=== PATIENT | female | born 1990 | race Hispanic/Latino ===

== ENCOUNTER 2018-12-13 08:21 | Emergency (ER) | payer SELFPAY ==
--- OUTSIDE RECORDS SUMMARY | 2018-12-13 08:26 | XMS REPORT | Clinical Summary ---
:1990 Author Organization [facility] Address [address] [place] [id number] Care Team Providers Name Role Phone Unavailable Primary Care Provider Unavailable Allergies No Known Allergies Medications Medication Sig Dispensed Refills Start Date End Date Status acetaminophen (TYLENOL) Take 2 tablets by 30 tablet 0 03/03/2016 Active 325 mg mouth every 6 tabletIndications: hours as needed Acute cholecystitis for Pain. famotidine (PEPCID) 20 Take 1 tablet by 60 tablet 0 03/03/2016 Active mg tabletIndications: mouth 2 times Acute cholecystitis daily. traMADol (ULTRAM) 50 mg Take 1 tablet by 30 tablet 0 03/03/2016 Active tabletIndications: mouth every 6 Acute cholecystitis hours as needed for Pain. naproxen (NAPROSYN) 375 Take 1 tablet by 30 tablet 0 06/14/2018 Active mg tabletIndications: mouth 2 times Intractable episodic daily as needed headache, unspecified for Other headache type (headache). Active Problems Problem Noted Date Headache 05/31/2017 Acute cholecystitis s/p lap shashi 03/0202/29/2016 Calculus of gallbladder without cholecystitis without obstruction Constipation Intractable episodic headache Encounters Date Type Specialty Care Team Description 06/14/2018 Emergency Emergency Medicine Junior Cooper MD Intractable episodic headache, unspecified headache type (Primary Dx); Rib pain after 12/12/2017 Family History Medical History Relation Name Comments Diabetes Maternal Grandmother Hypertension Mother Lipids Mother Hypertension Sister Relation Name Status Comments Maternal Grandmother Mother Sister Social History Tobacco Use Types Packs/Day Years Used Date Never Smoker Smokeless Tobacco: Never Used Alcohol Use Drinks/Week oz/Week Comments Yes socially Sex Assigned at Date Recorded Not on file Job Start Date Occupation Industry Not on file Not on file Not on file Travel History Travel Start Travel End No recent travel history available. Last Filed Vital Signs Vital Sign Reading Time Taken Blood Pressure 113/72 06/14/2018 4:17 PM CDT Pulse 76 06/14/2018 4:17 PM CDT Temperature 36.9 C (98.4 F) 06/14/2018 4:17 PM CDT Respiratory Rate 14 06/14/2018 4:17 PM CDT Oxygen Saturation 98% 06/14/2018 4:17 PM CDT Inhaled Oxygen Concentration - - Weight - - Height - - Body Mass Index - - Plan of Treatment Health Maintenance Due Date Last Done Comments Cervical Cancer Scrn (3 Yrs) 2011 IMM Influenza Seasonal Jul to December (>/=19 yrs) 07/19/2018 Procedures Procedure Name Priority Date/Time Associated Diagnosis Comments CT HEAD W/O STAT 06/14/2018 3:02 PM Intractable episodic Results for this CONTRAST CDT headache, procedure are in unspecified headache the results type section. BMP POC Routine 06/14/2018 2:49 PM Results for this CDT procedure are in the results section. POCT URINE DIPSTICK STAT 06/14/2018 1:44 PM Results for this - CDT procedure are in the results section. CBC/DIFF STAT 06/14/2018 1:37 PM Results for this CDT procedure are in the results section. after 12/12/[address] HEAD W/O CONTRAST (06/14/2018 3:02 PM CDT) Impressions Performed At IMPRESSION: SMS 1.No abnormalities 2.No changes when compared to the head CT on 05/31/2017. A "PRELIMINARY" report was made available via [employer] at the time of dictation by the resident indicated below. If the report is described as "FINALIZED" it indicates the attending/staff radiologist below has reviewed the images and agrees with the resident's interpretation. Dictated By: Fabian Dean MD, 06/14/2018 3:57 PM I have reviewed the study and agree with the findings in this report. Signed By: Kristian Callahan MD, 06/14/2018 3:59 PM Narrative Performed At Exam: Head CT WITHOUT contrast SMS History: headache Comparison studies: Head CT 05/31/2017 Technique: Axial scans were obtained from skull base to the vertex . Coronal and sagittal reconstructions obtained from the axial data. IV Contrast: None Complications: None Radiation Dose: Total DLP: 832 mGy*cm Estimated Effective Dose: DLP x 0.0021 mSv FINDINGS: Scalp/Skull: No abnormalities. Brain sulci: Appropriate for patient's age. Ventricles: Normal in size and configuration.. No hydrocephalus. Extra-axial: No masses or fluid collections. Parenchyma: No abnormal densities. No masses, hemorrhage, acute or chronic cortical vascular insults . Dural sinuses:No abnormal densities. Sellar/Suprasellar region: Intact. Skull base and Craniocervical junction: Intact.. Incidental findings: None. Procedure Note Interface, Rad/Mammog In - 06/14/2018 4:04 PM CDT Exam: Head CT WITHOUT contrast History: headache Comparison studies: Head CT 05/31/2017 Technique: Axial scans were obtained from skull base to the vertex . Coronal and sagittal reconstructions obtained from the axial data. IV Contrast: None Complications: None Radiation Dose: Total DLP: 832 mGy*cm Estimated Effective Dose: DLP x 0.0021 mSv FINDINGS: Scalp/Skull: No abnormalities. Brain sulci: Appropriate for patient's age. Ventricles: Normal in size and configuration.. No hydrocephalus. Extra-axial: No masses or fluid collections. Parenchyma: No abnormal densities. No masses, hemorrhage, acute or chronic cortical vascular insults . Dural sinuses: No abnormal densities. Sellar/Suprasellar region: Intact. Skull base and Craniocervical junction: Intact.. Incidental findings: None. IMPRESSION IMPRESSION: 1. No abnormalities 2. No changes when compared to the head CT on 05/31/2017. A "PRELIMINARY" report was made available via [employer] at the time of dictation by the resident indicated below. If the report is described as "FINALIZED" it indicates the attending/staff radiologist below has reviewed the images and agrees with the resident's interpretation. Dictated By: Fabian Dean MD, 06/14/2018 3:57 PM I have reviewed the study and agree with the findings in this report. Signed By: Kristian Callahan MD, 06/14/2018 3:59 PM Performing Organization Address City/State/Zipcode Phone Number SMS BMP POC (06/14/2018 2:49 PM CDT) CO2 POC 24 21 - 32 mmol/L [facility] Chloride POC 106 98 - 107 mmol/L [facility] Potassium POC 3.7 3.50 - 5.10 mmol/L [facility] Sodium POC 141 136 - 145 mmol/L [facility] Glucose POC 93 74 - 106 mg/dL [facility] Urea Nitrogen POC 9 7 - 18 mg/dL [facility] Creatinine POC 0.6 0.6 - 1.3 mg/dL [facility] Calcium Ionized POC 1.19 1.15 - 1.29 mmol/L [facility] Hemoglobin POC 12.6 12.0 - 16.0 g/dL [facility] Hematocrit POC 37.0 37.0 - 47.0 % [facility] GFR, Estimated >60 mL/min/1.73 m2 [facility] GFR, Estim, Afr-Am >60 mL/min/1.73 m2 [facility] 1 Performing Organization Address City/State/Zipcode Phone Number [facility] POCT URINE DIPSTICK - (06/14/2018 1:44 PM CDT) Pathologist [facility] Control PRESENT NEGATIVE CBC/DIFF (06/14/2018 1:37 PM CDT) Pathologist [facility] WBC 6.0 4.5 - 11.0 K/uL [facility] 2 RBC 4.26 4.20 - 5.40 M/uL [facility] Hemoglobin 12.2 12.0 - 16.0 g/dL [facility] Hematocrit 37.2 37.0 - 47.0 % [facility] 2 MCV 87 82 - 92 fL [facility] 2 MCH 28.6 27.0 - 32.0 pg [facility] MCHC 32.8 32.0 - 36.0 g/dL [facility] RDW 47.8 (H) 36.4 - 46.3 fL [facility] Platelet 270 150 - 400 K/uL [facility] 2 Mean Platelet Volume 11.1 9.4 - 12.4 fL [facility] Percent NRBC 0.0 [facility] Absolute NRBC 0.00 [facility] Neutrophil 66.2 34.0 - 70.0 % [facility] Lymphocyte 24.7 20.0 - 50.0 % [facility] Monocyte 5.8 5.0 - 12.0 % [facility] Eosinophil 2.5 0.7 - 5.0 % [facility] Basophil 0.5 0.1 - 1.2 % [facility] Pct Immat Gran 0.3 0.0 - 0.5 [facility] Neutrophil, Abs 3.97 1.56 - 6.13 K/uL [facility] Lymphocyte, Abs 1.48 1.18 - 3.74 K/uL [facility] Monocyte, Abs 0.35 0.24 - 0.36 K/uL [facility] Eosinophil, Abs 0.15 0.04 - 0.36 K/uL [facility] 2 Basophil, Abs 0.03 0.01 - 0.08 K/uL [facility] 2 Absol Immat Gran 0.02 0.00 - 0.03 K/uL [facility] Specimen Blood Performing Organization Address City/State[facility] Phone Number [facility] after 12/12/2017 Insurance Payer Benefit Plan / Subscriber ID Effective Dates Phone Address Type Group [employer]D H[employer]D UNSCREENED xxxxxxxxx 2017-Prese [phone] [id number] [place] [address] Advance Directives For more information, please contact:[address] [address] Code Status Date Activated Date Inactivated Comments Full Code 02/28/2016 10:30 PM 03/03/2016 7:15 PM
--- OUTSIDE RECORDS SUMMARY | 2018-12-13 08:27 | XMS REPORT | Clinical Summary ---
:1990 Author Organization [facility] Address [address] [place] [address] Care Team Providers Name Role Phone Asked, No Pcp Primary Care Provider Unavailable Allergies No Known Allergies Medications Medication Sig Dispensed Refills Start Date End Date Status topiramate (TOPAMAX) Take 1 tablet 60 tablet 0 11/21/2018 12/21/2018 Active 25 MG tablet (25 mg total) by mouth 2 (two) times a day for 30 days. atorvastatin (LIPITOR) Take 1 tablet 30 tablet 0 11/21/2018 12/21/2018 Active 40 MG tablet (40 mg total) by mouth nightly for 30 days. polyvinyl alcohol Administer 1 15 mL 0 11/21/2018 12/21/2018 Active (LIQUIFILM TEARS) 1.4 drop to both % ophthalmic solution eyes as needed for dry eyes for up to 30 days. aspirin 81 mg chewable Chew 1 tablet 30 tablet 0 11/22/2018 12/22/2018 Active tablet (81 mg total) daily for 30 days. B complex-vitamin Take 1 tablet by 30 tablet 0 11/22/2018 12/22/2018 Active C-folic acid (FOLBEE mouth daily for PLUS 5 MG) 5 mg tablet 30 days. per tablet thiamine mononitrate, Take 0.5 tablets 30 tablet 0 11/22/2018 12/22/2018 Active vit B1, (B-1) 100 mg (50 mg total) by tablet mouth daily for 30 days. cyclobenzaprine Take 1 tablet 30 tablet 0 12/04/2018 12/14/2018 Active (FLEXERIL) 10 mg (10 mg total) by tablet mouth 3 (three) times a day as needed for muscle spasms for up to 10 days. valACYclovir (VALTREX) Take 1 tablet 8 tablet 0 11/21/2018 11/25/2018 500 MG tablet (500 mg total) by mouth 2 (two) times a day for 4 days. predniSONE (DELTASONE) Take 2 tablets 6 tablet 0 11/22/2018 11/25/2018 20 mg tablet (40 mg total) by mouth daily for 3 days. acetaminophen-codeine Take 1 tablet by 10 tablet 0 11/21/2018 11/26/2018 (TYLENOL WITH CODEINE mouth every 6 #3) 300-30 mg per (six) hours as tablet needed for moderate pain for up to 5 days. keTOROlac (TORadol) 10 Take 1 tablet 20 tablet 0 12/04/2018 12/09/2018 mg tablet (10 mg total) by mouth every 6 (six) hours as needed for moderate pain for up to 5 days. Active Problems Problem Noted Date Acute nonintractable headache 11/18/2018 Encounters Date Type Specialty Care Team Description 12/11/2018 Emergency Emergency Erum Oneil Rapid palpitations Medicine MD Christian (Primary Dx) 12/04/2018 Emergency Emergency Kia Tena-Juan J Tension headache (Primary Dx); Medicine MD Nino Pleuritic chest pain 11/18/2018 - [facility] General Internal Rufino Tao Acute nonintractable headache, unspecified headache type (Primary Dx); 11/21/2018 Encounter Medicine Travis Younger, Torticollis, acute; Blurred vision, right eye Alberta Madison MD after 12/12/2017 Social History Tobacco Use Types Packs/Day Years Used Date Light Tobacco Smoker Cigarettes Smokeless Tobacco: Never Used Alcohol Use Drinks/Week oz/Week Comments Yes once a week Sex Assigned at Date Recorded Not on file Job Start Date Occupation Industry Not on file Not on file Not on file Travel History Travel Start Travel End No recent travel history available. Last Filed Vital Signs Vital Sign Reading Time Taken Blood Pressure 124/79 12/11/2018 4:58 PM [facility] Pulse 72 12/11/2018 4:58 PM [facility] Temperature 36.8 C (98.2 F) 12/11/2018 2:51 PM [facility] Respiratory Rate 18 12/11/2018 4:58 PM [facility] Oxygen Saturation 96% 12/11/2018 4:58 PM [facility] Inhaled Oxygen Concentration - - Weight - - Height 162.6 cm (5' 4") 12/11/2018 3:01 PM [facility] Body Mass Index - - Plan of Treatment Health Maintenance Due Date Last Done Comments CERVICAL CANCER SCREENING 2011 INFLUENZA VACCINE 05/19/2018 Procedures Procedure Name Priority Date/Time Associated Comments Diagnosis XR CHEST 2 VW STAT 12/11/2018 5:29 Results for this PM [facility] procedure are in the results section. HCG QUALITATIVE, URINE Routine 12/11/2018 3:59 Results for this SCREEN PM [facility] procedure are in the results section. URINE DRUGS OF ABUSE STAT 12/11/2018 3:59 Results for this SCREEN PM [facility] procedure are in the results section. ESTIMATED GFR STAT 12/11/2018 3:52 Results for this PM [facility] procedure are in the results section. THYROID STIMULATING STAT 12/11/2018 3:52 Results for this HORMONE PM [facility] procedure are in the results section. B NATRIURETIC PEPTIDE STAT 12/11/2018 3:52 Results for this PM [facility] procedure are in the results section. LIPASE LEVEL STAT 12/11/2018 3:52 Results for this PM [facility] procedure are in the results section. TROPONIN STAT 12/11/2018 3:52 Results for this PM [facility] procedure are in the results section. COMPREHENSIVE METABOLIC STAT 12/11/2018 3:52 Results for this PANEL PM [facility] procedure are in the results section. PARTIAL THROMBOPLASTIN STAT 12/11/2018 3:52 Results for this TIME (PTT) PM [facility] procedure are in the results section. PROTHROMBIN TIME WITH STAT 12/11/2018 3:52 Results for this INR PM [facility] procedure are in the results section. HC COMPLETE BLD COUNT STAT 12/11/2018 3:52 Results for this W/AUTO DIFF PM [facility] procedure are in the results section. ECG ED PRELIMINARY Routine 12/11/2018 3:34 Results for this INTERPRETATION PM [facility] procedure are in the results section. ECG 12-LEAD STAT 12/11/2018 3:04 Results for this PM [facility] procedure are in the results section. CT ANGIOGRAM PE CHEST STAT 12/04/2018 5:10 Results for this PM [facility] procedure are in the results section. HCG QUALITATIVE, URINE Routine 12/04/2018 4:15 Results for this SCREEN PM [facility] procedure are in the results section. RESPIRATORY PATHOGEN Routine 12/04/2018 4:15 Results for this PANEL PM [facility] procedure are in the results section. INFLUENZA ANTIGEN TEST, Routine 12/04/2018 4:15 Results for this REFLEX NEGATIVE TO RPP PM [facility] procedure are in the results section. ESTIMATED GFR STAT 12/04/2018 3:30 Results for this PM [facility] procedure are in the results section. INFECTIOUS STAT 12/04/2018 3:30 Results for this MONONUCLEOSIS SCREEN PM [facility] procedure are in the results section. COMPREHENSIVE METABOLIC STAT 12/04/2018 3:30 Results for this PANEL PM [facility] procedure are in the results section. HC COMPLETE BLD COUNT STAT 12/04/2018 3:30 Results for this W/AUTO DIFF PM [facility] procedure are in the results section. POC , URINE STAT 12/04/2018 4:[address] [facility] [address] LUMBAR SPINE WO Routine 11/21/2018 9:36 Results for this CONTRAST AM [facility] procedure are in the results section. B. BURGDORFERI ABS Routine 11/21/2018 7:47 Results for this TOTAL, SERUM AM [facility] procedure are in the results section. ANGIOTENSIN CONVERTING Routine 11/21/2018 7:47 Results for this ENZYME AM [facility] procedure are in the results section. ESTIMATED GFR Routine 11/21/2018 3:58 Results for this AM [facility] procedure are in the results section. LIPID PANEL Routine 11/21/2018 3:58 Results for this AM [facility] procedure are in the results section. BASIC METABOLIC PANEL Routine 11/21/2018 3:58 Results for this AM [facility] procedure are in the results section. HC COMPLETE BLD COUNT Routine 11/21/2018 3:58 Results for this W/AUTO DIFF AM [facility] procedure are in the results section. MRI BRAIN W WO CONTRAST Routine 11/20/2018 11:39 Results for this PM [facility] procedure are in the results section. MRI CERVICAL SPINE W WO Routine 11/20/2018 11:18 Results for this CONTRAST PM [facility] procedure are in the results section. CT SOFT TISSUE NECK WO Routine 11/20/2018 11:04 Results for this CONTRAST AM [facility] procedure are in the results section. ESTIMATED GFR Routine 11/20/2018 2:13 Results for this AM [facility] procedure are in the results section. LIPID PANEL Routine 11/20/2018 2:13 Results for this AM [facility] procedure are in the results section. BASIC METABOLIC PANEL Routine 11/20/2018 2:13 Results for this AM [facility] procedure are in the results section. HC COMPLETE BLD COUNT Routine 11/20/2018 2:13 Results for this W/AUTO DIFF AM [facility] procedure are in the results section. SYPHILIS TREPONEMAL IGG Routine 11/19/2018 8:26 Results for this PM [facility] procedure are in the results section. RAPID HIV 1 & 2 Routine 11/19/2018 8:26 Results for this PM [facility] procedure are in the results section. C-REACTIVE PROTEIN Routine 11/19/2018 8:26 Results for this PM [facility] procedure are in the results section. SEDIMENTATION RATE Routine 11/19/2018 8:26 Results for this PM [facility] procedure are in the results section. CT HEAD WO CONTRAST STAT 11/19/2018 4:40 Results for this PM [facility] procedure are in the results section. URINE DRUGS OF ABUSE Routine 11/19/2018 3:47 Results for this SCREEN PM [facility] procedure are in the results section. IR LUMBAR PUNCTURE Routine 11/19/2018 1:24 Results for this PM [facility] procedure are in the results section. OLIGOCLONAL BANDING, Routine 11/19/2018 1:15 Results for this CSF PM [facility] procedure are in the results section. IGG SYNTHESIS RATE Routine 11/19/2018 1:15 Results for this STUDY PM [facility] procedure are in the results section. VDRL, CSF SCREEN Routine 11/19/2018 1:15 Results for this PM [facility] procedure are in the results section. GLUCOSE LEVEL, CSF Routine 11/19/2018 1:15 Results for this PM [facility] procedure are in the results section. CSF CELL COUNT WITH Routine 11/19/2018 1:15 Results for this DIFFERENTIAL PM [facility] procedure are in the results section. GRAM STAIN Routine 11/19/2018 1:15 Results for this PM [facility] procedure are in the results section. CRYPTOCOCCAL ANTIGEN Routine 11/19/2018 1:15 Results for this SCREEN PM [facility] procedure are in the results section. CSF CULTURE Routine 11/19/2018 1:15 Results for this PM [facility] procedure are in the results section. MRI BRAIN VENOGRAM Routine 11/19/2018 11:54 Results for this AM [facility] procedure are in the results section. XR CERVICAL SPINE 2 OR Routine 11/19/2018 11:17 Results for this 3 VW AM [facility] procedure are in the results section. XR LUMBAR SPINE 2 OR 3 Routine 11/19/2018 11:16 Results for this VW AM [facility] procedure are in the results section. HEMOGLOBIN A1C Routine 11/19/2018 9:11 Results for this AM [facility] procedure are in the results section. LIPID PANEL Routine 11/19/2018 9:11 Results for this AM [facility] procedure are in the results section. THYROID STIMULATING Routine 11/19/2018 9:11 Results for this HORMONE AM [facility] procedure are in the results section. VITAMIN B12 LEVEL Routine 11/19/2018 9:11 Results for this AM [facility] procedure are in the results section. CT ANGIOGRAM HEAD W WO Routine 11/19/2018 8:47 Results for this CONTRAST AM [facility] procedure are in the results section. CT ANGIOGRAM NECK W WO Routine 11/19/2018 8:46 Results for this CONTRAST AM [facility] procedure are in the results section. MRI BRAIN WO CONTRAST Routine 11/19/2018 8:24 Results for this AM [facility] procedure are in the results section. CT HEAD WO CONTRAST STAT 11/18/2018 6:55 Results for this PM [facility] procedure are in the results section. ESTIMATED GFR STAT 11/18/2018 6:20 Results for this PM [facility] procedure are in the results section. HCG QUALITATIVE, URINE STAT 11/18/2018 6:20 Results for this SCREEN PM [facility] procedure are in the results section. URINALYSIS SCREEN AND STAT 11/18/2018 6:20 Results for this MICROSCOPY, WITH REFLEX PM [facility] procedure are in TO CULTURE the results section. COMPREHENSIVE METABOLIC STAT 11/18/2018 6:20 Results for this PANEL PM [facility] procedure are in the results section. HC COMPLETE BLD COUNT STAT 11/18/2018 6:20 Results for this W/AUTO DIFF PM [facility] procedure are in the results section. URINE CULTURE STAT 11/18/2018 6:20 Results for this PM [facility] procedure are in the results section. after 12/12/2017 Results XR Chest 2 Vw (12/11/2018 5:29 PM [facility]) Narrative Performed At EXAMINATION:XR CHEST 2 VW [facility] CLINICAL HISTORY:chest paintachycardia COMPARISON:None. IMPRESSION: Lungs are clear Heart is nonenlarged Bony structures are within normal limits [facility]-[id number] Procedure Note Interface, Radiology Results Incoming - 12/11/2018 5:33 PM [facility] EXAMINATION: XR CHEST 2 VW CLINICAL HISTORY: chest pain tachycardia COMPARISON: None. IMPRESSION: Lungs are clear Heart is nonenlarged Bony structures are within normal limits [facility]-[id number] Performing Organization Address City/State/Zipcode Phone Number [facility] [address] [place] [address] hCG qualitative, urine screen (12/11/2018 3:59 PM [facility])Only the most recent of3 resultswithin the time period is included. hCG qualitative, urine NegativeComment: NATALIA JUDAISM SUGAR Sensitivity of HCG test: [facility] mIU/ml Specimen Urine Performing Organization Address City/[facility]/Zipcode Phone Number [facility] [address] [place] [address] Urine drugs of abuse screen (12/11/2018 3:59 PM [facility])Only the most recent of2 resultswithin the time period is included. Amphetamine screen, urine Negative [facility] Barbiturate screen, urine Negative [facility] Benzodiazepine screen, Negative [facility] urine [facility] Cannabinoid screen, urine Negative [facility] Cocaine screen, urine Negative [facility] Methadone metabolite Negative [facility] (ED[facility]), urine [facility] Opiates screen, urine Negative [facility] Phencyclidine screen, urine Negative [facility] Tricyclic screen, urine Negative [facility] Comment: [facility] Drug screen minimum concentration of detectability Wvygunnavbvs0704 ng/mL Barbiturates 200 ng/mL Uehejbebaexxeej073 ng/mL Rqhubig075 ng/mL Cayyfbsja828 ng/mL Prybuup377 ng/mL Phencyclidine 25 ng/mL Hqsgpinunchh49 ng/mL Htwnjqqakr3653 ng/mL Results are from screening tests and should only be used for medical evaluation. Drug testing for legal purposes requires definitive (or confirmatory) testing methods, which are available upon request. Contact the laboratory if definitive testing is required. Specimen Urine Performing Organization Address City/[facility]/Zipcode Phone Number [facility] [address] [place] [address] AND [facility] [id number] [place] [address] Estimated GFR (12/11/2018 3:52 PM [facility])Only the most recent of5 resultswithin the time period is included. Estimated GFR >=90 mL/min/1.73 m2 [facility] Comment: [facility] CatergoryUnitsInterpretation G1 >=90 Normal or high G2 60-89Mildly decreased [id number] to moderately decreased V4c62-56Qharcosvek to severely decreased G4 15-29Severely decreased G5 <15Kidney failure The eGFR was calculated using the Chronic Kidney Disease Epidemiology Collaboration (CKD-EPI) equation. Interpretation is based on recommendations of the National Kidney Foundation-Kidney Disease Outcomes Quality Initiative (NKF-KDOQI) published in 2014. Specimen Plasma specimen Performing Organization Address [facility]/[place] Phone Number [facility] [address] [place] [address] [place] [address] HOSPITAL Troponin (12/11/2018 3:52 PM [facility]) Troponin <0.30 0.00 - 0.30 ng/mL [facility] Comment: HOSPITAL 0.11 - 1.49 ng/mlMay indicate increased risk of acute coronary syndrome. >=1.5 ng/mlConsistent with acute myocardial infarction. The diagnostic value of a single normal or non-diagnostic result is questionable.Serial samples at 2-6 hour intervals are required to rule out acute myocardial injury. Specimen Plasma specimen Performing Organization Address [facility] Phone Number [facility] [address] [place] [address] Partial thromboplastin time, activated (12/11/2018 3:52 PM [facility]) PTT 30.2 23.0 - 36.0 sec [facility] Comment: [facility] PTT therapeutic range for unfractionated heparin is 61.0-112.0 seconds which corresponds to Anti-Xa 0.3-0.7 U/ml. Specimen Blood Performing Organization Address [facility] Phone Number [facility] [address] [place] [address] [place] [address] HOSPITAL Prothrombin time with INR (12/11/2018 3:52 PM [facility]) Prothrombin time 13.1 11.5 - 14.5 sec [facility] INR 1.0 [facility] Comment: [facility] The International Normalized Ratio (INR) is a therapeutic monitoring tool for patients who are stable on oral anticoagulant therapy. An INR of 2.0-3.0 is suggested for deep vein thrombosis/pulmonary embolism. Specimen Blood Performing Organization Address [facility]/State/Zipcode Phone Number [facility] [address] [place] [address] AND [facility] [phone] [place] [address] CBC with platelet and differential (12/11/2018 3:52 PM [facility])Only the most recent of5 resultswithin the time period is included. WBC 5.3 4.5 - 11.0 k/uL [facility] RBC 4.35 4.20 - 5.50 m/uL [facility] HGB 13.1 12.0 - 16.0 g/dL [facility] HCT 39.5 37.0 - 47.0 % [facility] MCV 90.8 82.0 - 100.0 fL [facility] MCH 30.1 27.0 - 34.0 pg [facility] MCHC 33.2 31.0 - 37.0 g/dL [facility] RDW - SD 45.1 37.0 - 55.0 fL [facility] MPV 10.9 6.9 - 11.0 fL [facility] Platelet count 277 150 - 400 K/uL [facility] Nucleated RBC 0.00 /100 WBC [facility] Neutrophils 61.8 39.0 - 69.0 % [facility] Lymphocytes 31.7 25.0 - 45.0 % [facility] Monocytes 5.3 0.0 - 10.0 % [facility] Eosinophils 1.0 0.0 - 5.0 % [facility] Basophils 0.2 0.0 - 1.0 % [facility] Immature granulocytes 0.0 0.0 - 1.0 % [facility] Specimen Blood Performing Organization Address City/State/Zipcode Phone Number [facility] [address] [place] [address] AND [facility] [phone] [place] [address] Thyroid stimulating hormone (12/11/2018 3:52 PM [facility])Only the most recent of2 resultswithin the time period is included. TSH 3.71 0.27 - 4.20 uIU/mL [facility] Specimen Blood Performing Organization Address City/[facility]/Zipcode Phone Number [facility] [address] [place] [address] B natriuretic peptide (12/11/2018 3:52 PM [facility]) BNP 3 0 - 100 pg/mL [facility] Specimen Blood Performing Organization Address City/[facility]/[place] Phone Number [facility] [address] [place] [address] Lipase level (12/11/2018 3:52 PM [facility]) Lipase 33 13 - 60 U/L [facility] Specimen Plasma specimen Performing Organization Address [facility]/[place] Phone Number [facility] [address] [place] [address] Comprehensive metabolic panel (12/11/2018 3:52 PM [facility])Only the most recent of3 resultswithin the time period is included. Sodium 140 135 - 148 mEq/L [facility] Potassium 3.8 3.5 - 5.0 mEq/L [facility] Chloride 107 98 - 112 mEq/L [facility] CO2 22 (L) 24 - 31 mEq/L [facility] Anion gap 11@ANIO 7 - 15 mEq/L [facility] BUN 7 6 - 20 mg/dL [facility] Creatinine 0.63 0.50 - 0.90 mg/dL [facility] Glucose 99 65 - 99 mg/dL [facility] Calcium 9.3 8.3 - 10.2 mg/dL [facility] Protein 7.6 6.3 - 8.3 g/dL [facility] Albumin 4.6 3.5 - 5.0 g/dL [facility] A/G ratio 1.5 0.7 - 3.8 [facility] Alkaline phosphatase 68 35 - 104 U/L [facility] AST 25 10 - 35 U/L [facility] ALT 44 5 - 50 U/L [facility] Total bilirubin 0.3 0.2 - 1.2 mg/dL [facility] Specimen Plasma specimen Performing Organization Address City/State/Zipcode Phone Number [facility] [address] [place] [address] AND GENOMIC MEDICINE [facility] [address] ECG ED Preliminary Interpretation - Not an Order (12/11/2018 3:34 PM [facility]) Narrative Performed At Erum Oneil MD 12/11/20187:30 PM ECG ED Preliminary Interpretation - Not an Order Performed by: Jose Hernandez NP Authorized by: Erum Oneil MD ECG reviewed by ED Physician in the absence of a planning analyst: yes Interpretation: Interpretation: abnormal Rate: ECG rate:94 ECG rate assessment: normal Rhythm: Rhythm: sinus rhythm Ectopy: Ectopy: none QRS: QRS axis:Normal QRS intervals:Normal ST segments: ST segments:Non-specific T waves: T waves: non-specific ECG 12 lead (12/11/2018 3:04 PM [facility]) Ventricular rate 94 [facility] Atrial rate 94 [facility] VA interval 138 [facility] QRSD interval 84 [facility] QT interval 334 [facility] QTC interval 417 [facility] P axis 1 32 [facility] QRS axis 1 48 [facility] T wave axis 1 [facility] EKG impression Normal sinus rhythm-Possible Inferior infarct (cited on or before 23-JUL-2016)-Possible Anterior infarct (cited on or before 23-JUL-2016)- Abnormal ECG-In automated comparison with ECG of 23-JUL-2016 08: [facility] MUSE 13,-No significant change was found- Narrative Performed At Performing Organization Address City/State/Zipcode Phone Number [facility] M[facility] [address] [place] [address] CT Angiogram Pe Chest (12/04/2018 5:10 PM [facility]) Narrative Performed At EXAMINATION: [facility] CT ANGIOGRAM PE CHEST CLINICAL HISTORY:28 years Female pain TECHNIQUE:CT angiographic images of the chest were obtained during intravenous administration of iodinated contrast. Computerized reformatted images and 3-D MIP images were also obtained and archived (CT pulmonary embolus protocol). CT imaging was performed with iterative reconstruction techniques and/or automated exposure control to reduce radiation dose. COMPARISON: None. FINDINGS: CHEST: Pulmonary arteries: No evidence of acute pulmonary embolism. Lungs and airways: No acute airspace disease or suspicious pulmonary nodules. Pleura: No pleural effusion or pneumothorax. Mediastinum and lymph nodes: No lymphadenopathy. Cardiovascular: The heart is slightly enlarged. No pericardial effusion. The thoracic aorta is normal in caliber. No dissection. Upper abdomen: Status post cholecystectomy. Bones: No suspicious osseous lesions. Other: None. IMPRESSION: 1.No CT evidence of acute pulmonary thromboembolic disease. 2.No acute abnormality of the chest. [facility]-[id number] Procedure Note Interface, Radiology Results Incoming - 12/04/2018 5:18 PM [facility] EXAMINATION: CT ANGIOGRAM PE CHEST CLINICAL HISTORY:28 years Female pain TECHNIQUE: CT angiographic images of the chest were obtained during intravenous administration of iodinated contrast. Computerized reformatted images and 3-D MIP images were also obtained and archived (CT pulmonary embolus protocol). CT imaging was performed with iterative reconstruction techniques and/or automated exposure control to reduce radiation dose. COMPARISON: None. FINDINGS: CHEST: Pulmonary arteries: No evidence of acute pulmonary embolism. Lungs and airways: No acute airspace disease or suspicious pulmonary nodules. Pleura: No pleural effusion or pneumothorax. Mediastinum and lymph nodes: No lymphadenopathy. Cardiovascular: The heart is slightly enlarged. No pericardial effusion. The thoracic aorta is normal in caliber. No dissection. Upper abdomen: Status post cholecystectomy. Bones: No suspicious osseous lesions. Other: None. IMPRESSION: 1. No CT evidence of acute pulmonary thromboembolic disease. 2. No acute abnormality of the chest. [facility]-[id number] Performing Organization Address City/State/Zipcode Phone Number [facility] [address] [place] [address] Respiratory pathogen panel (12/04/2018 4:15 PM [facility]) Respiratory pathogen Negative for all pathogens tested: [place] JUDAISM panel Negative for Adenovirus [facility] Negative for Coronavirus HKU1 Negative for Coronavirus NL63 Negative for Coronavirus 229E Negative for Coronavirus OC43 Negative for Human Metapneumovirus Negative for Rhinovirus/Enterovirus Negative for Influenza A Negative for Influenza A/H1 Negative for Influenza A/H3 Negative for Influenza A/H1-2009 Negative for Influenza B Negative for Parainfluenza Virus 1 Negative for Parainfluenza Virus 2 Negative for Parainfluenza Virus 3 Negative for Parainfluenza Virus 4 Negative for Respiratory Syncytial Virus Negative for Bordetella pertussis Negative for Chlamydophila pneumoniae Negative for Mycoplasma pneumoniae This real-time PCR assay detects the presence of nucleic acids (RNA or DNA) for the respiratory pathogens listed. A result of "Not-detected" does not exclude the possibility of the presence of one or more pathogens at concentrations less than the detectable limits of the assay. Comment: Specimen Information Specimen Source: Nares Specimen Site: Left Specimen Nares - Left Performing Organization Address [facility] Phone Number [facility] DEPARTMENT OF PATHOLOGY AND [address] [place] [address] Influenza antigen test, reflex negative to RPP (12/04/2018 4:15 PM [facility]) Influenza antigen Negative for Influenza A/B antigen. [facility] Comment: Specimen Information Specimen Source: Nares Specimen Site: Left Specimen Nares - Left Performing Organization Address [facility]/[employer] Phone Number [facility] DEPARTMENT OF PATHOLOGY AND [address] [place] [address] Infectious mononucleosis screen (12/04/2018 3:30 PM [facility]) Heterophile Ab screen Negative Negative [facility] Specimen Blood Performing Organization Address [facility] Phone Number [facility] DEPARTMENT OF PATHOLOGY AND [address] [place] [address] Lumbar Spine Wo Contrast (11/21/2018 9:36 AM [facility]) Narrative Performed At EXAMINATION: CT LUMBAR SPINE WO CONTRAST [facility] CLINICAL HISTORY: Abn xrayL S-spineDJD, 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 CT imaging was performed with iterative reconstruction technique and/or automated exposure control to reduce radiation dose. FINDINGS: Vertebral body heights are maintained without acute fracture. No focal significant osseous abnormality is appreciated. Soft tissues shows no mass, adenopathy or aneurysm. Lumbar spine alignment is grossly preserved with normal lordosis without significant subluxation. There are some degenerative changes of the sacroiliac joints with sclerosis most prominent along the inferior right sacroiliac joint. Correlate for sacroiliac pain to determine significance. There is some narrowing of the right sacroiliac joint compared to left. No erosive changes or fusion identified. Findings suggest sequela from prior sacroiliitis. Axial images through the disc spaces demonstrate the following: L1-L2: No significant posterior disc disease, spinal canal or neural foraminal stenosis. L2-L3: No significant posterior disc disease, spinal canal or neural foraminal stenosis. L3-L4: No significant posterior disc disease, spinal canal or neural foraminal stenosis. L4-L5: There is mild disc bulge and minimal facet changes. There is no stenosis. L5-S1: There is mild disc bulge. There is no stenosis. Visualized pelvis shows slight prominence of the uterus with a slightly prominent endometrial cavity which may represent changes from a multiparous uterus or underlying fibroids. Clinically correlate. IMPRESSION: The uterus is slightly enlarged. This may be from a multiparous uterus or indicate underlying fibroids. There are some degenerative changes of the sacroiliac joints, right greater than left with some sclerosis. 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 Clinically correlate. No acute or significant lumbar spine abnormality identified. [facility]-[id number] Procedure Note [facility], Radiology Results Incoming - 11/21/2018 9:58 AM [facility] EXAMINATION: CT LUMBAR SPINE WO CONTRAST CLINICAL HISTORY: Abn xray L S-spine DJD, L S-spine stenosis, Radiculopathy 6wks conservative tx persistent sx COMPARISON: None TECHNIQUE: Axial noncontrast enhanced images of lumbar spine was performed with coronal sagittal reconstruction algorithms. CT imaging was performed with iterative reconstruction technique and/or automated exposure control to reduce radiation dose. FINDINGS: Vertebral body heights are maintained without acute fracture. No focal significant osseous abnormality is appreciated. Soft tissues shows no mass, adenopathy or aneurysm. Lumbar spine alignment is grossly preserved with normal lordosis without significant subluxation. There are some degenerative changes of the sacroiliac joints with sclerosis most prominent along the inferior right sacroiliac joint. Correlate for sacroiliac pain to determine significance. There is some narrowing of the right sacroiliac joint compared to left. No erosive changes or fusion identified. Findings suggest sequela from prior sacroiliitis. Axial images through the disc spaces demonstrate the following: L1-L2: No significant posterior disc disease, spinal canal or neural foraminal stenosis. L2-L3: No significant posterior disc disease, spinal canal or neural foraminal stenosis. L3-L4: No significant posterior disc disease, spinal canal or neural foraminal stenosis. L4-L5: There is mild disc bulge and minimal facet changes. There is no stenosis. L5-S1: There is mild disc bulge. There is no stenosis. Visualized pelvis shows slight prominence of the uterus with a slightly prominent endometrial cavity which may represent changes from a multiparous uterus or underlying fibroids. Clinically correlate. IMPRESSION: The uterus is slightly enlarged. This may be from a multiparous uterus or indicate underlying fibroids. There are some degenerative changes of the sacroiliac joints, right greater than left with some sclerosis. 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 Clinically correlate. No acute or significant lumbar spine abnormality identified. [facility]-[id number] Performing Organization Address City/[facility]/Zipcode Phone Number [facility] [address] [place] [address] B. burgdorferi Abs total, serum (11/21/2018 7:47 AM [facility]) B. burgdorferi antibodies 0.51 0.00 - 1.20 [facility] Comment: INTERPRETIVE INFORMATION: Borrelia Burgdorferi Abs,Total by FREDDY 0.99 BAILEY or Less: ...... Negative: Antibody to B. burgdorferi not detected. 1.00 - 1.20 BAILEY......... Equivocal: Repeat testing in 10-14 days may be helpful. 1.21 BAILEY or Greater: ... Positive: Probable presence of antibody to B. burgdorferi detected. Performed by [facility], [address] [place] [id number] [email or web address], Aashish Nugent MD - Lab. Director Specimen Serum Performing Organization Address City/[facility]/Zipcode Phone Number [facility] [address] [place] [address] [facility] [address] [place] [address] Angiotensin converting enzyme (11/21/2018 7:47 AM [facility]) Angiotensin converting enzyme 17 9 - 67 U/L [facility] Comment: Performed by [facility], [address] [place] [address] [email or web address], Aashish Nugent MD - Lab. Director Specimen Serum Performing Organization Address City/[facility]/[employer] Phone Number [facility] [address] [place] [address] [facility] [address] [place] [address] Lipid panel (11/21/2018 3:58 AM [facility])Only the most recent of3 resultswithin the time period is included. Cholesterol 136 0 - 199 mg/dL [facility] Triglycerides 99 0 - 149 mg/dL [facility] HDL cholesterol 45 40 - 99,999 [facility] mg/dL [facility] LDL cholesterol 86 0 - 99 mg/dL [facility] Lipid panel See below [facility] interpretation Comment: [facility] Total Cholesterol (mg/dL) <200 Desirable 527-377Esvpfsxknc-jyar >=240High Triglycerides (mg/dL) <150 Normal [id number]-wbbu 200-499High >=500Very high HDL Cholesterol (mg/dL) <40Low (male) <50Low (female) LDL Cholesterol (mg/dL) <100 Optimal 100-129Near or above optimal [phone]-wvcf 160-189High >=190Very high Risk Catergories that modify LDL goals. Risk CatergoriesLDL goal (mg/dL) CHD and CHD risk equivalent<100 (10-year risk >20%) Multiple (2+) risk factors <130 (10-year risk=<20%) 0-1 risk factors <160 (<10-year risk) Defining levels of lipids in metabolic syndrome Triglycerides>=150 mg/dL HDL Cholesterol Men<40 mg/dL Women<50 mg/dL Non-HDL cholesterol is a second target for therapy in persons with high triglycerides (>=200 mg/dL) Specimen Plasma specimen Performing Organization Address City/[facility]/Zipcode Phone Number [facility] [address] [place] [address] AND [facility] [id number] [place] [address] Basic metabolic panel (11/21/2018 3:58 AM [facility])Only the most recent of2 resultswithin the time period is included. Sodium 141 135 - 148 mEq/L [facility] Potassium 3.6 3.5 - 5.0 mEq/L [facility] Chloride 110 98 - 112 mEq/L [facility] CO2 22 (L) 24 - 31 mEq/L [facility] Anion gap 9@ANIO 7 - 15 mEq/L [facility] BUN 12 6 - 20 mg/dL [facility] Creatinine 0.52 0.50 - 0.90 mg/dL [facility] Glucose 117 (H) 65 - 99 mg/dL [facility] Calcium 9.0 8.3 - 10.2 mg/dL [facility] Specimen Plasma specimen Performing Organization Address City/State/Zipcode Phone Number [facility] [address] [place] [address] AND [facility] [id number] [place] [address] MRI Brain W Wo Contrast (11/20/2018 11:39 PM [facility]) Narrative Performed At EXAM: MRI BRAIN W WO CONTRAST [facility] CLINICAL HISTORY: Headacheacutesevereworst DANIEL of life, Focal neuro deficit6 hrsstroke suspected, Left Diop's palsy TECHNIQUE: Multiplanar and multisequence MRI imaging of the brain was obtained with and without contrast. COMPARISON:CT brain, 11/19/2018 FINDINGS: No diffusion restriction to suggest acute infarct. Parenchymal volume is within normal limits. There is no abnormal parenchymal or leptomeningeal enhancement. No acute intracranial hemorrhage, mass, hydrocephalus, or extra-axial fluid collection identified. Although this examination is not optimized for the sella, pituitary is grossly normal in appearance. Midline structures are maintained. The major flow voids in the skull base are identified. Orbits are unremarkable. Paranasal sinuses are clear. Mastoid air cells are normally pneumatized. IMPRESSION: No acute intracranial abnormality identified. There is no enhancing lesion in the brain. If persistent concern for Diop's palsy, MRI IAC protocol is a more sensitive test for evaluation. [facility]-[id number] Procedure Note Interface, Radiology Results Incoming - 11/21/2018 12:27 AM [facility] EXAM: MRI BRAIN W WO CONTRAST CLINICAL HISTORY: Headache acute severe worst DANIEL of life, Focal neuro deficit 6 hrs stroke suspected, Left Diop's palsy TECHNIQUE: Multiplanar and multisequence MRI imaging of the brain was obtained with and without contrast. COMPARISON: CT brain, 11/19/2018 FINDINGS: No diffusion restriction to suggest acute infarct. Parenchymal volume is within normal limits. There is no abnormal parenchymal or leptomeningeal enhancement. No acute intracranial hemorrhage, mass, hydrocephalus, or extra-axial fluid collection identified. Although this examination is not optimized for the sella, pituitary is grossly normal in appearance. Midline structures are maintained. The major flow voids in the skull base are identified. Orbits are unremarkable. Paranasal sinuses are clear. Mastoid air cells are normally pneumatized. IMPRESSION: No acute intracranial abnormality identified. There is no enhancing lesion in the brain. If persistent concern for Diop's palsy, MRI IAC protocol is a more sensitive test for evaluation. [facility]-[id number] Performing Organization Address City/State/Zipcode Phone Number [facility] [address] [place] [address] MRI Cervical Spine W Wo Contrast (11/20/2018 11:18 PM [facility]) Narrative Performed At EXAM: MRI CERVICAL SPINE W WO CONTRAST [facility] CLINICAL HISTORY: Neck painchronicnormal neuro examneg xray, Radiculopathy TECHNIQUE: Multiplanar multisequence pre and post contrast enhanced examination was performed of the cervical spine. COMPARISON:MRI brain performed concurrently FINDINGS: The cervicomedullary junction is unremarkable. Cervical lordotic alignment, vertebral body height, and bone marrow signal are within normal limits. There is no evidence of acute fracture, suspicious osteolytic lesion, or suspicious osteoblastic lesion. No significant enhancing abnormality is noted on the postcontrast images. No abnormal spinal cord signal is present. No abnormal enhancement is identified. Evaluation of the disc levels is as follows: C1-C2:The atlantoaxial interval is intact. No significant thecal sac or foraminal stenosis. C2-C3: No significant thecal sac or foraminal stenosis. C3-C4: No significant thecal sac or foraminal stenosis. C4-C5: No significant thecal sac or foraminal stenosis. C5-C6: No significant thecal sac or foraminal stenosis. C6-C7: No significant thecal sac or foraminal stenosis. C7-T1: No significant thecal sac or foraminal stenosis. Visualized paraspinal soft tissues are unremarkable. No incidental thyroid nodules are noted. IMPRESSION: 1.No MRI evidence for acute vertebral fracture, spondylolisthesis, abnormal marrow signal, or abnormal cord signal. [facility]-[id number] Procedure Note Interface, Radiology Results Incoming - 11/21/2018 12:28 AM [facility] EXAM: MRI CERVICAL SPINE W WO CONTRAST CLINICAL HISTORY: Neck pain chronic normal neuro exam neg xray, Radiculopathy TECHNIQUE: Multiplanar multisequence pre and post contrast enhanced examination was performed of the cervical spine. COMPARISON: MRI brain performed concurrently FINDINGS: The cervicomedullary junction is unremarkable. Cervical lordotic alignment, vertebral body height, and bone marrow signal are within normal limits. There is no evidence of acute fracture, suspicious osteolytic lesion, or suspicious osteoblastic lesion. No significant enhancing abnormality is noted on the postcontrast images. No abnormal spinal cord signal is present. No abnormal enhancement is identified. Evaluation of the disc levels is as follows: C1-C2: The atlantoaxial interval is intact. No significant thecal sac or foraminal stenosis. C2-C3: No significant thecal sac or foraminal stenosis. C3-C4: No significant thecal sac or foraminal stenosis. C4-C5: No significant thecal sac or foraminal stenosis. C5-C6: No significant thecal sac or foraminal stenosis. C6-C7: No significant thecal sac or foraminal stenosis. C7-T1: No significant thecal sac or foraminal stenosis. Visualized paraspinal soft tissues are unremarkable. No incidental thyroid nodules are noted. IMPRESSION: 1. No MRI evidence for acute vertebral fracture, spondylolisthesis, abnormal marrow signal, or abnormal cord signal. [facility]-[id number] Performing Organization Address City/State/Zipcode Phone Number [facility] [address] [place] [address] CT Soft Tissue Neck Wo Contrast (11/20/2018 11:04 AM [facility]) Narrative Performed At EXAMINATION:CT SOFT TISSUE NECK WO CONTRAST [facility] CLINICAL HISTORY:Neck masspulsatile COMPARISON:None. TECHNIQUE: CT imaging was performed with iterative reconstruction technique and/or automated exposure control to reduce radiation dose. Findings: Lack of IV contrast slightly limits the evaluation soft tissues. No exophytic masses or mass effect in the visualized aerodigestive tract. No drainable fluid collections. No lymphadenopathy in the neck by CT criteria. No focal lesions in the salivary glands. Thyroid gland is within normal limits. No aggressive bony lesions. IMPRESSION: No definite masses or lymphadenopathy in the neck. [facility]-[id number] Procedure Note Interface, Radiology Results Incoming - 11/20/2018 11:44 AM [facility] EXAMINATION: CT SOFT TISSUE NECK WO CONTRAST CLINICAL HISTORY: Neck mass pulsatile COMPARISON: None. TECHNIQUE: CT imaging was performed with iterative reconstruction technique and /or automated exposure control to reduce radiation dose. Findings: Lack of IV contrast slightly limits the evaluation soft tissues. No exophytic masses or mass effect in the visualized aerodigestive tract. No drainable fluid collections. No lymphadenopathy in the neck by CT criteria. No focal lesions in the salivary glands. Thyroid gland is within normal limits. No aggressive bony lesions. IMPRESSION: No definite masses or lymphadenopathy in the neck. [facility]-[id number] Performing Organization Address City/[facility]/Zipcode Phone Number [facility] [address] [place] [address] Syphilis treponemal IgG (11/19/2018 8:26 PM [facility]) Syphilis treponemal IgG Non-reactiveComment: Non-reactive [facility] Non-reactive: No HOSPITAL serological evidence of Syphilis infection Specimen Serum Performing Organization Address City/[facility]/Zipcode Phone Number [facility] DEPARTMENT OF PATHOLOGY AND [address] [place] [address] [address] Rapid HIV 1 & 2 (11/19/2018 8:26 PM [facility]) Rapid HIV 1 and 2 Non-Reactive Non-Reactive [facility] Specimen Blood Performing Organization Address City/[facility]/Zipcode Phone Number [facility] [address] [place] [address] AND [facility] MEDICINE [facility] [id number] [place] [address] HOSPITAL Sedimentation rate (11/19/2018 8:26 PM [facility]) Sedimentation rate 9 0 - 20 mm/hr [facility] Specimen Blood Performing Organization Address City/[facility]/[employer] Phone Number [facility] [address] [place] [address] AND [facility] [address] [place] [address] HOSPITAL C-reactive protein (11/19/2018 8:26 PM [facility]) CRP <0.30 0.00 - 0.50 mg/dL [facility] Specimen Plasma specimen Performing Organization Address [facility]/[employer] Phone Number [facility] DEPARTMENT OF PATHOLOGY AND [address] [place] [address] [facility] [address] [place] [address] Head Wo Contrast (11/19/2018 4:40 PM [facility])Only the most recent of2 resultswithin the time period is included. Narrative Performed At EXAMINATION:CT HEAD WO CONTRAST [facility] CLINICAL HISTORY:Focal neuro deficit6 hrsstroke suspected COMPARISON:November 19, 2018 TECHNIQUE: CT imaging was performed with iterative reconstruction technique and/or automated exposure control to reduce radiation dose. Findings: No intracranial hemorrhage, acute transcortical ischemia, extra-axial fluid collections or parenchymal mass lesions. No skull fractures or aggressive bony lesions. Paranasal sinuses and mastoid air cells are clear. IMPRESSION: No acute intracranial abnormalities. [facility]-[id number] Procedure Note Hm Interface, Radiology Results Incoming - 11/19/2018 4:49 PM [facility] EXAMINATION: CT HEAD WO CONTRAST CLINICAL HISTORY: Focal neuro deficit 6 hrs stroke suspected COMPARISON: November 19, 2018 TECHNIQUE: CT imaging was performed with iterative reconstruction technique and /or automated exposure control to reduce radiation dose. Findings: No intracranial hemorrhage, acute transcortical ischemia, extra-axial fluid collections or parenchymal mass lesions. No skull fractures or aggressive bony lesions. Paranasal sinuses and mastoid air cells are clear. IMPRESSION: No acute intracranial abnormalities. [facility]-[id number] Performing Organization Address [facility]/[employer] Phone Number [facility] [address] [place] [address] IR Lumbar Puncture by Radiology (11/19/2018 1:24 PM [facility]) Narrative Performed At EXAMINATION: IR LUMBAR PUNCTURE [facility] CLINICAL HISTORY: Intracranial Hypertension COMPARISON:None TECHNIQUE: Informed consent and a timeout was performed. The patient's lower back was prepped and draped in the usual sterile fashion. Fluoroscopy was used for image guidance for lumbar puncture. FINDINGS: 1% lidocaine was used for local anesthesia. Under direct fluoroscopic guidance, access to the thecal sac was made with a 22-gauge spinal needle at the L2-L3 level. Opening pressure was measured at 16 cm of water. A total of approximately less than 1 second was removed without difficulty. The patient tolerated the procedure well. There were no complications. The sample was sent to the laboratory for analysis as requested. Total fluoroscopy time was 4.1.Total radiation dose is 4.1 mGy=Ka,r IMPRESSION: Successful fluoroscopic guided lumbar puncture as detailed above. [facility]-[id number] Procedure Note Interface, Radiology Results Incoming - 11/19/2018 5:49 PM [facility] EXAMINATION: IR LUMBAR PUNCTURE CLINICAL HISTORY: Intracranial Hypertension COMPARISON: None TECHNIQUE: Informed consent and a timeout was performed. The patient's lower back was prepped and draped in the usual sterile fashion. Fluoroscopy was used for image guidance for lumbar puncture. FINDINGS: 1% lidocaine was used for local anesthesia. Under direct fluoroscopic guidance , access to the thecal sac was made with a 22-gauge spinal needle at the L2-L3 level. Opening pressure was measured at 16 cm of water. A total of approximately less than 1 second was removed without difficulty. The patient tolerated the procedure well. There were no complications. The sample was sent to the laboratory for analysis as requested. Total fluoroscopy time was 4.1. Total radiation dose is 4.1 mGy=Ka,r IMPRESSION: Successful fluoroscopic guided lumbar puncture as detailed above. [facility]-[id number] Performing Organization Address City/State/Zipcode Phone Number [facility] [address] [place] [address] IgG synthesis rate study (11/19/2018 1:15 PM [facility]) IgG albumin ratio, CSF 0.13 0.00 - 0.23 [facility] IgG index, CSF 0.52 0.01 - 0.63 [facility] IgG synthetic rate 0.87 -9.90 - 3.30 mg/day [facility] Q-albumin ratio, CSF 3.70 2.00 - 6.00 [facility] IgG, CSF 1.72 1.00 - 3.00 mg/dL [facility] Albumin, CSF 13.33 10.00 - 30.00 mg/dL [facility] IgG 898 700 - 1,600 mg/dL [facility] Albumin, S 3,600.0 (L) 3,640.0 - 5,304.0 mg/dL [facility] Specimen Cerebrospinal fluid Performing Organization Address City/[facility]/Rust[employer] Phone Number [facility] DEPARTMENT OF PATHOLOGY AND [address] [place] [address] Cryptococcal antigen, screen (11/19/2018 1:15 PM [facility]) Cryptococcal Ag Negative - No Cryptococcus antigen detected. [facility] Comment: Specimen Information Specimen Source: CSF (Spinal Fluid) Specimen Site: Lumbar puncture Specimen Cerebrospinal fluid - Lumbar puncture Performing Organization Address [facility] Phone Number [facility] DEPARTMENT OF PATHOLOGY AND [address] [place] [address] Oligoclonal banding, CSF (11/19/2018 1:15 PM [facility]) Protein, CSF 24 15 - 45 mg/dL [facility] Prealbumin, CSF 6.2 3.5 - 11.1 % [facility] Albumin, CSF 64.3 40.8 - 66.2 % [facility] Alpha 1, CSF 2.8 2.3 - 6.4 % [facility] Alpha 2, CSF 6.9 6.1 - 12.6 % [facility] Beta, CSF 13.8 11.7 - 24.1 % [facility] Gamma, CSF 6.0 5.6 - 12.2 % [facility] CSF extended interpretation See CommentComment: A [facility] normal CSF protein [facility] study. No oligoclonal bands are seen. CSF interpretation See CommentComment: [facility] Specimen Cerebrospinal fluid Performing Organization Address City/[facility]/Zipcode Phone Number [facility] DEPARTMENT OF PATHOLOGY [address] [place] [address] AND [facility] [id number] [place] [address]. [place] [address] [address] Gram stain (11/19/2018 1:15 PM [facility]) Gram stain isolate No WBC's or organisms seen. [facility] Comment: Specimen Information Specimen Source: CSF (Spinal Fluid) Specimen Site: Lumbar puncture Specimen Cerebrospinal fluid - Lumbar puncture Performing Organization Address City/State/Zipcode Phone Number [facility] DEPARTMENT OF PATHOLOGY AND [address] [place] [address] [address] CSF culture (11/19/2018 1:15 PM [facility]) CSF culture isolate No growth after 3 days. [facility] Comment: Specimen Information Specimen Source: CSF (Spinal Fluid) Specimen Site: Lumbar puncture Specimen Cerebrospinal fluid - Lumbar puncture Performing Organization Address City/[facility]/Zipcode Phone Number [facility] DEPARTMENT OF PATHOLOGY AND [address] [place] [phone] [address] CSF cell count with differential (11/19/2018 1:15 PM [facility]) CSF tube number Tube 2 [facility] Color, CSF Colorless [facility] Appearance, CSF Clear [facility] RBC, CSF 14 (H) 0 - 1 /CMM [facility] WBC, CSF 1 0 - 5 /CMM [facility] CSF mononuclear cell 1/CMM [facility] Specimen Cerebrospinal fluid Performing Organization Address City/[facility]/[place] Phone Number [facility] [id number] [place] [address] AND [facility] [id number] [place] [address] VDRL, CSF screen (11/19/2018 1:15 PM [facility]) VDRL, CSF screen Non-reactive Non-reactive [facility] Specimen Cerebrospinal fluid Performing Organization Address City/State/Zipcode Phone Number [facility] DEPARTMENT OF PATHOLOGY AND [address] [place] [address] [address] Glucose level, CSF (11/19/2018 1:15 PM [facility]) Glucose, CSF 63 40 - 70 mg/dL [facility] Specimen Cerebrospinal fluid Performing Organization Address City/State/Zipcode Phone Number [facility] [address] [facility] [place] [address] AND [facility] [place] JUDAISM NICASIO [address] [facility]. [place] [id number] [facility] MRI Brain Venogram (11/19/2018 11:54 AM [facility]) Narrative Performed At EXAMINATION:MRI BRAIN VENOGRAM [facility] CLINICAL HISTORY:Dural venous sinus thrombosis suspected COMPARISON:None. FINDINGS: The dural venous sinuses are patent without thrombosis. The cortical/deep veins are patent. IMPRESSION: Unremarkable examination. No evidence of dural venous sinus thrombosis. [facility]-[id number] Procedure Note Interface, Radiology Results Incoming - 11/19/2018 12:03 PM [facility] EXAMINATION: MRI BRAIN VENOGRAM CLINICAL HISTORY: Dural venous sinus thrombosis suspected COMPARISON: None. FINDINGS: The dural venous sinuses are patent without thrombosis. The cortical/deep veins are patent. IMPRESSION: Unremarkable examination. No evidence of dural venous sinus thrombosis. [facility]-[id number] Performing Organization Address [facility] Phone Number [facility] [address] [place] [address] XR Cervical Spine 2 Or 3 Vw (11/19/2018 11:17 AM [facility]) Narrative Performed At EXAMINATION: XR CERVICAL SPINE 2 OR 3 VW [facility] CLINICAL HISTORY: Neck paininitial exam COMPARISON:None IMPRESSION: Frontal lateral views of cervical spine were obtained. Prevertebral soft tissues are within normal limits. There is no spondylolisthesis or acute osseous fracture. Facet joints are intact without widening or subluxation. No acute cervical spine abnormality identified. [facility]-[id number] Procedure Note [facility], Radiology Results Incoming - 11/19/2018 11:23 AM [facility] EXAMINATION: XR CERVICAL SPINE 2 OR 3 VW CLINICAL HISTORY: Neck pain initial exam COMPARISON: None IMPRESSION: Frontal lateral views of cervical spine were obtained. Prevertebral soft tissues are within normal limits. There is no spondylolisthesis or acute osseous fracture. Facet joints are intact without widening or subluxation. No acute cervical spine abnormality identified. [facility]-[id number] Performing Organization Address [facility]/[place] Phone Number [facility] [address] [place] [address] XR Lumbar Spine 2 Or 3 Vw (11/19/2018 11:16 AM [facility]) Narrative Performed At EXAMINATION: XR LUMBAR SPINE 2 OR 3 VW [facility] CLINICAL HISTORY: Back [id number] conservative txpersistent sx, [id number] conservative txpersistent sx COMPARISON:None FINDINGS: The lumbar curvature is slightly convex towards the left.The spine is rotated towards the right on the AP view. There is greater posterior disc space narrowing at the L5-S1 level. I do not see definite spondylolysis or spondylolisthesis. There is no significant canal stenosis from hypertrophic changes. There is mild facet hypertrophy in the lower lumbar region. IMPRESSION: No significant canal stenosis from hypertrophic changes. Mild lumbar curvature convex towards the left. [facility]-[id number] Procedure Note Interface, Radiology Results Incoming - 11/19/2018 11:24 AM [facility] EXAMINATION: XR LUMBAR SPINE 2 OR 3 VW CLINICAL HISTORY: Back pain 6wks conservative tx persistent sx, Radiculopathy 6wks conservative tx persistent sx COMPARISON: None FINDINGS: The lumbar curvature is slightly convex towards the left. The spine is rotated towards the right on the AP view. There is greater posterior disc space narrowing at the L5-S1 level. I do not see definite spondylolysis or spondylolisthesis. There is no significant canal stenosis from hypertrophic changes. There is mild facet hypertrophy in the lower lumbar region. IMPRESSION: No significant canal stenosis from hypertrophic changes. Mild lumbar curvature convex towards the left. [facility]-[id number] Performing Organization Address City/State/Zipcode Phone Number [facility] [address] [place] [address] Hemoglobin A1c (11/19/2018 9:11 AM [facility]) Hemoglobin A1C 4.9 4.0 - 6.0 % [facility] Comment: HOSPITAL Less than 6% - Goal of therapy for Type II Diabetes Less than 7%-Goal of therapy for Type I Diabetes Less than 8%-Acceptable control for Type I or Type II Diabetes Greater than 8%-Unacceptable control; action indicated. (ADA94) Specimen Blood Performing Organization Address City/State/Zipcode Phone Number [facility] [address] [place] [address] AND [facility] [address] [place] [address] HOSPITAL Vitamin B12 level (11/19/2018 9:11 AM [facility]) Vitamin B12 543 211 - 946 pg/mL [facility] Comment: Significant overlap exists between normal and deficiency states. However, most patients with deficiencies will have Serum B12 <200 pg/mL. Specimen Serum Performing Organization Address City/[facility]/Zipcode Phone Number [facility] DEPARTMENT OF [facility]OLOGY AND [address] [place] [address] [facility] [address] [place] [address] CTA Head W Wo Contrast (11/19/2018 8:47 AM [facility]) Narrative Performed At EXAMINATION: CT ANGIOGRAM HEAD W WO CONTRAST [facility] CLINICAL HISTORY: Headacheacutesevereworst DANIEL of life, Cerebral aneurysmSAHcerebral vasospasm eval, CT venogram COMPARISON:MRI brain from November 19, 2018. CT brain from November 18, 2018. TECHNIQUE:Imaging of the intracranial circulation was obtained from the skull base to the vertex during the arterial phase of enhancement. Postprocessing was performed with MIP multiplanar and 3D reconstructed images.CT scans are performed using radiation dose reduction techniques. Technical factors are evaluated and adjusted to ensure appropriate moderation of exposure. Automated dose management technology is applied to adjust radiation exposure while achieving a diagnostic quality image. FINDINGS: There is no evidence of acute large vessel occlusion at the level the [place]. There is no evidence of vasospasm. There is flow in a tiny anterior communicating artery. There is no definite evidence of aneurysm or arteriovenous malformation. The study was not performed for good evaluation of the dural venous sinuses although they show mild enhancement without evidence of recent thrombus. The MRI of the brain does not show evidence of acute dural venous sinus thrombosis. IMPRESSION: No hemodynamically significant narrowing of the [place] vessels. No definite evidence of dural venous sinus thrombosis. [facility]-[id number] Procedure Note [facility], Radiology Results Incoming - 11/19/2018 8:59 AM [facility] EXAMINATION: CT ANGIOGRAM HEAD W WO CONTRAST CLINICAL HISTORY: Headache acute severe worst DANIEL of life, Cerebral aneurysm SAH cerebral vasospasm eval, CT venogram COMPARISON: MRI brain from November 19, 2018. CT brain from November 18, 2018. TECHNIQUE: Imaging of the intracranial circulation was obtained from the skull base to the vertex during the arterial phase of enhancement. Postprocessing was performed with MIP multiplanar and 3D reconstructed images. CT scans are performed using radiation dose reduction techniques. Technical factors are evaluated and adjusted to ensure appropriate moderation of exposure. Automated dose management technology is applied to adjust radiation exposure while achieving a diagnostic quality image. FINDINGS: There is no evidence of acute large vessel occlusion at the level [place]. There is no evidence of vasospasm. There is flow in a tiny anterior communicating artery. There is no definite evidence of aneurysm or arteriovenous malformation. The study was not performed for good evaluation of the dural venous sinuses although they show mild enhancement without evidence of recent thrombus. The MRI of the brain does not show evidence of acute dural venous sinus thrombosis. IMPRESSION: No hemodynamically significant narrowing of the [place] vessels. No definite evidence of dural venous sinus thrombosis. [facility]-[id number] Performing Organization Address City/State/Zipcode Phone Number [employer] [facility] [address] [place] [address] CTA Neck W Wo Contrast (11/19/2018 8:46 AM [facility]) Narrative Performed At EXAMINATION: CT ANGIOGRAM NECK W WO CONTRAST [facility] CLINICAL HISTORY: Arterial stricture occlusionhead neck, Arterial-venous malformation (AVM)head neck COMPARISON:None TECHNIQUE: Imaging of the cervical circulation was obtained from the upper thorax to the skull base during the arterial phase of enhancement. Postprocessing was performed with MIP multiplanar and 3D reconstructed images.CT scans are performed using radiation dose reduction techniques. Technical factors are evaluated and adjusted to ensure appropriate moderation of exposure. Automated dose management technology is applied to adjust radiation exposure while achieving a diagnostic quality image. FINDINGS: There is no hemodynamically significant narrowing of the cervical vessels by NASCET criteria. The left vertebral artery is larger than the right. The study was not performed for proper imaging of the soft tissue structures in the neck or chest. There are a few tiny scattered lymph nodes which are not pathologic by density or size criteria. No definite incidental thyroid gland mass is seen. The study was not performed for good evaluation of the lungs. There is mild patchy areas of increased density in the left upper lung and visualized left lower lung which can be better evaluated with a CT of the chest. The study was not performed for proper imaging of the spine. There is no significant canal or foramen stenosis from hypertrophic changes. IMPRESSION: No hemodynamically significant narrowing of the cervical vessels by NASCET criteria. Nonspecific patchy areas of mild increased density in the visualized lungs which can be better evaluated with a chest CT. [facility]-[id number] Procedure Note Interface, Radiology Results Incoming - 11/19/2018 9:07 AM [facility] EXAMINATION: CT ANGIOGRAM NECK W WO CONTRAST CLINICAL HISTORY: Arterial stricture occlusion head neck, Arterial-venous malformation (AVM) head neck COMPARISON: None TECHNIQUE: Imaging of the cervical circulation was obtained from the upper thorax to the skull base during the arterial phase of enhancement. Postprocessing was performed with MIP multiplanar and 3D reconstructed images. CT scans are performed using radiation dose reduction techniques. Technical factors are evaluated and adjusted to ensure appropriate moderation of exposure. Automated dose management technology is applied to adjust radiation exposure while achieving a diagnostic quality image. FINDINGS: There is no hemodynamically significant narrowing of the cervical vessels by NASCET criteria. The left vertebral artery is larger than the right. The study was not performed for proper imaging of the soft tissue structures in the neck or chest. There are a few tiny scattered lymph nodes which are not pathologic by density or size criteria. No definite incidental thyroid gland mass is seen. The study was not performed for good evaluation of the lungs. There is mild patchy areas of increased density in the left upper lung and visualized left lower lung which can be better evaluated with a CT of the chest. The study was not performed for proper imaging of the spine. There is no significant canal or foramen stenosis from hypertrophic changes. IMPRESSION: No hemodynamically significant narrowing of the cervical vessels by NASCET criteria. Nonspecific patchy areas of mild increased density in the visualized lungs which can be better evaluated with a chest CT. [facility]-[id number] Performing Organization Address City/State/Zipcode Phone Number [facility] [address] [place] [address] MRI Brain Wo Contrast (11/19/2018 8:24 AM [facility]) Narrative Performed At EXAMINATION: MRI BRAIN WO CONTRAST [facility] CLINICAL HISTORY: headache blurred vision COMPARISON:CT brain from November 18, 2018 TECHNIQUE: Multiplanar and multisequence MRI imaging of the brain was obtained without contrast. FINDINGS: There is no evidence of acute infarct, intracranial hemorrhage or mass, hydrocephalus or midline shift. The upper sella is partially empty. The sella is not significantly enlarged. The ventricles are small appearing. There is some fluid signal intensity in the optic nerve sheaths around the optic nerves. If the patient has papilledema recommend clinical correlation for pseudotumor cerebri. The cerebellar tonsils extend down to the level of the foramen magnum. The orbits, sinuses and mastoid air cells do not show significant abnormality. IMPRESSION: No acute findings in the brain. Partially empty normal size sella. Relatively small appearing ventricles. Some fluid signal intensity in the optic nerve sheaths surrounding the nerves. These findings could be normal for a patient with in this age range. Recommend clinical correlation for papilledema and pseudotumor cerebri however. [facility]-[id number] Procedure Note Interface, Radiology Results Incoming - 11/19/2018 8:33 AM [facility] EXAMINATION: MRI BRAIN WO CONTRAST CLINICAL HISTORY: headache blurred vision COMPARISON: CT brain from November 18, 2018 TECHNIQUE: Multiplanar and multisequence MRI imaging of the brain was obtained without contrast. FINDINGS: There is no evidence of acute infarct, intracranial hemorrhage or mass, hydrocephalus or midline shift. The upper sella is partially empty. The sella is not significantly enlarged. The ventricles are small appearing. There is some fluid signal intensity in the optic nerve sheaths around the optic nerves. If the patient has papilledema recommend clinical correlation for pseudotumor cerebri. The cerebellar tonsils extend down to the level of the foramen magnum. The orbits, sinuses and mastoid air cells do not show significant abnormality. IMPRESSION: No acute findings in the brain. Partially empty normal size sella. Relatively small appearing ventricles. Some fluid signal intensity in the optic nerve sheaths surrounding the nerves. These findings could be normal for a patient within this age range. Recommend clinical correlation for papilledema and pseudotumor cerebri however. [facility]-[id number] Performing Organization Address City/State/Zipcode Phone Number [facility] [address] [place] [address] Urinalysis screen and microscopy, with reflex to culture (11/18/2018 6:20 PM [facility]) Specimen site Clean catch [facility] Color, UA Yellow [facility] Appearance, UA Cloudy [facility] Specific gravity, UA 1.019 1.001 - 1.030 [facility] pH, UA 7.0 5.0 - 9.0 [facility] Protein, UA Negative Negative [facility] Glucose, UA Negative Negative [facility] Ketones, UA Negative Negative [facility] Bilirubin, UA Negative Negative [facility] Blood, UA Small (A) Negative [facility] Nitrite, UA Negative Negative [facility] Urobilinogen, UA <2.0 <2.0 E.U./dL [facility] Leukocyte esterase, UA Negative Negative [facility] Epithelial cells, UA 3 /HPF [facility] WBC, UA None seen 0 - 4 /HPF [facility] RBC, UA 3 0 - 5 /HPF [facility] Bacteria, UA Few None seen [facility] Yeast, UA None seen [facility] Yeast with pseudohyphae, UA None seen [facility] Amorphous crystals Few [facility] Specimen Urine Performing Organization Address City/[facility]/Zipcode Phone Number [facility] [id number] [place] [address] [place] [address] HOSPITAL Urine culture (11/18/2018 6:20 PM [facility]) Urine culture SEE COMMENTComment: Bacteriuria [facility] screen negative. HOSPITAL Performing Organization Address City/State/Zipcode Phone Number [facility] [id number] [place] [address] [place] [address] HOSPITAL after 12/12/2017 Advance Directives Patient has advance care planning documents on file. For more information, please contact:[address] [address]
--- OUTSIDE RECORDS SUMMARY | 2018-12-13 08:28 | XMS REPORT | Continuity of Care Document ---
:1990 Author Organization Interface Problems Problem Status Onset Classification Date Comments Source Date Reported Headache Active 05/31/20 Problem 04/27/2018 [facility] Discharge 06/04/20 06/07/2016 [facility] Diagnosis: 16 Attempted suicide Discharge 06/04/20 06/07/2016 [facility] Diagnosis: Acute 16 depression Discharge 06/04/20 06/07/2016 [facility] Diagnosis: Tylenol 16 ingestion Discharge 06/04/20 06/07/2016 [facility] Diagnosis: 16 Ingestion of unknown medication OVERDOSE Active 06/04/20 [facility] 16 [place] Acute Active 02/29/20 Problem 04/27/2018 [facility] cholecystitis s/p 16 Health lap shashi 03/02 Discharge 02/27/20 03/01/2016 [facility] Diagnosis: 16 [place] Hemorrhagic ovarian cyst Discharge 02/27/20 03/01/2016 [facility] Diagnosis: 16 [place] Cholelithiasis Discharge 02/27/20 03/01/2016 [facility] Diagnosis: 16 [place] Abdominal pain, acute, right upper quadrant Discharge 02/27/20 03/01/2016 [facility] Diagnosis: Vaginal 16 [place] bleeding RIGHT SIDE RIB Active 02/27/20 [facility] PAIN 16 [place] Calculus of Active Problem 04/27/2018 [facility] gallbladder Health without cholecystitis without obstruction Constipation Active Problem 04/27/2018 [facility] Intractable Active Problem 04/27/2018 [facility] episodic headache Health Medications Medication Details Route Status Patient Ordering Order Source Instructions Provider Date Zofran 4 mg, 2 mL, Inactive Route: IVP, 016 [place] Drug form: INJ, ONCE, Dosing Weight 77.273, kg, Priority: STAT, Start date: 06/04/16 14:57:00 CDT, Stop date: 06/04/16 14:57:00 CDTNotes: (Same as: Zofran) MEDICATION WASTE Product Size: 4 mg Product Wasted: ___ mg Zofran 4 mg, Route: Inactive IVP, Drug 016 [place] form: INJ, ONCE, Dosing Weight 77.273, kg, Priority: STAT, Start date: 06/04/16 14:20:00 CDT, Stop date: 06/04/16 14:20:00 CDT Morphine 4 mg, Route: Inactive IVP, Drug Juanjose [place] form: INJ, ONCE, Dosing Weight 77.273, kg, Priority: STAT, Start date: 06/04/16 14:19:00 CDT, Stop date: 06/04/16 14:19:00 CDT Zofran 4 mg, Route: Inactive IVP, Drug Juanjose [place] form: INJ, ONCE, Dosing Weight 77.273, kg, Priority: STAT, Start date: 06/04/16 12:29:00 CDT, Stop date: 06/04/16 12:29:00 CDT Actidose Plus 50 gm, 240 Inactive Sorbitol mL, Route: Juanjose [place] PO, Drug form: SUSP, ONCE, Start date: 06/04/16 12:19:00 CDT, Stop date: 06/04/16 12:19:00 CDTNotes: (Same As: Actidose Plus Sorbitol) charcoal 50 gm, Inactive Route: PO, Juanjose [place] Drug form: SUSP, ONCE, Dosing Weight 77.273, kg, Start date: 06/04/16 12:08:00 CDT, Stop date: 06/04/16 12:08:00 CDT Sodium Chloride 1,000 mL, Inactive 0.154 MEQ/ML 1,000 ml/hr, Juanjose [place] Injectable Infuse Over: Solution 1 hr, Route: IV, 1,000, Drug form: INJ, ONCE, Priority: STAT, Dosing Weight 77.273 kg, Start date: 06/04/16 12:06:00 CDT, Duration: 1 doses or times, Stop date: 06/04/16 12:06:00 CDT Acetaminophen Take 2 Oral Active 2 Guzmán 325 Mg Tablet tablets by [facility] mouth every 6 hours as needed for Pain. Famotidine 20 Take 1 Oral Active 0516/2 Guzmán Mg Tablet tablet by [facility] mouth 2 times daily. Tramadol 50 Mg Take 1 Oral Active 05/16/2 Guzmán Tablet tablet by [facility] mouth every 6 hours as needed for Pain. Dicyclomine 20 mg=1 tab, Active [facility] Hydrochloride PO, Q6H, PRN 016 [place] 20 MG Oral abd pain, # Tablet [Bentyl] 20 tab, 0 Refill(s) Ondansetron 4 mg, Route: Inactive [place] IVP, ONCE, 016 [place] Dosing Weight 68.636, kg, Priority: STAT, Start date: 02/27/16 11:54:00 CDT, Stop date: 02/27/16 11:54:00 CDT Ketorolac 30 mg, Inactive [place] Route: IVP, 016 [place] ONCE, Dosing Weight 68.636, kg, Priority: STAT, Start date: 02/27/16 11:54:00 CDT, Stop date: 02/27/16 11:54:00 CDT Saline Flush 10 mL, Inactive [facility] 0.9% Route: IVP, 016 [place] Drug Form: INJ, Dosing Weight 68.636, kg, PRN, PRN Line Flush, Start date: 02/27/16 11:54:00 CDT, Duration: 30 day, Stop date: 03/28/16 11:53:00 CDTNotes: (Same as: BD Posiflush) Allergies, Adverse Reactions, Alerts Substance Category Reaction Severity Reaction Status Date Comments Source type Reported Immunizations Immunization Date Given Site Status Last Updated Comments Source Results Order Name Results Value Reference Date Interpretation Comments Source Range Lumbar <p>Gudio Lora, 06/01 Guzm[facility] Puncture Ignacio Pierre, Health Resident (MD Resident 06/01/2017 (MD 12:57 06/01/2017 AM</p><p> 12:57 AM </p><p> </p><p>Hi story History </p><p> </p><p>Chief Chief Complaint Complaint </p><p>Patie Patient nt presents presents with with </p><p> Visual Visual Disturbanc Disturbance e </p><p> Headache Headache </p><p>colli colliod od cyst in cyst in the region the region of the of the foramen of foramen of Moore</p><p Moore > </p><p>HP HPI I Comments: Comments: The patient The is a 27 yr patient is old female a 27 yr recently old female </p><p>evalu recently ated for evaluated headache at for an outside headache ED, at an diagnosed outside with a ED, colloid diagnosed </p><p>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 At [facility] ED the time of for </p><p>disch headache. arge from At the the outside time of ED after discharge receiving from the demerol and outside ED </p><p>phene after rgan, her receiving headache had demerol improved. and However, phenergan, while at her home, her headache </p><p>heada had arturo improved. intensity However, worsened. while at The headache home, her is primarily headache in the intensity </p><p>left worsened. frontal/temp The oral region headache and is is associated primarily with in the </p><p>perio left rbital/retro frontal/te bulbar pain. mporal The pain is region and severe, is constant, associated </p><p>assoc with iated with L periorbita eye blurred l/retrobul vision which bar pain. started this The pain morning, is severe, </p><p>pain constant, with eye associated movement, with L eye photophobia, blurred phonophobia, vision and nausea. which It started </p><p>has this been ongoing morning, for the past pain with 2 days. eye Denies prior movement, history of photophobi </p><p>migra a, ine phonophobi headache. a, and </p><p> nausea. It </p><p>Patie nt is a has been 27y.o. ongoing female for the presenting past 2 with days. headaches. Denies </p><p>Histo prior ry provided history of by:Patient</ p><p>Languag migraine e headache. seismic interpreter used: Patient is No</p><p>Hea a 27y.o. dache</p><p> female Pain presenting location:L with temporal</p> headaches. <p>Quality:D ull</p><p>Ra History diates provided to:Eyes</p>< by:Patient p>Severity Language at interprete highest:07/19 r used: No 0</p><p>Onse Headache t Pain quality:Grad location:L ual</p><p>Ti temporal alan:Constan Quality:Du t</p><p>P ll rogression:U Radiates nchanged</p> to:Eyes <p>Chronicit Severity y:New</p><p> at Associated highest:10 symptoms: /10 eye pain, Onset nausea and quality:Gr photophobia< adual /p><p>Associ Timing:Con ated stant symptoms: no Progressio abdominal n:Unchange pain, no d back pain, Chronicity no :New </p><p>conge Associated stion, no symptoms: cough, no eye pain, fever, no nausea and numbness, no photophobi vomiting and a no Associated </p><p>weakn symptoms: ess</p><p> no </p><p> abdominal </p><p>Medic pain, no al back pain, History</p>< no p> None congestion </p><p> , no </p><p> cough, no </p><p>Surgi fever, no dasha numbness, History</p>< no p> Past vomiting Surgical and no History weakness Laterality Last Occurrence Medical Comments History </p><p> HX None TUBAL LIGATION [SHX77]</p>< Surgical p> </p><p> History </p><p>Famil Past y Medical Surgical History</p>< History p> Problem Laterality Relation Age Last of Onset Occurrence Comments Comments </p><p> HX TUBAL Diabetes LIGATION Maternal [SHX77] Grandmother </p><p> Hypertension Family Mother Medical </p><p> History Hypertension Problem Sister Relation </p><p> Age of Lipids Onset Mother Comments </p><p> Diabetes </p><p> Maternal </p><p>Socia Grandmothe l r History</p>< Hypertens p> Category ion Mother History </p><p> Hypertens Smoking ion Sister Tobacco Use Never Lipids Smoker</p><p Mother > Smokeless Tobacco Use Unknown Social </p><p> History Tobacco Category Comment</p>< History p> Alcohol Smoking Use Yes; Tobacco (socially) Use Never </p><p> Smoker Drug Use No Smokeless </p><p> Tobacco Sexual Use Activity Unknown Yes;Male Tobacco partners Comment </p><p> Alcohol ADL Not Use Yes; Asked (socially) </p><p> </p><p> Drug Use </p><p> No </p><p> Sexual </p><p>Re Activity view of Yes;Male Systems partners </p><p>Const ADL Not itutional: Asked Negative for fever and chills. </p><p>HE NT: Negative Review of for Systems congestion Constituti and onal: rhinorrhea.< Negative /p><p>Eyes: for fever Positive for and photophobia, chills. pain and HENT: visual Negative disturbance. for </p><p>Respi congestion ratory: and Negative for rhinorrhea cough and . shortness of Eyes: breath.</p>< Positive p>Cardiovasc for ular: photophobi Negative for a, pain chest pain and visual and disturbanc palpitations e. . Respirator </p><p>Ga y: strointestin Negative al: Positive for cough for nausea. and Negative for shortness vomiting and of breath. </p><p>abdom Cardiovasc inal pain. ular: </p><p>Endoc Negative rine: for chest Negative for pain and cold palpitatio intolerance ns. and heat Gastrointe intolerance. stinal: </p><p>Ge Positive nitourinary: for Negative for nausea. dysuria, Negative urgency, for frequency, vomiting flank and </p><p>pain abdominal and pain. difficulty Endocrine: urinating. Negative </p><p>Muscu for cold loskeletal: intoleranc Negative for e and heat back pain intoleranc and gait e. problem. Genitourin </p><p>Sk yosvany: in: Negative Negative for rash and for wound. dysuria, </p><p>Neuro urgency, logical: frequency, Positive for flank headaches. pain and Negative for difficulty weakness and urinating. </p><p>numbn ess. Musculoske </p><p>Psych letal: iatric/Behav Negative ioral: for back Negative for pain and suicidal gait ideas and problem. </p><p>hallu Skin: cinations. Negative </p><p> for rash </p><p> and wound. </p><p>Physi dasha Exam Neurologic </p><p>BP al: 108/71 mmHg Positive | Pulse 92 | for Temp(Src) headaches. 98.9 F Negative (37.2 C) | for Resp 20 weakness </p><p>| and SpO2 numbness. 99%</p><p>Ph Psychiatri ysical Exam c/Behavior </p><p>Co al: nstitutional Negative : She is for oriented to suicidal person, ideas and place, and hallucinat time. She ions. </p><p>appea rs well-develop Physical ed and Exam well-nourish BP 108/71 ed. No mmHg | distress. Pulse 92 | </p><p>HENT: Temp(Src) </p><p>Head: 98.9 F Normocephali (37.2 C) | c and Resp 20 atraumatic. | SpO2 99% </p><p>Mouth Physical /Throat: Exam Oropharynx Constituti is clear and onal: She moist. is </p><p>Ey oriented es: to person, Conjunctivae place, and and EOM are time. She normal. appears Pupils are well-devel equal, oped and round, well-shannan </p><p>and shed. No reactive to distress. light. HENT: </p><p>Pain Head: with Normocepha extraocular lic and eye atraumatic movements.</ . p><p>Neck: Mouth/Thro Neck supple. at: No tracheal Oropharynx deviation is clear present. and moist. </p><p>Cardi ovascular: Eyes: Normal rate, Conjunctiv regular ae and EOM rhythm and are intact normal. distal Pupils are </p><p>pulse equal, s.</p><p>Pul round, monary/Chest and : Effort reactive normal and to light. breath Pain with sounds extraocula normal. r eye </p><p>Abdom movements. inal: Soft. Neck: Neck She exhibits supple. No no tracheal distension. deviation There is no present. </p><p>tende Cardiovasc rness. ular: </p><p>Muscu Normal loskeletal: rate, Normal range regular of motion. rhythm and She exhibits intact no edema or distal </p><p>tende pulses. rness. Pulmonary/ </p><p>Neuro Chest: logical: She Effort is alert and normal and oriented to breath person, sounds place, and normal. </p><p>time. Abdominal: No cranial Soft. She nerve exhibits deficit. She no exhibits distension normal . There is muscle tone. no </p><p>Coord tenderness ination . normal. Musculoske </p><p>Refle letal: x Normal Scores:</p>< range of p> Bicep motion. reflexes are She 2+ on the exhibits right side no edema and 2+ on or the left tenderness </p><p>side. . </p><p> Neurologic Patellar al: She is reflexes are alert and 2+ on the oriented right side to person, and 2+ on place, and the </p><p>left time. No side.</p>&lt cranial ;p>Cranial nerve Nerves:</p>< deficit. p>I - Not She tested. exhibits </p><p>II - normal PERRL. muscle </p><p>II tone. I, IV, -. Coordinati EOM intact. on normal. Normal vertical Reflex lateral gaze Scores: without Bicep </p><p>nysta reflexes gmus.</p> are 2+ on <p>V - the right Normal side and sensation</p 2+ on the ><p>VII - left Face side. symmetric, Patellar frontalis, reflexes orbicularis are 2+ on oculi and the right magdalena side and </p><p>intac 2+ on the t and left side. symmetric</p Cranial ><p>VIII - Nerves: Hearing I - Not symmetric to tested. finger rub II - b/l</p><p>IX PERRL. , X - Normal III, IV, palate -. EOM elevation, intact. no uvula Normal deviation.</ vertical p><p>XI - lateral Normal gaze strength of without SCM nystagmus. b/l.</p><p>X V - Normal II - Tongue sensation midline.</p> VII - Face <p> symmetric, </p><p>Stren frontalis, gth: Normal orbiculari tone. s oculi Strength 5/5 and magdalena in intact and extremities symmetric b/l. VIII - </p><p>Senso Hearing ry: Grossly symmetric intact light to finger tough rub b/l b/l.</p><p>R IX, X - omberg: Normal negative</p> palate <p>Cerebella elevation, r: Steady no uvula gait. FTN deviation. intact, CELSO XI - intact</p><p Normal > strength </p><p>Skin: of SCM Skin is warm b/l. and dry. XII - </p><p>Psych Tongue iatric: She midline. has a normal mood and Strength: affect. Normal </p><p>Nursi tone. ng note and Strength vitals 5/5 in reviewed.</p extremitie ><p> </p><p> s b/l. </p><p>Proce Sensory: dures Grossly </p><p>Lumba intact r light Puncture</p> tough b/l. <p>Date/Time Romberg: : 05/31/2017 negative 7:44 Cerebellar PM</p><p>Per : Steady formed by: gait. FTN ALIKAH, intact, ANNEMARIE</p>< CELSO intact p>Authorized by: СЕРГЕЙ Skin: Skin RUDDY is warm F</p><p> and dry. </p><p>Conse Psychiatri nt: c: She has </p><p>Conse a normal nt mood and obtained:Juan affect. bal</p><p>Co Nursing nsent given note and by:Patient</ vitals p><p>Risk reviewed. s discussed:Bl eeding, Procedures infection, pain, Lumbar headache and Puncture nerve Date/Time: </p><p>damag 05/31/2017 e</p><p>A 7:44 PM lternatives Performed discussed:No by: treatment</p ALIKAH, ><p>Pre-proc ANNEMARIE edure Authorized details: by: </p><p>Pr amanda NAVARRETE Catherine purpose:Diag nostic</p><p Consent: >Anesthesia Consent (see MAR for obtained:V exact erbal dosages): Consent </p><p>An given esthesia by:Patient method:Local Risks infiltration discussed: </p><p>Local Bleeding, anesthetic:L infection, idocaine 1% pain, w/o headache epi</p><p>Pr and nerve ocedure damage details: Alternativ </p><p>Lumba es r discussed: space:L3-L4 No interspace</ treatment p><p>Need Pre-proced le ure gauge:20</p> details: <p>Ultrasoun Procedure d guidance: purpose:Di no</p><p>Num agnostic areli of Anesthesia attempts:1</ (see MAR p><p>Opening for exact pressure (cm dosages): H2O):28</p>< Anesthesia p>Closing method:Loc pressure (cm al H2O):10</ infiltrati p><p>Fluid on appearance:C Local lear</p><p>T anesthetic ubes of :Lidocaine fluid:4</p>< 1% w/o epi p>Total Procedure volume details: (ml):5</p><p Lumbar >Post-proced space:L3-L ure: 4 </p><p>Punct interspace ure Needle site:Adhesiv gauge:20 e bandage Ultrasound applied</p>< guidance: p>Patient no tolerance of Number of procedure:To attempts:1 lerated Opening well, no pressure immediate (cm </p><p>compl H2O):28 ications</p> Closing <p> </p><p> pressure </p><p> (cm </p><p> H2O):10 </p><p>ED Fluid Course appearance </p><p> :Clear </p><p>MDM</ Tubes of p><p>Number fluid:4 of Diagnoses Total or volume Management (ml):5 Options</p>< Post-proce p>Blurred dure: vision, left Puncture eye: site:Adhes </p><p>Intra dinesh ctable bandage episodic applied headache, Patient unspecified tolerance headache of type: procedure: </p><p>Non-i Tolerated ntractable well, no vomiting immediate with nausea, complicati unspecified ons vomiting type: </p><p>Perio rbital pain, bilateral: ED Course </p><p> </p><p>As MDM sessment/Mateus Number of n: 27 yr old Diagnoses F recently or diagnosed Management with colloid Options cyst Blurred </p><p>in vision, the region left eye: of the Intractabl foramen of e episodic moore who headache, presents unspecifie with d headache </p><p>worse type: johana left Non-intrac sided/perior table bital vomiting headache. with </p><p> nausea, </p><p>DDx:< unspecifie /p><p>- d vomiting hydrocephalu type: s 2/2 Periorbita intracranial l pain, mass</p><p>- bilateral: migraine headache</p> <p>- tension Assessment headache</p> /Plan: 27 <p>- yr old F pseudotumor recently cerebri</p>< diagnosed p> with </p><p>Isabel colloid p:</p><p>- cyst CT head in the non-contrast region of </p><p> the </p><p>Medic foramen of ations:</p>< moore who p>- Reglan, presents ketorolac, with and worsening acetaminophe left n for sided/bridgette headache</p> orbital <p> headache. </p><p>Dispo sition: DDx: </p><p>- - pending hydrocepha labs</p><p>- anurag 2/2 reassess intracrani </p><p> al mass </p><p> - migraine </p><p> headache </p><p> - tension </p><p> headache </p><p> - </p><p> pseudotumo </p><p> r cerebri </p><p> </p><p> Workup: </p><p>Ainsley - CT head h, Annemarie, non-contra Fellow st ()</p><p>R esident</p>< Medication p>05/31/17 s: 1539</p><p> - Reglan, </p><p>PROVI ketorolac, REYNA and REASSESSMENT acetaminop NOTE</p><p> hen for </p><p>I headache reexamined the patient Dispositio Terri n: Whittaker.</p&g - pending t;<p> labs </p><p>Lates - reassess t vital signs are:</p><p>F iled Vitals: </p><p> 05/31/17 1112 05/31/17 1242 05/31/17 1609 05/31/17 Sarah Shankar, </p><p>BP: Fellow 128/83 () 108/71 Resident 102/56 05/31/17 107/59 1539 </p><p>Pulse : 128 92 86 PROVIDER 67 REASSESSME </p><p>Temp: NT NOTE 99.4 F (37.4 C) I 98.9 F reexamined (37.2 C) the 98.9 F patient (37.2 C) Terri 98.2 Whittaker. </p><p>F (36.8 Latest °C) vital </p><p>Resp: signs are: 18 20 20 18 Filed </p><p>SpO2: Vitals: 95% 99% 97% 05/31/17 99% </p><p> 1112 </p><p> 05/31/17 </p><p>Inter 1242 hernán 05/31/17 Progress: 1609 </p><p>CT 05/31/17 head 1930 negative for BP: 128/83 acute 108/71 abnormality. 102/56 </p><p>After 107/59 receiving Pulse: 128 toradol/apap 92 86 67 /reglan, Temp: 99.4 headache F (37.4 C) improved 98.9 F from 10 to (37.2 C) </p><p>05/28. 98.9 F Imitrex (37.2 C) given due to 98.2 presumed F (36.8 C) migraine headache, Resp: 18 patient 20 20 18 </p><p>re SpO2: 95% ported no 99% 97% improvement. 99% </p><p> </p><p>LP performed to Interval evaluate for Progress: pseudotumor CT head cerebri and negative SAH. </p><p> for acute </p><p>The abnormalit patients y. condition is After improved but receiving still with toradol/ap intractable ap/reglan, </p><p>sever headache e improved headache.</p from 10 to ><p>Will give 05/28. magnesium IV Imitrex now for given due DANIEL</p><p> to </p><p>Curre presumed nt clinical migraine impressions headache, include:</p> patient <p>1. reported Intractable no episodic improvemen headache, t. unspecified headache LP type</p><p>2 performed . to Periorbital evaluate pain, for bilateral</p pseudotumo ><p>3. r cerebri Blurred and SAH. vision, left eye</p><p>4. The Non-intracta patients ble vomiting condition with nausea, is unspecified improved vomiting but still </p><p>type< with /p><p> intractabl </p><p> e </p><p>Plan: severe F/u LP headache. studies. Will give Reassess for magnesium improved IV now for pain DANIEL control. </p><p> Current </p><p>Kanwal turcios en Vonnie, impression Fellow s include: ()</p><p>A 1. ugust , Intractabl 2016 7:41 e episodic PM</p><p> headache, </p><p> unspecifie </p><p>Ainsley d headache h, Annemarie, type Fellow 2. ()</p><p>R Periorbita esident</p>< l pain, p>05/31/17 bilateral 1943</p><p> 3. Blurred </p><p>Ainsley vision, h, Annemarie, left eye Fellow 4. ()</p>< Non-intrac p>Resident</ table p><p> vomiting 7 with 1944</p><p> nausea, </p><p>BT EC unspecifie Resident d vomiting Update Note</p><p> type </p><p>Patie nt continues to have Plan: F/u headache LP 05/28. States studies. that the Reassess </p><p>medic for ations have improved not helped pain at all. control. States that she has a Annemarie Shankar, </p><p>pa Fellow in behind () her L May 31, eye.</p><p> 2016 7:41 </p><p>CSF PM analysis without blood to Vonnie, suggest SAH Annemarie, and no Fellow infectious () </p><p>signs Resident .</p><p> 05/31/17 </p><p>She 1943 is moving all Alikah, extremities, Annemarie, alert and Fellow oriented.</p () ><p>Eyes Resident without 05/31/17 injection or 1944 drainage. PEARRL.</p>< BT EC p> Resident </p><p>Will Update give Haldol Note 5 mg IM and Benadryl 25 Patient mg IV continues </p><p> to have </p><p>Will headache re-assess.05/28. p><p> States </p><p>Jan that the s Lora, medication Resident s have not (</p><p>Au helped at lee 13, all. 2016 10:40 States PM</p><p> that she </p><p> has a </p><p>Ga sharp llegos, pain Ignacio, behind her Resident L eye. (</p><p>Re sident</p><p CSF >05/31/17 analysis 2</p><p> without </p><p>Galle blood to gos, Ignacio, suggest Resident SAH and no (</p><p>Re infectious sident</p><p >05/31/17 signs. 2243</p><p> </p><p>BT EC She is Resident moving all Update extremitie Note</p>< s, alert p> and </p><p>Patie oriented. nt asleep Eyes when I without walked into injection room.</p><p> or She awakens drainage. easily. PEARRL. States that her headache Will give is still Haldol 5 -06/28.</p>< mg IM and p> </p><p>I Benadryl spoke with 25 mg IV patient about the Will results of re-assess. her evaluation Ignacio here at [facility], </p><p>Alfredito Resident Cynthia. There (MD are no signs May 31, of infection 2016 10:40 on CSF, she PM has no </p><p>fever s.</p><p>The [facility], re are no Ignacio, obvious Resident signs of ( trauma or Resident infectious 05/31/17 symptoms to 2241 </p><p>the eyes.</p><p> Guido, </p><p>Omar Pierre, spoke with Resident patient ( about the Resident option of 05/31/17 discharge 2242 home with PCP BT EC </p><p>f/u Resident and further Update evaluation Note in the EC with Patient Neurology asleep consult. At when I </p><p>this walked time, into room. patient does She not want to awakens see a easily. Neurologist States and prefers that her </p><p>to headache leave.</p><p is still >She states . she has a doctor that I spoke she will see with this patient week.</p><p> about the </p><p>Jan results of lonny Lora, her Resident evaluation (</p><p>Au [place] at [place] [id number], Alfredito Marie. 2016 12:11 There are AM</p><p> no signs </p> of infection on CSF, she has no fevers. There are no obvious signs of trauma or infectious symptoms to the eyes. I spoke with patient about the option of discharge home with PCP f/u and further evaluation in the EC with Neurology consult. At this time, patient does not want to see a Neurologis t and prefers to leave. She states she has a doctor that she will see this week. Ignacio Lora, Resident ( June 01, 2017 12:11 AM LUMBAR <p>Guido Lora, 06/01 Guzmán PUNCTURE Ignacio Pierre, /2016 Health Resident ( Resident 06/01/2017 ( 12:57 06/01/2017 AM</p><p> 12:57 AM </p><p> </p><p>Hi story History </p><p> </p><p>Chief Chief Complaint Complaint </p><p>Patie Patient nt presents presents with with </p><p> Visual Visual Disturbanc Disturbance e </p><p> Headache Headache </p><p>colli colliod od cyst in cyst in the region the region of the of the foramen of foramen of Moore</p><p Moore > </p><p>HP HPI I Comments: Comments: The patient The is a 27 yr patient is old female a 27 yr recently old female </p><p>evalu recently ated for evaluated headache at for an outside headache ED, at an diagnosed outside with a ED, colloid diagnosed </p><p>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 At [facility] ED the time of for </p><p>disch headache. arge from At the the outside time of ED after discharge receiving from the demerol and outside ED </p><p>phene after rgan, her receiving headache had demerol improved. and However, phenergan, while at her home, her headache </p><p>heada had arturo improved. intensity However, worsened. while at The headache home, her is primarily headache in the intensity </p><p>left worsened. frontal/temp The oral region headache and is is associated primarily with in the </p><p>perio left rbital/retro frontal/te bulbar pain. mporal The pain is region and severe, is constant, associated </p><p>assoc with iated with L periorbita eye blurred l/retrobul vision which bar pain. started this The pain morning, is severe, </p><p>pain constant, with eye associated movement, with L eye photophobia, blurred phonophobia, vision and nausea. which It started </p><p>has this been ongoing morning, for the past pain with 2 days. eye Denies prior movement, history of photophobi </p><p>migra a, ine phonophobi headache. a, and </p><p> nausea. It </p><p>Patie nt is a has been 27y.o. ongoing female for the presenting past 2 with days. headaches. Denies </p><p>Histo prior ry provided history of by:Patient</ p><p>Languag migraine e headache. seismic interpreter used: Patient is No</p><p>Hea a 27y.o. dache</p><p> female Pain presenting location:L with temporal</p> headaches. <p>Quality:D ull</p><p>Ra History diates provided to:Eyes</p>< by:Patient p>Severity Language at interprete highest:07/19 r used: No 0</p><p>Onse Headache t Pain quality:Grad location:L ual</p><p>Ti temporal alan:Constan Quality:Du t</p><p>P ll rogression:U Radiates nchanged</p> to:Eyes <p>Chronicit Severity y:New</p><p> at Associated highest:10 symptoms: /10 eye pain, Onset nausea and quality:Gr photophobia< adual /p><p>Associ Timing:Con ated stant symptoms: no Progressio abdominal n:Unchange pain, no d back pain, Chronicity no :New </p><p>conge Associated stion, no symptoms: cough, no eye pain, fever, no nausea and numbness, no photophobi vomiting and a no Associated </p><p>weakn symptoms: ess</p><p> no </p><p> abdominal </p><p>Medic pain, no al back pain, History</p>< no p> None congestion </p><p> , no </p><p> cough, no </p><p>Surgi fever, no dasha numbness, History</p>< no p> Past vomiting Surgical and no History weakness Laterality Last Occurrence Medical Comments History </p><p> HX None TUBAL LIGATION [SHX77]</p>< Surgical p> </p><p> History </p><p>Famil Past y Medical Surgical History</p>< History p> Problem Laterality Relation Age Last of Onset Occurrence Comments Comments </p><p> HX TUBAL Diabetes LIGATION Maternal [SHX77] Grandmother </p><p> Hypertension Family Mother Medical </p><p> History Hypertension Problem Sister Relation </p><p> Age of Lipids Onset Mother Comments </p><p> Diabetes </p><p> Maternal </p><p>Socia Grandmothe l r History</p>< Hypertens p> Category ion Mother History </p><p> Hypertens Smoking ion Sister Tobacco Use Never Lipids Smoker</p><p Mother > Smokeless Tobacco Use Unknown Social </p><p> History Tobacco Category Comment</p>< History p> Alcohol Smoking Use Yes; Tobacco (socially) Use Never </p><p> Smoker Drug Use No Smokeless </p><p> Tobacco Sexual Use Activity Unknown Yes;Male Tobacco partners Comment </p><p> Alcohol ADL Not Use Yes; Asked (socially) </p><p> </p><p> Drug Use </p><p> No </p><p> Sexual </p><p>Re Activity view of Yes;Male Systems partners </p><p>Const ADL Not itutional: Asked Negative for fever and chills. </p><p>HE NT: Negative Review of for Systems congestion Constituti and onal: rhinorrhea.< Negative /p><p>Eyes: for fever Positive for and photophobia, chills. pain and HENT: visual Negative disturbance. for </p><p>Respi congestion ratory: and Negative for rhinorrhea cough and . shortness of Eyes: breath.</p>< Positive p>Cardiovasc for ular: photophobi Negative for a, pain chest pain and visual and disturbanc palpitations e. . Respirator </p><p>Ga y: strointestin Negative al: Positive for cough for nausea. and Negative for shortness vomiting and of breath. </p><p>abdom Cardiovasc inal pain. ular: </p><p>Endoc Negative rine: for chest Negative for pain and cold palpitatio intolerance ns. and heat Gastrointe intolerance. stinal: </p><p>Ge Positive nitourinary: for Negative for nausea. dysuria, Negative urgency, for frequency, vomiting flank and </p><p>pain abdominal and pain. difficulty Endocrine: urinating. Negative </p><p>Muscu for cold loskeletal: intoleranc Negative for e and heat back pain intoleranc and gait e. problem. Genitourin </p><p>Sk yosvany: in: Negative Negative for rash and for wound. dysuria, </p><p>Neuro urgency, logical: frequency, Positive for flank headaches. pain and Negative for difficulty weakness and urinating. </p><p>numbn ess. Musculoske </p><p>Psych letal: iatric/Behav Negative ioral: for back Negative for pain and suicidal gait ideas and problem. </p><p>hallu Skin: cinations. Negative </p><p> for rash </p><p> and wound. </p><p>Physi dasha Exam Neurologic </p><p>BP al: 108/71 mmHg Positive | Pulse 92 | for Temp(Src) headaches. 98.9 F Negative (37.2 C) | for Resp 20 weakness </p><p>| and SpO2 numbness. 99%</p><p>Ph Psychiatri ysical Exam c/Behavior </p><p>Co al: nstitutional Negative : She is for oriented to suicidal person, ideas and place, and hallucinat time. She ions. </p><p>appea rs well-develop Physical ed and Exam well-nourish BP 108/71 ed. No mmHg | distress. Pulse 92 | </p><p>HENT: Temp(Src) </p><p>Head: 98.9 F Normocephali (37.2 C) | c and Resp 20 atraumatic. | SpO2 99% </p><p>Mouth Physical /Throat: Exam Oropharynx Constituti is clear and onal: She moist. is </p><p>Ey oriented es: to person, Conjunctivae place, and and EOM are time. She normal. appears Pupils are well-devel equal, oped and round, well-shannan </p><p>and shed. No reactive to distress. light. HENT: </p><p>Pain Head: with Normocepha extraocular lic and eye atraumatic movements.</ . p><p>Neck: Mouth/Thro Neck supple. at: No tracheal Oropharynx deviation is clear present. and moist. </p><p>Cardi ovascular: Eyes: Normal rate, Conjunctiv regular ae and EOM rhythm and are intact normal. distal Pupils are </p><p>pulse equal, s.</p><p>Pul round, monary/Chest and : Effort reactive normal and to light. breath Pain with sounds extraocula normal. r eye </p><p>Abdom movements. inal: Soft. Neck: Neck She exhibits supple. No no tracheal distension. deviation There is no present. </p><p>tende Cardiovasc rness. ular: </p><p>Muscu Normal loskeletal: rate, Normal range regular of motion. rhythm and She exhibits intact no edema or distal </p><p>tende pulses. rness. Pulmonary/ </p><p>Neuro Chest: logical: She Effort is alert and normal and oriented to breath person, sounds place, and normal. </p><p>time. Abdominal: No cranial Soft. She nerve exhibits deficit. She no exhibits distension normal . There is muscle tone. no </p><p>Coord tenderness ination . normal. Musculoske </p><p>Refle letal: x Normal Scores:</p>< range of p> Bicep motion. reflexes are She 2+ on the exhibits right side no edema and 2+ on or the left tenderness </p><p>side. . </p><p> Neurologic Patellar al: She is reflexes are alert and 2+ on the oriented right side to person, and 2+ on place, and the </p><p>left time. No side.</p>&lt cranial ;p>Cranial nerve Nerves:</p>< deficit. p>I - Not She tested. exhibits </p><p>II - normal PERRL. muscle </p><p>II tone. I, IV, -. Coordinati EOM intact. on normal. Normal vertical Reflex lateral gaze Scores: without Bicep </p><p>nysta reflexes gmus.</p> are 2+ on <p>V - the right Normal side and sensation</p 2+ on the ><p>VII - left Face side. symmetric, Patellar frontalis, reflexes orbicularis are 2+ on oculi and the right magdalena side and </p><p>intac 2+ on the t and left side. symmetric</p Cranial ><p>VIII - Nerves: Hearing I - Not symmetric to tested. finger rub II - b/l</p><p>IX PERRL. , X - Normal III, IV, palate -. EOM elevation, intact. no uvula Normal deviation.</ vertical p><p>XI - lateral Normal gaze strength of without SCM nystagmus. b/l.</p><p>X V - Normal II - Tongue sensation midline.</p> VII - Face <p> symmetric, </p><p>Stren frontalis, gth: Normal orbiculari tone. s oculi Strength 5/5 and magdalena in intact and extremities symmetric b/l. VIII - </p><p>Senso Hearing ry: Grossly symmetric intact light to finger tough rub b/l b/l.</p><p>R IX, X - omberg: Normal negative</p> palate <p>Cerebella elevation, r: Steady no uvula gait. FTN deviation. intact, CELSO XI - intact</p><p Normal > strength </p><p>Skin: of SCM Skin is warm b/l. and dry. XII - </p><p>Psych Tongue iatric: She midline. has a normal mood and Strength: affect. Normal </p><p>Nursi tone. ng note and Strength vitals 5/5 in reviewed.</p extremitie ><p> </p><p> s b/l. </p><p>Proce Sensory: dures Grossly </p><p>Lumba intact r light Puncture</p> tough b/l. <p>Date/Time Romberg: : 05/31/2017 negative 7:44 Cerebellar PM</p><p>Per : Steady formed by: gait. FTN ALIHCILO, intact, ANNEMARIE</p>< CELSO intact p>Authorized by: СЕРГЕЙ Skin: Skin RUDDY is warm F</p><p> and dry. </p><p>Conse Psychiatri nt: c: She has </p><p>Conse a normal nt mood and obtained:Juan affect. bal</p><p>Co Nursing nsent given note and by:Patient</ vitals p><p>Risk reviewed. s discussed:Bl eeding, Procedures infection, pain, Lumbar headache and Puncture nerve Date/Time: </p><p>damag 05/31/2017 e</p><p>A 7:44 PM lternatives Performed discussed:No by: treatment</p ALIKAH, ><p>Pre-proc ANNEMARIE judd Authorized details: by: </p><p>Pr amanda NAVARRETE purpose:Diag nostic</p><p Consent: >Anesthesia Consent (see MAR for obtained:V exact erbal dosages): Consent </p><p>An given esthesia by:Patient method:Local Risks infiltration discussed: </p><p>Local Bleeding, anesthetic:L infection, idocaine 1% pain, w/o headache epi</p><p>Pr and nerve ocedure damage details: Alternativ </p><p>Lumba es r discussed: space:L3-L4 No interspace</ treatment p><p>Need Pre-proced le ure gauge:20</p> details: <p>Ultrasoun Procedure d guidance: purpose:Di no</p><p>Num agnostic areli of Anesthesia attempts:1</ (see MAR p><p>Opening for exact pressure (cm dosages): H2O):28</p>< Anesthesia p>Closing method:Loc pressure (cm al H2O):10</ infiltrati p><p>Fluid on appearance:C Local lear</p><p>T anesthetic ubes of :Lidocaine fluid:4</p>< 1% w/o epi p>Total Procedure volume details: (ml):5</p><p Lumbar >Post-proced space:L3-L ure: 4 </p><p>Punct interspace ure Needle site:Adhesiv gauge:20 e bandage Ultrasound applied</p>< guidance: p>Patient no tolerance of Number of procedure:To attempts:1 lerated Opening well, no pressure immediate (cm </p><p>compl H2O):28 ications</p> Closing <p> </p><p> pressure </p><p> (cm </p><p> H2O):10 </p><p>ED Fluid Course appearance </p><p> :Clear </p><p>MDM</ Tubes of p><p>Number fluid:4 of Diagnoses Total or volume Management (ml):5 Options</p>< Post-proce p>Blurred dure: vision, left Puncture eye: site:Adhes </p><p>Intra dinesh ctable bandage episodic applied headache, Patient unspecified tolerance headache of type: procedure: </p><p>Non-i Tolerated ntractable well, no vomiting immediate with nausea, complicati unspecified ons vomiting type: </p><p>Perio rbital pain, bilateral: ED Course </p><p> </p><p>As MDM sessment/Mateus Number of n: 27 yr old Diagnoses F recently or diagnosed Management with colloid Options cyst Blurred </p><p>in vision, the region left eye: of the Intractabl foramen of e episodic moore who headache, presents unspecifie with d headache </p><p>worse type: johana left Non-intrac sided/perior table bital vomiting headache. with </p><p> nausea, </p><p>DDx:< unspecifie /p><p>- d vomiting hydrocephalu type: s 2/2 Periorbita intracranial l pain, mass</p><p>- bilateral: migraine headache</p> <p>- tension Assessment headache</p> /Plan: 27 <p>- yr old F pseudotumor recently cerebri</p>< diagnosed p> with </p><p>Isabel colloid p:</p><p>- cyst CT head in the non-contrast region of </p><p> the </p><p>Medic foramen of ations:</p>< moore who p>- Reglan, presents ketorolac, with and worsening acetaminophe left n for sided/bridgette headache</p> orbital <p> headache. </p><p>Dispo sition: DDx: </p><p>- - pending hydrocepha labs</p><p>- anurag 2/2 reassess intracrani </p><p> al mass </p><p> - migraine </p><p> headache </p><p> - tension </p><p> headache </p><p> - </p><p> pseudotumo </p><p> r cerebri </p><p> </p><p> Workup: </p><p>Ainsley - CT head h, Annemarie, non-contra Fellow st ()</p><p>R esident</p>< Medication p>05/31/17 s: 1539</p><p> - Reglan, </p><p>PROVI ketorolac, REYNA and REASSESSMENT acetaminop NOTE</p><p> hen for </p><p>I headache reexamined the patient Dispositio Terri n: Whittaker.</p&g - pending t;<p> labs </p><p>Lates - reassess t vital signs are:</p><p>F iled Vitals: </p><p> 05/31/17 1112 05/31/17 1242 05/31/17 1609 05/31/17 Vonnie, Sarah Sharpe, </p><p>BP: Fellow 128/83 () 108/71 Resident 102/56 05/31/17 107/59 1539 </p><p>Pulse : 128 92 86 PROVIDER 67 REASSESSME </p><p>Temp: NT NOTE 99.4 F (37.4 C) I 98.9 F reexamined (37.2 C) the 98.9 F patient (37.2 C) Terri 98.2 Whittaker. </p><p>F (36.8 Latest °C) vital </p><p>Resp: signs are: 18 20 20 18 Filed </p><p>SpO2: Vitals: 95% 99% 97% 05/31/17 99% </p><p> 1112 </p><p> 05/31/17 </p><p>Inter 1242 hernán 05/31/17 Progress: 1609 </p><p>CT 05/31/17 head 1930 negative for BP: 128/83 acute 108/71 abnormality. 102/56 </p><p>After 107/59 receiving Pulse: 128 toradol/apap 92 86 67 /reglan, Temp: 99.4 headache F (37.4 C) improved 98.9 F from 10 to (37.2 C) </p><p>05/28. 98.9 F Imitrex (37.2 C) given due to 98.2 presumed F (36.8 C) migraine headache, Resp: 18 patient 20 18 </p><p>re SpO2: 95% ported no 99% 97% improvement. 99% </p><p> </p><p>LP performed to Interval evaluate for Progress: pseudotumor CT head cerebri and negative SAH. </p><p> for acute </p><p>The abnormalit patients y. condition is After improved but receiving still with toradol/ap intractable ap/reglan, </p><p>sever headache e improved headache.</p from to ><p>Will give 05/28. magnesium IV Imitrex now for given due DANIEL</p><p> to </p><p>Curre presumed nt clinical migraine impressions headache, include:</p> patient <p>1. reported Intractable no episodic improvemen headache, t. unspecified headache LP type</p><p>2 performed . to Periorbital evaluate pain, for bilateral</p pseudotumo ><p>3. r cerebri Blurred and SAH. vision, left eye</p><p>4. The Non-intracta patients ble vomiting condition with nausea, is unspecified improved vomiting but still </p><p>type< with /p><p> intractabl </p><p> e </p><p>Plan: severe F/u LP headache. studies. Will give Reassess for magnesium improved IV now for pain DANIEL control. </p><p> Current </p><p>Kanwal turcios en Vonnie, impression Fellow s include: ()</p><p>A 1. ugust , Intractabl 2016 7:41 e episodic PM</p><p> headache, </p><p> unspecifie </p><p>Ainsley d headache h, Annemarie, type Fellow 2. ()</p><p>R Periorbita esident</p>< l pain, p>05/31/17 bilateral 1943</p><p> 3. Blurred </p><p>Ainsley vision, h, Annemarie, left eye Fellow 4. ()</p>< Non-intrac p>Resident</ table p><p> vomiting 7 with 1944</p><p> nausea, </p><p>BT EC unspecifie Resident d vomiting Update Note</p><p> type </p><p>Patie nt continues to have Plan: F/u headache LP 05/28. States studies. that the Reassess </p><p>medic for ations have improved not helped pain at all. control. States that she has a Annemarie Shankar, </p><p>linda Fellow in behind () her L May 31, eye.</p><p> 2016 7:41 </p><p>CSF PM analysis without blood to Vonnie, suggest SAH Annemarie, and no Fellow infectious () </p><p>signs Resident .</p><p> 05/31/17 </p><p>She 1943 is moving all Alikah, extremities, Annemarie, alert and Fellow oriented.</p (MD) ><p>Eyes Resident without 05/31/17 injection or 1944 drainage. PEARRPradip.</p>< BT EC p> Resident </p><p>Will Update give Haldol Note 5 mg IM and Benadryl 25 Patient mg IV continues </p><p> to have </p><p>Will headache re-assess.<05/28. p><p> States </p><p>Jan that the s Lora, medication Resident s have not (MD</p><p>Au helped at 13, all. 2016 10:40 States PM</p><p> that she </p><p> has a </p><p>Ga sharp llegos, pain Ignacio, behind her Resident L eye. (MD</p><p>Re sident</p><p CSF >05/31/17 analysis 2241</p><p> without </p><p>Galle blood to gos, Ignacio, suggest Resident SAH and no (MD</p><p>Re infectious sident</p><p >05/31/17 signs. 2242</p><p> </p><p>BT EC She is Resident moving all Update extremitie Note</p>< s, alert p> and </p><p>Patie oriented. nt asleep Eyes when I without walked into injection room.</p><p> or She awakens drainage. easily. PEARRL. States that her headache Will give is still Haldol 5 -06/28.</p>< mg IM and p> </p><p>I Benadrypradip spoke with 25 mg IV patient about the Will results of re-assess. her evaluation Ignacio here at [facility], </p><p>Alfredito Resident Cynthia. There (MD are no signs May 31, of infection 2016 10:40 on CSF, she PM has no </p><p>fever s.</p><p>The Guido, re are no Ignacio, obvious Resident signs of (MD trauma or Resident infectious 05/31/17 symptoms to 2241 </p><p>the eyes.</p><p> Guido </p><p>Omar Pierre, spoke with Resident patient ( about the Resident option of 05/31/17 discharge 224 home with PCP BT EC </p><p>f/u Resident and further Update evaluation Note in the EC with Patient Neurology asleep consult. At when I </p><p>this walked time, into room. patient does She not want to awakens see a easily. Neurologist States and prefers that her </p><p>to headache leave.</p><p is still >She states . she has a doctor that I spoke she will see with this patient week.</p><p> about the </p><p>Jan results of lonny Lora, her Resident evaluation (</p><p>Au here at [facility], Alfredito Marie. 2016 12:11 There are AM</p><p> no signs </p> of infection on CSF, she has no fevers. There are no obvious signs of trauma or infectious symptoms to the eyes. I spoke with patient about the option of discharge home with PCP f/u and further evaluation in the EC with Neurology consult. At this time, patient does not want to see a Neurologis t and prefers to leave. She states she has a doctor that she will see this week. Ignacio Lora, Resident ( June 01, 2017 12:11 AM BMP POC CO2 POC 25 mmol/L 21 - 32 05/31 [facility] BMP POC Chloride POC 108 mmol/L 98 - 107 05/31 [facility] BMP POC Potassium 3.7 mmol/L 3.5 - 5.1 05/31 [facility] POC [facility] BMP POC Sodium POC 140 mmol/L 136 - 145 05/31 [facility] BMP POC Glucose POC 100 mg/dL 74 - 106 05/31 [facility] BMP POC Urea 12 mg/dL 7 - 18 05/31 [facility] Nitrogen POC /2016 [facility] BMP POC Creatinine 0.6 mg/dL 0.6 - 1.3 05/31 [facility] POC /2016 [facility] BMP POC Calcium 1.16 1.15 - 05/31 [facility] Ionized POC mmol/L 1.29 [facility] BMP POC Hemoglobin 13.3 g/dL 12 - 16 05/31 [facility] POC /2016 [facility] BMP POC Hematocrit 39.0 % 37 - 47 05/31 [facility] POC [facility] BMP POC GFR, >60 mL/min/1.7 05/31 [facility] Estimated 3 m2 /2016 [facility] BMP POC GFR, Estim, >60 mL/min/1.7 05/31 [facility] Afr-Am [address] [facility] POC Lab Abnormal 05/31 [facility] Interpretati Health on CELL COUNT, Appearance Hazy 05/31 [facility] CELL COUNT, Color Colorless 05/31 [facility] CELL COUNT, WBC 1 /uL 0 - 5 05/31 Differential not performed on counts < or=5/cu mm, cytospin preparation [facility] available for review [facility] CELL COUNT, RBC 0 /uL 05/31 [facility] CSF STAIN / Spec Cerebrospi 05/31 [facility] CULTURE Description nal fluid Health CSF STAIN / Gram Stain No 05/31 [facility] CULTURE organisms /2016 [facility] seen CSF STAIN / Culture No growth 05/31 [facility] CULTURE 3 days Health CSF STAIN / Report Final 05/31 [facility] CULTURE Status 06/04/2017 [facility] CSF Spec Cerebrospi 05/31 [facility] Stain/Cultu Description nal fluid Health re CSF Gram Stain No 05/31 [facility] Stain/Cultu organisms /2016 [facility] re seen CSF Culture No growth 05/31 [facility] Stain/Cultu 3 days Health re CSF Report Final 05/31 [facility] Stain/Cultu Status 06/04/2017 [facility] re GLUCOSE, Glucose, CSF 56 mg/dL 50 - 80 05/31 [facility] T PROTEIN, T Protein, 26.5 mg/dL 15 - 45 05/[address] [facility] [address] [facility] [address] HEAD W/O IMPRESSION: No intracranial abnormalities. If the report is "FINALIZED" it indicates that the attending/staff radiologist has reviewed the images and agrees with the resident's interpretation. 05/31 [facility] CONTRAST Dictated By: Barak Henry MD, 05/31/2017 2:32 PM I have reviewed the study and agree with the findings in this report. Signed By: Goran Beckman MD, 05/31/2017 3:35 PM Exam : Head CT without contrast History: headache /2017 [facility] Comparison studies: None. Technique: Axial scans were obtained from skull base to the vertex. Coronal and sagittal reconstructions obtained from the axial data. IV Contrast: None Complications: None Radiation Dose: Total DLP: 787 mGy*cm. Estimated Effective Dose: DLP x 0.0021 mSv FINDINGS: Scalp/Skull: No abnormalities. Brain sulci: Appropriate for patient's age. Ventricles: Normal in size and configuration.No hydrocephalus. Extra-axial spaces: No masses or fluid collections. Parenchyma: No abnormal densities. No masses, acute hemorrhage or acute or chronic cortical insults. Dural sinuses:No abnormal densities. Sellar/Suprasellar region: Intact. Skull base and Craniocervical junction: Intact. Interface, Rad/Mammog In - 05/31/2017 3:40 PM CDT Exam : Head CT without contrast History: headache Comparison studies: None. Technique: Axial scans were obtained from skull base to the vertex. Coronal and sagittal reconstructions obtained from the axial data. IV Contrast: None Complications: None Radiation Dose: Total DLP: 787 mGy*cm. Estimated Effective Dose: DLP x 0.0021 mSv FINDINGS: Scalp/Skull: No abnormalities. Brain sulci: Appropriate for patient's age. Ventricles: Normal in size and configuration.No hydrocephalus. Extra-axial spaces: No masses or fluid collections. Parenchyma: No abnormal densities. No masses, acute hemorrhage or acute or chronic cortical insults. Dural sinuses: No abnormal densities. Sellar/Suprasellar region: Intact. Skull base and Craniocervical junction: Intact. IMPRESSION: No intracranial abnormalities. If the report is "FINALIZED" it indicates that the attending/staff radiologist has reviewed the images and agrees with the resident's interpretation. Dictated By: Barak Henry MD, 05/31/2017 2:32 PM I have reviewed the study and agree with the findings in this report. Signed By: Goran Beckman MD, 05/31/2017 3:35 PM 12 LEAD EKG 12 LEAD EKG [facility] 05/31 [facility] FOR P Health Test Date:2017-05-31 Pat Name: TERRI WHITTAKER Department: : Gender: FTechnician: :1990 Requested By: Order Number:Diamond MD: Leander Hernandez M.D. Measurements IntervalsAxis Rate: 84 P:7 LA: 140QRS:62 QRSD: 84 T:0 QT: 335 QTc:396 Interpretive Statements SINUS RHYTHM Electronically Signed On 05-31-17 13:08:33 CDT by Leander Hernandez M.D. TOXICOLOGY Acetaminoph null 10 - 20 06/04 [place] CHEM PANEL eGFR 130 06/04 Result Comment: The eGFR is calculated using the CKD-EPI formula. In most young, healthy individuals the eGFR will be >90 mL/ min/1.73m2. The eGFR declines with age. An eGFR of 60-89 may be normal in mL/min/1.7 some populations, particularly the elderly, for whom the CKD-EPI formula has not been extensively validated. Use of the eGFR is not recommended in the following populations: [place] [id number] Individuals with unstable creatinine concentrations, including patients and those with serious co-morbid conditions. Patients with extremes in muscle mass or diet. The data above are obtained from the National Kidney Disease Education Program (NKDEP) which additionally recommends that when the eGFR is used in patients with extremes of body mass index for purposes of drug dosing, the eGFR should be multiplied by the estimated BMI. CHEM PANEL Chloride Lvl 111 meq/L 95 - 109 06/04 [place] CHEM PANEL Potassium 3.9 meq/L 3.5 - 5.1 06/04 [place] CHEM PANEL Sodium Lvl 142 meq/L 135 - 145 06/04 [place] CHEM PANEL Creatinine 0.55 mg/dL 0.50 - 06/04 Lvl 1.40 [place] CHEM PANEL BUN 10 mg/dL 7 - 22 06/04 [place] CHEM PANEL Total 7.7 g/dL 6.4 - 8.4 06/04 Protein [place] CHEM PANEL Bili Total 0.2 mg/dL 0.2 - 1.3 06/04 [place] CHEM PANEL Calcium Lvl 8.2 mg/dL 8.5 - 10.5 06/04 [place] CHEM PANEL CO2 24 meq/L 24 - 32 06/04 [place] CHEM PANEL ASPARTATE 38 unit/L 0 - 37 06/04 TRANSAMINASE [place] CHEM PANEL Glucose Lvl 115 mg/dL 70 - 99 06/04 [place] CHEM PANEL Alk Phos 55 unit/L 39 - 136 06/04 [place] CHEM PANEL Albumin Lvl 4.2 g/dL 3.5 - 5.0 06/04 [place] CHEM PANEL ALANINE 55 unit/L 0 - 65 06/04 AMINOTRANS [place] RASE CHEM PANEL B/C Ratio 18 6 - 25 06/04 [place] CHEM PANEL AGAP 10.9 meq/L 10.0 - 06/04 [facility] 20.0 [place] CHEM PANEL A/G Ratio 1.2 0.7 - 1.6 06/04 [place] CHEM PANEL Globulin 3.5 g/dL 2.7 - 4.2 06/04 [place] DRUG SCREEN U Benzodia Negative Negative 06/04 [place] *NA* (06/04/16 12:23 PM) DRUG SCREEN U Cocaine Negative Negative 06/04 [place] *NA* (06/04/16 12:23 PM) DRUG SCREEN U Cannab Scr Negative Negative 06/04 [place] *NA* (06/04/16 12:23 PM) DRUG SCREEN U Opiate Scr Negative Negative 06/04 [place] *NA* (06/04/16 12:23 PM) DRUG SCREEN UDS Note See Note 06/04 [place] *NA* (06/04/16 12:23 PM) DRUG SCREEN U Phencyc Negative Negative 06/04 [place] *NA* (06/04/16 12:23 PM) DRUG SCREEN U Nan Scr Negative Negative 06/04 [place] *NA* (06/04/16 12:23 PM) DRUG SCREEN U Amph Scr Negative Negative 06/04 [place] *NA* (06/04/16 12:23 PM) ENDOCRINOLO S Preg Negative Negative 06/04 [place] *NA* (06/04/16 12:23 PM) HEMATOLOGY MPV 9.0 fL 7.4 - 10.4 06/04 [place] HEMATOLOGY Platelet 249 K/CMM 133 - 450 06/04 [place] HEMATOLOGY RDW 14.4 % 11.5 - 06/04 MH 14. [place] HEMATOLOGY MCHC 33.0 g/dL 32.0 - 06/04 [facility] 36.0 /2015 [place] HEMATOLOGY MCH 28.7 pg 27.0 - 06/04 MH 31.0 [place] HEMATOLOGY MCV 86.9 fL 80.0 - 06/04 [facility] 98.0 [place] HEMATOLOGY Hct 40.5 % 36.0 - 06/04 [facility] 48.0 /2015 [place] HEMATOLOGY Hgb 13.4 g/dL 12.0 - 06/04 MH 16.0 [place] HEMATOLOGY RBC X 10x6 4.67 M/CMM 4.20 - 06/04 MH 5.40 /2015 [place] HEMATOLOGY WBC X 10x3 8.6 K/CMM 3.7 - 10.4 06/04 [place] HEMATOLOGY Monocytes # 0.4 K/CMM 0.0 - 0.8 06/04 /2015 [place] HEMATOLOGY Segs-Bands # 7.0 K/CMM 1.5 - 8.1 06/04 [place] HEMATOLOGY Lymphocytes 1.2 K/CMM 1.0 - 5.5 06/04 MH /2015 [place] HEMATOLOGY Eosinophils 0.1 % 0.0 - 4.0 06/04 [place] HEMATOLOGY Basophils 0.3 % 0.0 - 1.0 06/04 [place] HEMATOLOGY Monocytes 4.4 % 2.0 - 12.0 06/04 [place] HEMATOLOGY Segs 81.4 % 45.0 - 06/04 MH 75.0 [place] HEMATOLOGY Lymphocytes 13.8 % 20.0 - 06/04 MH 40.0 [place] TOXICOLOGY Salicylate null 0.0 - 30.0 06/04 Lvl [place] TOXICOLOGY Acetaminoph null 10 - 20 06/04 Lvl [place] TOXICOLOGY Ethanol Lvl 62 mg/dL 06/04 [place] TOXICOLOGY Etoh (%) 0.062 % 06/04 [place] TOXICOLOGY TCA Screen null 06/04 [place] URINE AND UA Bacteria None Seen None Seen 06/04 STOOL /2015 [place] (06/04/16 12:23 PM) URINE AND UA Mucus Few /LPF None Seen 06/04 STOOL /LPF /2015 [place] URINE AND UA RBC 0-2 /HPF 0 - 2 06/04 [place] URINE AND UA WBC None Seen None Seen 06/04 [place] (06/04/16 12:23 PM) URINE AND UA Sq Epi Occasional Few /LPF 06/04 STOOL /LPF [place] URINE AND UA Color Yellow Yellow 06/04 [place] *NA* (06/04/16 12:23 PM) URINE AND UA Turbidity Clear Clear 06/04 [place] (06/04/16 12:23 PM) URINE AND UA 0.2 EU/dL 0.1 - 1.0 06/04 [facility] Urobilinogen [place] URINE AND UA Bili Negative Negative 06/04 [place] *NA* (06/04/16 12:23 PM) URINE AND UA Blood Small Negative 06/04 [place] *ABN* (06/04/16 12:23 PM) URINE AND UA Nitrite Negative Negative 06/04 STOOL [place] (06/04/16 12:23 PM) URINE AND UA Leuk Est Negative Negative 06/04 [place] (06/04/16 12:23 PM) URINE AND UA Spec Grav 1.020 <=1.030 06/04 [place] URINE AND UA pH 6.0 5.0 - 8.0 06/04 [place] URINE AND UA Glucose Negative Negative 06/04 [place] (06/04/16 12:23 PM) URINE AND UA Ketones Negative Negative 06/04 [place] *NA* (06/04/16 12:23 PM) URINE AND UA Protein Negative Negative 06/04 [place] (06/04/16 12:23 PM) URINE CHEM U Preg Negative Negative 06/04 [place] (06/04/16 12:23 PM) Chest 1view Chest 1view CHEST RADIOGRAPH SINGLE VIEW 06/04 - [facility] DX - [place] INDICATION: Shortness of breath, overdose Read by: Terry Hooper MD Dictated Date/time: 06/04/16 12:36 Electronically Signed by: Terry Hooper MD 06/04/16 12:36 FINAL REPORT COMPARISON: None IMPRESSION: The lungs are underinflated. Grossly, no acute intrathoracic abnormalities are visualized. SL:16 URINE AND UA 1.0 EU/dL 0.1 - 1.0 02/26 [place] [facility] Urobilinogen /2015 [facility] URINE AND UA Nitrite Negative Negative 02/26 [place] [facility] [place] (02/27/16 1:41 PM) URINE AND UA Leuk Est Trace Negative 02/26 [place] [facility] [place] *ABN* (02/27/16 1:41 PM) URINE AND UA Bili Small Negative 02/26 [place] [place] *ABN* (02/27/16 1:41 PM) URINE AND UA Blood Moderate Negative 02/26 [place] [place] *ABN* (02/27/16 1:41 PM) URINE AND UA Protein 30 mg/dL Negative 02/26 [place] [facility] mg/dL [facility] URINE AND UA Glucose Negative Negative 02/26 [place] STOOL [facility] (02/27/16 1:41 PM) URINE AND UA Ketones Negative Negative 02/26 [place] [place] *NA* (02/27/16 1:41 PM) URINE AND UA pH 6.0 5.0 - 8.0 02/26 [place] ST[facility]OL [facility] URINE AND UA Color Yellow Yellow 02/26 [place] [place] *NA* (02/27/16 1:41 PM) URINE AND UA Spec Grav >=1.030 <=1.030 02/26 [place] [facility] *ABN* (02/27/16 1:41 PM) URINE AND UA Turbidity Cloudy Clear 02/26 [place] [facility] *ABN* (02/27/16 1:41 PM) URINE AND UA Bacteria Occasional None Seen 02/26 [place] [facility] /HPF /HPF [facility] URINE AND UA Mucus Many /LPF None Seen 02/26 [place] [facility] /LPF /2015 [facility] URINE AND UA WBC 51-100 None Seen 02/26 [place] [facility] /HPF /HPF /2015 URINE AND UA RBC 6-10 /HPF 0 - 2 02/26 [place] STOOL [facility] URINE AND UA Sq Epi Many /LPF Few /LPF 02/26 [place] STOOL [facility] CHEM PANEL A/G Ratio 1.0 0.7 - 1.6 02/26 [facility] CHEM PANEL AGAP 10.9 meq/L 10.0 - 02/26 [place] 20.0 /2015 [place] CHEM PANEL B/C Ratio 23 6 - 25 02/26 [place] CHEM PANEL Globulin 3.7 g/dL 2.0 - 4.0 02/26 [place] CHEM PANEL eGFR 126 02/26 Result Comment: The eGFR is calculated using the CKD-EPI formula. In most young, healthy individuals the eGFR will be >90 mL/ min/1.73m2. The eGFR declines with age. An eGFR of 60-89 may be normal in mL/min/1.7 /2015 some populations, particularly the elderly, for whom the CKD-EPI formula has not been extensively validated. Use of the eGFR is not recommended in the following populations: [place] 3m2 Individuals with unstable creatinine concentrations, including patients and those with serious co-morbid conditions. Patients with extremes in muscle mass or diet. The data above are obtained from the National Kidney Disease Education Program (NKDEP) which additionally recommends that when the eGFR is used in patients with extremes of body mass index for purposes of drug dosing, the eGFR should be multiplied by the estimated BMI. CHEM PANEL Glucose Lvl 89 mg/dL 70 - 99 02/26 [place] CHEM PANEL Albumin Lvl 3.7 g/dL 3.5 - 5.0 02/26 [place] CHEM PANEL ALT 35 unit/L 0 - 65 02/26 [place] CHEM PANEL Chloride Lvl 105 meq/L 95 - 109 02/26 [place] CHEM PANEL BUN 14 mg/dL 7 - 22 02/26 [place] CHEM PANEL Potassium 3.9 meq/L 3.5 - 5.1 02/26 [place] Lvl /2015 [place] CHEM PANEL Creatinine 0.61 mg/dL 0.50 - 02/26 [place] Lvl 1.40 /2015 [place] CHEM PANEL Sodium Lvl 139 meq/L 135 - 145 02/26 [place] CHEM PANEL Total 7.4 g/dL 6.4 - 8.4 02/26 [place] CHEM PANEL CO2 27 meq/L 24 - 32 02/26 [place] CHEM PANEL Calcium Lvl 8.3 mg/dL 8.5 - 10.5 02/26 [place] CHEM PANEL Alk Phos 61 unit/L 39 - 136 02/26 [place] CHEM PANEL AST 15 unit/L 0 - 37 05/11 [facility] [place] /2016 [place] CHEM PANEL Bili Total 0.3 mg/dL 0.2 - 1.3 02/26 [place] /2016 [place] CHEM PANEL Lipase Lvl 118 unit/L 73 - 393 02/26 [facility] [place] CHEM PANEL Amylase Lvl 66 unit/L 25 - 115 02/26 [place] /2015 [place] ENDOCRINOLO S Preg Negative Negative 02/26 [place] (02/27/16 12:02 PM) HEMATOLOGY MCH 28.1 pg 27.0 - 02/26 [place] 31.0 [place] HEMATOLOGY MCV 86.0 fL 80.0 - 02/26 [place] 98.0 [place] HEMATOLOGY RDW 14.1 % 11.5 - 05 [place] 14.5 [place] HEMATOLOGY Hct 40.7 % 36.0 - 02/26 [place] 48.0 [place] HEMATOLOGY MCHC 32.7 g/dL 32.0 - 02/26 [place] 36.0 [place] HEMATOLOGY Platelet 292 K/CMM 133 - 450 02/26 [place] HEMATOLOGY MPV 9.1 fL 7.4 - 10.4 02/26 [place] HEMATOLOGY Hgb 13.3 g/dL 12.0 - 02/26 [place] 16.0 /2016 [place] HEMATOLOGY RBC 4.73 M/CMM 4.20 - 02/26 [place] 5.40 /2015 [place] HEMATOLOGY WBC 10.0 K/CMM 3.7 - 10.4 02/26 [place] /2016 [place] HEMATOLOGY Segs 64.5 % 45.0 - 02/26 [place] 75.0 /2015 [place] HEMATOLOGY Lymphocytes 27.2 % 20.0 - 02/26 [place] 40.0 [place] HEMATOLOGY Eosinophils 0.3 % 0.0 - 4.0 02/26 [place] 2016 [place] HEMATOLOGY Monocytes 7.6 % 2.0 - 12.0 02/26 [place] /2016 [place] HEMATOLOGY Segs-Bands # 6.5 K/CMM 1.5 - 8.1 02/26 [place] HEMATOLOGY Basophils 0.4 % 0.0 - 1.0 02/26 [place] 2016 [place] HEMATOLOGY Monocytes # 0.8 K/CMM 0.0 - 0.8 02/26 [place] HEMATOLOGY Lymphocytes 2.7 K/CMM 1.0 - 5.5 02/26 [place] # /2015 [place] Pelvis Pelvis Exam: Pelvic ultrasound. 02/26 [facility] Transvag w Transvag w [facility] Pelvis Pelvis Doppler US Doppler US History: Abdominal and pelvic pain, acute LMP 01/27/2016 Read by: Angela Merida MD Dictated Date/time: 02/27/16 13:25 Electronically Signed by: Angela Merida MD 02/27/16 13:36 FINAL REPORT Comparison: None. Findings: Endovaginal sonographic evaluation of the pelvis. The uterus is normal in echotexture,anteverted in position, measuring 7.5 x 4.6 x 6.2 cm. No fibroids are identified . Endometrial stripe thickness is 1.0 millimeters. . The right ovary is well visualized. The right ovary is normal in appearance. The right ovary measures 3.9 x 2.3 x 3.5 cm. Presence of a heterogeneous complex 3.4 x 2.7 x 3.1 cm right ovarian nonvascular mass is noted and could represent a hemorrhagic ovarian cyst or less likely an endometrioma The left ovary is well visualized. The left ovary is normal in appearance. The left ovary measures 2.8 x 2 x 1.6 cm>. ] Small amount of free fluid is visualized within the pelvis. Impression: Complex predominantly solid nonvascular right ovarian mass measuring 3.4 x 2.7 x 3.1 cm. Possibility of an endometrioma or hemorrhagic ovarian cyst or chocolate cyst should be considered. Short-term fo llow-up examination is recommended after a few menstrual cycles. Small amount of free fluid in the cul-de-sac. Abdomen RUQ Abdomen RUQ ULTRASOUND OF THE ABDOMEN RIGHT UPPER QUADRANT [facility] US US /2015 [facility] History: 26-year-old female with right upper and right lower quadrant pain. Read by: Atilio Greene MD Dictated Date/time: 02/27/16 13:38 Electronically Signed by: Atilio Greene 02/27/16 13:41 FINAL REPORT Technique: Real-time rapp-scale imaging supplemented with color Doppler of the right upper quadrant was performed. Comparison: None. Findings: The liver has findings diffuse increased parenchymal echogenicity suggesting steatosis or chronic liver disease. Long axis dimension of right lobe is 12.5 cm, portal vein caliber is 0.7 cm with hepatopetal flow. The gallbladder has a small mobile stone, wall thickness is 0.2 cm and the sonographic Thomas sign is negative. The common bile duct caliber is 0.3 cm. The pancreas was not seen and obscured by bowel gas. The right kidney has normal morphology and measures 11 x 5.2 x 5.5 cm. The abdominal aorta and segments of the IVC poorly seen have normal caliber. IMPRESSION: Liver parenchymal pattern suggests steatosis or chronic liver disease. Cholelithiasis without signs of acute cholecystitis. Vital Signs Vital Sign Value Date Comments Source Systolic (mm Hg) 107 06/01/2017 [facility] Diastolic (mm Hg) 59 06/01/2017 [facility] Heart Rate 67 06/01/2017 [facility] Temperature Oral (F) 36.78 Alisha 06/01/2017 [facility] Respitory Rate 18 06/01/2017 [facility] Respitory Rate 16 06/05/2016 [facility] Temperature Oral (F) 98.5 F 06/05/2016 [facility] Systolic (mm Hg) 120 06/05/2016 [facility] Diastolic (mm Hg) 69 06/05/2016 [facility] Respitory Rate 18 06/04/2016 [facility] Systolic (mm Hg) 117 06/04/2016 [facility] Diastolic (mm Hg) 64 06/04/2016 [facility] Heart Rate 95 06/04/2016 [facility] Respitory Rate 13 06/04/2016 [facility] Systolic (mm Hg) 105 06/04/2016 [facility] Diastolic (mm Hg) 62 06/04/2016 [facility] Heart Rate 105 06/04/2016 [facility] Temperature Oral (F) 98.1 F 06/04/2016 [facility] Weight 77.273 06/04/2016 [facility] Heart Rate 95 06/04/2016 [place] Temperature Oral (F) 98.6 F 06/04/2016 [facility] Heart Rate 65 02/27/2016 [place] Respitory Rate 18 02/27/2016 [place] Systolic (mm Hg) 112 02/27/2016 [place] Diastolic (mm Hg) 80 02/27/2016 [place] Temperature Oral (F) 98.7 F 02/27/2016 [place] Temperature Oral (F) 98.2 F 02/27/2016 [place] Systolic (mm Hg) 126 02/27/2016 [place] Diastolic (mm Hg) 80 02/27/2016 [place] Respitory Rate 16 02/27/2016 [place] Heart Rate 91 02/27/2016 [place] BMI Calculated 25.97 02/27/2016 [place] Weight 68.636 02/27/2016 [place] Height 162.56 cm 02/27/2016 [place] Encounters Location Location Encounter Encounter Reason Attending ADM DC Status Source Details Type Number For Provider Date Date Visit [facility] [id number] [facility] 02/26 02/26 [place] [facility] /2015 [facility] Out[facility] [id number] AD[facility] 02/28 Active [facility] /2015 [place] Outpatient [id number] ADENRE[facility] 03/18 Active [facility] /2015 [facility] Emergency [id number] Caitie 06/04 06/04 [facility] /2015 [facility] Emergency Emergency [id number] [facility] 05/31 06/01 [facility] nirmal Navarrete MD /2016 Health episodic headache , unspecif ied headache type Periorbi tunde pain, bilatera l Blurred vision, left eye Non-intr actable vomiting with nausea, unspecif ied vomiting type Procedures Procedure Code Date Perfomer Comments Source Both fallopian tubes [id number] [place] Both fallopian tubes [id number] [facility] Cholecystectomy [id number] [facility]
--- OUTSIDE RECORDS SUMMARY | 2018-12-13 08:30 | XMS REPORT | Summary of Care ---
:1990 Author Organization [facility] Address [id number] [place] [id number] Encounter HQ Milli_nikko(FIN) [id number] Date(s): 06/04/16 - 06/04/[address] [phone] Discharge Diagnosis: Attempted suicide Discharge Diagnosis: Acute depression Discharge Diagnosis: Tylenol ingestion Discharge Diagnosis: Ingestion of unknown medication Discharge Disposition: Home or Self Care Attending Physician: Caitie [facility] MD Vital Signs Most recent to oldest 1 2 3 [Reference Range]: Temperature Oral [96.4-99.1 98.5 DegF 98.1 DegF 98.6 DegF DegF] (06/04/16 7:09 PM) (06/04/16 1:05 PM) (06/04/16 11:48 AM) Blood Pressure [90-140/60-90 120/69 mmHg 117/64 mmHg 105/62 mmHg mmHg] (06/04/16 7:09 PM) (06/04/16 5:49 PM) (06/04/16 3:49 PM) Respiratory Rate [14-20 16 BRMIN 18 BRMIN 13 BRMIN BRMIN] (06/04/16 7:09 PM) (06/04/16 5:49 PM) *LOW* (06/04/16 5:45 PM) Peripheral Pulse Rate [60-100 95 bpm 105 bpm 95 bpm bpm] (06/04/16 5:49 PM) *HI* (06/04/16 11:48 AM) (06/04/16 2:33 PM) Weight 77.273 kg (06/04/16 11:48 AM) Problem List No data available for this section Allergies, Adverse Reactions, Alerts Substance Reaction Severity Status NKDA Active Medications Actidose Plus Sorbitol 50 gm, 240 mL, Route: PO, Drug form: SUSP, ONCE, Start date: 06/04/16 12:19:00 CDT, Stop date: 06/04/16 12:19:00 CDT Notes: (Same As: Actidose Plus Sorbitol) Start Date: 06/04/16 Stop Date: 06/04/16 Status: Completedcharcoal 50 gm, Route: PO, Drug form: SUSP, ONCE, Dosing Weight 77.273, kg, Start date: 06/04/16 12:08:00 CDT, Stop date: 06/04/16 12:08:00 CDT Start Date: 06/04/16 Stop Date: 06/04/16 Status: Deletedmorphine Sulfate 4 mg, Route: IVP, Drug form: INJ, ONCE, Dosing Weight 77.273, kg, Priority: STAT , Start date: 06/04/16 14:19:00 CDT, Stop date: 06/04/16 14:19:00 CDT Start Date: 06/04/16 Stop Date: 06/04/16 Status: CompletedSodium Chloride 0.9% (Bolus) IV 1,000 mL, 1,000 ml/hr, Infuse Over: 1 hr, Route: IV, 1,000, Drug form: INJ, ONCE , Priority: STAT, Dosing Weight 77.273 kg, Start date: 06/04/16 12:06:00 CDT, Duration: 1 doses or times, Stop date: 06/04/16 12:06:00 CDT Start Date: 06/04/16 Stop Date: 06/04/16 Status: CompletedZofran 4 mg, Route: IVP, Drug form: INJ, ONCE, Dosing Weight 77.273, kg, Priority: STAT , Start date: 06/04/16 12:29:00 CDT, Stop date: 06/04/16 12:29:00 CDT Start Date: 06/04/16 Stop Date: 06/04/16 Status: CompletedZofran 4 mg, 2 mL, Route: IVP, Drug form: INJ, ONCE, Dosing Weight 77.273, kg, Priority : STAT, Start date: 06/04/16 14:57:00 CDT, Stop date: 06/04/16 14:57:00 CDT Notes: (Same as: Zofran) MEDICATION WASTE Product Size: 4 mgProduct Wasted: ___ mg Start Date: 06/04/16 Stop Date: 06/04/16 Status: CompletedZofran 4 mg, Route: IVP, Drug form: INJ, ONCE, Dosing Weight 77.273, kg, Priority: STAT , Start date: 06/04/16 14:20:00 CDT, Stop date: 06/04/16 14:20:00 CDT Start Date: 06/04/16 Stop Date: 06/04/16 Status: Completed Results ELECTROLYTES Most recent to oldest [Reference Range]: 1 2 Sodium Lvl [135-145 mEq/L] 142 mEq/L (06/04/16 12:23 PM) Potassium Lvl [3.5-5.1 mEq/L] 3.9 mEq/L (06/04/16 12:23 PM) Chloride Lvl [95-109 mEq/L] 111 mEq/L *HI* (06/04/16 12:23 PM) CO2 [24-32 mEq/L] 24 mEq/L (06/04/16 12:23 PM) AGAP [10.0-20.0 mEq/L] 10.9 mEq/L (06/04/16 12:23 PM) CHEM PANEL Most recent to oldest [Reference Range]: 1 2 Creatinine Lvl [0.50-1.40 mg/dL] 0.55 mg/dL (06/04/16 12:23 PM) eGFR 130 mL/min/1.73m2 1 *NA* (06/04/16 12:23 PM) BUN [7-22 mg/dL] 10 mg/dL (06/04/16 12:23 PM) B/C Ratio [6-25] 18 (06/04/16 12:23 PM) Glucose Lvl [70-99 mg/dL] 115 mg/dL *HI* (06/04/16 12:23 PM) Total Protein [6.4-8.4 g/dL] 7.7 g/dL (06/04/16 12:23 PM) Albumin Lvl [3.5-5.0 g/dL] 4.2 g/dL (06/04/16 12:23 PM) Globulin [2.7-4.2 g/dL] 3.5 g/dL (06/04/16 12:23 PM) A/G Ratio [0.7-1.6] 1.2 (06/04/16 12:23 PM) Calcium Lvl [8.5-10.5 mg/dL] 8.2 mg/dL *LOW* (06/04/16 12:23 PM) ALT [0-65 unit/L] 55 unit/L (06/04/16 12:23 PM) AST [0-37 unit/L] 38 unit/L *HI* (06/04/16 12:23 PM) Alk Phos [39-136 unit/L] 55 unit/L (06/04/16 12:23 PM) Bili Total [0.2-1.3 mg/dL] 0.2 mg/dL (06/04/16 12:23 PM) 1Result Comment: The eGFR is calculated using the CKD-EPI formula. In most young , healthy individualsthe eGFR will be >90 mL/min/1.73m2. The eGFR declines with age. An eGFR of 60-89 may be normal in some populations, particularly the elderly, for whom the CKD-EPI formula has not been extensively validated. Use of the eGFR is not recommended in the following populations: Individuals with unstable creatinine concentrations, including patients and those with serious co-morbid conditions. Patients with extremes in muscle mass or diet. The data above are obtained from the National Kidney Disease Education Program ( NKDEP) which additionally recommends that when the eGFR is used in patients with extremes of body mass index for purposesof drug dosing, the eGFR should be multiplied by the estimated BMI.DRUG SCREEN Most recent to oldest [Reference Range]: 1 2 U Amph Scr [Negative] Negative *NA* (06/04/16 12:23 PM) U Nan Scr [Negative] Negative *NA* (06/04/16 12:23 PM) U Benzodia Scr [Negative] Negative *NA* (06/04/16 12:23 PM) U Cocaine Scr [Negative] Negative *NA* (06/04/16 12:23 PM) U Opiate Scr [Negative] Negative *NA* (06/04/16 12:23 PM) U Phencyc Scr [Negative] Negative *NA* (06/04/16 12:23 PM) U Cannab Scr [Negative] Negative *NA* (06/04/16 12:23 PM) UDS Note See Note *NA* (06/04/16 12:23 PM) TOXICOLOGY Most recent to oldest [Reference Range]: 1 2 Acetaminoph Lvl [10-20 ug/ml] <2 ug/ml <2 ug/ml *LOW* *LOW* (06/04/16 3:03 PM) (06/04/16 12:23 PM) Salicylate Lvl [0.0-30.0 mg/dL] <1.7 mg/dL (06/04/16 12:23 PM) Etoh (%) .062 % *NA* (06/04/16 12:23 PM) Ethanol Lvl 62 mg/dL *NA* (06/04/16 12:23 PM) TCA Screen <=299 ng/mL *NA* (06/04/16 12:23 PM) ENDOCRINOLOGY Most recent to oldest [Reference Range]: 1 2 S Preg [Negative] Negative *NA* (06/04/16 12:23 PM) URINE CHEM Most recent to oldest [Reference Range]: 1 2 U Preg [Negative] Negative (06/04/16 12:23 PM) URINE AND STOOL Most recent to oldest [Reference Range]: 1 2 UA Turbidity [Clear] Clear (06/04/16 12:23 PM) UA Color [Yellow] Yellow *NA* (06/04/16 12:23 PM) UA pH [5.0-8.0] 6.0 (06/04/16 12:23 PM) UA Spec Grav [<=1.030] 1.020 (06/04/16 12:23 PM) UA Glucose [Negative] Negative (06/04/16 12:23 PM) UA Blood [Negative] Small *ABN* (06/04/16 12:23 PM) UA Ketones [Negative] Negative *NA* (06/04/16 12:23 PM) UA Protein [Negative] Negative (06/04/16 12:23 PM) UA Urobilinogen [0.1-1.0 EU/dL] 0.2 EU/dL (06/04/16 12:23 PM) UA Bili [Negative] Negative *NA* (06/04/16 12:23 PM) UA Leuk Est [Negative] Negative (06/04/16 12:23 PM) UA Nitrite [Negative] Negative (06/04/16 12:23 PM) UA WBC [None Seen] None Seen (06/04/16 12:23 PM) UA RBC [0-2 /HPF] 0-2 /HPF (06/04/16 12:23 PM) UA Bacteria [None Seen] None Seen (06/04/16 12:23 PM) UA Sq Epi [Few /LPF] Occasional /LPF (06/04/16 12:23 PM) UA Mucus [None Seen /LPF] Few /LPF (06/04/16 12:23 PM) HEMATOLOGY Most recent to oldest [Reference Range]: 1 2 WBC [3.7-10.4 K/CMM] 8.6 K/CMM (06/04/16 12:23 PM) RBC [4.20-5.40 M/CMM] 4.67 M/CMM (06/04/16 12:23 PM) Hgb [12.0-16.0 g/dL] 13.4 g/dL (06/04/16 12:23 PM) Hct [36.0-48.0 %] 40.5 % (06/04/16 12:23 PM) MCV [80.0-98.0 fL] 86.9 fL (06/04/16 12:23 PM) MCH [27.0-31.0 pg] 28.7 pg (06/04/16 12:23 PM) MCHC [32.0-36.0 g/dL] 33.0 g/dL (06/04/16 12:23 PM) RDW [11.5-14.5 %] 14.4 % (06/04/16 12:23 PM) Platelet [133-450 K/CMM] 249 K/CMM (06/04/16 12:23 PM) MPV [7.4-10.4 fL] 9.0 fL (06/04/16 12:23 PM) Segs [45.0-75.0 %] 81.4 % *HI* (06/04/16 12:23 PM) Lymphocytes [20.0-40.0 %] 13.8 % *LOW* (06/04/16 12:23 PM) Monocytes [2.0-12.0 %] 4.4 % (06/04/16 12:23 PM) Eosinophils [0.0-4.0 %] 0.1 % (06/04/16 12:23 PM) Basophils [0.0-1.0 %] 0.3 % (06/04/16 12:23 PM) Segs-Bands # [1.5-8.1 K/CMM] 7.0 K/CMM (06/04/16 12:23 PM) Lymphocytes # [1.0-5.5 K/CMM] 1.2 K/CMM (06/04/16 12:23 PM) Monocytes # [0.0-0.8 K/CMM] 0.4 K/CMM (06/04/16 12:23 PM) Immunizations No data available for this section Procedures Procedure Date Related Diagnosis Body Site Both fallopian tubes Cholecystectomy Social History Social History Type Response Smoking Status Never smoker; Type: Cigarettes; Ready to change: No; Concerns about tobacco use in household: No; Exposure to Tobacco Smoke None; Cigarette Smoking Last 365 Days No; Reg Smoking Cessation Counseling No Assessment and Plan No data available for this section
--- OUTSIDE RECORDS SUMMARY | 2018-12-13 08:30 | XMS REPORT ---
:1990 Author Organization [facility] Address [address] [place] [address] Dr. Ibrahim. [address] [place] [address] Care Team Providers Name Role Phone Unavailable Unavailable Unavailable Problems This patient has no known problems. Allergies, Adverse Reactions, Alerts This patient has no known allergies or adverse reactions. Medications This patient has no known medications. Encounters Start End Encounter Admission Attending Care Care Encounter Date/Time Date/Time Type Type Clinicians Facility Department ID 2018-06-14 2018-06-14 Emergency [facility] [id number] 14:46:26 14:46:26 2018-06-14 2018-06-14 Emergency [facility] [id number] 13:00:40 13:00:40 2018-06-14 2018-06-14 Outpatient [facility] [id number] 00:00:00 00:00:00 2017-05-31 2017-05-31 Emergency [facility] [id number] 13:22:01 13:22:01 2017-05-31 2017-05-31 Emergency [facility] [id number] 12:11:49 12:11:49
--- OUTSIDE RECORDS SUMMARY | 2018-12-13 08:30 | XMS REPORT | Summary of Care ---
:[address] [facility] [place] [place] Address [address], [place] [address]- Encounter HQ Tea(STEVE) [id number] Date(s): 02/27/16 - 02/27/[address] [facility] [place] [address] [place] [address]- Discharge Diagnosis: Hemorrhagic ovarian cyst Discharge Diagnosis: Cholelithiasis Discharge Diagnosis: Abdominal pain, acute, right upper quadrant Discharge Diagnosis: Vaginal bleeding Discharge Disposition: Home Attending Physician: Goran Mariscal MD Vital Signs Most recent to oldest [Reference Range]: 1 2 Height 162.56 cm (02/27/16 11:46 AM) Temperature Oral [96.4-99.1 DegF] 98.7 DegF 98.2 DegF (02/27/16 2:07 PM) (02/27/16 11:46 AM) Blood Pressure [90-140/60-90 mmHg] 112/80 mmHg 126/80 mmHg (02/27/16 2:07 PM) (02/27/16 11:46 AM) Respiratory Rate [14-20 BRMIN] 18 BRMIN 16 BRMIN (02/27/16 2:07 PM) (02/27/16 11:46 AM) Peripheral Pulse Rate [60-100 bpm] 65 bpm 91 bpm (02/27/16 2:07 PM) (02/27/16 11:46 AM) Weight 68.636 kg (02/27/16 11:46 AM) Body Mass Index 25.97 m2 (02/27/16 11:46 AM) Problem List No data available for this section Allergies, Adverse Reactions, Alerts Substance Reaction Severity Status NKDA Active Medications Bentyl 20 mg oral tablet 20 mg=1 tab, PO, Q6H, PRN abd pain, # 20 tab, 0 Refill(s) Start Date: 02/27/16 Stop Date: 03/03/16 Status: OrderedketOROLAC 30 mg, Route: IVP, ONCE, Dosing Weight 68.636, kg, Priority: STAT, Start date: 02/27/16 11:54:00 CDT, Stop date: 02/27/16 11:54:00 CDT Start Date: 02/27/16 Stop Date: 02/27/16 Status: Completedondansetron 4 mg, Route: IVP, ONCE, Dosing Weight 68.636, kg, Priority: STAT, Start date: 11:54:00 CDT,Stop date: 02/27/16 11:54:00 CDT Start Date: 02/27/16 Stop Date: 02/27/16 Status: CompletedSaline Flush 0.9% 10 mL, Route: IVP, Drug Form: INJ, Dosing Weight 68.636, kg, PRN, PRN Line Flush , Start date: 02/27/16 11:54:00 CDT, Duration: 30 day, Stop date: 03/28/16 11:53 :00 CDT Notes: (Same as: BD Posiflush) Start Date: 02/27/16 Stop Date: 02/27/16 Status: Discontinued Results ELECTROLYTES Most recent to oldest [Reference Range]: 1 Sodium Lvl [135-145 mEq/L] 139 mEq/L (02/27/16 12:02 PM) Potassium Lvl [3.5-5.1 mEq/L] 3.9 mEq/L (02/27/16 12:02 PM) Chloride Lvl [95-109 mEq/L] 105 mEq/L (02/27/16 12:02 PM) CO2 [24-32 mEq/L] 27 mEq/L (02/27/16 12:02 PM) AGAP [10.0-20.0 mEq/L] 10.9 mEq/L (02/27/16 12:02 PM) CHEM PANEL Most recent to oldest [Reference Range]: 1 Creatinine Lvl [0.50-1.40 mg/dL] 0.61 mg/dL (02/27/16 12:02 PM) eGFR 126 mL/min/1.73m2 1 *NA* (02/27/16 12:02 PM) BUN [7-22 mg/dL] 14 mg/dL (02/27/16 12:02 PM) B/C Ratio [6-25] 23 (02/27/16 12:02 PM) Glucose Lvl [70-99 mg/dL] 89 mg/dL (02/27/16 12:02 PM) Total Protein [6.4-8.4 g/dL] 7.4 g/dL (02/27/16 12:02 PM) Albumin Lvl [3.5-5.0 g/dL] 3.7 g/dL (02/27/16:02 PM) Globulin [2.0-4.0 g/dL] 3.7 g/dL (02/27/16 12:02 PM) A/G Ratio [0.7-1.6] 1.0 (02/27/16: PM) Calcium Lvl [8.5-10.5 mg/dL] 8.3 mg/dL *LOW* (02/27/16 12:02 PM) ALT [0-65 unit/L] 35 unit/L (02/27/16:02 PM) AST [0-37 unit/L] 15 unit/L (02/27/16:02 PM) Alk Phos [39-136 unit/L] 61 unit/L (02/27/16:02 PM) Bili Total [0.2-1.3 mg/dL] 0.3 mg/dL (02/27/16 12:02 PM) Amylase Lvl [25-115 unit/L] 66 unit/L (02/27/16 12:02 PM) Lipase Lvl [73-393 unit/L] 118 unit/L (02/27/16:02 PM) 1Result Comment: The eGFR is calculated [...] eGFR should be multiplied by the estimated BMI.ENDOCRINOLOGY Most recent to oldest [Reference Range]: 1 S Preg [Negative] Negative (02/27/16 12:02 PM) URINE AND STOOL Most recent to oldest [Reference Range]: 1 UA Turbidity [Clear] Cloudy *ABN* (02/27/16 1:41 PM) UA Color [Yellow] Yellow *NA* (02/27/16 1:41 PM) UA pH [5.0-8.0] 6.0 (02/27/16 1:41 PM) UA Spec Grav [<=1.030] >=1.030 *ABN* (02/27/16 1:41 PM) UA Glucose [Negative] Negative (02/27/16 1:41 PM) UA Blood [Negative] Moderate *ABN* (02/27/16 1:41 PM) UA Ketones [Negative] Negative *NA* (02/27/16 1:41 PM) UA Protein [Negative mg/dL] 30 mg/dL *ABN* (02/27/16 1:41 PM) UA Urobilinogen [0.1-1.0 EU/dL] 1.0 EU/dL (02/27/16 1:41 PM) UA Bili [Negative] Small *ABN* (02/27/16 1:41 PM) UA Leuk Est [Negative] Trace *ABN* (02/27/16 1:41 PM) UA Nitrite [Negative] Negative (02/27/16 1:41 PM) UA WBC [None Seen /HPF] 51-100 /HPF *ABN* (02/27/16 1:41 PM) UA RBC [0-2 /HPF] 6-10 /HPF *ABN* (02/27/16 1:41 PM) UA Bacteria [None Seen /HPF] Occasional /HPF (02/27/16 1:41 PM) UA Sq Epi [Few /LPF] Many /LPF *ABN* (02/27/16 1:41 PM) UA Mucus [None Seen /LPF] Many /LPF *ABN* (02/27/16 1:41 PM) HEMATOLOGY Most recent to oldest [Reference Range]: 1 WBC [3.7-10.4 K/CMM] 10.0 K/CMM (02/27/16 12:02 PM) RBC [4.20-5.40 M/CMM] 4.73 M/CMM (02/27/16:02 PM) Hgb [12.0-16.0 g/dL] 13.3 g/dL (02/27/16:02 PM) Hct [36.0-48.0 %] 40.7 % (02/27/16: PM) MCV [80.0-98.0 fL] 86.0 fL (02/27/16: PM) MCH [27.0-31.0 pg] 28.1 pg (02/27/16: PM) MCHC [32.0-36.0 g/dL] 32.7 g/dL (02/27/16:02 PM) RDW [11.5-14.5 %] 14.1 % (02/27/16: PM) Platelet [133-450 K/CMM] 292 K/CMM (02/27/16:02 PM) MPV [7.4-10.4 fL] 9.1 fL (02/27/16:02 PM) Segs [45.0-75.0 %] 64.5 % (02/27/16: PM) Lymphocytes [20.0-40.0 %] 27.2 % (02/27/16:02 PM) Monocytes [2.0-12.0 %] 7.6 % (02/27/16: PM) Eosinophils [0.0-4.0 %] 0.3 % (02/27/16:02 PM) Basophils [0.0-1.0 %] 0.4 % (02/27/16 12:02 PM) Segs-Bands # [1.5-8.1 K/CMM] 6.5 K/CMM (02/27/16:02 PM) Lymphocytes # [1.0-5.5 K/CMM] 2.7 K/CMM (02/27/16 12:02 PM) Monocytes # [0.0-0.8 K/CMM] 0.8 K/CMM (02/27/16 12:02 PM) Immunizations No data available for this section Procedures Procedure Date Related Diagnosis Body Site Both fallopian tubes Social History Social History Type Response Smoking Status Never smoker; Type: Cigarettes; Exposure to Tobacco Smoke None; Cigarette Smoking Last 365 Days No; Reg Smoking Cessation Counseling No Assessment and Plan No data available for this section
--- OUTSIDE RECORDS SUMMARY | 2018-12-13 08:30 | XMS REPORT | Clinical Summary ---
:1990 Author Organization [facility] Address [address] [place] [address] Care Team Providers Name Role Phone Unavailable Primary Care Provider Unavailable Allergies No Known Allergies Current Medications Prescription Sig. Disp. Refills Start Date End Date Status acetaminophen [...] Acute cholecystitis hours as needed for Pain. Active Problems Problem Noted Date Headache 05/31/2017 Acute cholecystitis s/p lap shashi 03/0202/29/2016 Calculus of gallbladder without cholecystitis without obstruction Constipation Intractable episodic headache Encounters Date Type Specialty Care Team Description 05/31/2017 - Emergency Emergency Medicine Jaskaran Navarrete Intractable episodic headache, unspecified headache type (Primary Dx); 06/01/2017 MD Catherine Periorbital pain, bilateral; Blurred vision, left eye; Non-intractable vomiting with nausea, unspecified vomiting type after 04/17/2017 Family History Medical History Relation Name Comments Diabetes Maternal Grandmother Hypertension Mother Lipids Mother Hypertension Sister Relation Name Status Comments Maternal Grandmother Mother Sister Social History Tobacco Use Types Packs/Day Years Used Date Never Smoker Alcohol Use Drinks/Week oz/Week Comments Yes socially Sex Assigned at Date Recorded Not on file Last Filed Vital Signs Vital Sign Reading Time Taken Blood Pressure 107/59 05/31/2017 7:30 PM CDT Pulse 67 05/31/2017 7:30 PM CDT Temperature 36.8 C (98.2 F) 05/31/2017 7:30 PM CDT Respiratory Rate 18 05/31/2017 7:30 PM CDT Oxygen Saturation 99% 05/31/2017 7:30 PM CDT Inhaled Oxygen Concentration - - Weight - - Height - - Body Mass Index - - Plan of Treatment Health Maintenance Due Date Last Done Comments CERVICAL CANCER SCRN (3 YRS) 2011 Results LUMBAR PUNCTURE (06/01/2017 12:57 AM) Ignacio Gong, Resident ( 06/01/2017 12:57 AM History Chief Complaint Patient presents with Visual Disturbance Headache colliod cyst in the region of the foramen of Moore HPI Comments: The patient is a 27 yr old female recently evaluated for headache at an outside ED, 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 At the time of discharge from the outside ED after receiving demerol and phenergan, her headache had improved. However, while at home, her headache intensity worsened. The headache is primarily in the left frontal/temporal region and is associated with periorbital/retrobulbar pain. The pain is severe, constant, associated with L eye blurred vision which started this morning, pain with eye movement, photophobia, phonophobia, and nausea. It has been ongoing for the past 2 days. Denies prior history of migraine headache. Patient is a 27y.o. female presenting with headaches. 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 Headache Pain location:L temporal Quality:Dull Radiates to:Eyes Severity at highest:10/10 Onset quality:Gradual Timing:Constant Progression:Unchanged Chronicity:New Associated symptoms: eye pain, nausea and photophobia Associated symptoms: no abdominal pain, no back pain, no congestion, no cough, no fever, no numbness, no vomiting and no weakness Medical History None Surgical History Past Surgical History Laterality Last Occurrence Comments HX TUBAL LIGATION [SHX77] Family Medical History Problem Relation Age of Onset Comments Diabetes Maternal Grandmother Hypertension Mother Hypertension Sister Lipids Mother Social History Category History Smoking Tobacco Use Never Smoker Smokeless Tobacco Use Unknown Tobacco Comment Alcohol Use Yes; (socially) Drug Use No Sexual Activity Yes;Male partners ADL Not Asked Review of Systems Constitutional: Negative for fever and chills. HENT: Negative for congestion and rhinorrhea. Eyes: Positive for photophobia, pain and visual disturbance. Respiratory: Negative for cough and shortness of breath. Cardiovascular: Negative for chest pain and palpitations. Gastrointestinal: Positive for nausea. Negative for vomiting and abdominal pain. Endocrine: Negative for cold intolerance and heat intolerance. Genitourinary: Negative for dysuria, urgency, frequency, flank pain and difficulty urinating. Musculoskeletal: Negative for back pain and gait problem. Skin: Negative for rash and wound. Neurological: Positive for headaches. Negative for weakness and numbness. Psychiatric/Behavioral: Negative for suicidal ideas and hallucinations. Physical Exam BP 108/71 mmHg | Pulse 92 | Temp(Src) 98.9 F (37.2 C) | Resp 20 | SpO2 99% Physical Exam Constitutional: She is oriented to person, place, and time. She appears well-developed and well-nourished. No distress. HENT: Head: Normocephalic and atraumatic. Mouth/Throat: Oropharynx is clear and moist. Eyes: Conjunctivae and EOM are normal. Pupils are equal, round, and reactive to light. Pain with extraocular eye movements. Neck: Neck supple. No tracheal deviation present. Cardiovascular: Normal rate, regular rhythm and intact distal pulses. Pulmonary/Chest: Effort normal and breath sounds normal. Abdominal: Soft. She exhibits no distension. There is no tenderness. Musculoskeletal: Normal range of motion. She exhibits no edema or tenderness. Neurological: She is alert and oriented to person, place, and time. No cranial nerve deficit. She exhibits normal muscle tone. Coordination normal. Reflex Scores: Bicep reflexes are 2+ on the right side and 2+ on the left side. Patellar reflexes are 2+ on the right side and 2+ on the left side. Cranial Nerves: I - Not tested. II - PERRL. III, IV, -. EOM intact. Normal vertical lateral gaze without nystagmus. V - Normal sensation VII - Face symmetric, frontalis, orbicularis oculi and magdalena intact and symmetric VIII - Hearing symmetric to finger rub b/l IX, X - Normal palate elevation, no uvula deviation. XI - Normal strength of SCM b/l. XII - Tongue midline. Strength: Normal tone. Strength 5/5 in extremities b/l. Sensory: Grossly intact light tough b/l. Romberg: negative Cerebellar: Steady gait. FTN intact, CELSO intact Skin: Skin is warm and dry. Psychiatric: She has a normal mood and affect. Nursing note and vitals reviewed. Procedures Lumbar Puncture Date/Time: 05/31/2017 7:44 PM Performed by: ANNEMARIE SHANKAR Authorized by: JASKARAN NAVARRETE Consent: Consent obtained:Verbal Consent given by:Patient Risks discussed:Bleeding, infection, pain, headache and nerve damage Alternatives discussed:No treatment Pre-procedure details: Procedure purpose:Diagnostic Anesthesia (see MAR for exact dosages): Anesthesia method:Local infiltration Local anesthetic:Lidocaine 1% w/o epi Procedure details: Lumbar space:L3-L4 interspace Needle gauge:20 Ultrasound guidance: no Number of attempts:1 Opening pressure (cm H2O):28 Closing pressure (cm H2O):10 Fluid appearance:Clear Tubes of fluid:4 Total volume (ml):5 Post-procedure: Puncture site:Adhesive bandage applied Patient tolerance of procedure:Tolerated well, no immediate complications ED Course MDM Number of Diagnoses or Management Options Blurred vision, left eye: Intractable episodic headache, unspecified headache type: Non-intractable vomiting with nausea, unspecified vomiting type: Periorbital pain, bilateral: Assessment/Plan: 27 yr old F recently diagnosed with colloid cyst in the region of the foramen of moore who presents with worsening left sided/periorbital headache. DDx: - hydrocephalus 2/2 intracranial mass - migraine headache - tension headache - pseudotumor cerebri Workup: - CT head non-contrast Medications: - Reglan, ketorolac, and acetaminophen for headache Disposition: - pending labs - reassess Annemarie Shankar, Fellow () Resident 05/31/17 1539 PROVIDER REASSESSMENT NOTE I reexamined the patient Terri Mojica. Latest vital signs are: Filed Vitals: 05/31/17 1112 05/31/17 1242 05/31/17 1609 05/31/17 1930 BP: 128/83 108/71 102/56 107/59 Pulse: 128 92 86 67 Temp: 99.4 F (37.4 C) 98.9 F (37.2 C) 98.9 F (37.2 C) 98.2 F (36.8 C) Resp: 18 20 20 18 SpO2: 95% 99% 97% 99% Interval Progress: CT head negative for acute abnormality. After receiving toradol/apap/reglan, headache improved from 10 to 8/10. Imitrex given due to presumed migraine headache, patient reported no improvement. LP performed to evaluate for pseudotumor cerebri and SAH. The patient s condition is improved but still with intractable severe headache. Will give magnesium IV now for DANIEL Current clinical impressions include: 1. Intractable episodic headache, unspecified headache type 2. Periorbital pain, bilateral 3. Blurred vision, left eye 4. Non-intractable vomiting with nausea, unspecified vomiting type Plan: F/u LP studies. Reassess for improved pain control. Annemarie Shankar, Fellow () May 31, 2017 7:41 PM Annemarie Shankar, Fellow () Resident 05/31/171943 Annemarie Shankar, Fellow () Resident 05/31/171944 [facility] Resident Update Note Patient continues to have headache 8/10. States that the medications have not helped at all. States that she has a sharp pain behind her L eye. CSF analysis without blood to suggest SAH and no infectious signs. She is moving all extremities, alert and oriented. Eyes without injection or drainage. PEARRL. Will give Haldol 5 mg IM and Benadryl 25 mg IV Will re-assess. Resident Ladonna ( May 31, 2017 10:40 PM Ignacio Lora Resident ( Resident 05/31/17 4467 Ignacio Lora Resident ( Resident 05/31/17 4853 [facility] Resident Update Note Patient asleep when I walked into room. She awakens easily. States that her headache is still 8-9/10. I spoke with patient about the results of her evaluation here at [facility]. There are no signs of infection on CSF, she has no fevers. There are no obvious signs of trauma or infectious symptoms to the eyes. I spoke with patient about the option of discharge home with PCP f/u and further evaluation in the EC with Neurology consult. At this time, patient does not want to see a Neurologist and prefers to leave. She states she has a doctor that she will see this week. Ignacio Lora Resident ( June 01, 2017 12:11 AM BMP POC (05/31/2017 8:20 PM) Component Value Ref Range CO2 POC 25 21 - 32 mmol/L Chloride POC 108 (H) 98 - 107 mmol/L Potassium POC 3.7 3.50 - 5.10 mmol/L Sodium POC 140 136 - 145 mmol/L Glucose POC 100 74 - 106 mg/dL Urea Nitrogen POC 12 7 - 18 mg/dL Creatinine POC 0.6 0.6 - 1.3 mg/dL Calcium Ionized POC 1.16 1.15 - 1.29 mmol/L Hemoglobin POC 13.3 12.0 - 16.0 g/dL Hematocrit POC 39.0 37.0 - 47.0 % GFR, Estimated >60 mL/min/1.73 m2 GFR, Estim, Afr-Am >60 mL/min/1.73 m2 Specimen Performing Laboratory MISYS T PROTEIN, CSF (05/31/2017 7:49 PM) Component Value Ref Range T Protein, CSF 26.5 15 - 45 mg/dL Specimen Performing Laboratory Cerebrospinal Fluid MISYS GLUCOSE, CSF (05/31/2017 7:49 PM) Component Value Ref Range Glucose, CSF 56 50 - 80 mg/dL Specimen Performing Laboratory Cerebrospinal Fluid MISYS CELL COUNT, CSF (05/31/2017 7:49 PM)Only the most recent of2 resultswithin the time period is included. Component Value Ref Range Appearance Hazy Color Colorless WBC 1 0 - 5 /uL Comment: Differential not performed on counts <or=5/cu mm, cytospin preparation available for review RBC 0 /uL Specimen Performing Laboratory Cerebrospinal Fluid MISYS CSF STAIN / CULTURE (05/31/2017 7:49 PM) Component Value Ref Range Spec Description Cerebrospinal fluid Gram Stain No organisms seen Culture No growth 3 days Report Status Final 06/04/2017 Specimen Performing Laboratory Cerebrospinal Fluid - CEREBROSPINAL FLUID MISYS CT HEAD W/O CONTRAST (05/31/2017 2:11 PM) Specimen Performing Laboratory SMS Impressions IMPRESSION: No intracranial abnormalities. If the report is "FINALIZED" it indicates that the attending/staff radiologist has reviewed the images and agrees with the resident's interpretation. Dictated By: Barak Henry MD, 05/31/2017 2:32 PM I have reviewed the study and agree with the findings in this report. Signed By: Goran Beckmna MD, 05/31/2017 3:35 PM Narrative Exam : Head CT without contrast History: [...] Intact. Skull base and Craniocervical junction: Intact. 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 Measurements IntervalsAxis Rate: 84 P: 7 MA: 140QRS: 62 QRSD: 84 T: 0 QT: 335 QTc:396 Interpretive Statements SINUS RHYTHM Electronically Signed On 05-31-17 13:08:33 CDT by Leander Hernandez M.D. Specimen Performing Laboratory SMS after 04/17/2017
--- OUTSIDE RECORDS SUMMARY | 2018-12-13 08:30 | XMS REPORT | Clinical Summary ---
:1990 Author Organization [facility] Address [address] [place] [address] Care Team Providers Name Role Phone Unavailable [...] vomiting with nausea, unspecified vomiting type after 04/26/2017 Family History Medical History Relation Name Comments [...] CERVICAL CANCER SCRN (3 YRS) 2011 Results Lumbar Puncture (06/01/2017 12:57 AM) Ignacio Gong, Resident ( [...] this morning who now presents to the [facility] ED for headache. At the [...] female presenting with headaches. 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 She awakens easily. States that her headache is still 8-9/10. I spoke with patient about the results of her evaluation here at [facility]. 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 Measurements IntervalsAxis Rate: 84 P: 7 VT: 140QRS: 62 QRSD: 84 T: 0 QT: 335 QTc:396 Interpretive Statements SINUS RHYTHM Electronically Signed On 05-31-17 13:08:33 CDT by Leander Hernandez M.D. Specimen Performing Laboratory SMS after 04/26/2017
[2018-12-13] MEDS ORDERED: NA CHLORIDE 0.9% 1,000 ML ONE (09:02)
[2018-12-13 09:16] LABS: Absolute Lymphocytes (CBC) 1.4 K/uL (0.7-4.9); Absolute Monocytes 0.2 K/uL (0.1-1.3); Absolute Neutrophil 2.3 K/uL (1.8-8.0); Basophils % 0.5 % (0-1.3); Eosinophils % 1.9 % (0-4.4); Hematocrit 39.5 % (36.0-45.0); Lymphocytes % 34.3 % (15.3-44.8); MPV 9.4 fL (7.6-11.3); Monocytes % 5.6 % (3.3-12.3); RBC Red Blood Cell Count 4.43 M/uL (3.86-4.86)
[2018-12-13 09:31] LABS: Urine Blood 2+ (NEG); Urine Glucose NEGATIVE (NEG); Urine Protein NEGATIVE (NEG); Urine Specific Gravity 1.015 (1.005-1.030)
--- NOTE | 2018-12-13 09:32 | RAD REPORT ---
EXAM DESCRIPTION: CT - Stone Protocol - 12/13/2018 9:04 am CLINICAL HISTORY: Flank pain. FLANK PAIN COMPARISON: No comparisons TECHNIQUE: Axial images were obtained without oral or IV contrast. Lack of contrast limits solid org an and vascular assessment. The [id number] spans the entirety of the system partially obscuring uppermost abdomen and lung bases. Coronal reformatted images were obtained and reviewed. All CT scans are performed using dose optimization technique as appropriate and may include automated exposure control or mA/KV adjustment according to patient size. FINDINGS: The lower lung reveles are clear. Cholecystectomy clips. Imaged portions of the liver and spleen show no suspicious findings on non-contrast imaging. The panc reas and adrenal glands are normal. No pathologic lymphadenopathy in the abdomen or pelvis. No urinary tract stones or obstructive uropathy. No bowel obstruction, free air, free fluid or abscess. Normal appendix noted. No significant bony abnormality. IMPRESSION: No urinary tract stones or obstructive uropathy.
[2018-12-13 09:36] LABS: ALT/SGPT 42 U/L (12-78); AST/SGOT 18 U/L (15-37); Alkaline Phosphatase 71 U/L (45-117); BUN Blood Urea Nitrogen 5 mg/dL (7-18); Bicarbonate 24 mmol/L (21-32); Bilirubin Direct 0.1 mg/dL (0-0.2); Bilirubin Total 0.4 mg/dL (0.2-1.0); Glucose Level 101 mg/dL (74-106); Lipase 119 U/L (73-393); Potassium 3.9 mmol/L (3.5-5.1); Protein, Total 7.5 g/dL (6.4-8.2); Sodium Level 144 mmol/L (136-145)
--- NOTE | 2018-12-13 09:51 | EDPHYS ---
Physician Documentation [facility] Name: Kandi Whittaker Age: 28 yrs Sex: Female : 1990 Arrival Date: 12/13/2018 Time: 08:23 Bed 20 Private MD: ED Physician Jefferson Ansari HPI: 12/13 09:44 This 28 yrs old Female presents to ER via Ambulatory with complaints of Flank cassandra Pain. 09:44 The patient complains of pain in the left mid back. The pain radiates to the left low cassandra back and left mid back. Onset: The symptoms/episode began/occurred 1 day(s) ago. Modifying factors: The symptoms are alleviated by nothing. the symptoms are aggravated by nothing. Associated signs and symptoms: The patient has no apparent associated signs or symptoms. Severity of pain: At its worst the pain was. The patient has not experienced similar symptoms in the past. 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 - Social history:: Smoking status: Patient/guardian denies using tobacco. - Ebola Screening: : No symptoms or risks identified at this time. - Family history:: not pertinent. ROS: 09:44 Constitutional: Negative for fever, chills, and weight loss, Eyes: Negative for injury, cassandra pain, redness, and discharge, ENT: Negative for injury, pain, and discharge, Neck: Negative for injury, pain, and swelling, Cardiovascular: Negative for chest pain, palpitations, and edema, Respiratory: Negative for shortness of breath, cough, wheezing, and pleuritic chest pain, : Negative for injury, bleeding, discharge, and swelling, MS/Extremity: Negative for injury and deformity, Skin: Negative for injury, rash, and discoloration, Neuro: Negative for headache, weakness, numbness, tingling, and seizure, Psych: Negative for depression, anxiety, suicide ideation, homicidal ideation, and hallucinations, Allergy/Immunology: Negative for hives, rash, and allergies, Endocrine: Negative for neck swelling, polydipsia, polyuria, polyphagia, and marked weight changes, Hematologic/Lymphatic: Negative for swollen nodes, abnormal bleeding, and unusual bruising. 09:44 Abdomen/GI: Positive for abdominal pain, of the posterior aspect of right lateral abdomen, anterior aspect of right lateral abdomen and left upper quadrant. Exam: 09:44 Constitutional: This is a well developed, well nourished patient who is awake, alert, cassandra and in no acute distress. Head/Face: Normocephalic, atraumatic. Eyes: Pupils equal round and reactive to light, extra-ocular motions intact. Lids and lashes normal. Conjunctiva and sclera are non-icteric and not injected. Cornea within normal limits. Periorbital areas with no swelling, redness, or edema. ENT: Nares patent. No nasal discharge, no septal abnormalities noted. Tympanic membranes are normal and external auditory canals are clear. Oropharynx with no redness, swelling, or masses, exudates, or evidence of obstruction, uvula midline. Mucous membranes moist. Neck: Trachea midline, no thyromegaly or masses palpated, and no cervical lymphadenopathy. Supple, full range of motion without nuchal rigidity, or vertebral point tenderness. No Meningismus. Chest/axilla: Normal chest wall appearance and motion. Nontender with no deformity. No lesions are appreciated. Cardiovascular: Regular rate and rhythm with a normal S1 and S2. No gallops, murmurs, or rubs. Normal PMI, no JVD. No pulse deficits. Respiratory: Lungs have equal breath sounds bilaterally, clear to auscultation and percussion. No rales, rhonchi or wheezes noted. No increased work of breathing, no retractions or nasal flaring. Skin: Warm, dry with normal turgor. Normal color with no rashes, no lesions, and no evidence of cellulitis. MS/ Extremity: Pulses equal, no cyanosis. Neurovascular intact. Full, normal range of motion. Neuro: Awake and alert, GCS 15, oriented to person, place, time, and situation. Cranial nerves II-XII grossly intact. Motor strength 5/5 in all extremities. Sensory grossly intact. Cerebellar exam normal. Normal gait. Psych: Awake, alert, with orientation to person, place and time. Behavior, mood, and affect are within normal limits. 09:44 Abdomen/GI: Inspection: abdomen appears normal, Bowel sounds: normal, Palpation: mild abdominal tenderness, in the posterior aspect of left lateral abdomen, left upper quadrant and left lower quadrant, Liver: no appreciated palpable abnormalities, Hernia: not appreciated. 09:44 Musculoskeletal/extremity: DVT Exam: No signs of deep vein thrombosis. no pain, no swelling, no tenderness, negative Homans' sign noted on exam, no appreciated bluish discoloration, no erythema, no increased warmth. Vital Signs: 08:35 BP 118 / 88; Pulse 98; Resp 18 S; Temp 98.2(TE); Pulse Ox 100% on R/A; Weight 68.04 kg aa5 (R); Height 5 ft. 4 in. (162.56 cm) (R); Pain 9/10; 08:35 Body Mass Index 25.75 (68.04 kg, 162.56 cm) aa5 MDM: 08:40 Patient medically screened. [facility] 09:46 Data reviewed: vital signs, nurses notes, lab test result(s), EKG, radiologic studies, cassandra CT scan. 12/13 08:47 Order name: Basic Metabolic Panel; Complete Time: 09:41 [facility] 12/13 08:47 Order name: CBC with Diff; Complete Time: 09:41 [facility] 12/13 08:47 Order name: Creatinine for Radiology; Complete Time: 09:41 [facility] 12/13 08:47 Order name: Hepatic Function; Complete Time: 09:41 [facility] 12/13 08:47 Order name: Lipase; Complete Time: 09:41 [facility] 12/13 09:19 Order name: Urine Dipstick--Ancillary (enter results); Complete Time: 09:41 12/13 08:47 Order name: IV Saline Lock; Complete Time: 09:07 [facility] 12/13 08:47 Order name: Labs collected and sent; Complete Time: 09:07 [facility] 12/13 08:47 Order name: Urine Dipstick-Ancillary (obtain specimen); Complete Time: 08:50 [facility] 12/13 08:47 Order name: Urine Test (obtain specimen); Complete Time: 08:50 [facility] 12/13 08:47 Order name: CT Stone Protocol; Complete Time: 09:41 [facility] 12/13 09:19 Order name: Urine --Ancillary (enter results); Complete Time: 09:41 12/13 09:56 Order name: EKG; Complete Time: 09:56 [facility] 12/13 09:56 Order name: EKG - Nurse/Tech; Complete Time: 10:08 [facility] Administered Medications: 09:10 Drug: NS 0.9% 1000 ml Route: IV; Rate: 1 bolus; Site: left antecubital; sv 10:08 Follow up: Response: No adverse reaction; IV Status: Completed infusion; IV Intake: sv 1000ml Disposition: 12/13/18 09:50 Discharged to Home. Impression: Abdominal tenderness, Urinary tract infection, site not specified. - Condition is Stable. - Discharge Instructions: Abdominal Pain, Adult, Dysuria. - Prescriptions for Pepcid 20 mg Oral Tablet - take 1 tablet by ORAL route every 12 hours for 10 days; 20 tablet. Bactrim DS 800- 160 mg Oral Tablet - take 1 tablet by ORAL route every 12 hours for 7 days; 14 tablet. - Medication Reconciliation Form, Thank You Letter, Antibiotic Education, Prescription Opioid Use form. - Follow up: Private Physician; When: 2 - 3 days; Reason: Recheck today's complaints, Continuance of care, Re-evaluation by your physician. - Problem is new. - Symptoms have improved. Signatures: Dispatcher [employer] EDRadha Braxton RN RN Jefferson Ames MD MD cha Calderon, Audri, RN RN aa5 Corrections: (The following items were deleted from the chart) 10: 09:50 12/13/2018 09:50 Discharged to Home. Impression: Abdominal tenderness; Urinary sv tract infection, site not specified. Condition is Stable. Forms are Medication Reconciliation Form, Thank You Letter, Antibiotic Education, Prescription Opioid Use. Follow up: Private Physician; When: 2 - 3 days; Reason: Recheck today's complaints, Continuance of care, Re-evaluation by your physician. Problem is new. Symptoms have improved. [facility]
--- NOTE | 2018-12-13 09:51 | ER ---
Nurse's Notes [facility] Name: Kandi Whittaker Age: 28 yrs Sex: Female : 1990 Arrival Date: 12/13/2018 Time: 08:23 Bed 20 Private MD: Diagnosis: Abdominal tenderness;Urinary tract infection, site not specified Presentation: 12/13 08:31 Presenting complaint: Patient states: LUQ pain that began 4 days ago. Pt also reports aa5 palpitations x 1 week ago, pt states "my heart rate has been up to 125 beats". Pt denies N/V/D. Pt states "I was at [facility] for the same pain and because they said I had a mini stroke about 3 weeks ago and I have pain medicine but it's not working". Transition of care: patient was not received from another setting of care. Onset of symptoms was November 2018. Risk Assessment: Do you want to hurt yourself or someone else? Patient reports no desire to harm self or others. Initial Sepsis Screen: Does the patient meet any 2 criteria? No. Patient's initial sepsis screen is negative. Does the patient have a suspected source of infection? No. Patient's initial sepsis screen is negative. Care prior to arrival: None. 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 - Social history:: Smoking status: Patient/guardian denies using tobacco. - Ebola Screening: : No symptoms or risks identified at this time. - Family history:: not pertinent. Screenin:00 Abuse screen: Denies threats or abuse. Denies injuries from another. Nutritional sv screening: No deficits noted. Tuberculosis screening: No symptoms or risk factors identified. Fall Risk None identified. Assessment: 08:00 General: Appears in no apparent distress. uncomfortable, well developed, Behavior is sv calm, cooperative, appropriate for age. Pain: Complains of pain in left upper quadrant and left lower quadrant Pain currently is 9 out of 10 on a pain scale. Quality of pain is described as throbbing, Pt reports that the pain started in the left flank area first yesterday. Pain began 1 day ago. Is intermittent. Neuro: Level of Consciousness is awake, alert, obeys commands, Oriented to person, place, time, situation, Gait is steady, Speech is normal. Respiratory: Respiratory effort is even, unlabored, Respiratory pattern is regular, symmetrical. Derm: Skin is pink, warm \\T\\ dry. 10:22 Reassessment: Patient appears in no apparent distress at this time. No changes from sv previously documented assessment. Patient and/or family updated on plan of care and expected duration. Pain level reassessed. Patient is alert, oriented x 3, equal unlabored respirations, skin warm/dry/pink. Vital Signs: 08:35 BP 118 / 88; Pulse 98; Resp 18 S; Temp 98.2(TE); Pulse Ox 100% on R/A; Weight 68.04 kg aa5 (R); Height 5 ft. 4 in. (162.56 cm) (R); Pain 9/10; 08:35 Body Mass Index 25.75 (68.04 kg, 162.56 cm) aa5 ED Course: 08:00 Patient has correct armband on for positive identification. Placed in gown. Bed in low sv position. Call light in reach. Door closed. Head of bed elevated. 08:02 Initial lab(s) drawn, by me, sent to lab. Inserted saline lock: 20 gauge in left sv antecubital area, using aseptic technique. Blood collected. Flushed left antecubital with 5 ml normal saline. 08:23 Patient arrived in ED. rg4 08:32 Triage completed. aa5 08:32 Arm band placed on. aa5 08:39 Radha Thornton, TERESITA is Primary Nurse. sv 08:40 Jefferson Ansari MD is Attending Physician. cassandra 09:02 CT completed. Patient tolerated procedure well. Patient moved to CT via wheelchair. [email or web address] Patient moved back from CT. 09:05 CT Stone Protocol In Process Unspecified. EDMS 10:21 EKG done, by combination technician. reviewed by Jefferson Ansari MD. dt2 10:23 No provider procedures requiring assistance completed. IV discontinued, intact, sv bleeding controlled, No redness/swelling at site. Pressure dressing applied. Administered Medications: 09:10 Drug: NS 0.9% 1000 ml Route: IV; Rate: 1 bolus; Site: left antecubital; sv 10:08 Follow up: Response: No adverse reaction; IV Status: Completed infusion; IV Intake: sv 1000ml Intake: 10:08 IV: 1000ml; Total: 1000ml. sv Outcome: 09:50 Discharge ordered by . cassandra 10:23 Discharged to home ambulatory. sv 10:23 Condition: stable 10:23 Discharge instructions given to patient, Instructed on discharge instructions, follow up and referral plans. medication usage, Demonstrated understanding of instructions, follow-up care, medications, Prescriptions given X 2. 10:25 Patient left the ED. sv Signatures: Dispatcher [employer] EDRadha Braxton RN RN Jefferson Ames MD MD cha Calderon, Audri RN RN tram Olivo, Amanda Conrad2 Yumi [id number] Corrections: (The following items were deleted from the chart) 08:35 08:31 Presenting complaint: Patient states: LUQ pain that began 4 days ago. Pt also aa5 reports palpitations x 1 week ago, pt states "my heart rate has been up to 125 beats". Pt denies N/V/D aa5
[2018-12-13 10:30] VITALS: BP 118/88; TEMP 98.2; O2SAT 100
--- NOTE | 2018-12-13 18:39 | EKG ---
Test Date: 2018-12-13 Test Time: 10:10:00 Loom Setter Fourdrinier: GISSELLE MEASUREMENT RESULTS: Intervals: Rate: 71 GA: 140 QRSD: 84 QT: 396 QTc: 430 [place]: P: 26 GA: 140 QRS: 27 T: 14 INTERPRETIVE STATEMENTS: Normal sinus rhythm Non specific T abnormality Abnormal ECG No previous ECG available for comparison Electronically Signed On 12-13-18 18:39:29 DIRECTOR [employer]ACTOR [employer] by Rosales Guzmán
== END 2018-12-13 10:25 | disposition home or self-care (01) ==
LOC: ER 08:21
DX: N39.0 Urinary tract infection, site not specified (principal); Z86.73 Personal history of transient ischemic attack (TIA), and cerebral infarction without residual deficits
CPT/HCPCS: 36415; 74176; 76377; 80048; 80076; 81003; 81025; 83690; 85025; 93005; 96360; 99284; J7030

== ENCOUNTER 2019-01-19 14:25 | Emergency (ER) | payer SELFPAY ==
--- OUTSIDE RECORDS SUMMARY | 2019-01-19 16:46 | XMS REPORT | Clinical Summary ---
:1990 Author Organization [facility] Address [address] [place] [id number] Care Team Providers Name Role Phone Unavailable Primary Care Provider Unavailable Allergies No Known Allergies Medications Medication Sig Dispensed Refills Start Date End Date Status famotidine (PEPCID) Take 1 tablet 60 tablet 0 03/03/2016 Active 20 mg by mouth 2 tabletIndications: times daily. Acute cholecystitis traMADol (ULTRAM) 50 Take 1 tablet 30 tablet 0 03/03/2016 Active mg by mouth tabletIndications: every 6 hours Acute cholecystitis as needed for Pain. naproxen (NAPROSYN) Take 1 tablet 30 tablet 0 06/14/2018 Active 375 mg by mouth 2 tabletIndications: times daily Intractable episodic as needed for headache, Other unspecified headache (headache). type acetaminophen Take 1 tablet 30 tablet 0 12/19/2018 Active (TYLENOL) 500 mg by mouth tabletIndications: every 6 hours Acute bilateral low as needed for back pain without Pain. sciatica ibuprofen (MOTRIN) Take 1 tablet 30 tablet 0 12/19/2018 Active 600 mg by mouth tabletIndications: every 8 hours Acute bilateral low as needed for back pain without Pain. sciatica acetaminophen Take 2 30 tablet 0 03/03/2016 12/19/2018 Discontinued (TYLENOL) 325 mg tablets by tabletIndications: mouth every 6 Acute cholecystitis hours as needed for Pain. Active Problems Problem Noted Date Headache 05/31/2017 Acute cholecystitis s/p lap shashi 03/0202/29/2016 Calculus of gallbladder without cholecystitis without obstruction Constipation Intractable episodic headache Acute bilateral low back pain without sciatica Encounters Date Type Specialty Care Team Description 12/19/2018 Emergency Emergency Medicine Junaid Knight MD Acute bilateral low back pain without sciatica (Primary Dx); Acute cystitis with hematuria; Palpitations 12/19/2018 Travel 06/14/2018 Emergency Emergency Medicine Junior Cooper MD Intractable episodic headache, unspecified headache type (Primary Dx); Rib pain after 01/18/2018 Family History Medical History Relation Name Comments [...] Vital Sign Reading Time Taken Blood Pressure 126/84 12/19/2018 7:23 PM ACCESS CLINICIAN Pulse 78 12/19/2018 7:23 PM ACCESS CLINICIAN Temperature 36.9 C (98.4 F) 12/19/2018 7:23 PM ACCESS CLINICIAN Respiratory Rate 16 12/19/2018 7:23 PM ACCESS CLINICIAN Oxygen Saturation 95% 12/19/2018 7:23 PM ACCESS CLINICIAN Inhaled Oxygen Concentration - - Weight - - Height - - Body Mass Index - - Plan of Treatment Health Maintenance Due Date Last Done Comments Cervical Cancer Scrn (3 Yrs) 2011 IMM Influenza Seasonal Jul to December (>/=19 yrs) 07/19/2018 Procedures Procedure Name Priority Date/Time Associated Diagnosis Comments POCT URINE DIPSTICK STAT 12/19/2018 3:57 Results for this - PM ACCESS CLINICIAN procedure are in the results section. TROPONIN I POC Routine 12/19/2018 3:56 Results for this PM ACCESS CLINICIAN procedure are in the results section. XRAY CHEST 2 VIEWS STAT 12/19/2018 3:55 Results for this PM ACCESS CLINICIAN procedure are in the results section. BMP POC Routine 12/19/2018 3:52 Results for this PM ACCESS CLINICIAN procedure are in the results section. LIVER PROFILE Routine 12/19/2018 3:45 Results for this PM ACCESS CLINICIAN procedure are in the results section. LIPASE STAT 12/19/2018 3:45 Results for this PM ACCESS CLINICIAN procedure are in the results section. CBC/DIFF STAT 12/19/2018 3:45 Results for this PM ACCESS CLINICIAN procedure are in the results section. HIV-1/HIV-2 STAT 12/19/2018 3:45 Results for this DIAGNOSTIC/SYMPTOMAT PM ACCESS CLINICIAN procedure are in IC the results section. URINE CULTURE STAT 12/19/2018 3:42 Results for this PM ACCESS CLINICIAN procedure are in the results section. UA CHEMISTRIES STAT 12/19/2018 3:42 Results for this PM ACCESS CLINICIAN procedure are in the results section. CT HEAD W/O CONTRAST STAT 06/14/2018 3:02 Intractable episodic Results for this PM CDT headache, procedure are in unspecified headache the results type section. BMP POC Routine 06/14/2018 2:49 Results for this PM CDT procedure are in the results section. POCT URINE DIPSTICK STAT 06/14/2018 1:44 Results for this - PM CDT procedure are in the results section. CBC/DIFF STAT 06/14/2018 1:37 Results for this PM CDT procedure are in the results section. after 01/18/2018 Results POCT URINE DIPSTICK - (12/19/2018 3:57 PM ACCESS CLINICIAN)Only the most recent of2 resultswithin the time period is included. Control pass negative TROPONIN I POC (12/19/2018 3:56 PM ACCESS CLINICIAN) Troponin POC 0.00 0.00 - 0.08 ng/mL BT MAIN-STATION 1 Performing Organization Address City/State/Zipcode Phone Number MISYS BT MAIN-STATION 1 XRAY CHEST 2 VIEWS (12/19/2018 3:55 PM ACCESS CLINICIAN) Impressions Performed At IMPRESSION: [facility] No acute pulmonary disease. If the report is "FINALIZED" it indicates that the attending/staff radiologist has reviewed the images and agrees with the resident's interpretation. Dictated By: Pradeep Nam MD, 12/19/2018 4:48 PM I have reviewed the study and agree with the findings in this report. Signed By: Rajesh Pratt MD, 12/19/2018 5:05 PM Narrative Performed At EXAMINATION:XRAY CHEST 2 VIEWS, Frontal and lateral SMS INDICATION: sob COMPARISON:None FINDINGS: TUBES/LINES:None LUNGS:No consolidation or edema. PLEURA:No effusions or pneumothorax. HEART/MEDIASTINUM:Normal cardiomediastinal silhouette. MUSCULOSKELETAL:No acute findings. UPPER ABDOMEN: Surgical clips in the right upper quadrant. Procedure Note Interface, Rad/Mammog In - 12/19/2018 5:11 PM ACCESS CLINICIAN EXAMINATION: XRAY CHEST 2 VIEWS, Frontal and lateral INDICATION: sob COMPARISON: None FINDINGS: TUBES/LINES: None LUNGS: No consolidation or edema. PLEURA: No effusions or pneumothorax. HEART/MEDIASTINUM: Normal cardiomediastinal silhouette. MUSCULOSKELETAL: No acute findings. UPPER ABDOMEN: Surgical clips in the right upper quadrant. IMPRESSION IMPRESSION: No acute pulmonary disease. If the report is "FINALIZED" it indicates that the attending/staff radiologist has reviewed the images and agrees with the resident's interpretation. Dictated By: Pradeep Nam MD, 12/19/2018 4:48 PM I have reviewed the study and agree with the findings in this report. Signed By: Rajesh Pratt MD, 12/19/2018 5:05 PM Performing Organization Address City/State/Zipcode Phone Number SMS BMP POC (12/19/2018 3:52 PM ACCESS CLINICIAN)Only the most recent of2 resultswithin the time period is included. CO2 POC 22 21 - 32 mmol/L BT MAIN-STATION 1 Chloride POC 106 98 - 107 mmol/L BT MAIN-STATION 1 Potassium POC 3.4 (L) 3.50 - 5.10 BT MAIN-STATION 1 mmol/L Sodium POC 143 136 - 145 mmol/L BT MAIN-STATION 1 Glucose POC 103 74 - 106 mg/dL BT MAIN-STATION 1 Urea Nitrogen POC 9 7 - 18 mg/dL BT MAIN-STATION 1 Creatinine POC 0.6 0.6 - 1.3 mg/dL BT MAIN-STATION 1 Calcium Ionized POC 1.16 1.15 - 1.29 BT MAIN-STATION 1 mmol/L Hemoglobin POC 13.6 12.0 - 16.0 g/dL BT MAIN-STATION 1 Hematocrit POC 40.0 37.0 - 47.0 % BT MAIN-STATION 1 GFR, Estimated >60 mL/min/1.73 m2 BT MAIN-STATION 1 GFR, Estim, Afr-Am >60 mL/min/1.73 m2 BT MAIN-STATION 1 Performing Organization Address City/[facility]/[employer] Phone Number MISYS BT MAIN-STATION 1 LIVER PROFILE (12/19/2018 3:45 PM ACCESS CLINICIAN) T Protein 6.9 6.0 - 8.3 g/dL BT MAIN-STATION 1 Albumin 4.4 3.7 - 5.3 g/dL BT MAIN-STATION 1 T Bilirubin 0.6 0.2 - 1.2 mg/dL BT MAIN-STATION 1 Alk Phos 58 34 - 104 U/L BT MAIN-STATION 1 AST 25 13 - 39 U/L BT MAIN-STATION 1 ALT 34 7 - 52 U/L BT MAIN-STATION 1 D Bilirubin 0.1 0.0 - 0.2 mg/dL BT MAIN-STATION 1 Performing Organization Address [facility] Phone Number MISYS BT MAIN-ST[facility] 1 LIPASE (12/19/2018 3:45 PM ACCESS CLINICIAN) Lipase 21 11 - 82 U/L BT MAIN-STATION 1 Specimen Blood Performing Organization Address [facility] Phone Number MISYS BT MAIN-STATION 1 HIV-1/HIV-2 DIAGNOSTIC/SYMPTOMATIC (12/19/2018 3:45 PM ACCESS CLINICIAN) HIV-1/HIV-2 Negative NEG BT MAIN-STATION 4 Specimen Blood Performing Organization Address [facility] Phone Number MISYS BT MAIN-STATION 4 CBC/DIFF (12/19/2018 3:45 PM ACCESS CLINICIAN)Only the most recent of2 resultswithin the time period is included. WBC 4.3 (L) 4.5 - 11.0 K/uL BT MAIN-STATION 2 RBC 4.32 4.20 - 5.40 M/uL BT MAIN-STATION 2 Hemoglobin 12.9 12.0 - 16.0 g/dL BT MAIN-STATION 2 Hematocrit 39.2 37.0 - 47.0 % BT MAIN-STATION 2 MCV 91 82 - 92 fL BT MAIN-STATION 2 MCH 29.9 27.0 - 32.0 pg BT MAIN-STATION 2 MCHC 32.9 32.0 - 36.0 g/dL BT MAIN-STATION 2 RDW 44.8 36.4 - 46.3 fL BT MAIN-STATION 2 Platelet 272 150 - 400 K/uL BT MAIN-STATION 2 Mean Platelet Volume 11.4 9.4 - 12.4 fL BT MAIN-STATION 2 Percent NRBC 0.0 BT MAIN-STATION 2 Absolute NRBC 0.00 BT MAIN-STATION 2 Neutrophil 53.9 34.0 - 70.0 % BT MAIN-STATION 2 Lymphocyte 37.4 20.0 - 50.0 % BT MAIN-STATION 2 Monocyte 6.8 5.0 - 12.0 % BT MAIN-STATION 2 Eosinophil 1.2 0.7 - 5.0 % BT MAIN-STATION 2 Basophil 0.5 0.1 - 1.2 % BT MAIN-STATION 2 Pct Immat Gran 0.2 0.0 - 0.5 BT MAIN-STATION 2 Neutrophil, Abs 2.29 1.56 - 6.13 K/uL BT MAIN-STATION 2 Lymphocyte, Abs 1.59 1.18 - 3.74 K/uL BT MAIN-STATION 2 Monocyte, Abs 0.29 0.24 - 0.36 K/uL BT MAIN-STATION 2 Eosinophil, Abs 0.05 0.04 - 0.36 K/uL BT MAIN-STATION 2 Basophil, Abs 0.02 0.01 - 0.08 K/uL BT MAIN-STATION 2 Absol Immat Gran 0.01 0.00 - 0.03 K/uL BT MAIN-STATION 2 Specimen Blood Performing Organization Address [facility] Phone Number MISYS BT MAIN-STATION 2 UA CHEMISTRIES (12/19/2018 3:42 PM ACCESS CLINICIAN) Color Straw BT MAIN-STATION 1 Clarity Clear BT MAIN-STATION 1 Spec [place] 1.006 1.001 - 1.035 BT MAIN-STATION 1 pH 6.0 5 - 8 BT MAIN-STATION 1 Protein Negative NEG BT MAIN-STATION 1 Glucose Negative NEG BT MAIN-STATION 1 Ketone Negative NEG BT MAIN-STATION 1 Bilirubin Negative NEG BT MAIN-STATION 1 Nitrate Negative NEG BT MAIN-STATION 1 Urobilinogen <1.0 0.2 - 1.0 EU/dL BT MAIN-STATION 1 Leukocyte Trace (A) NEG BT MAIN-STATION 1 Blood 1+ (A) NEG BT MAIN-STATION 1 RBC 2 0 - 4 /HPF BT MAIN-STATION 1 WBC 4 0 - 5 /HPF BT MAIN-STATION 1 Epithelial Cell 22 /HPF BT MAIN-STATION 1 Specimen Urine Performing Organization Address [facility] Phone Number MISYS BT MAIN-STATION 1 URINE CULTURE (12/19/2018 3:42 PM ACCESS CLINICIAN) Spec Description Urine BT MICROBIOLOGY Order Comments None BT MICROBIOLOGY Culture 10,000-100,000 CFU/ml BT MICROBIOLOGY Gardnerella vaginalis Report Status Final 12/22/2018 BT MICROBIOLOGY Specimen Urine - URINE Performing Organization Address [facility] Phone Number MISYS BT MICROBIOLOGY CT HEAD W/O CONTRAST (06/14/2018 3:02 PM CDT) Impressions Performed At IMPRESSION: SMS 1.No abnormalities 2.No changes when compared to the head CT on 05/31/2017. A "PRELIMINARY" report was made available via [email or web address] at the time of dictation by the [...] A "PRELIMINARY" report was made available via [email or web address] at the time of dictation by the [...] MD, 06/14/2018 3:59 PM Performing Organization Address City/State/[facility] Phone Number SMS after 01/18/2018 Insurance Payer Benefit Plan / Subscriber ID Effective Dates Phone Address Type Group HCHD HCHD UNSCREENED xxxxxxxxx 2017-Prese [phone] [id number] [place] [address] (Work) [id number] Advance Directives For more information, please contact:[address] [address] Code Status Date Activated Date Inactivated Comments Full Code 02/28/2016 10:30 PM 03/03/2016 7:15 PM
--- OUTSIDE RECORDS SUMMARY | 2019-01-19 16:47 | XMS REPORT | Clinical Summary ---
:1990 Author Organization [facility] Address [address] [place] [address] Care Team Providers Name Role Phone Asked, No Pcp Primary Care Provider Unavailable Allergies No Known Allergies Medications Medication Sig Dispensed Refills Start Date End Date Status topiramate (TOPAMAX) Take 1 tablet 60 tablet 0 11/21/2018 12/21/2018 25 MG tablet (25 mg total) by mouth 2 (two) times a day for 30 days. atorvastatin Take 1 tablet 30 tablet 0 11/21/2018 12/21/2018 (LIPITOR) 40 MG (40 mg total) by tablet mouth nightly for 30 days. valACYclovir Take 1 tablet 8 tablet 0 11/21/2018 11/25/2018 (VALTREX) 500 MG (500 mg total) tablet by mouth 2 (two) times a day for 4 days. polyvinyl alcohol Administer 1 15 mL 0 11/21/2018 12/21/2018 (LIQUIFILM TEARS) 1.4 drop to both % ophthalmic solution eyes as needed for dry eyes for up to 30 days. predniSONE Take 2 tablets 6 tablet 0 11/22/2018 11/25/2018 (DELTASONE) 20 mg (40 mg total) by tablet mouth daily for 3 days. aspirin 81 mg Chew 1 tablet 30 tablet 0 11/22/2018 12/22/2018 chewable tablet (81 mg total) daily for 30 days. acetaminophen-codeine Take 1 tablet by 10 tablet 0 11/21/2018 11/26/2018 (TYLENOL WITH CODEINE mouth every 6 #3) 300-30 mg per (six) hours as tablet needed for moderate pain for up to 5 days. B complex-vitamin Take 1 tablet by 30 tablet 0 11/22/2018 12/22/2018 C-folic acid (FOLBEE mouth daily for PLUS 5 MG) 5 mg 30 days. tablet per tablet thiamine mononitrate, Take 0.5 tablets 30 tablet 0 11/22/2018 12/22/2018 vit B1, (B-1) 100 mg (50 mg total) by tablet mouth daily for 30 days. keTOROlac (TORadol) Take 1 tablet 20 tablet 0 12/04/2018 12/09/2018 10 mg tablet (10 mg total) by mouth every 6 (six) hours as needed for moderate pain for up to 5 days. cyclobenzaprine Take 1 tablet 30 tablet 0 12/04/2018 12/14/2018 (FLEXERIL) 10 mg (10 mg total) by tablet mouth 3 (three) times a day as needed for muscle spasms for up to 10 days. cephalexin (KEFLEX) Take 1 capsule 40 capsule 0 12/14/2018 12/24/2018 500 MG capsule (500 mg total) by mouth 4 (four) times a day for 10 days. ibuprofen Take 1 tablet 20 tablet 0 12/14/2018 12/19/2018 (ADVIL,MOTRIN) 600 MG (600 mg total) tablet by mouth every 6 (six) hours as needed for mild pain, moderate pain or fever for up to 5 days. Active Problems Problem Noted Date Acute nonintractable headache 11/18/2018 Encounters Date Type Specialty Care Team Description 12/14/2018 Emergency Emergency Alysia Juárez Pyelonephritis (Primary Dx); Medicine Tang MD Chest pain, unspecified type; Palpitations; Fatty liver 12/14/2018 Travel 12/11/2018 Emergency Emergency Erum Oneil Rapid palpitations Medicine MD Christian (Primary Dx) 12/04/2018 Emergency Emergency Kia Tena-Juan J Tension headache (Primary Dx); Medicine MD Nino Pleuritic chest pain 11/18/2018 - Hospital General Internal Rufino Tao Acute nonintractable headache, unspecified headache type (Primary Dx); 11/21/2018 Encounter Medicine Travis Younger, Torticollis, acute; Blurred vision, right eye Alberta Madison MD after 01/18/2018 Social History Tobacco Use Types Packs/Day Years [...] Vital Sign Reading Time Taken Blood Pressure 119/75 12/14/2018 4:45 PM HARDWARE ENGINEERING MANAGER Pulse 74 12/14/2018 4:45 PM HARDWARE ENGINEERING MANAGER Temperature 37.6 C (99.6 F) 12/14/2018 4:45 PM HARDWARE ENGINEERING MANAGER Respiratory Rate 16 12/14/2018 4:45 PM HARDWARE ENGINEERING MANAGER Oxygen Saturation 99% 12/14/2018 4:45 PM HARDWARE ENGINEERING MANAGER Inhaled Oxygen Concentration - - Weight - - Height 162.6 cm (5' 4") 12/11/2018 3:01 PM HARDWARE ENGINEERING MANAGER Body Mass Index - - Plan of Treatment Health Maintenance Due Date Last Done Comments CERVICAL CANCER SCREENING 2011 INFLUENZA VACCINE 05/19/2018 Procedures Procedure Name Priority Date/Time Associated Comments Diagnosis LACTIC ACID LEVEL, Timed 12/14/2018 3:43 Results for this SEPSIS - NOW AND REPEAT PM HARDWARE ENGINEERING MANAGER procedure are in 2X EVERY 3 HOURS the results section. BLOOD CULTURE, AEROBIC Routine 12/14/2018 3:43 Results for this & ANAEROBIC PM HARDWARE ENGINEERING MANAGER procedure are in the results section. BLOOD CULTURE, AEROBIC Routine 12/14/2018 3:35 Results for this & ANAEROBIC PM HARDWARE ENGINEERING MANAGER procedure are in the results section. CT ABDOMEN PELVIS W STAT 12/14/2018 3:14 Results for this CONTRAST PM HARDWARE ENGINEERING MANAGER procedure are in the results section. GRAM STAIN STAT 12/14/2018 12:15 Results for this PM HARDWARE ENGINEERING MANAGER procedure are in the results section. URINE CULTURE STAT 12/14/2018 12:15 Results for this PM HARDWARE ENGINEERING MANAGER procedure are in the results section. URINALYSIS SCREEN AND STAT 12/14/2018 11:51 Results for this MICROSCOPY, WITH REFLEX AM HARDWARE ENGINEERING MANAGER procedure are in TO CULTURE the results section. HCG QUALITATIVE, URINE Routine 12/14/2018 11:51 Results for this SCREEN AM HARDWARE ENGINEERING MANAGER procedure are in the results section. ESTIMATED GFR STAT 12/14/2018 11:20 Results for this AM HARDWARE ENGINEERING MANAGER procedure are in the results section. D-DIMER STAT 12/14/2018 11:20 Results for this AM HARDWARE ENGINEERING MANAGER procedure are in the results section. TROPONIN STAT 12/14/2018 11:20 Results for this AM HARDWARE ENGINEERING MANAGER procedure are in the results section. CREATINE KINASE, TOTAL STAT 12/14/2018 11:20 Results for this (CPK) AM HARDWARE ENGINEERING MANAGER procedure are in the results section. PHOSPHORUS LEVEL STAT 12/14/2018 11:20 Results for this AM HARDWARE ENGINEERING MANAGER procedure are in the results section. MAGNESIUM LEVEL STAT 12/14/2018 11:20 Results for this AM HARDWARE ENGINEERING MANAGER procedure are in the results section. COMPREHENSIVE METABOLIC STAT 12/14/2018 11:20 Results for this PANEL AM HARDWARE ENGINEERING MANAGER procedure are in the results section. HC COMPLETE BLD COUNT STAT 12/14/2018 11:20 Results for this W/AUTO DIFF AM HARDWARE ENGINEERING MANAGER procedure are in the results section. XR CHEST 2 VW STAT 12/14/2018 11:15 Results for this AM HARDWARE ENGINEERING MANAGER procedure are in the results section. ECG ED PRELIMINARY Routine 12/14/2018 10:57 Results for this INTERPRETATION AM HARDWARE ENGINEERING MANAGER procedure are in the results section. ECG 12-LEAD STAT 12/14/2018 9:31 Results for this AM HARDWARE ENGINEERING MANAGER procedure are in the results section. XR CHEST 2 VW STAT 12/11/2018 5:29 Results for this PM HARDWARE ENGINEERING MANAGER procedure are in the results section. HCG QUALITATIVE, URINE Routine 12/11/2018 3:59 Results for this SCREEN PM HARDWARE ENGINEERING MANAGER procedure are in the results section. URINE DRUGS OF ABUSE STAT 12/11/2018 3:59 Results for this SCREEN PM HARDWARE ENGINEERING MANAGER procedure are in the results section. ESTIMATED GFR STAT 12/11/2018 3:52 Results for this PM HARDWARE ENGINEERING MANAGER procedure are in the results section. THYROID STIMULATING STAT 12/11/2018 3:52 Results for this HORMONE PM HARDWARE ENGINEERING MANAGER procedure are in the results section. B NATRIURETIC PEPTIDE STAT 12/11/2018 3:52 Results for this PM HARDWARE ENGINEERING MANAGER procedure are in the results section. LIPASE LEVEL STAT 12/11/2018 3:52 Results for this PM HARDWARE ENGINEERING MANAGER procedure are in the results section. TROPONIN STAT 12/11/2018 3:52 Results for this PM HARDWARE ENGINEERING MANAGER procedure are in the results section. COMPREHENSIVE METABOLIC STAT 12/11/2018 3:52 Results for this PANEL PM HARDWARE ENGINEERING MANAGER procedure are in the results section. PARTIAL THROMBOPLASTIN STAT 12/11/2018 3:52 Results for this TIME (PTT) PM HARDWARE ENGINEERING MANAGER procedure are in the results section. PROTHROMBIN TIME WITH STAT 12/11/2018 3:52 Results for this INR PM HARDWARE ENGINEERING MANAGER procedure are in the results section. HC COMPLETE BLD COUNT STAT 12/11/2018 3:52 Results for this W/AUTO DIFF PM HARDWARE ENGINEERING MANAGER procedure are in the results section. ECG ED PRELIMINARY Routine 12/11/2018 3:34 Results for this INTERPRETATION PM HARDWARE ENGINEERING MANAGER procedure are in the results section. ECG 12-LEAD STAT 12/11/2018 3:04 Results for this PM HARDWARE ENGINEERING MANAGER procedure are in the results section. CT ANGIOGRAM PE CHEST STAT 12/04/2018 5:10 Results for this PM HARDWARE ENGINEERING MANAGER procedure are in the results section. HCG QUALITATIVE, URINE Routine 12/04/2018 4:15 Results for this SCREEN PM HARDWARE ENGINEERING MANAGER procedure are in the results section. RESPIRATORY PATHOGEN Routine 12/04/2018 4:15 Results for this PANEL PM HARDWARE ENGINEERING MANAGER procedure are in the results section. INFLUENZA ANTIGEN TEST, Routine 12/04/2018 4:15 Results for this REFLEX NEGATIVE TO RPP PM HARDWARE ENGINEERING MANAGER procedure are in the results section. ESTIMATED GFR STAT 12/04/2018 3:30 Results for this PM HARDWARE ENGINEERING MANAGER procedure are in the results section. INFECTIOUS STAT 12/04/2018 3:30 Results for this MONONUCLEOSIS SCREEN PM HARDWARE ENGINEERING MANAGER procedure are in the results section. COMPREHENSIVE METABOLIC STAT 12/04/2018 3:30 Results for this PANEL PM HARDWARE ENGINEERING MANAGER procedure are in the results section. HC COMPLETE BLD COUNT STAT 12/04/2018 3:30 Results for this W/AUTO DIFF PM HARDWARE ENGINEERING MANAGER procedure are in the results section. POC , URINE STAT 12/04/2018 4:30 [address]ER[employer] [address] LUMBAR SPINE WO Routine 11/21/2018 9:36 Results for this CONTRAST AM HARDWARE ENGINEERING MANAGER procedure are in the results section. B. BURGDORFERI ABS Routine 11/21/2018 7:47 Results for this TOTAL, SERUM AM HARDWARE ENGINEERING MANAGER procedure are in the results section. ANGIOTENSIN CONVERTING Routine 11/21/2018 7:47 Results for this ENZYME AM HARDWARE ENGINEERING MANAGER procedure are in the results section. ESTIMATED GFR Routine 11/21/2018 3:58 Results for this AM HARDWARE ENGINEERING MANAGER procedure are in the results section. LIPID PANEL Routine 11/21/2018 3:58 Results for this AM HARDWARE ENGINEERING MANAGER procedure are in the results section. BASIC METABOLIC PANEL Routine 11/21/2018 3:58 Results for this AM HARDWARE ENGINEERING MANAGER procedure are in the results section. HC COMPLETE BLD COUNT Routine 11/21/2018 3:58 Results for this W/AUTO DIFF AM HARDWARE ENGINEERING MANAGER procedure are in the results section. MRI BRAIN W WO CONTRAST Routine 11/20/2018 11:39 Results for this PM HARDWARE ENGINEERING MANAGER procedure are in the results section. MRI CERVICAL SPINE W WO Routine 11/20/2018 11:18 Results for this CONTRAST PM HARDWARE ENGINEERING MANAGER procedure are in the results section. CT SOFT TISSUE NECK WO Routine 11/20/2018 11:04 Results for this CONTRAST AM HARDWARE ENGINEERING MANAGER procedure are in the results section. ESTIMATED GFR Routine 11/20/2018 2:13 Results for this AM HARDWARE ENGINEERING MANAGER procedure are in the results section. LIPID PANEL Routine 11/20/2018 2:13 Results for this AM HARDWARE ENGINEERING MANAGER procedure are in the results section. BASIC METABOLIC PANEL Routine 11/20/2018 2:13 Results for this AM HARDWARE ENGINEERING MANAGER procedure are in the results section. HC COMPLETE BLD COUNT Routine 11/20/2018 2:13 Results for this W/AUTO DIFF AM HARDWARE ENGINEERING MANAGER procedure are in the results section. SYPHILIS TREPONEMAL IGG Routine 11/19/2018 8:26 Results for this PM HARDWARE ENGINEERING MANAGER procedure are in the results section. RAPID HIV 1 & 2 Routine 11/19/2018 8:26 Results for this PM HARDWARE ENGINEERING MANAGER procedure are in the results section. C-REACTIVE PROTEIN Routine 11/19/2018 8:26 Results for this PM HARDWARE ENGINEERING MANAGER procedure are in the results section. SEDIMENTATION RATE Routine 11/19/2018 8:26 Results for this PM HARDWARE ENGINEERING MANAGER procedure are in the results section. CT HEAD WO CONTRAST STAT 11/19/2018 4:40 Results for this PM HARDWARE ENGINEERING MANAGER procedure are in the results section. URINE DRUGS OF ABUSE Routine 11/19/2018 3:47 Results for this SCREEN PM HARDWARE ENGINEERING MANAGER procedure are in the results section. IR LUMBAR PUNCTURE Routine 11/19/2018 1:24 Results for this PM HARDWARE ENGINEERING MANAGER procedure are in the results section. OLIGOCLONAL BANDING, Routine 11/19/2018 1:15 Results for this CSF PM HARDWARE ENGINEERING MANAGER procedure are in the results section. IGG SYNTHESIS RATE Routine 11/19/2018 1:15 Results for this STUDY PM HARDWARE ENGINEERING MANAGER procedure are in the results section. VDRL, CSF SCREEN Routine 11/19/2018 1:15 Results for this PM HARDWARE ENGINEERING MANAGER procedure are in the results section. GLUCOSE LEVEL, CSF Routine 11/19/2018 1:15 Results for this PM HARDWARE ENGINEERING MANAGER procedure are in the results section. CSF CELL COUNT WITH Routine 11/19/2018 1:15 Results for this DIFFERENTIAL PM HARDWARE ENGINEERING MANAGER procedure are in the results section. GRAM STAIN Routine 11/19/2018 1:15 Results for this PM HARDWARE ENGINEERING MANAGER procedure are in the results section. CRYPTOCOCCAL ANTIGEN Routine 11/19/2018 1:15 Results for this SCREEN PM HARDWARE ENGINEERING MANAGER procedure are in the results section. CSF CULTURE Routine 11/19/2018 1:15 Results for this PM HARDWARE ENGINEERING MANAGER procedure are in the results section. MRI BRAIN VENOGRAM Routine 11/19/2018 11:54 Results for this AM HARDWARE ENGINEERING MANAGER procedure are in the results section. XR CERVICAL SPINE 2 OR Routine 11/19/2018 11:17 Results for this 3 VW AM HARDWARE ENGINEERING MANAGER procedure are in the results section. XR LUMBAR SPINE 2 OR 3 Routine 11/19/2018 11:16 Results for this VW AM HARDWARE ENGINEERING MANAGER procedure are in the results section. HEMOGLOBIN A1C Routine 11/19/2018 9:11 Results for this AM HARDWARE ENGINEERING MANAGER procedure are in the results section. LIPID PANEL Routine 11/19/2018 9:11 Results for this AM HARDWARE ENGINEERING MANAGER procedure are in the results section. THYROID STIMULATING Routine 11/19/2018 9:11 Results for this HORMONE AM HARDWARE ENGINEERING MANAGER procedure are in the results section. VITAMIN B12 LEVEL Routine 11/19/2018 9:11 Results for this AM HARDWARE ENGINEERING MANAGER procedure are in the results section. CT ANGIOGRAM HEAD W WO Routine 11/19/2018 8:47 Results for this CONTRAST AM HARDWARE ENGINEERING MANAGER procedure are in the results section. CT ANGIOGRAM NECK W WO Routine 11/19/2018 8:46 Results for this CONTRAST AM HARDWARE ENGINEERING MANAGER procedure are in the results section. MRI BRAIN WO CONTRAST Routine 11/19/2018 8:24 Results for this AM HARDWARE ENGINEERING MANAGER procedure are in the results section. CT HEAD WO CONTRAST STAT 11/18/2018 6:55 Results for this PM HARDWARE ENGINEERING MANAGER procedure are in the results section. ESTIMATED GFR STAT 11/18/2018 6:20 Results for this PM HARDWARE ENGINEERING MANAGER procedure are in the results section. HCG QUALITATIVE, URINE STAT 11/18/2018 6:20 Results for this SCREEN PM HARDWARE ENGINEERING MANAGER procedure are in the results section. URINALYSIS SCREEN AND STAT 11/18/2018 6:20 Results for this MICROSCOPY, WITH REFLEX PM HARDWARE ENGINEERING MANAGER procedure are in TO CULTURE the results section. COMPREHENSIVE METABOLIC STAT 11/18/2018 6:20 Results for this PANEL PM HARDWARE ENGINEERING MANAGER procedure are in the results section. HC COMPLETE BLD COUNT STAT 11/18/2018 6:20 Results for this W/AUTO DIFF PM HARDWARE ENGINEERING MANAGER procedure are in the results section. URINE CULTURE STAT 11/18/2018 6:20 Results for this PM HARDWARE ENGINEERING MANAGER procedure are in the results section. after 01/18/2018 Results Lactic acid level, SEPSIS - Now and repeat 2x every 3 hours (12/14/2018 3:43 PM HARDWARE ENGINEERING MANAGER) Lactic acid 0.8 0.5 - 2.2 mmol/L [facility] Specimen Plasma specimen Performing Organization Address City/State/Zipcode Phone Number [facility] DEPARTMENT OF PATHOLOGY [address] [facility] [place] [address] AND [facility] [address] [place] [address] HOSPITAL Blood culture, aerobic & anaerobic (12/14/2018 3:43 PM HARDWARE ENGINEERING MANAGER)Only the most recent of2 resultswithin the time period is included. Blood culture isolate No growth after 5 days of incubation. [facility] Comment: HOSPITAL Specimen Information Specimen Source: Blood Specimen Site: Antecubital, left Specimen Blood - Antecubital, left Performing Organization Address City/State/Zipcode Phone Number [facility] DEPARTMENT OF PATHOLOGY AND [address] [place] [address] [facility] [address] [place] [phone] Abdomen Pelvis W Contrast (12/14/2018 3:14 PM HARDWARE ENGINEERING MANAGER) Narrative Performed At EXAMINATION:CT ABDOMEN PELVIS W CONTRAST RADIANT CLINICAL HISTORY:ruq abd pain tenderness COMPARISON:None. TECHNIQUE: Multiple axial CT images of the Abdomen and pelvis were obtainedWith IV contrast . Sagittal and coronal reconstructions were done. CT imaging was performed with iterative reconstruction technique and/or automated exposure control to reduce radiation dose. FINDINGS: HEPATOBILIARY:Some branching linear hypoattenuation present in the liver along the hepatic hilum without mass effects. The main portal vein is patent. There is mild fatty infiltration of the liver. GALLBLADDER: Normal. SPLEEN:No splenomegaly. PANCREAS:No focal masses or ductal dilation. ADRENALS:No adrenal nodules. KIDNEYS:No hydronephrosis, stones or solid masses. PERITONEUM/RETROPERITONEUM:No free air or fluid. No lymphadenopathy. ABDOMINAL AORTA/IVC: No aneurysm or dissection. GI TRACT:Visualized portions of the bowel demonstrate no distention or wall thickening. The appendix is normal. No signs of diverticulitis. PELVIC ORGANS/BLADDER:Unremarkable. BONES AND SOFT TISSUES:Unremarkable. VISUALIZED LOWER CHEST: No acute abnormality. IMPRESSION: No acute abnormality. Some branching hypoattenuation in the inferior liver along the hepatic hilum possibly from scar or fatty change. Follow-up recommended. [id number] Procedure Note Hm Interface, Radiology Results Incoming - 12/14/2018 3:44 PM HARDWARE ENGINEERING MANAGER EXAMINATION: CT ABDOMEN PELVIS W CONTRAST CLINICAL HISTORY: ruq abd pain tenderness COMPARISON: None. TECHNIQUE: Multiple axial CT images of the Abdomen and pelvis were obtained With IV contrast . Sagittal and coronal reconstructions were done. CT imaging was performed with iterative reconstruction technique and/or automated exposure control to reduce radiation dose. FINDINGS: HEPATOBILIARY: Some branching linear hypoattenuation present in the liver along the hepatic hilum without mass effects. The main portal vein is patent. There is mild fatty infiltration of the liver. GALLBLADDER: Normal. SPLEEN: No splenomegaly. PANCREAS: No focal masses or ductal dilation. ADRENALS: No adrenal nodules. KIDNEYS: No hydronephrosis, stones or solid masses. PERITONEUM/RETROPERITONEUM: No free air or fluid. No lymphadenopathy. ABDOMINAL AORTA/IVC: No aneurysm or dissection. GI TRACT: Visualized portions of the bowel demonstrate no distention or wall thickening. The appendix is normal. No signs of diverticulitis. PELVIC ORGANS/BLADDER: Unremarkable. BONES AND SOFT TISSUES: Unremarkable. VISUALIZED LOWER CHEST: No acute abnormality. IMPRESSION: No acute abnormality. Some branching hypoattenuation in the inferior liver along the hepatic hilum possibly from scar or fatty change. Follow-up recommended. [id number] Performing Organization Address City/[facility] Phone Number [address] [address] Gram stain (12/14/2018 12:15 PM HARDWARE ENGINEERING MANAGER)Only the most recent of2 resultswithin the time period is included. Gram stain result Rare WBC's [facility] Occasional Gram negative rods Comment: Specimen Information Specimen Source: Urine Specimen Site: Clean catch Specimen Urine Performing Organization Address City/[facility] Hospital[facility] Phone Number [facility] DEPARTMENT OF PATHOLOGY AND [address] [place] [id number] [address] Urine culture (12/14/2018 12:15 PM HARDWARE ENGINEERING MANAGER)Only the most recent of2 resultswithin the time period is included. Urine culture isolate Mixed manjula 10-4 col/cc [facility] Comment: Specimen Information Specimen Source: Urine Specimen Site: Clean catch Specimen Urine Performing Organization Address [facility] Phone Number [facility] DEPARTMENT OF PATHOLOGY AND [address] [place] [phone] [address] Urinalysis screen and microscopy, with reflex to culture (12/14/2018 11:51 AM HARDWARE ENGINEERING MANAGER)Only the most recent of2 resultswithin the time period is included. Specimen site Clean catch [facility] Color, UA Yellow [facility] Appearance, UA Sl Cloudy [facility] Specific gravity, UA 1.008 1.001 - 1.030 [facility] pH, UA 5.0 5.0 - 9.0 [facility] Protein, UA Negative Negative [facility] Glucose, UA Negative Negative [facility] Ketones, UA Negative Negative [facility] Bilirubin, UA Negative Negative [facility] Blood, UA Large (A) Negative [facility] Nitrite, UA Negative Negative [facility] Urobilinogen, UA <2.0 <2.0 E.U./dL [facility] Leukocyte esterase, UA Small (A) Negative [facility] Epithelial cells, UA 15 /HPF [facility] Round epithelial cells, UA <1 0 - 5 /HPF [facility] WBC, UA 37 (H) 0 - 4 /HPF [facility] RBC, UA 65 (H) 0 - 5 /HPF [facility] Bacteria, UA Many (A) None seen [facility] WBC clumps, UA Few (A) [facility] Yeast, UA None seen [facility] Yeast with pseudohyphae, UA None seen [facility] Specimen Urine Performing Organization Address City/[facility] Hospital[facility] Phone Number [facility] DEPARTMENT OF PATHOLOGY [address] [place] [address] [address] hCG qualitative, urine screen (12/14/2018 11:51 AM HARDWARE ENGINEERING MANAGER)Only the most recent of4 resultswithin the time period is included. [facility] [place], urine NegativeComment: [facility] Sensitivity of HCG test: 25 [facility] mIU/ml Specimen Urine Performing Organization Address City/[facility] Hospitalcovt Phone Number [facility] DEPARTMENT OF PATHOLOGY [address] [place] [address] AND [place] [address] HOSPITAL Estimated GFR (12/14/2018 11:20 AM HARDWARE ENGINEERING MANAGER)Only the most recent of6 resultswithin the time period is included. Estimated GFR >=90 mL/min/1.73 m2 [facility] Comment: [facility] CatergoryUnitsInterpretation G1 >=90 Normal or high G2 60-89Mildly decreased [id number] to moderately decreased [id number] to severely decreased G4 15-29Severely decreased G5 <15Kidney failure The eGFR was calculated using the Chronic Kidney Disease Epidemiology Collaboration (CKD-EPI) equation. Interpretation is based on recommendations of the National Kidney Foundation-Kidney Disease Outcomes Quality Initiative (NKF-KDOQI) published in 2014. Specimen Plasma specimen Performing Organization Address City/[facility] [facility] Phone Number [facility] DEPARTMENT OF PATHOLOGY [address] [place] [address] Troponin (12/14/2018 11:20 AM HARDWARE ENGINEERING MANAGER)Only the most recent of2 resultswithin the time period is included. Troponin <0.30 0.00 - 0.30 ng/mL [facility] Comment: HOSPITAL 0.11 - 1.49 ng/mlMay indicate increased risk of acute coronary syndrome. >=1.5 ng/mlConsistent with acute myocardial infarction. The diagnostic value of a single normal or non-diagnostic result is questionable.Serial samples at 2-6 hour intervals are required to rule out acute myocardial injury. Specimen Plasma specimen Performing Organization Address [facility] Phone Number [facility] DEPARTMENT OF PATHOLOGY [address] [place] [address] D-dimer (12/14/2018 11:20 AM HARDWARE ENGINEERING MANAGER) D-dimer <0.27 0.00 - 0.40 ug/mL [facility] Comment: [facility] Units are ug/ml Fibrinogen Equivalent Unit. When combined with low clinical probability, D-dimer results of less than 0.5 ug/ml FEU have a good negativepredictive value in excluding PE or DVT. For D-dimer results greater than 0.5ug/ml FEU further testing is indicated if PE or DVT is suspectedclinically. Elevated D-dimer results have been reported in DVT, PE, and DIC cases and may indicate the presence of a clot. D-dimer results may be elevated due to old age, , inflammatory diseases, trauma, post-operative states, sepsis, and malignancies. Specimen Blood Performing Organization Address City/State/Zipcode Phone Number [facility] DEPARTMENT OF PATHOLOGY [address] [place] [address] AND GENOMIC MEDICINE [facility] [address] [place] [address] HOSPITAL CBC with platelet and differential (12/14/2018 11:20 AM HARDWARE ENGINEERING MANAGER)Only the most recent of6 resultswithin the time period is included. WBC 5.2 4.5 - 11.0 k/uL [facility] RBC 4.56 4.20 - 5.50 m/uL [facility] HGB 13.9 12.0 - 16.0 g/dL [facility] HCT 41.5 37.0 - 47.0 % [facility] MCV 91.0 82.0 - 100.0 fL [facility] MCH 30.5 27.0 - 34.0 pg [facility] MCHC 33.5 31.0 - 37.0 g/dL [facility] RDW - SD 45.0 37.0 - 55.0 fL [facility] MPV 11.2 (H) 6.9 - 11.0 fL [facility] Platelet count 270 150 - 400 K/uL [facility] Nucleated RBC 0.00 /100 WBC [facility] Neutrophils 69.2 (H) 39.0 - 69.0 % [facility] Lymphocytes 24.2 (L) 25.0 - 45.0 % [facility] Monocytes 4.8 0.0 - 10.0 % [facility] Eosinophils 1.0 0.0 - 5.0 % [facility] Basophils 0.4 0.0 - 1.0 % [facility] Immature granulocytes 0.4 0.0 - 1.0 % [facility] Specimen Blood Performing Organization Address City/[facility]/Zipcode Phone Number [facility] DEPARTMENT OF PATHOLOGY [address] [place] [address] [place] [address] HOSPITAL Phosphorus level (12/14/2018 11:20 AM HARDWARE ENGINEERING MANAGER) Phosphorus 3.4 2.4 - 4.5 mg/dL [facility] Specimen Plasma specimen Performing Organization Address City/[facility] Phone Number [facility] DEPARTMENT OF PATHOLOGY [address] [place] [address] Magnesium level (12/14/2018 11:20 AM HARDWARE ENGINEERING MANAGER) Magnesium 2.1 1.6 - 2.6 mg/dL [facility] Specimen Plasma specimen Performing Organization Address City/[facility] Phone Number [facility] DEPARTMENT OF PATHOLOGY [address] [place] [address] Creatine kinase, total (CPK) (12/14/2018 11:20 AM HARDWARE ENGINEERING MANAGER) Creatine kinase 84 26 - 192 U/L [facility] Specimen Plasma specimen Performing Organization Address City/[facility] Phone Number [facility] DEPARTMENT OF PATHOLOGY [address] [place] [address] Comprehensive metabolic panel (12/14/2018 11:20 AM HARDWARE ENGINEERING MANAGER)Only the most recent of4 resultswithin the time period is included. Sodium 143 135 - 148 mEq/L [facility] Potassium 3.9 3.5 - 5.0 mEq/L [facility] Chloride 110 98 - 112 mEq/L [facility] CO2 19 (L) 24 - 31 mEq/L [facility] Anion gap 14@ANIO 7 - 15 mEq/L [facility] BUN 6 6 - 20 mg/dL [facility] Creatinine 0.59 0.50 - 0.90 mg/dL [facility] Glucose 107 (H) 65 - 99 mg/dL [facility] Calcium 9.5 8.3 - 10.2 mg/dL [facility] Protein 8.0 6.3 - 8.3 g/dL [facility] Albumin 4.9 3.5 - 5.0 g/dL [facility] A/G ratio 1.6 0.7 - 3.8 [facility] Alkaline phosphatase 77 35 - 104 U/L [facility] AST 28 10 - 35 U/L [facility] ALT 41 5 - 50 U/L [facility] Total bilirubin 0.3 0.2 - 1.2 mg/dL [facility] Specimen Plasma specimen Performing Organization Address City/State/Zipcode Phone Number [facility] DEPARTMENT OF PATHOLOGY [address] [place] [address] AND GENOMIC MEDICINE [facility] [address] [place] [address] HOSPITAL XR Chest 2 Vw (12/14/2018 11:15 AM HARDWARE ENGINEERING MANAGER)Only the most recent of2 resultswithin the time period is included. Narrative Performed At EXAMINATION:XR CHEST 2 VW [facility] CLINICAL HISTORY:chest painleft flank pain COMPARISON:2 view chest from 12/11/2018 IMPRESSION: PA and lateral radiographs of the chest was submitted for interpretation. The lungs are clear. No significant change in appearance of the chest when compared to previous examination. The mediastinal contours and cardiac silhouette are unchanged and unremarkable. The bones are unremarkable. The patient is status post cholecystectomy. [facility]-[id number] Procedure Note Hm Interface, Radiology Results Incoming - 12/14/2018 11:22 AM HARDWARE ENGINEERING MANAGER EXAMINATION: XR CHEST 2 VW CLINICAL HISTORY: chest pain left flank pain COMPARISON: 2 view chest from 12/11/2018 IMPRESSION: PA and lateral radiographs of the chest was submitted for interpretation. The lungs are clear. No significant change in appearance of the chest when compared to previous examination. The mediastinal contours and cardiac silhouette are unchanged and unremarkable. The bones are unremarkable. The patient is status post cholecystectomy. [facility]-[id number] Performing Organization Address City/State/Zipcode Phone Number [facility] [address] [place] [address] ECG ED Preliminary Interpretation - Not an Order (12/14/2018 10:57 AM HARDWARE ENGINEERING MANAGER)Only the most recent of2 resultswithin the time period is included. Narrative Performed At Alysia Juárez MD 12/16/20187:33 PM ECG ED Preliminary Interpretation - Not an Order Performed by: Alysia Juárez MD Authorized by: Alysia Juárez MD ECG reviewed by ED Physician in the absence of a charity fundraiser: yes Previous ECG: Previous ECG:Compared to current Comparison ECG info:12/11/18 Similarity:No change Interpretation: Interpretation: abnormal Rate: ECG rate:109 ECG rate assessment: tachycardic Rhythm: Rhythm: sinus tachycardia QRS: QRS axis:Normal QRS intervals:Normal ST segments: ST segments:Normal T waves: T waves: flattening Flattening:III, aVF, aVL, V4, V5 and V6 Q waves: Q waves:III Other findings: Other findings: poor R wave progression ECG 12 lead (12/14/2018 9:31 AM HARDWARE ENGINEERING MANAGER)Only the most recent of2 resultswithin the time period is included. Ventricular rate 109 [facility] Atrial rate 109 [facility] AL interval 136 [facility] QRSD interval 76 [facility] QT interval 348 [facility] QTC interval 468 [facility] P axis 1 29 [facility] QRS axis 1 42 [facility] T wave axis 42 [facility] EKG impression Sinus tachycardia-Possible Left atrial enlargement-Possible Inferior infarct (cited on or before 23-JUL-2016)-Cannot rule out Anterior infarct (cited on or before 23-JUL-2016)-Abnormal ECG-Electronicall [facility] y Signed By Miko Dodge (2024) on 12/14/2018 1:22:02 PM Narrative Performed At Performing Organization Address City/State/Zipcode Phone Number [facility] MUSE [address] [place] [address] Urine drugs of abuse screen (12/11/2018 3:59 PM HARDWARE ENGINEERING MANAGER)Only the most recent of2 resultswithin the time period is included. Amphetamine screen, urine Negative [facility] Barbiturate screen, urine Negative [facility] Benzodiazepine screen, Negative [facility] urine [facility] Cannabinoid screen, urine Negative [facility] Cocaine screen, urine Negative [facility] Methadone metabolite Negative [facility] (EDDP), urine [facility] Opiates screen, urine Negative [facility] Phencyclidine screen, urine Negative [facility] Tricyclic screen, urine Negative [facility] Comment: [facility] Drug screen minimum concentration of detectability Nadgyvouudro5809 ng/mL Barbiturates 200 ng/mL Gnkmekmaygqfzuv767 ng/mL Demcufo255 ng/mL Fjkruppdp364 ng/mL Cgljznm142 ng/mL Phencyclidine 25 ng/mL Vwiskwkbibrj11 ng/mL Qswhjwsmhs1515 ng/mL Results are from screening tests and should only be used for medical evaluation. Drug testing for legal purposes requires definitive (or confirmatory) testing methods, which are available upon request. Contact the laboratory if definitive testing is required. Specimen Urine Performing Organization Address City/[facility]/Zipcode Phone Number [facility] DEPARTMENT OF PATHOLOGY [address] [place] [address] Partial thromboplastin time, activated (12/11/2018 3:52 PM HARDWARE ENGINEERING MANAGER) PTT 30.2 23.0 - 36.0 sec [facility] Comment: [facility] PTT therapeutic range for unfractionated heparin is 61.0-112.0 seconds which corresponds to Anti-Xa 0.3-0.7 U/ml. Specimen Blood Performing Organization Address City/[facility] Phone Number [facility] DEPARTMENT OF PATHOLOGY [address] [place] [address] Prothrombin time with INR (12/11/2018 3:52 PM HARDWARE ENGINEERING MANAGER) Prothrombin time 13.1 11.5 - 14.5 sec [facility] INR 1.0 [facility] Comment: [facility] The International Normalized Ratio (INR) is a therapeutic monitoring tool for patients who are stable on oral anticoagulant therapy. An INR of 2.0-3.0 is suggested for deep vein thrombosis/pulmonary embolism. Specimen Blood Performing Organization Address City/[facility]/Zipcode Phone Number [facility] DEPARTMENT OF PATHOLOGY [address] [place] [address] Thyroid stimulating hormone (12/11/2018 3:52 PM HARDWARE ENGINEERING MANAGER)Only the most recent of2 resultswithin the time period is included. TSH 3.71 0.27 - 4.20 uIU/mL [facility] Specimen Blood Performing Organization Address City/[facility]/Zipcode Phone Number [facility] DEPARTMENT OF PATHOLOGY [address] [place] [address] B natriuretic peptide (12/11/2018 3:52 PM HARDWARE ENGINEERING MANAGER) BNP 3 0 - 100 pg/mL [facility] Specimen Blood Performing Organization Address City/[facility] Phone Number [facility] DEPARTMENT OF PATHOLOGY [address] [place] [address] Lipase level (12/11/2018 3:52 PM HARDWARE ENGINEERING MANAGER) Lipase 33 13 - 60 U/L [facility] Specimen Plasma specimen Performing Organization Address City/[facility] Phone Number [facility] DEPARTMENT OF PATHOLOGY [address] [place] [address]. [place] [address] Angiogram Pe Chest (12/04/2018 5:10 PM HARDWARE ENGINEERING MANAGER) Narrative Performed At EXAMINATION: [facility] PE CHEST CLINICAL HISTORY:28 years [...] disease. 2.No acute abnormality of the chest. [id number] Procedure Note Interface, Radiology Results Incoming - 12/04/2018 5:18 PM HARDWARE ENGINEERING MANAGER EXAMINATION: CT ANGIOGRAM PE CHEST CLINICAL HISTORY:28 [...] 2. No acute abnormality of the chest. [facility]-[id number] Performing Organization Address [facility] Phone Number [facility] [address] [place] [address] Respiratory pathogen panel (12/04/2018 4:15 PM HARDWARE ENGINEERING MANAGER) Respiratory pathogen Negative for all pathogens tested: [facility] panel Negative for Adenovirus [facility] Negative for Coronavirus HKU1 Negative for Coronavirus [...] Specimen Nares - Left Performing Organization Address City/State/[facility] Phone Number [facility] DEPARTMENT OF PATHOLOGY AND [address] [place] [id number] [place] [address] Influenza antigen test, reflex negative to RPP (12/04/2018 4:15 PM HARDWARE ENGINEERING MANAGER) Influenza antigen Negative for Influenza A/B antigen. [facility] Comment: Specimen Information Specimen Source: Nares Specimen Site: Left Specimen Nares - Left Performing Organization Address City/[facility]/Zipcode Phone Number [facility] DEPARTMENT OF PATHOLOGY AND [address] [place] [address] Infectious mononucleosis screen (12/04/2018 3:30 PM HARDWARE ENGINEERING MANAGER) Heterophile Ab screen Negative Negative [facility] Specimen Blood Performing Organization Address City/[facility] Phone Number [facility] DEPARTMENT OF PATHOLOGY AND [address] [place] [address] [address] Lumbar Spine Wo Contrast (11/21/2018 9:36 AM HARDWARE ENGINEERING MANAGER) Narrative Performed At EXAMINATION: CT LUMBAR SPINE WO CONTRAST [facility] CLINICAL HISTORY: Abn xrayL S-spineDJD, L S-spine stenosis, Fyrdoowvpgkuc5ihs conservative txpersistent sx COMPARISON:None TECHNIQUE: Axial noncontrast [...] acute or significant lumbar spine abnormality identified. [facility]-[id number] Procedure Note Interface, Radiology Results Incoming - 11/21/2018 9:58 AM HARDWARE ENGINEERING MANAGER EXAMINATION: CT LUMBAR SPINE WO CONTRAST CLINICAL [...] acute or significant lumbar spine abnormality identified. [facility]-[id number] Performing Organization Address [facility] Phone Number [facility] [address] [place] [address] B. burgdorferi Abs total, serum (11/21/2018 7:47 AM HARDWARE ENGINEERING MANAGER) B. burgdorferi antibodies 0.51 0.00 - 1.20 [facility] Comment: INTERPRETIVE INFORMATION: Borrelia Burgdorferi Abs,Total by FREDDY 0.99 BAILEY or Less: ...... Negative: Antibody to B. burgdorferi not detected. 1.00 - 1.20 BAILEY......... Equivocal: Repeat testing in 10-14 days may be helpful. 1.21 BAILEY or Greater: ... Positive: Probable presence of antibody to B. burgdorferi detected. Performed by [facility], [address] [place] [phone] [email or web address], Aashish Nugent MD - Lab. Director Specimen Serum Performing Organization Address [facility] Phone Number [facility] [address] [place] [address] [facility] [address] [place] [address] Angiotensin converting enzyme (11/21/2018 7:47 AM HARDWARE ENGINEERING MANAGER) Angiotensin converting enzyme 17 9 - 67 U/L [facility] Comment: Performed by [facility], [address] [place] [id number] [email or web address], Aashish Nugent MD - Lab. Director Specimen Serum Performing Organization Address [facility] Phone Number [facility] [address] [place] [address] [facility] [address] [place] [address] Lipid panel (11/21/2018 3:58 AM HARDWARE ENGINEERING MANAGER)Only the most recent of3 resultswithin the time period is included. Cholesterol 136 0 - 199 mg/dL [facility] Triglycerides 99 0 - 149 mg/dL [facility] HDL cholesterol 45 40 - 99,999 [facility] mg/dL [facility] LDL cholesterol 86 0 - 99 mg/dL [facility] Lipid panel See below [facility] interpretation Comment: [facility] Total Cholesterol (mg/dL) <200 Desirable 704-581Alxnrioxdw-omle >=240High Triglycerides (mg/dL) <150 Normal 620-355Mmzdsamvqn-vxnz 200-499High >=500Very high HDL Cholesterol (mg/dL) <40Low (male) <50Low (female) LDL Cholesterol (mg/dL) <100 Optimal 100-129Near or above optimal [phone]-sxzq 160-189High >=190Very high Risk Catergories that modify [...] mg/dL) Specimen Plasma specimen Performing Organization Address City/State/Zipcode Phone Number [facility] DEPARTMENT OF PATHOLOGY [address] [place] [address] AND GENOMIC MEDICINE [facility] [address] [place] [address] HOSPITAL Basic metabolic panel (11/21/2018 3:58 AM HARDWARE ENGINEERING MANAGER)Only the most recent of2 resultswithin the time period is included. Sodium 141 135 - 148 mEq/L [facility] Potassium 3.6 3.5 - 5.0 mEq/L [facility] Chloride 110 98 - 112 mEq/L [facility] CO2 22 (L) 24 - 31 mEq/L [facility] Anion gap 9@ANIO 7 - 15 mEq/L [facility] BUN 12 6 - 20 mg/dL [facility] Creatinine 0.52 0.50 - 0.90 mg/dL [facility] Glucose 117 (H) 65 - 99 mg/dL [facility] Calcium 9.0 8.3 - 10.2 mg/dL [facility] Specimen Plasma specimen Performing Organization Address City/State/Zipcode Phone Number [facility] DEPARTMENT OF PATHOLOGY [address] [place] [address] AND GENOMIC MEDICINE [facility] [address] MRI Brain W Wo Contrast (11/20/2018 11:39 PM HARDWARE ENGINEERING MANAGER) Narrative Performed At EXAM: MRI BRAIN W [...] is a more sensitive test for evaluation. [facility]-[id number] Procedure Note Interface, Radiology Results Incoming - 11/21/2018 12:27 AM HARDWARE ENGINEERING MANAGER EXAM: MRI BRAIN W WO CONTRAST CLINICAL [...] is a more sensitive test for evaluation. [facility]-[id number] Performing Organization Address City/State/Zipcode Phone Number [facility] [address] [place] [address] MRI Cervical Spine W Wo Contrast (11/20/2018 11:18 PM HARDWARE ENGINEERING MANAGER) Narrative Performed At EXAM: MRI CERVICAL SPINE [...] abnormal marrow signal, or abnormal cord signal. [facility]-[id number] Procedure Note Interface, Radiology Results Incoming - 11/21/2018 12:28 AM HARDWARE ENGINEERING MANAGER EXAM: MRI CERVICAL SPINE W WO CONTRAST [...] abnormal marrow signal, or abnormal cord signal. [facility]-[id number] Performing Organization Address City/State/Zipcode Phone Number [facility] [address] [place] [address] CT Soft Tissue Neck Wo Contrast (11/20/2018 11:04 AM HARDWARE ENGINEERING MANAGER) Narrative Performed At EXAMINATION:CT SOFT TISSUE NECK [...] definite masses or lymphadenopathy in the neck. [facility]-[id number] Procedure Note Interface, Radiology Results Incoming - 11/20/2018 11:44 AM HARDWARE ENGINEERING MANAGER EXAMINATION: CT SOFT TISSUE NECK WO CONTRAST [...] definite masses or lymphadenopathy in the neck. [facility]-[id number] Performing Organization Address City/[facility]/Zipcode Phone Number [address] [address] Syphilis treponemal IgG (11/19/2018 8:26 PM HARDWARE ENGINEERING MANAGER) Syphilis treponemal IgG Non-reactiveComment: Non-reactive [facility] Non-reactive: No HOSPITAL serological evidence of Syphilis infection Specimen Serum Performing Organization Address [facility] Phone Number [facility] DEPARTMENT OF PATHOLOGY AND [address] [place] [phone] [address] Rapid HIV 1 & 2 (11/19/2018 8:26 PM HARDWARE ENGINEERING MANAGER) Rapid HIV 1 and 2 Non-Reactive Non-Reactive [facility] Specimen Blood Performing Organization Address [facility] Phone Number [facility] DEPARTMENT OF PATHOLOGY [address] [place] [address] Sedimentation rate (11/19/2018 8:26 PM HARDWARE ENGINEERING MANAGER) Sedimentation rate 9 0 - 20 mm/hr [facility] Specimen Blood Performing Organization Address [facility] Phone Number [facility] DEPARTMENT OF PATHOLOGY [id number] [place] [address] C-reactive protein (11/19/2018 8:26 PM HARDWARE ENGINEERING MANAGER) CRP <0.30 0.00 - 0.50 mg/dL [facility] Specimen Plasma specimen Performing Organization Address City/[facility]/Zipcode Phone Number [facility] DEPARTMENT OF PATHOLOGY AND [address] [place] [phone] [address] [address] Head Wo Contrast (11/19/2018 4:40 PM HARDWARE ENGINEERING MANAGER)Only the most recent of2 resultswithin the time period is included. Narrative Performed At EXAMINATION:CT HEAD WO CONTRAST [facility] CLINICAL HISTORY:Focal neuro deficit6 hrsstroke suspected COMPARISON:November 19, 2018 TECHNIQUE: CT imaging was performed with iterative reconstruction technique and/or automated exposure control to reduce radiation dose. Findings: No intracranial hemorrhage, acute transcortical ischemia, extra-axial fluid collections or parenchymal mass lesions. No skull fractures or aggressive bony lesions. Paranasal sinuses and mastoid air cells are clear. IMPRESSION: No acute intracranial abnormalities. [facility]-[id number] Procedure Note Interface, Radiology Results Incoming - 11/19/2018 4:49 PM HARDWARE ENGINEERING MANAGER EXAMINATION: CT HEAD WO CONTRAST CLINICAL HISTORY: [...] are clear. IMPRESSION: No acute intracranial abnormalities. [facility]-[id number] Performing Organization Address City/State/Zipcode Phone Number [facility] [address] [place] [address] IR Lumbar Puncture by Radiology (11/19/2018 1:24 PM HARDWARE ENGINEERING MANAGER) Narrative Performed At EXAMINATION: IR LUMBAR PUNCTURE [...] fluoroscopic guided lumbar puncture as detailed above. [facility]-[id number] Procedure Note Interface, Radiology Results Incoming - 11/19/2018 5:49 PM HARDWARE ENGINEERING MANAGER EXAMINATION: IR LUMBAR PUNCTURE CLINICAL HISTORY: Intracranial [...] fluoroscopic guided lumbar puncture as detailed above. [facility]-[id number] Performing Organization Address [facility] Phone Number [facility] [address] [place] [address] IgG synthesis rate study (11/19/2018 1:15 PM HARDWARE ENGINEERING MANAGER) IgG albumin ratio, CSF 0.13 0.00 - 0.23 [facility] IgG index, CSF 0.52 0.01 - 0.63 [facility] IgG synthetic rate 0.87 -9.90 - 3.30 mg/day [facility] Q-albumin ratio, CSF 3.70 2.00 - 6.00 [facility] IgG, CSF 1.72 1.00 - 3.00 mg/dL [facility] Albumin, CSF 13.33 10.00 - 30.00 mg/dL [facility] IgG 898 700 - 1,600 mg/dL [facility] Albumin, S 3,600.0 (L) 3,640.0 - 5,304.0 mg/dL [facility] Specimen Cerebrospinal fluid Performing Organization Address City/[facility] Hospitalcode Phone Number [facility] DEPARTMENT OF PATHOLOGY AND [address] [place] [address] [facility] [address] [address] Cryptococcal antigen, screen (11/19/2018 1:15 PM HARDWARE ENGINEERING MANAGER) Cryptococcal Ag Negative - No Cryptococcus antigen detected. [facility] Comment: Specimen Information Specimen Source: CSF (Spinal Fluid) Specimen Site: Lumbar puncture Specimen Cerebrospinal fluid - Lumbar puncture Performing Organization Address [facility]/Zipcode Phone Number [facility] DEPARTMENT OF PATHOLOGY AND [address] [place] [address] [address] Oligoclonal banding, CSF (11/19/2018 1:15 PM HARDWARE ENGINEERING MANAGER) Protein, CSF 24 15 - 45 mg/dL [facility] Prealbumin, CSF 6.2 3.5 - 11.1 % [facility] Albumin, CSF 64.3 40.8 - 66.2 % [facility] Alpha 1, CSF 2.8 2.3 - 6.4 % [facility] Alpha 2, CSF 6.9 6.1 - 12.6 % [facility] Beta, CSF 13.8 11.7 - 24.1 % [facility] Gamma, CSF 6.0 5.6 - 12.2 % [facility] CSF extended interpretation See CommentComment: A [facility] normal CSF protein [facility] study. No oligoclonal bands are seen. CSF interpretation See CommentComment: [facility] Keyanna Lugo MD [facility] Specimen Cerebrospinal fluid Performing Organization Address [facility]/Zipcode Phone Number [facility] DEPARTMENT OF PATHOLOGY [address] [place] [address] [id number] [place] [address] CSF culture (11/19/2018 1:15 PM HARDWARE ENGINEERING MANAGER) CSF culture isolate No growth after 3 days. [facility] Comment: Specimen Information Specimen Source: CSF (Spinal Fluid) Specimen Site: Lumbar puncture Specimen Cerebrospinal fluid - Lumbar puncture Performing Organization Address City/[facility]/Zipcode Phone Number [facility] DEPARTMENT OF PATHOLOGY AND [address] [place] [address] [address] CSF cell count with differential (11/19/2018 1:15 PM HARDWARE ENGINEERING MANAGER) CSF tube number Tube 2 [facility] Color, CSF Colorless [facility] Appearance, CSF Clear [facility] RBC, CSF 14 (H) 0 - 1 /CMM [facility] WBC, CSF 1 0 - 5 /CMM [facility] CSF mononuclear cell 1/CMM [facility] Specimen Cerebrospinal fluid Performing Organization Address City/[facility]/Zipcode Phone Number [facility] DEPARTMENT OF PATHOLOGY [id number] [place] [address] VDRL, CSF screen (11/19/2018 1:15 PM HARDWARE ENGINEERING MANAGER) VDRL, CSF screen Non-reactive Non-reactive [facility] Specimen Cerebrospinal fluid Performing Organization Address City/[facility]/Zipcode Phone Number [facility] DEPARTMENT OF PATHOLOGY AND [address] [place] [address] [address] Glucose level, CSF (11/19/2018 1:15 PM HARDWARE ENGINEERING MANAGER) Glucose, CSF 63 40 - 70 mg/dL [facility] Specimen Cerebrospinal fluid Performing Organization Address [facility] Phone Number [facility] DEPARTMENT OF PATHOLOGY [id number] [place] [address] MRI Brain Venogram (11/19/2018 11:54 AM HARDWARE ENGINEERING MANAGER) Narrative Performed At EXAMINATION:MRI BRAIN VENOGRAM [facility] CLINICAL HISTORY:Dural venous sinus thrombosis suspected COMPARISON:None. FINDINGS: The dural venous sinuses are patent without thrombosis. The cortical/deep veins are patent. IMPRESSION: Unremarkable examination. No evidence of dural venous sinus thrombosis. [facility]-[id number] Procedure Note Interface, Radiology Results Incoming - 11/19/2018 12:03 PM HARDWARE ENGINEERING MANAGER EXAMINATION: MRI BRAIN VENOGRAM CLINICAL HISTORY: Dural venous sinus thrombosis suspected COMPARISON: None. FINDINGS: The dural venous sinuses are patent without thrombosis. The cortical/deep veins are patent. IMPRESSION: Unremarkable examination. No evidence of dural venous sinus thrombosis. [facility]-[id number] Performing Organization Address City/[facility]/Zipcode Phone Number [facility] [address] [place] [address] XR Cervical Spine 2 Or 3 Vw (11/19/2018 11:17 AM HARDWARE ENGINEERING MANAGER) Narrative Performed At EXAMINATION: XR CERVICAL SPINE 2 OR 3 VW [facility] CLINICAL HISTORY: Neck paininitial exam COMPARISON:None IMPRESSION: Frontal lateral views of cervical spine were obtained. Prevertebral soft tissues are within normal limits. There is no spondylolisthesis or acute osseous fracture. Facet joints are intact without widening or subluxation. No acute cervical spine abnormality identified. [facility]-[id number] Procedure Note Interface, Radiology Results Incoming - 11/19/2018 11:23 AM HARDWARE ENGINEERING MANAGER EXAMINATION: XR CERVICAL SPINE 2 OR 3 VW CLINICAL HISTORY: Neck pain initial exam COMPARISON: None IMPRESSION: Frontal lateral views of cervical spine were obtained. Prevertebral soft tissues are within normal limits. There is no spondylolisthesis or acute osseous fracture. Facet joints are intact without widening or subluxation. No acute cervical spine abnormality identified. [facility]-[id number] Performing Organization Address City/State/Zipcode Phone Number [facility] [address] [place] [address] XR Lumbar Spine 2 Or 3 Vw (11/19/2018 11:16 AM HARDWARE ENGINEERING MANAGER) Narrative Performed At EXAMINATION: XR LUMBAR SPINE 2 OR 3 VW [facility] CLINICAL HISTORY: Back [id number] conservative txpersistent sx, [id number] conservative txpersistent sx COMPARISON:None FINDINGS: The lumbar [...] Mild lumbar curvature convex towards the left. [facility]-[id number] Procedure Note Interface, Radiology Results Incoming - 11/19/2018 11:24 AM HARDWARE ENGINEERING MANAGER EXAMINATION: XR LUMBAR SPINE 2 OR 3 [...] Mild lumbar curvature convex towards the left. [facility]-[id number] Performing Organization Address [facility]/Zipcode Phone Number [facility] [address] [place] [address] Hemoglobin A1c (11/19/2018 9:11 AM HARDWARE ENGINEERING MANAGER) Hemoglobin A1C 4.9 4.0 - 6.0 % [facility] Comment: HOSPITAL Less than 6% - Goal of therapy for Type II Diabetes Less than 7%-Goal of therapy for Type I Diabetes Less than 8%-Acceptable control for Type I or Type II Diabetes Greater than 8%-Unacceptable control; action indicated. ([id number]) Specimen Blood Performing Organization Address [facility]code Phone Number [facility] DEPARTMENT OF PATHOLOGY [id number] [place] [address] AND [facility] [id number] [place] [address] Vitamin B12 level (11/19/2018 9:11 AM HARDWARE ENGINEERING MANAGER) Vitamin B12 543 211 - 946 pg/mL [facility] Comment: Significant overlap exists between normal and deficiency states. However, most patients with deficiencies will have Serum B12 <200 pg/mL. Specimen Serum Performing Organization Address [facility] Phone Number [facility] DEPARTMENT OF PATHOLOGY AND [address] [place] [address] [facility] [address] [place] [address] CTA Head W Wo Contrast (11/19/2018 8:47 AM HARDWARE ENGINEERING MANAGER) Narrative Performed At EXAMINATION: CT ANGIOGRAM HEAD [...] large vessel occlusion at the level the [place]. There is no evidence of [...] IMPRESSION: No hemodynamically significant narrowing of the [place] vessels. No definite evidence of dural venous sinus thrombosis. [facility]-[id number] Procedure Note Hm Interface, Radiology Results Incoming - 11/19/2018 8:59 AM HARDWARE ENGINEERING MANAGER EXAMINATION: CT ANGIOGRAM HEAD W WO CONTRAST [...] large vessel occlusion at the level the [place]. There is no evidence of [...] IMPRESSION: No hemodynamically significant narrowing of the [place] vessels. No definite evidence of dural venous sinus thrombosis. [facility]-[id number] Performing Organization Address City/State/Zipcode Phone Number [facility] [address] [place] [address] CTA Neck W Wo Contrast (11/19/2018 8:46 AM HARDWARE ENGINEERING MANAGER) Narrative Performed At EXAMINATION: CT ANGIOGRAM NECK [...] be better evaluated with a chest CT. [facility]-[id number] Procedure Note [facility], Radiology Results Incoming - 11/19/2018 9:07 AM HARDWARE ENGINEERING MANAGER EXAMINATION: CT ANGIOGRAM NECK W WO CONTRAST [...] be better evaluated with a chest CT. [facility]-[id number] Performing Organization Address City/State/Zipcode Phone Number [facility] [address] [place] [address] MRI Brain Wo Contrast (11/19/2018 8:24 AM HARDWARE ENGINEERING MANAGER) Narrative Performed At EXAMINATION: MRI BRAIN WO CONTRAST [facility] CLINICAL HISTORY: headache blurred vision COMPARISON:CT brain [...] correlation for papilledema and pseudotumor cerebri however. [facility]-[id number] Procedure Note Interface, Radiology Results [facility] - 11/19/2018 8:33 AM HARDWARE ENGINEERING MANAGER EXAMINATION: MRI BRAIN WO CONTRAST CLINICAL HISTORY: [...] correlation for papilledema and pseudotumor cerebri however. [facility]-[id number] [facility] Organization Address City/State/Zipcode Phone Number [facility] [address] [place] [address] after 01/18/2018 Advance Directives Patient has advance care planning documents on file. For more information, please contact:[facility] [place] [address]
--- OUTSIDE RECORDS SUMMARY | 2019-01-19 16:51 | XMS REPORT | Continuity of Care Document ---
:1990 Author Organization Interface Problems Problem Status Onset Classification Date Comments Source Date Reported Neck pain 12/26/19 12/28/2018 [place] [id number] DIZZY, HEADACHE, Active 12/26/19 [facility] VOMITTING 19 [place] Nausea & vomiting 12/16/19 12/19/2018 [facility] 19 Epigastric pain 12/16/19 12/19/2018 [facility] 19 VOMITING Active 12/16/19 [facility] 19 Tom Acute 12/13/19 12/16/2018 [facility] pyelonephritis 19 INFECTION Active 12/13/19 [place] [id number] [place] Headache Active 05/31/20 12/26/2018 [place] 17 [facility] Discharge 06/04/20 06/07/2016 [facility] Diagnosis: 16 Attempted suicide Discharge 06/04/20 06/07/2016 [facility] Diagnosis: Acute 16 depression Discharge 06/04/20 06/07/2016 [facility] Diagnosis: Tylenol 16 ingestion Discharge 06/04/20 06/07/2016 [facility] Diagnosis: 16 Ingestion of unknown medication OVERDOSE Active 06/04/20 [facility] 16 [place] Acute Active 02/29/20 12/26/2018 [place] cholecystitis s/p 16 Health lap shashi 03/02 Discharge 02/27/20 03/01/2016 [place] Diagnosis: 16 [place] Hemorrhagic ovarian cyst Discharge 02/27/20 03/01/2016 [place] Diagnosis: 16 [place] Cholelithiasis Discharge 02/27/20 03/01/2016 [place] Diagnosis: 16 [place] Abdominal pain, acute, right upper quadrant Discharge 02/27/20 03/01/2016 [place] Diagnosis: Vaginal 16 [place] bleeding RIGHT SIDE RIB Active 02/27/20 [place] PAIN 16 [place] Calculus of Active 12/26/2018 [place] gallbladder Health without cholecystitis without obstruction Constipation Active 12/26/2018 [place] [facility] Intractable Active 12/26/2018 [place] episodic headache Health Intractable Active 12/26/2018 [place] episodic headache, Health unspecified headache type Rib pain Active 12/26/2018 [place] [facility] Acute bilateral Active 12/26/2018 [place] low back pain Health without sciatica Acute cystitis Active 12/26/2018 [place] with hematuria Health Palpitations Active 12/26/2018 [facility] Medications Medication Details Route Status Patient Ordering Order Source Instructions Provider Date Cyclobenzaprine 5 mg=1 tab, PO, Active hydrochloride 5 TID, X 5 day, # 2019 [place] [facility] Oral Tablet 15 tab, 0 [Flexeril] Refill(s) ibuprofen 600 mg 600 mg=1 tab, Active oral tablet PO, Q8H, X 7 2019 day, # 21 tab, 0 Refill(s) Ketorolac 15 mg, 0.5 mL, Inactive Route: IVP, Drug 2018 [place] form: INJ, ONCE, Dosing Weight 65.909, kg, Priority: STAT, Start date: 12/25/18 22:04:00 ADDICTION TREATMENT COUNSELOR, Stop date: 12/25/18 22:04:00 CSTNotes: (Same as:Toradol) IV bolus must be given >15 seconds. Give IM administration slowly and deeply into the muscle. Not for use > 4 days MEDICATION WASTE Product Size: 30 mg Product Wasted: ___ mg Flexeril 10 mg, 1 tab, Inactive Route: PO, Drug 2018 [place] form: TAB, ONCE, Dosing Weight 65.909, kg, Priority: STAT, Start date: 12/25/18 22:03:00 ADDICTION TREATMENT COUNSELOR, Stop date: 12/25/18 22:03:00 CSTNotes: (Same As: Flexeril) Zofran 4 mg, 2 mL, Inactive Route: IVP, Drug 2018 [place] form: INJ, ONCE, Dosing Weight 67, kg, Priority: STAT, Start date: 12/25/18 18:03:00 ADDICTION TREATMENT COUNSELOR, Stop date: 12/25/18 18:03:00 CSTNotes: (Same as: Zofran) MEDICATION WASTE Product Size: 4 mg Product Wasted: ___ mg normal saline 1,000 mL, Rate: Inactive 0.9% IV 1,000 mL 1,000 ml/hr, 2018 [place] Infuse over: 1 hr, Route: IV, Dosing Weight 67 kg, Total Volume: 1,000, Priority: Within 24 hours, Start date: 12/25/18 18:03:00 ADDICTION TREATMENT COUNSELOR, Duration: 1 doses or times, Stop date: 12/25/18 19:02:00 ADDICTION TREATMENT COUNSELOR, 1.72, m2 acetaminophen Take 1 tablet by Oral Active (TYLENOL) 500 mg mouth every 6 2018 [facility] tablet hours as needed for Pain. ibuprofen Take 1 tablet by Oral Active (MOTRIN) 600 mg mouth every 8 2018 [facility] tablet hours as needed for Pain. Promethazine 12.5 mg=1 tab, Active Hydrochloride PO, Q6H, PRN 2019 [place] 12.5 MG Oral Nausea & Tablet Vomiting, # 8 [Phenergan] tab, 0 Refill(s) pantoprazole 40 40 mg=1 tab, PO, Active MG Enteric Coated Daily, # 30 tab, 2019 [place] Tablet [Protonix] 0 Refill(s) GI cocktail 30 mL, Route: Inactive (aluminum PO, Dosing 2019 [place] hydroxide/magnesi Weight 67, kg, um ONCE, STAT, hydroxide/lidocai Start date: ne/simethicone) 12/16/18 16:30:00 ADDICTION TREATMENT COUNSELOR, Stop date: 12/16/18 16:30:00 ADDICTION TREATMENT COUNSELOR Phenergan 12.5 mg, 1 tab, Inactive Route: PO, Drug 2019 [place] form: TAB, ONCE, Dosing Weight 67, kg, Priority: STAT, Start date: 12/16/18 15:58:00 ADDICTION TREATMENT COUNSELOR, Stop date: 12/16/18 15:58:00 CSTNotes: (Same as: Phenergan) Ativan 1 mg, 1 tab, Inactive Route: PO, Drug 2019 [place] form: TAB, ONCE, Dosing Weight 67, kg, Priority: STAT, Start date: 12/16/18 14:41:00 ADDICTION TREATMENT COUNSELOR, Stop date: 12/16/18 14:41:00 CSTNotes: (Same as: Ativan) Ondansetron 4 mg, 2 mL, Inactive Route: IVP, Drug 2019 [place] form: INJ, ONCE, Dosing Weight 67, kg, Priority: STAT, Start date: 12/16/18 14:41:00 ADDICTION TREATMENT COUNSELOR, Stop date: 12/16/18 14:41:00 CSTNotes: (Same as: Zofran) MEDICATION WASTE Product Size: 4 mg Product Wasted: ___ mg Ketorolac 30 mg, 1 mL, Inactive Route: IVP, Drug 2018 [place] form: INJ, ONCE, Dosing Weight 67, kg, Priority: STAT, Start date: 12/16/18 13:19:00 ADDICTION TREATMENT COUNSELOR, Stop date: 12/16/18 13:19:00 CSTNotes: (Same as:Toradol) IV bolus must be given >15 seconds. Give IM administration slowly and deeply into the muscle. Not for use > 4 days MEDICATION WASTE Product Size: 30 mg Product Wasted: ___ mg Rocephin + 1 gm, Route: Inactive sterile water 10 IVPB, ONCE, 2019 [place] mL Dosing Weight 67, kg, Priority: STAT, Start date: 12/16/18 11:20:00 ADDICTION TREATMENT COUNSELOR, Stop date: 12/16/18 11:20:00 ADDICTION TREATMENT COUNSELOR, ABX Indication: Genital Tract InfectionNotes: (Same As: Rocephin). Use with 100 mL NS and infuse over 30 min MEDICATION WASTE Product Size: 1000 mg Product Wasted: ___ mg Ondansetron 4 mg, 2 mL, Inactive Route: IVP, Drug 2018 [place] form: INJ, ONCE, Dosing Weight 70.455, kg, Priority: STAT, Start date: 12/16/18 10:36:00 ADDICTION TREATMENT COUNSELOR, Stop date: 12/16/18 10:36:00 CSTNotes: (Same as: Zofran) MEDICATION WASTE Product Size: 4 mg Product Wasted: ___ mg Sodium Chloride 1,000 mL, 1000 Inactive 0.9% (Bolus) IV ml/hr, Infuse 2018 [place] Over: 1 hr, Route: IV, 1,000, Drug form: INJ, ONCE, Priority: STAT, Dosing Weight 70.455 kg, Start date: 12/16/18 10:36:00 ADDICTION TREATMENT COUNSELOR, Stop date: 12/16/18 10:36:00 ADDICTION TREATMENT COUNSELOR Saline Flush 0.9% 10 mL, Route: Inactive IVP, Drug Form: 2019 [place] INJ, Dosing Weight 70.455, kg, PRN, PRN Line Flush, Start date: 12/16/18 10:36:00 ADDICTION TREATMENT COUNSELOR, Duration: 30 day, Stop date: 01/15/19 11:35:00 CDTNotes: (Same as: BD Posiflush) Docusate Sodium 100 mg=1 cap, Active 100 MG Oral PO, BID, PRN 2019 [place] Capsule [Colace] Constipation, # 20 cap, 0 Refill(s) Acetaminophen 300 1 tab, PO, Q4H, Active MG / Codeine PRN Pain, X 7 2019 [place] Phosphate 30 MG day, # 30 tab, 0 Oral Tablet Refill(s) [Tylenol with Codeine #3] cefdinir 300 MG 300 mg=1 cap, Active Oral Capsule PO, BID, X 14 2019 [place] day, # 28 cap, 0 Refill(s) Rocephin 1 gm, Route: Inactive IVPB, Drug form: 2018 [place] PDR/INJ, ONCE, Dosing Weight 70.455, kg, Priority: STAT, Start date: 12/13/18 18:41:00 ADDICTION TREATMENT COUNSELOR, Stop date: 12/13/18 18:41:00 ADDICTION TREATMENT COUNSELOR, ABX Indication: Urinary Tract Infection Ketorolac 30 mg, 1 mL, Inactive Route: IVP, Drug 2018 [place] form: INJ, ONCE, Dosing Weight 70.455, kg, Priority: STAT, Start date: 12/13/18 17:45:00 ADDICTION TREATMENT COUNSELOR, Stop date: 12/13/18 17:45:00 CSTNotes: (Same as:Toradol) IV bolus must be given >15 seconds. Give IM administration slowly and deeply into the muscle. Not for use > 4 days MEDICATION WASTE Product Size: 30 mg Product Wasted: ___ mg Saline Flush 0.9% 10 mL, Route: Inactive IVP, Drug Form: 2018 [place] INJ, Dosing Weight 70.455, kg, PRN, PRN Line Flush, Start date: 12/13/18 13:51:00 ADDICTION TREATMENT COUNSELOR, Duration: 30 day, Stop date: 01/12/19 14:50:00 CDTNotes: (Same as: BD Posiflush) naproxen Take 1 tablet by Oral Active (NAPROSYN) 375 mg mouth 2 times 2018 [facility] tablet daily as needed for Other (headache). Zofran 4 mg, 2 mL, Inactive Route: IVP, Drug 2015 [place] form: INJ, ONCE, Dosing Weight 77.273, kg, Priority: STAT, Start date: 06/04/16 14:57:00 CDT, Stop date: 06/04/16 14:57:00 CDTNotes: (Same as: Zofran) MEDICATION WASTE Product Size: 4 mg Product Wasted: ___ mg Zofran 4 mg, Route: Inactive IVP, Drug form: 2015 [place] INJ, ONCE, Dosing Weight 77.273, kg, Priority: STAT, Start date: 06/04/16 14:20:00 CDT, Stop date: 06/04/16 14:20:00 CDT Morphine 4 mg, Route: Inactive IVP, Drug form: 2015 [place] INJ, ONCE, Dosing Weight 77.273, kg, Priority: STAT, Start date: 06/04/16 14:19:00 CDT, Stop date: 06/04/16 14:19:00 CDT Zofran 4 mg, Route: Inactive IVP, Drug form: 2015 [place] INJ, ONCE, Dosing Weight 77.273, kg, Priority: STAT, Start date: 06/04/16 12:29:00 CDT, Stop date: 06/04/16 12:29:00 CDT Actidose Plus 50 gm, 240 mL, Inactive Sorbitol Route: PO, Drug 2015 [place] form: SUSP, ONCE, Start date: 06/04/16 12:19:00 CDT, Stop date: 06/04/16 12:19:00 CDTNotes: (Same As: Actidose Plus Sorbitol) charcoal 50 gm, Route: Inactive PO, Drug form: 2015 [place] SUSP, ONCE, Dosing Weight 77.273, kg, Start date: 06/04/16 12:08:00 CDT, Stop date: 06/04/16 12:08:00 CDT Sodium Chloride 1,000 mL, 1,000 Inactive 0.154 MEQ/ML ml/hr, Infuse 2016 [place] Injectable Over: 1 hr, Solution Route: IV, 1,000, Drug form: INJ, ONCE, Priority: STAT, Dosing Weight 77.273 kg, Start date: 06/04/16 12:06:00 CDT, Duration: 1 doses or times, Stop date: 06/04/16 12:06:00 CDT Acetaminophen 325 Take 2 tablets Oral Active Mg Tablet by mouth every 6 2015 [facility] hours as needed for Pain. Famotidine 20 Mg Take 1 tablet by Oral Active Tablet mouth 2 times 2016 [facility] daily. Tramadol 50 Mg Take 1 tablet by Oral Active Tablet mouth every 6 2015 [facility] hours as needed for Pain. acetaminophen Take 2 tablets Oral No Longer (TYLENOL) 325 mg by mouth every 6 Active 2015 [facility] tablet hours as needed for Pain. famotidine Take 1 tablet by Oral Active (PEPCID) 20 mg mouth 2 times 2016 [facility] tablet daily. traMADol (ULTRAM) Take 1 tablet by Oral Active 50 mg tablet mouth every 6 2015 [facility] hours as needed for Pain. Dicyclomine 20 mg=1 tab, PO, Active [place] Hydrochloride 20 Q6H, PRN abd 2016 [place] [facility] Oral Tablet pain, # 20 tab, [Bentyl] 0 Refill(s) Ondansetron 4 mg, Route: Inactive [place] IVP, ONCE, 2015 [facility] Dosing Weight 68.636, kg, Priority: STAT, Start date: 02/27/16 11:54:00 CDT, Stop date: 02/27/16 11:54:00 CDT Ketorolac 30 mg, Route: Inactive [place] IVP, ONCE, 2015 [facility] Dosing Weight 68.636, kg, Priority: STAT, Start date: 02/27/16 11:54:00 CDT, Stop date: 02/27/16 11:54:00 CDT Saline Flush 0.9% 10 mL, Route: Inactive [place] IVP, Drug Form: 2015 [place] INJ, Dosing Weight 68.636, kg, PRN, PRN Line Flush, Start date: 02/27/16 11:54:00 CDT, Duration: 30 day, Stop date: 03/28/16 11:53:00 CDTNotes: (Same as: BD Posiflush) Allergies, Adverse Reactions, Alerts Substance Category Reaction Severity Reaction Status Date Comments Source type Reported Immunizations Immunization Date Given Site Status Last Updated Comments Source Results Order Name Results Value Reference Date Interpretation Comments Source Range HEMATOLOGY PTT 29.6 s 22.9 - 12/26 [facility] 35.8 /2018 [place] HEMATOLOGY INR 1.04 0.85 - 12/26 [facility] 1.17 [place] HEMATOLOGY PT 13.4 s 12.0 - 12/26 [facility] 14.7 /2018 [place] URINE AND UA 0.2 EU/dL 0.1 - 1.0 12/26 [facility] Urobilinogen [place] URINE AND UA Blood Small Negative 12/26 [place] [place] *ABN* (12/25/18 6:31 PM) URINE AND UA RBC 30 /HPF 0 - 2 12/26 STOOL [place] URINE AND UA WBC 4 /HPF 0 - 5 12/26 STOOL [place] URINE AND UA [place] Yeast Occasional None Seen 12/26 STOOL /HPF /HPF [place] URINE AND UA CaOx [place] Occasional None Seen 12/26 STOOL /HPF /HPF [place] URINE AND UA Bili Negative Negative 12/26 STOOL [place] *NA* (12/25/18 6:31 PM) URINE AND UA Sq Epi Moderate Few /LPF 12/26 [facility] /LPF [place] URINE AND UA Leuk Est Negative Negative 12/26 STOOL [place] (12/25/18 6:31 PM) URINE AND UA Nitrite Negative Negative 12/26 STOOL [place] (12/25/18 6:31 PM) URINE AND UA Mucus Moderate None Seen 12/26 [facility] /LPF /LPF [place] URINE AND UA Protein Negative Negative 12/26 STOOL [place] (12/25/18 6:31 PM) URINE AND UA Glucose Negative Negative 12/26 STOOL [place] *NA* (12/25/18 6:31 PM) URINE AND UA Ketones Negative Negative 12/26 STOOL [place] *NA* (12/25/18 6:31 PM) URINE AND UA Spec Grav 1.017 <=1.030 12/26 [place] URINE AND UA pH 7.0 5.0 - 8.0 12/26 STOOL [place] URINE AND UA Turbidity Moderate Clear 12/26 [place] *ABN* (12/25/18 6:31 PM) URINE AND UA Color Yellow Yellow 12/26 [place] *NA* (12/25/18 6:31 PM) CHEM PANEL Lipase Lvl 178 unit/L 73 - 393 12/26 [place] ELECTROLYTE AGAP 10.6 meq/L 10.0 - 12/26 S 20.0 [place] ELECTROLYTE A/G Ratio 0.9 0.7 - 1.6 12/26 [place] ELECTROLYTE Globulin 4.4 g/dL 2.7 - 4.2 12/26 [place] ELECTROLYTE B/C Ratio 11 6 - 25 12/26 [place] ELECTROLYTE eGFR 101 12/26 Result Comment: The eGFR is calculated using the CKD-EPI formula. In most young, healthy individuals the eGFR will be > 90 mL/min/1.73m2. The eGFR declines with age. An eGFR of 60-89 may be normal in mL/min/1.7 some populations, particularly the elderly, for whom the CKD-EPI formula has not been extensively validated. Use of the eGFR is not recommended in the following populations: [place] 3m2 Individuals with unstable creatinine concentrations, including [...] should be multiplied by the estimated BMI. ELECTROLYTE Albumin Lvl 3.8 g/dL 3.5 - 5.0 12/26 S [place] ELECTROLYTE Glucose Lvl 103 mg/dL 70 - 99 12/26 [place] ELECTROLYTE Alk Phos 64 unit/L 39 - 136 12/26 S [place] ELECTROLYTE AST 31 unit/L 0 - 37 12/26 S [place] ELECTROLYTE ALT 59 unit/L 0 - 65 12/26 S [place] ELECTROLYTE Bili Total 0.4 mg/dL 0.2 - 1.3 12/26 [place] ELECTROLYTE Total 8.2 g/dL 6.4 - 8.4 12/26 MH S [place] ELECTROLYTE Chloride Lvl 111 meq/L 95 - 109 12/26 [place] ELECTROLYTE Calcium Lvl 9.0 mg/dL 8.5 - 10.5 12/26 S [place] ELECTROLYTE Potassium 3.6 meq/L 3.5 - 5.1 12/26 MH S Lvl [place] ELECTROLYTE CO2 25 meq/L 24 - 32 12/26 S [place] ELECTROLYTE Creatinine 0.80 mg/dL 0.50 - 03 MH S Lvl 1.40 [place] ELECTROLYTE Sodium Lvl 143 meq/L 135 - 145 12/26 [place] ELECTROLYTE BUN 9 mg/dL 7 - 22 12/26 [place] ENDOCRINOLO S Preg Negative Negative 12/26 [place] *NA* (12/25/18 6:13 PM) HEMATOLOGY Platelet 252 K/CMM 133 - 450 12/26 [place] HEMATOLOGY MPV 9.2 fL 7.4 - 10.4 12/26 [place] HEMATOLOGY WBC 5.4 K/CMM 3.7 - 10.4 12/26 [place] HEMATOLOGY Hgb 13.2 g/dL 12.0 - 12/26 MH 16.0 [place] HEMATOLOGY RBC 4.27 M/CMM 4.20 - 12/26 MH 5.40 [place] HEMATOLOGY Hct 37.1 % 36.0 - 12/26 MH 48.0 [place] HEMATOLOGY MCV 86.9 fL 80.0 - 12/26 [facility] 98.0 [place] HEMATOLOGY MCH 30.9 pg 27.0 - 12/26 MH 31.0 [place] HEMATOLOGY MCHC 35.6 g/dL 32.0 - 12/26 [facility] 36.0 [place] HEMATOLOGY RDW 13.7 % 11.5 - 12/26 [facility] 14.5 [place] HEMATOLOGY Lymphocytes 2.0 K/CMM 1.0 - 5.5 12/26 # [place] HEMATOLOGY Basophils 0.5 % 0.0 - 1.0 12/26 [place] HEMATOLOGY Eosinophils 0.1 K/CMM 0.0 - 0.5 12/26 # /2019 [place] HEMATOLOGY Neutrophils 3.0 K/CMM 1.5 - 8.1 12/26 MH # /2019 [place] HEMATOLOGY Monocytes # 0.3 K/CMM 0.0 - 0.8 12/26 /2018 [place] HEMATOLOGY Segs 55.6 % 45.0 - 12/26 MH 75.0 /2018 [place] HEMATOLOGY Monocytes 6.2 % 2.0 - 12.0 12/26 [place] HEMATOLOGY Lymphocytes 36.8 % 20.0 - 12/26 [facility] 40.0 /2018 [place] HEMATOLOGY Eosinophils 0.9 % 0.0 - 4.0 12/26 [place] Brain wo Brain wo EXAM: CT BRAIN WITHOUT CONTRAST 12/25 - [facility] contrast CT contrast CT - [place] DATE: 12/25/2018 10:03 PM ADDICTION TREATMENT COUNSELOR Read by: Elan Trimble MD Dictated Date/time: 12/25/18 22:33 Electronically Signed by: Elan Trimble MD 12/25/18 22:34 FINAL REPORT INDICATION: - headache. Neck pain. ADDITIONAL INFORMATION: . COMPARISON: None. TECHNIQUE: Routine axial CT images of the brain were obtained. IV contrast: None. CT imaging performed at this location utilizes radiation dose optimization techniques which include one or more of the following: -Automated exposure control -Adjustment of the mA and/or kV according to patient size -Use of iterative reconstruction technique CT Radiation Dose DLP 900.81 mGy-cm FINDINGS: Non-contrast images of the head demonstrate no edema, hemorrhage, mass lesion or other acute intracranial abnormality. Scott-white matter distinction is preserved. The ventricles are normal. The basal cisterns and sulci are normal in size. The paranasal sinuses, orbits and mastoids are unremarkable. IMPRESSION: 1. No definite acute infarct or intracranial hemorrhage detected. If there is further concern for intracranial pathology or acute stroke, MRI of the brain may be performed for complete assessment. SL: JNGUYEN-PC URINE Culture 10,000-100,000 CFU/ml BT MICROBIOLOGY 12/20/2018 [facility] Gardnerella vaginalis HIV-1/HIV-2 HIV-1/HIV-2 Negative NEG 12/19/2018 [place] DIAGNOSTIC/SYMPTOMATIC Health XRAY CHEST 2 IMPRESSION: No acute pulmonary disease. If the report is "FINALIZED" it indicates that the attending/staff radiologist has reviewed the images and agrees with the resident's interpretation. 12/19/2018 [place] VIEWS Dictated By: Pradeep Nam MD, 12/19/2018 4:48 PM I have reviewed the study and agree with the findings in this report. Signed By: Rajesh Pratt MD, 12/19/2018 5:05 PM EXAMINATION:XRAY CHEST 2 VIEWS, Frontal and lateral INDICATION: [facility] COMPARISON:None FINDINGS: TUBES/LINES:None LUNGS:No consolidation or edema. PLEURA:No effusions or pneumothorax. HEART/MEDIASTINUM:Normal cardiomediastinal silhouette. MUSCULOSKELETAL:No acute findings. UPPER ABDOMEN: Surgical clips in the right upper quadrant. Interface, Rad/Mammog In - 12/19/2018 5:11 PM ADDICTION TREATMENT COUNSELOR EXAMINATION: XRAY CHEST 2 VIEWS, Frontal and [...] By: Rajesh Pratt MD, 12/19/2018 5:05 PM LIPASE Lipase 21 U/L 11 - 82 12/19/2018 [facility] LIVER PROFILE T Protein 6.9 g/dL 6 - 8.3 12/19/2018 [facility] LIVER PROFILE Albumin 4.4 g/dL 3.7 - 12/19/2018 [place] LIVER PROFILE T Bilirubin 0.6 mg/dL 0.2 - 12/19/2018 [place] [facility] LIVER PROFILE Alk Phos 58 U/L 34 - 12/19/2018 [place] 104 [facility] LIVER PROFILE AST 25 U/L 13 - 39 12/19/2018 [facility] LIVER PROFILE ALT 34 U/L 7 - 52 12/19/2018 [facility] LIVER PROFILE D Bilirubin 0.1 mg/dL 0 - 0.2 12/19/2018 [facility] UA CHEMISTRIES Color Straw 12/19/2018 [facility] UA CHEMISTRIES Clarity Clear 12/19/2018 [facility] UA CHEMISTRIES Spec [place] 1.006 1.001 - 12/19/2018 [place] 1.035 [facility] UA CHEMISTRIES pH 6.0 5 - 8 12/19/2018 [facility] UA CHEMISTRIES Protein Negative NEG 12/19/2018 [facility] UA CHEMISTRIES Glucose Negative NEG 12/19/2018 [facility] UA CHEMISTRIES Ketone Negative NEG 12/19/2018 [facility] UA CHEMISTRIES Bilirubin Negative NEG 12/19/2018 [facility] UA CHEMISTRIES Nitrate Negative NEG 12/19/2018 [facility] UA CHEMISTRIES Urobilinogen <1.0 0.2 - 1 12/19/2018 [facility] UA CHEMISTRIES Leukocyte Trace NEG 12/19/2018 [facility] UA CHEMISTRIES Blood 1+ NEG 12/19/2018 [facility] UA CHEMISTRIES RBC 2 0 - 4 12/19/2018 [facility] UA CHEMISTRIES WBC 4 0 - 5 12/19/2018 [facility] UA CHEMISTRIES Epithelial Cell 22 /HPF 12/19/2018 [facility] UA CHEMISTRIES Lab Abnormal 12/19/2018 [facility] CBC/DIFF WBC 4.3 K/uL 4.5 - 12/19/2018 [place] 11 [facility] CBC/DIFF RBC 4.32 4.20 - 12/19/2018 [place] 5.40 [facility] CBC/DIFF Hemoglobin 12.9 g/dL 12 - 16 12/19/2018 [facility] CBC/DIFF Hematocrit 39.2 % 37 - 47 12/19/2018 [facility] CBC/DIFF MCV 91 fL 82 - 92 12/19/2018 [facility] CBC/DIFF MCH 29.9 pg 27 - 32 12/19/2018 [facility] CBC/DIFF MCHC 32.9 g/dL 32 - 36 12/19/2018 [facility] CBC/DIFF RDW 44.8 fL 36.4 - 12/19/2018 [place] 46.3 [facility] CBC/DIFF Platelet 272 K/uL 150 - 12/19/[address] CBC/DIFF Mean Platelet 11.4 fL 9.4 - 12/19/2018 [place] Volume 12.4 [facility] CBC/DIFF Percent NRBC 0.0 12/19/2018 [facility] CBC/DIFF Absolute NRBC 0.00 12/19/2018 [facility] CBC/DIFF Neutrophil 53.9 % 34 - 70 12/19/2018 [facility] CBC/DIFF Lymphocyte 37.4 % 20 - 50 12/19/2018 [facility] CBC/DIFF Monocyte 6.8 % 5 - 12 12/19/2018 [place] [facility] CBC/DIFF Eosinophil 1.2 % 0.7 - 5 12/19/2018 [place] [facility] CBC/DIFF Basophil 0.5 % 0.1 - 12/19/2018 [place] CBC/DIFF Pct Immat Gran 0.2 0.0 - 12/19/2018 [place] [facility] CBC/DIFF Neutrophil, Abs 2.29 K/uL 1.56 - 12/19/2018 [place] [facility] CBC/DIFF Lymphocyte, Abs 1.59 K/uL 1.18 - 12/19/2018 [place] 3[facility]74 [facility] CBC/DIFF Monocyte, Abs 0.29 K/uL 0.24 - 12/19/2018 [place] 0[facility]36 [facility] CBC/DIFF Eosinophil, Abs 0.05 K/uL 0.04 - 12/19/2018 [place] 0[facility]36 [facility] CBC/DIFF Basophil, Abs 0.02 K/uL 0.01 - 12/19/2018 [place] 0.08 [facility] CBC/DIFF Absol Immat 0.01 K/uL 0 - 12/19/2018 [place] Gran 0.03 Health CBC/DIFF Lab Abnormal 12/19/2018 [place] Interpretation [facility] TROPONIN I POC Troponin POC 0.00 ng/mL 0 - 12/19/2018 [place] 0[facility]08 [facility] POCT URINE DIPSTICK - pass 12/19/2018 [place] Control Health POCT URINE DIPSTICK - negative 12/19/2018 [place] [facility] POCT URINE DIPSTICK - Lab Normal 12/19/2018 [place] Interpretation Health BMP POC CO2 POC 22 mmol/L 21 - 32 12/19/2018 [place] [facility] BMP POC Chloride POC 106 mmol/L 98 - 12/19/2018 [place] 107 [facility] BMP POC Potassium POC 3.4 mmol/L 3.5 - 12/19/2018 [place] [facility] BMP POC Sodium POC 143 mmol/L 136 - 12/19/2018 [place] 145 [facility] BMP POC Glucose POC 103 mg/dL 74 - 12/19/2018 [place] 106 [facility] BMP POC Urea Nitrogen 9 mg/dL 7 - 18 12/19/2018 [place] POC Health BMP POC Creatinine POC 0.6 mg/dL 0.6 - 12/19/2018 [place] BMP POC Calcium Ionized 1.16 mmol/L 1.15 - 12/19/2018 [place] POC 1.29 Health BMP POC Hemoglobin POC 13.6 g/dL 12 - 16 12/19/2018 [facility] POC Hematocrit POC 40.0 % 37 - 47 12/19/2018 [facility] POC GFR, Estimated >60 mL/min/ 12/19/2018 [place] 1.73 m2 [facility] POC GFR, Estim, >60 mL/min/ 12/19/2018 [place] Afr-Am 1.73 m2 [facility] POC Lab Abnormal 12/19/2018 [facility] MOLECULAR DIAGNOSTIC Source [facility] Endocervix 12/16/2018 [place] *NA* (12/16/18 1:59 PM) MOLECULAR DIAGNOSTIC N gonorrhea by Negative Negativ 12/16/2018 [facility] ([facility]) *NA* (12/16/18 1:59 PM) MOLECULAR DIAGNOSTIC C trachomatis Negative Negativ 12/16/2018 by [facility] ([facility]) *NA* (12/16/18 1:59 PM) DRUG SCREEN UDS Note See Note 12/16/2018 [place] *NA* (12/16/18 10:51 AM) DRUG SCREEN U Benzodiaz Scr Negative Negativ 12/16/2018 e [place] *NA* (12/16/18 10:51 AM) DRUG SCREEN U Nan Scr Negative Negativ 12/16/2018 [facility] [place] *NA* (12/16/18 10:51 AM) DRUG SCREEN U Cocaine Scr Negative Negativ 12/16/2018 e Mark *NA* (12/16/18 10:51 AM) DRUG SCREEN U Opiate Scr Negative Negativ 12/16/2018 e Mark *NA* (12/16/18 10:51 AM) DRUG SCREEN U Cannab Scr Negative Negativ 12/16/2018 e Mark *NA* (12/16/18 10:51 AM) DRUG SCREEN U Phencyclidine Negative Negativ 12/16/2018 [facility] e Mark *NA* (12/16/18 10:51 AM) DRUG SCREEN U Amph Scr Negative Negativ 12/16/2018 e Mark *NA* (12/16/18 10:51 AM) URINE AND STOOL UA Urobilinogen <=1.0 mg/dL 0.1 - 12/16/2018 1.0 [place] URINE AND STOOL UA Sq Epi Many /LPF Few 12/16/2018 /LPF [place] URINE AND STOOL UA Leuk Est Large Negativ 12/16/2018 e [place] *ABN* (12/16/18 10:51 AM) URINE AND STOOL UA Bili Negative Negativ 12/16/2018 e [place] *NA* (12/16/18 10:51 AM) URINE AND STOOL UA Glucose Negative Negativ 12/16/2018 e [place] *NA* (12/16/18 10:51 AM) URINE AND STOOL UA Protein Negative Negativ 12/16/2018 e [place] (12/16/18 10:51 AM) URINE AND STOOL UA Blood Moderate Negativ 12/16/2018 e [place] *ABN* (12/16/18 10:51 AM) URINE AND STOOL UA Ketones Negative Negativ 12/16/2018 e [place] *NA* (12/16/18 10:51 AM) URINE AND STOOL UA Mucus Few /LPF None 12/16/2018 Seen [place] /[facility] URINE AND STOOL UA RBC 3 /HPF 0 - 2 12/16/2018 [facility] URINE AND STOOL UA WBC 56 /HPF 0 - 5 12/16/2018 [facility] URINE AND STOOL UA Nitrite Negative Negativ 12/16/2018 e [place] (12/16/18 10:51 AM) URINE AND STOOL UA Bacteria Few /HPF None 12/16/2018 Seen [place] /[facility] URINE AND STOOL UA Turbidity Marked Clear 12/16/2018 [facility] *ABN* (12/16/18 10:51 AM) URINE AND STOOL UA Color Yellow Yellow 12/16/2018 [facility] *NA* (12/16/18 10:51 AM) URINE AND STOOL UA pH 6.0 5.0 - 12/16/2018 8.0 [place] URINE AND STOOL UA Spec Grav 1.009 <=1.030 12/16/2018 [facility] URINE CHEM U Preg Negative Negativ 12/16/2018 e [place] (12/16/18 10:51 AM) Culture: Urine No Growth; 12/16/2018 [facility] CHEM PANEL eGFR 120 12/16/2018 Result Comment: The eGFR is calculated using the CKD-EPI formula. In most young, healthy individuals the eGFR will be > 90 mL/min/1.73m2. The eGFR declines with age. An eGFR of 60-89 may be normal in MH mL/min/1.73m some populations, particularly the elderly, for whom the CKD-EPI formula has not been extensively validated. Use of the eGFR is not recommended in the following populations: [place] 2 Individuals with unstable creatinine concentrations, including patients [...] the estimated BMI. CHEM PANEL Chloride Lvl 110 meq/L 95 - 12/16/2018 [facility] 109 [place] CHEM PANEL Potassium Lvl 3.6 meq/L 3.5 - 12/16/2018 MH 5.1 [place] CHEM PANEL Sodium Lvl 143 meq/L 135 - 12/16/2018 [facility] 145 [place] CHEM PANEL Calcium Lvl 8.9 mg/dL 8.5 - 12/16/2018 MH 10.5 [place] CHEM PANEL Creatinine Lvl 0.67 mg/dL 0.50 - 12/16/2018 [facility] 1.40 [place] CHEM PANEL Total Protein 8.2 g/dL 6.4 - 12/16/2018 [facility] 8.4 [place] CHEM PANEL AST 24 unit/L 0 - 37 12/16/2018 [place] CHEM PANEL CO2 23 meq/L 24 - 32 12/16/2018 [place] CHEM PANEL Albumin Lvl 4.4 g/dL 3.5 - 12/16/2018 MH 5.0 [place] CHEM PANEL Alk Phos 75 unit/L 39 - 12/16/2018 136 [place] CHEM PANEL Bili Total 0.6 mg/dL 0.2 - 12/16/2018 [facility] 1.3 [place] CHEM PANEL ALT 46 unit/L 0 - 65 12/16/2018 [place] CHEM PANEL BUN 8 mg/dL 7 - 22 12/16/2018 [place] CHEM PANEL Glucose Lvl 104 mg/dL 70 - 99 12/16/2018 [place] CHEM PANEL A/G Ratio 1.2 0.7 - 12/16/2018 [facility] 1.6 [place] CHEM PANEL Globulin 3.8 g/dL 2.7 - 12/16/2018 4.2 [place] CHEM PANEL B/C Ratio 12 6 - 25 12/16/2018 [facility] CHEM PANEL AGAP 13.6 meq/L 10.0 - 12/16/2018 MH 20.0 [place] CHEM PANEL Lactic Acid Lvl 1.4 mMol/L 0.5 - 12/16/2018 MH 2.2 [place] HEMATOLOGY Lymphocytes # 1.5 K/CMM 1.0 - 12/16/2018 MH 5.5 [place] HEMATOLOGY Neutrophils # 2.9 K/CMM 1.5 - 12/16/2018 [facility] 8.1 [place] HEMATOLOGY Eosinophils # 0.1 K/CMM 0.0 - 12/16/2018 [facility] 0.5 [place] HEMATOLOGY Monocytes # 0.2 K/CMM 0.0 - 12/16/2018 [facility] 0.8 [place] HEMATOLOGY Eosinophils 1.1 % 0.0 - 12/16/2018 MH 4.0 [place] HEMATOLOGY Basophils 0.5 % 0.0 - 12/16/2018 MH 1.0 [place] HEMATOLOGY Segs 62.4 % 45.0 - 12/16/2018 MH 75.0 [place] HEMATOLOGY Lymphocytes 31.3 % 20.0 - 12/16/2018 MH 40.0 [place] HEMATOLOGY Monocytes 4.7 % 2.0 - 12/16/2018 MH 12.0 [place] HEMATOLOGY MPV 9.3 fL 7.4 - 12/16/2018 MH 10.4 [place] HEMATOLOGY Platelet 266 K/CMM 133 - 12/16/2018 [facility] 450 [place] HEMATOLOGY RDW 14.1 % 11.5 - 12/16/2018 MH 14.5 [place] HEMATOLOGY MCH 30.2 pg 27.0 - 12/16/2018 MH 31.0 [place] HEMATOLOGY MCV 87.9 fL 80.0 - 12/16/2018 MH 98.0 [place] HEMATOLOGY MCHC 34.4 g/dL 32.0 - 12/16/2018 MH 36.0 [place] HEMATOLOGY RBC 4.65 M/CMM 4.20 - 12/16/2018 MH 5.40 [place] HEMATOLOGY WBC 4.7 K/CMM 3.7 - 12/16/2018 MH 10.4 [place] HEMATOLOGY Hct 40.9 % 36.0 - 12/16/2018 MH 48.0 [place] HEMATOLOGY Hgb 14.1 g/dL 12.0 - 12/16/2018 MH 16.0 [place] CHEM PANEL A/G Ratio 1.0 0.7 - 12/13/2018 MH 1.6 [place] CHEM PANEL Globulin 3.9 g/dL 2.7 - 12/13/2018 MH 4.2 [place] CHEM PANEL B/C Ratio 7 6 - 25 12/13/2018 [place] CHEM PANEL AGAP 10.8 meq/L 10.0 - 12/13/2018 MH 20.0 [place] CHEM PANEL eGFR 127 12/13/2018 Result Comment: The eGFR is calculated using the CKD-EPI formula. In most young, healthy individuals the eGFR will be > 90 mL/min/1.73m2. The eGFR declines with age. An eGFR of 60-89 may be normal in MH mL/min/1.73m some populations, particularly the elderly, for whom the CKD-EPI formula has not been extensively validated. Use of the eGFR is not recommended in the following populations: [place] 2 Individuals with unstable creatinine concentrations, including patients [...] multiplied by the estimated BMI. CHEM PANEL Bili Total 0.5 mg/dL 0.2 - 12/13/2018 MH 1.3 [place] CHEM PANEL Alk Phos 71 unit/L 39 - 12/13/2018 [facility] 136 [place] CHEM PANEL AST 21 unit/L 0 - 37 12/13/2018 [place] CHEM PANEL ALT 50 unit/L 0 - 65 12/13/2018 [place] CHEM PANEL Albumin Lvl 4.0 g/dL 3.5 - 12/13/2018 MH 5.0 [place] CHEM PANEL Total Protein 7.9 g/dL 6.4 - 12/13/2018 MH 8.4 [place] CHEM PANEL BUN 4 mg/dL 7 - 22 12/13/2018 [place] CHEM PANEL Glucose Lvl 91 mg/dL 70 - 99 12/13/2018 [place] CHEM PANEL Potassium Lvl 3.8 meq/L 3.5 - 12/13/2018 MH 5.1 [place] CHEM PANEL Creatinine Lvl 0.56 mg/dL 0.50 - 12/13/2018 MH 1.40 [place] CHEM PANEL Sodium Lvl 144 meq/L 135 - 12/13/2018 145 [place] CHEM PANEL Calcium Lvl 8.4 mg/dL 8.5 - 12/13/2018 MH 10.5 [place] CHEM PANEL CO2 24 meq/L 24 - 32 12/13/2018 [facility] CHEM PANEL Chloride Lvl 113 meq/L 95 - 12/13/2018 109 [place] CHEM PANEL Lipase Lvl 117 unit/L 73 - 12/13/2018 393 [place] HEMATOLOGY MPV 9.1 fL 7.4 - 12/13/2018 MH 10.4 [place] HEMATOLOGY Platelet 248 K/CMM 133 - 12/13/2018 450 [place] HEMATOLOGY RBC 4.38 M/CMM 4.20 - 12/13/2018 MH 5.40 [place] HEMATOLOGY MCH 30.0 pg 27.0 - 12/13/2018 MH 31.0 [place] HEMATOLOGY RDW 14.0 % 11.5 - 12/13/2018 MH 14.5 [place] HEMATOLOGY MCHC 33.2 g/dL 32.0 - 12/13/2018 MH 36.0 [place] HEMATOLOGY MCV 90.3 fL 80.0 - 12/13/2018 MH 98.0 [place] HEMATOLOGY Hct 39.6 % 36.0 - 12/13/2018 MH 48.0 [place] HEMATOLOGY Hgb 13.2 g/dL 12.0 - 12/13/2018 MH 16.0 [place] HEMATOLOGY WBC 4.3 K/CMM 3.7 - 12/13/2018 MH 10.4 [place] HEMATOLOGY Eosinophils # 0.1 K/CMM 0.0 - 12/13/2018 MH 0.5 [place] HEMATOLOGY Monocytes # 0.2 K/CMM 0.0 - 12/13/2018 MH 0.8 [place] HEMATOLOGY Lymphocytes 35.4 % 20.0 - 12/13/2018 MH 40.0 [place] HEMATOLOGY Segs 57.0 % 45.0 - 12/13/2018 MH 75.0 [place] HEMATOLOGY Monocytes 5.7 % 2.0 - 12/13/2018 MH 12.0 [place] HEMATOLOGY Lymphocytes # 1.5 K/CMM 1.0 - 12/13/2018 MH 5.5 [place] HEMATOLOGY Basophils 0.5 % 0.0 - 12/13/2018 MH 1.0 [place] HEMATOLOGY Neutrophils # 2.5 K/CMM 1.5 - 12/13/2018 MH 8.1 [place] HEMATOLOGY Eosinophils 1.4 % 0.0 - 12/13/2018 4.0 [place] URINE AND STOOL UA WBC 37 /HPF 0 - 5 12/13/2018 [facility] URINE AND STOOL UA Sq Epi Occasional Few 12/13/2018 [facility] /LPF /LPF [place] URINE AND STOOL UA Leuk Est Small Negativ 12/13/2018 e [place] *ABN* (12/13/18 3:56 PM) URINE AND STOOL UA Blood Large Negativ 12/13/2018 e [place] *ABN* (12/13/18 3:56 PM) URINE AND STOOL UA Urobilinogen <=1.0 mg/dL 0.1 - 12/13/2018 1.0 [place] URINE AND STOOL UA Nitrite Negative Negativ 12/13/2018 e [place] (12/13/18 3:56 PM) URINE AND STOOL UA Protein Negative Negativ 12/13/2018 e [place] (12/13/18 3:56 PM) URINE AND STOOL UA Ketones Negative Negativ 12/13/2018 e [place] *NA* (12/13/18 3:56 PM) URINE AND STOOL UA Glucose Negative Negativ 12/13/2018 e [place] *NA* (12/13/18 3:56 PM) URINE AND STOOL UA Bili Negative Negativ 12/13/2018 e [place] *NA* (12/13/18 3:56 PM) URINE AND STOOL UA Color Yellow Yellow 12/13/2018 [facility] *NA* (12/13/18 3:56 PM) URINE AND STOOL UA Turbidity Mod-Marked Clear 12/13/2018 [facility] *ABN* (12/13/18 3:56 PM) URINE AND STOOL UA Spec Grav 1.008 <=1.030 12/13/2018 [facility] URINE AND STOOL UA pH 8.0 5.0 - 12/13/2018 8.0 [place] URINE AND STOOL UA Amorph Mary Occasional None 12/13/2018 [facility] /HPF Seen [place] /HPF URINE AND STOOL UA Mucus Few /LPF None 12/13/2018 Seen [place] /LPF URINE AND STOOL UA RBC null 0 - 2 12/13/2018 [facility] URINE AND STOOL UA Bacteria Occasional None 12/13/2018 [facility] /HPF Seen [place] /HPF URINE CHEM U Preg Negative Negativ 12/13/2018 BETSY caprice Flores (12/13/18 3:56 PM) Culture: Urine <10,000 12/13/2018 CFU/mL Skin Mark Malika Abdomen/Pelvis wo IV Abdomen/Pelvis PROCEDURE: 12/13/2018 - [facility] contrast [facility] wo IV contrast - [place] CT CT abdomen and pelvis without contrast. Reconstruction images. Read by: Nael Servin MD Dictated Date/time: 12/13/18 18:22 INDICATION: Left flank pain, hematuria. Left-sided abdominal pain. Electronically Signed by: Nael Servin MD 12/13/18 18 :26 FINAL REPORT TECHNIQUE: GI CONTRAST: None. IV CONTRAST: None. Helical axial imaging was performed from the diaphragm through the symphysis. Coronal and sagittal reformations obtained. CT imaging performed at this location utilizes radiation dose optimization techniques which include one or more of the following: -Automated exposure control -Adjustment of the mA and/or kV according to patient size -Use of iterative reconstruction technique CT Radiation Dose: CBA=403.41 mGy-cm COMPARISON: Pelvic ultrasound dated 02/27/2016. FINDINGS: This examination is limited for the evaluation of solid organs and vascular structures due to lack of intravenous contrast. LOWER CHEST: No pleural effusion. No pericardial effusion. The heart is not enlarged. Likely minimal bibasilar atelectasis. SOLID ORGANS: Liver parenchyma appears unremarkable. Gallbladder has been surgically removed. Nonspecific heterogeneous density in the liver hilum is perhaps related to prior surgery. No biliary dilatat ion. Pancreas and spleen appear normal. No adrenal nodularity. Kidneys appear normal and symmetrical. No renal calculi, hydronephrosis or retroperitoneal edema. No obstructing ureteral calculi. No bladder calculi. BOWEL: The bowel appears unremarkable. Normal appendix in the right lower quadrant. PERITONEUM: No free intraperitoneal fluid or air. No ventral wall defects. RETROPERITONEUM: No enlarged lymphadenopathy. No vascular aneurysm. PELVIS: Uterus is retroverted and appears grossly unremarkable. Bladder appears normal. Adnexa appear grossly unremarkable with nonspecific small calcifications. MUSCULOSKELETAL: No acute bony abnormality. No significant degenerative changes. IMPRESSION: 1. No acute abnormality identified. No evidence for urinary calculi or hydronephrosis. SL: JESSICA CT HEAD W/O IMPRESSION: 1.No abnormalities 2.No changes when compared to the head CT on 05/31/2017. A "PRELIMINARY" report was made available via [employer] at the time of dictation by the resident indicated below. If the report is described as 06/14/2018 [place] CONTRAST "FINALIZED" it indicates the attending/staff radiologist below has reviewed the images and agrees with the resident's interpretation. Dictated By: Fabian Dean MD, 06/14/2018 3:57 PM Health I have reviewed the study and agree with the findings in this report. Signed By: Kristian Callahan MD, 06/14/2018 3:59 PM Exam: Head CT WITHOUT contrast History: headache [...] and Craniocervical junction: Intact.. Incidental findings: None. Interface, Rad/Mammog In - 06/14/2018 4:04 PM [...] A "PRELIMINARY" report was made available via [employer] at the time of dictation by the resident indicated below. If the report is described as "FINALIZED" it indicates the attending/staff radiologist below has reviewed the images and agrees with the resident's interpretation. Dictated By: Fabian Dean MD, 06/14/2018 3:57 PM I have reviewed the study and agree with the findings in this report. Signed By: Kristian Callahan MD, 06/14/2018 3:59 PM CBC/DIFF WBC 6.0 K/uL 4.5 - 06/14/2018 [place] 11 [facility] CBC/DIFF RBC 4.26 4.20 - 06/14/2018 [place] 5.40 [facility] CBC/DIFF Hemoglobin 12.2 g/dL 12 - 16 06/14/2018 [facility] CBC/DIFF Hematocrit 37.2 % 37 - 47 06/14/2018 [facility] CBC/DIFF MCV 87 fL 82 - 92 06/14/2018 [facility] CBC/DIFF MCH 28.6 pg 27 - 32 06/14/2018 [facility] CBC/DIFF MCHC 32.8 g/dL 32 - 36 06/14/2018 [facility] CBC/DIFF RDW 47.8 fL 36.4 - 06/14/2018 [place] 46.3 [facility] CBC/DIFF Platelet 270 K/uL 150 - 06/14/2018 [place] 400 [facility] CBC/DIFF Mean Platelet 11.1 fL 9.4 - 06/14/2018 [place] Volume 12.4 [facility] CBC/DIFF Percent NRBC 0.0 06/14/2018 [facility] CBC/DIFF Absolute NRBC 0.00 06/14/2018 [facility] CBC/DIFF Neutrophil 66.2 % 34 - 70 06/14/2018 [facility] CBC/DIFF Lymphocyte 24.7 % 20 - 50 06/14/2018 [facility] CBC/DIFF Monocyte 5.8 % 5 - 12 06/14/2018 [facility] CBC/DIFF Eosinophil 2.5 % 0.7 - 5 06/14/2018 [facility] CBC/DIFF Basophil 0.5 % 0.1 - 06/14/2018 [place] 1.2 [facility] CBC/DIFF Pct Immat Gran 0.3 0.0 - 06/14/2018 [place] 0.5 [facility] CBC/DIFF Neutrophil, Abs 3.97 K/uL 1.56 - 06/14/2018 [place] 6.13 [facility] CBC/DIFF Lymphocyte, Abs 1.48 K/uL 1.18 - 06/14/2018 [place] 3.74 [facility] CBC/DIFF Monocyte, Abs 0.35 K/uL 0.24 - 06/14/2018 [place] 0.36 [facility] CBC/DIFF Eosinophil, Abs 0.15 K/uL 0.04 - 06/14/2018 [place] 0.36 [facility] CBC/DIFF Basophil, Abs 0.03 K/uL 0.01 - 06/14/2018 [place] 0.08 [facility] CBC/DIFF Absol Immat 0.02 K/uL 0 - 06/14/2018 [place] Gran 0.03 [facility] CBC/DIFF Lab Abnormal 06/14/2018 [place] Interpretation [facility] POC CO2 POC 24 mmol/L 21 - 32 06/14/2018 [facility] POC Chloride POC 106 mmol/L 98 - 06/14/2018 [place] 107 [facility] POC Potassium POC 3.7 mmol/L 3.5 - 06/14/2018 [place] 5.1 [facility] POC Sodium POC 141 mmol/L 136 - 06/14/2018 [place] 145 [facility] BMP POC Glucose POC 93 mg/dL 74 - 06/14/2018 [place] 106 [facility] POC Urea Nitrogen 9 mg/dL 7 - 18 06/14/2018 [place] POC [facility] POC Creatinine POC 0.6 mg/dL 0.6 - 06/14/2018 [place] 1.3 [facility] POC Calcium Ionized 1.19 mmol/L 1.15 - 06/14/2018 [place] POC 1.29 [facility] POC Hemoglobin POC 12.6 g/dL 12 - 16 06/14/2018 [facility] POC Hematocrit POC 37.0 % 37 - 47 06/14/2018 [facility] POC GFR, Estimated >60 mL/min/ 06/14/2018 [place] 1.73 m2 [facility] POC GFR, Estim, >60 mL/min/ 06/14/2018 [place] Afr-Am 1.73 m2 Health POCT URINE DIPSTICK - PRESENT 06/14/2018 [place] Control [facility] POCT URINE DIPSTICK - NEGATIVE 06/14/2018 [place] [facility] POCT URINE DIPSTICK - Lab Normal 06/14/2018 [place] Interpretation Health Lumbar Puncture <p>Guido Lora, 06/01/2017 Ignacio Jain, [facility] Resident ( Resident ( 06/01/2017 12:57 06/01/2017 AM</p><p> 12:57 AM </p><p> </p><p>Histo ry </p><p> History </p><p>Chief Complaint Chief </p><p>Patient Complaint presents with Patient </p><p> Visual presents Disturbance with </p><p> Visual Headache Disturbance </p><p>colliod Headache cyst in the colliod cyst region of the in the foramen of region of [place]</p><p> the foramen </p><p>HPI of [place] Comments: The patient is a 27 HPI yr old female Comments: recently The patient </p><p>evaluate is a 27 yr d for headache old female at an outside recently ED, diagnosed evaluated with a colloid for headache </p><p>cyst in at an the region of outside ED, the foramen of diagnosed [place] (without with a </p><p>hydrocep colloid halus) and cyst in the discharged on region of ultram this the foramen morning who now of [place] </p><p>prese (without nts to the [facility] hydrocephalu [facility] ED for s) and headache. At discharged the time of on ultram </p><p>discharg this morning e from the who now outside ED presents to after receiving the [facility] demerol and ED for </p><p>phenerga headache. At n, her headache the time of had improved. discharge However, while from the at home, her outside ED </p><p>headache after intensity receiving worsened. The demerol and headache is phenergan, primarily in her headache the </p><p>left had frontal/tempora improved. l region and is However, associated with while at </p><p>periorbi home, her tunde/retrobulbar headache pain. The pain intensity is severe, worsened. constant, The headache </p><p>associat is primarily ed with L eye in the blurred vision left which started frontal/temp this morning, oral region </p><p>pain and is with eye associated movement, with photophobia, periorbital/ phonophobia, retrobulbar and nausea. It pain. The </p><p>has been pain is ongoing for the severe, past 2 days. constant, Denies prior associated history of with L eye </p><p>migraine blurred headache. vision which </p><p> started this </p><p>Patient morning, is a 27y.o. pain with female eye presenting with movement, headaches. photophobia, </p><p>History phonophobia, provided and nausea. 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 Denies he</p><p>Pain prior location:L history of temporal</p><p> migraine Quality:Dull</p headache. ><p>Radiates to:Eyes</p><p>S Patient is a everity at 27y.o. highest:07/28</ female p><p>Onset presenting quality:Gradual with </p><p>Timing:C headaches. onstant</p><p&g History t;Progression:U provided nchanged</p><p> by:Patient Chronicity:New< Language /p><p>Associate diplomatic interpreter/translator d symptoms: eye used: No pain, nausea Headache and Pain photophobia</p> location:L <p>Associated temporal symptoms: no Quality:Dull abdominal pain, Radiates no back pain, to:Eyes no Severity at </p><p>congesti highest:07/19 on, no cough, 0 no fever, no Onset numbness, no quality:Grad vomiting and no ual </p><p>weakness Timing:Const </p><p> </p><p> ant </p><p>Medical Progression: History</p><p> Unchanged None </p><p> Chronicity:N </p><p> ew </p><p>Surgical Associated History</p><p&g symptoms: t; Past eye pain, Surgical nausea and History photophobia Laterality Last Associated Occurrence symptoms: no Comments abdominal </p><p> HX pain, no TUBAL LIGATION back pain, [SHX77]</p><p> no </p><p> congestion, </p><p>Family no cough, no Medical fever, no History</p><p> numbness, no Problem vomiting and Relation Age of no Onset Comments weakness </p><p> Diabetes Maternal Medical Grandmother History </p><p> None Hypertension Mother </p><p> Hypertension Surgical Sister </p><p> History Lipids Mother Past </p><p> </p><p> Surgical </p><p>Social History History</p><p> Laterality Category Last History </p><p> Occurrence Smoking Tobacco Comments Use Never HX TUBAL Smoker</p><p> LIGATION Smokeless [SHX77] Tobacco Use Unknown </p><p> Tobacco Family Comment</p><p> Medical Alcohol Use History Yes; (socially) Problem </p><p> Drug Relation Age Use No </p><p> of Onset Sexual Activity Comments Yes;Male Diabetes partners Maternal </p><p> ADL Grandmother Not Asked Hypertensio </p><p> </p><p> n Mother </p><p> </p><p> Hypertensio </p><p>Revie n Sister w of Systems Lipids </p><p>Constitu Mother tional: Negative for fever and Social chills. History </p><p>HENT: Category Negative for History congestion and Smoking rhinorrhea.</p> Tobacco Use <p>Eyes: Never Smoker Positive for Smokeless photophobia, Tobacco Use pain and visual Unknown disturbance. Tobacco </p><p>Respirat Comment ory: Negative Alcohol Use for cough and Yes; shortness of (socially) breath.</p><p>C Drug Use No ardiovascular: Negative for Sexual chest pain and Activity palpitations. Yes;Male </p><p>Gastr partners ointestinal: ADL Not Positive for Asked nausea. Negative for vomiting and </p><p>abdomina l pain. Review of </p><p>Endocrin Systems e: Negative for Constitution cold al: Negative intolerance and for fever heat and chills. intolerance. HENT: </p><p>Genit Negative for ourinary: congestion Negative for and dysuria, rhinorrhea. urgency, Eyes: frequency, Positive for flank photophobia, </p><p>pain and pain and difficulty visual urinating. disturbance. </p><p>Musculos keletal: Respiratory: Negative for Negative for back pain and cough and gait problem. shortness of </p><p>Skin: breath. Negative for Cardiovascul rash and wound. ar: Negative </p><p>Neurolog for chest ical: Positive pain and for headaches. palpitations Negative for . weakness and Gastrointest </p><p>numbness inal: . Positive for </p><p>Psychiat nausea. pierre/Behavioral: Negative for Negative for vomiting and suicidal ideas and abdominal </p><p>hallucin pain. ations. </p><p> Endocrine: </p><p> Negative for </p><p>Physical cold Exam </p><p>BP intolerance 108/71 mmHg | and heat Pulse 92 | intolerance. Temp(Src) 98.9 F (37.2 C) | Genitourinar Resp 20 y: Negative </p><p>| SpO2 for dysuria, 99%</p><p>Physi urgency, dasha Exam frequency, </p><p>Const flank itutional: She pain and is oriented to difficulty person, place, urinating. and time. She Musculoskele </p><p>appears tunde: well-developed Negative for and back pain well-nourished. and gait No distress. problem. </p><p>HENT: Skin: </p><p>Head: Negative for Normocephalic rash and and atraumatic. wound. </p><p>Mouth/Th Neurological roat: : Positive Oropharynx is for clear and headaches. moist. Negative for </p><p>Eyes: weakness and Conjunctivae and EOM are numbness. normal. Pupils Psychiatric/ are equal, Behavioral: round, Negative for </p><p>and suicidal reactive to ideas and light. hallucinatio </p><p>Pain ns. with extraocular eye movements.</p>< Physical p>Neck: Neck Exam supple. No BP 108/71 tracheal mmHg | Pulse deviation 92 | present. Temp(Src) </p><p>Cardiova 98.9 F (37.2 scular: Normal C) | Resp 20 rate, regular rhythm and | SpO2 99% intact distal Physical </p><p>pulses.< Exam /p><p>Pulmonary Constitution /Chest: Effort al: She is normal and oriented to breath sounds person, normal. place, and </p><p>Abdomina time. She l: Soft. She appears exhibits no well-develop distension. ed and There is no well-nourish </p><p>tenderne ed. No ss. distress. </p><p>Musculos HENT: keletal: Normal Head: range of Normocephali motion. She c and exhibits no atraumatic. edema or Mouth/Throat </p><p>tenderne : Oropharynx ss. is clear and </p><p>Neurolog moist. ical: She is Eyes: alert and Conjunctivae oriented to and EOM are person, place, normal. and Pupils are </p><p>time. No equal, cranial nerve round, deficit. She and reactive exhibits normal to light. muscle tone. Pain with </p><p>Coordina extraocular tion normal. eye </p><p>Reflex movements. Scores:</p><p&g Neck: Neck t; Bicep supple. No reflexes are 2+ tracheal on the right deviation side and 2+ on present. the left Cardiovascul </p><p>side.</p ar: Normal ><p> rate, Patellar regular reflexes are 2+ rhythm and on the right intact side and 2+ on distal the </p><p>left pulses. side.</p><p> Pulmonary/Ch Cranial est: Effort Nerves:</p><p>I normal and - Not tested. breath </p><p>II - sounds PERRL. normal. </p><p>III, Abdominal: IV, -. EOM Soft. She intact. Normal exhibits no vertical distension. lateral gaze There is no without tenderness. </p><p>nystagmu Musculoskele s.</p><p>V - tunde: Normal Normal range of sensation</p><p motion. She >VII - Face exhibits no symmetric, edema or frontalis, tenderness. orbicularis Neurological oculi and magdalena : She is </p><p>intact alert and and oriented to symmetric</p><p person, >VIII - Hearing place, and symmetric to time. No finger rub cranial b/l</p><p>IX, X nerve - Normal palate deficit. She elevation, no exhibits uvula normal deviation.</p>< muscle tone. p>XI - Normal strength of SCM Coordination b/l.</p><p>XII normal. - Tongue Reflex midline.</p><p> Scores: </p><p>Strength Bicep : Normal tone. reflexes are Strength 5/5 in 2+ on the extremities right side b/l. and 2+ on </p><p>Sensory: the left Grossly intact side. light tough Patellar b/l.</p><p>Romb reflexes are er+ on the negative</p><p> right side Cerebellar: and 2+ on Steady gait. the FTN intact, CELSO left side. intact</p><p> Cranial </p><p>Skin: Nerves: Skin is warm I - Not and dry. tested. </p><p>Psychiat II - PERRL. pierre: She has a III, IV, normal mood and -. EOM affect. intact. </p><p>Nursing Normal note and vitals vertical reviewed.</p><p lateral gaze > </p><p> without </p><p>Procedur nystagmus. es V - Normal </p><p>Lumbar sensation Puncture</p><p> VII - Face Date/Time: symmetric, 05/31/2017 7:44 frontalis, PM</p><p>Perfor orbicularis med by: piyush HITCHCOCK and ANNEMARIE</p><p>A magdalena uthorized by: thomas and СЕРГЕЙ, sherley FOX VIII - F</p><p> Hearing </p><p>Consent: symmetric to </p><p>Consent finger rub obtained:Verbal b/l </p><p>Consent IX, X - given Normal by:Patient</p&g palate t;<p>Risks elevation, discussed:Bleed no uvula ing, infection, deviation. pain, headache XI - Normal and nerve strength of </p><p>damage&l SCM b/l. t;/p><p>Alterna XII - Tongue tives midline. discussed:No treatment</p><p Strength: >Pre-procedure Normal tone. details: Strength 5/5 </p><p>Proce in dure extremities purpose:Diagnos b/l. tic</p><p>Anest Sensory: hesia (see MAR Grossly for exact intact light dosages): tough b/l. </p><p>Anest Romberg: hesia negative method:Local Cerebellar: infiltration</p Steady gait. ><p>Local FTN intact, anesthetic:Lido CELSO intact maykel 1% w/o epi</p><p>Proce Skin: Skin dure details: is warm and </p><p>Lumbar dry. space:L3-L4 Psychiatric: interspace</p&g She has a t;<p>Needle normal mood gauge:20</p><p> and affect. Ultrasound Nursing note guidance: and vitals no</p><p>Number reviewed. of attempts:1</p>< p>Opening Procedures pressure (cm Lumbar H2O):28</p><p>C Puncture losing pressure Date/Time: (cm 05/31/2017 H2O):10</p>< 7:44 PM p>Fluid Performed appearance:Urszula by: rupal HITCHCOCK</p><p>Tubes ANNEMARIE of Authorized fluid:4</p><p>T by: brad NAVARRETE volume RUDDY F (ml):5</p><p>Po st-procedure: Consent: </p><p>Puncture Consent site:Adhesive obtained:Juan bandage bal applied</p><p>P Consent atient given tolerance of by:Patient procedure:Rosario Risks ated well, no discussed:Bl immediate eeding, </p><p>complica infection, tions</p><p> pain, </p><p> </p><p> headache and </p><p> nerve </p><p>ED damage Course </p><p> Alternatives </p><p>MDM</p>< discussed:No p>Number of treatment Diagnoses or Pre-procedur Management e details: Options</p><p>B Procedure lurred vision, purpose:Diag left eye: nostic </p><p>Intracta Anesthesia ble episodic (see MAR for headache, exact unspecified dosages): headache type: Anesthesia </p><p>Non-intr method:Local actable infiltration vomiting with Local nausea, anesthetic:L unspecified idocaine 1% vomiting type: w/o epi </p><p>Periorbi Procedure tunde pain, details: bilateral: Lumbar </p><p> space:L3-L4 </p><p>Asses interspace sment/Plan: 27 Needle yr old F gauge:20 recently Ultrasound diagnosed with guidance: no colloid cyst Number of </p><p>in the attempts:1 region of the Opening foramen of pressure (cm moore who H2O):28 presents with Closing </p><p>worsenin pressure (cm g left H2O):10 sided/periorbit Fluid al headache. appearance:C </p><p> lear </p><p>DDx:</p> Tubes of <p>- fluid:4 hydrocephalus Total volume 2/2 (ml):5 intracranial Post-procedu mass</p><p>- re: migraine Puncture headache</p><p> site:Adhesiv - tension e bandage headache</p><p> applied - pseudotumor Patient cerebri</p><p> tolerance of </p><p>Workup:< procedure:To /p><p>- CT head lerated non-contrast</p well, no ><p> immediate </p><p>Medicati complication ons:</p><p>- s Reglan, ketorolac, and acetaminophen for headache</p><p> ED Course </p><p>Disposit ion: MDM </p><p>- Number of pending Diagnoses or labs</p><p>- Management reassess Options </p><p> </p><p> Blurred </p><p> </p><p> vision, left </p><p> </p><p> eye: </p><p> Intractable </p><p> episodic </p><p> </p><p> headache, </p><p>Alikah, unspecified Annemarie, Fellow headache (MD)</p><p>Resi type: dent</p><p>05/19 Non-intracta 01/02 ble vomiting 1539</p><p> with nausea, </p><p>PROVIDER unspecified REASSESSMENT vomiting NOTE</p><p> type: </p><p>I Periorbital reexamined the pain, patient Terri bilateral: Whittaker.</p>< p> Assessment/P </p><p>Latest laura: 27 yr vital signs old F are:</p><p>File recently d Vitals: diagnosed </p><p> 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 (37.2 C) 98.9 F (37.2 C) DDx: 98.2 </p><p>F - (36.8 °C) hydrocephalu </p><p>Resp: 18 s 2/2 20 20 18 intracranial </p><p>SpO2: mass 95% 99% 97% 99% - migraine </p><p> </p><p> headache </p><p>Interval - tension Progress: headache </p><p>CT head - negative for pseudotumor acute cerebri abnormality. </p><p>After Workup: receiving - CT head toradol/apap/re non-contrast glan, headache improved from Medications: 10 to - Reglan, </p><p>05/28. ketorolac, Imitrex given and due to presumed acetaminophe migraine n for headache, headache patient </p><p>repor Disposition: katharina no improvement. - pending </p><p> labs </p><p>LP - reassess performed to evaluate for pseudotumor cerebri and SAH. </p><p> </p><p>The patients condition is improved but still with intractable Alikah, </p><p>severe Annemarie, headache.</p><p Fellow () >Will give Resident magnesium IV 05/31/17 now for 1539 DANIEL</p><p> </p><p>Current PROVIDER clinical REASSESSMENT impressions NOTE include:</p><p> 1. Intractable I reexamined episodic the patient headache, Terri unspecified Whittaker. headache type</p><p>2. Latest vital Periorbital signs are: pain, Filed bilateral</p><p Vitals: >3. Blurred 05/31/17 vision, left 1112 eye</p><p>4. 05/31/17 Non-intractable 1242 vomiting with 05/31/17 nausea, 1609 unspecified 05/31/17 vomiting 1930 </p><p>type</p> BP: 128/83 <p> </p><p> 108/71 </p><p>Plan: 102/56 F/u LP studies. 107/59 Reassess for Pulse: 128 improved pain 92 86 67 control. Temp: 99.4 F </p><p> (37.4 C) </p><p>Annemarie 98.9 F (37.2 Alikah, Fellow C) 98.9 F ()</p><p>Augu (37.2 C) 2016 98.2 7:41 F (36.8 C) PM</p><p> Resp: 18 20 </p><p> 20 18 </p><p>Vonnie, SpO2: 95% Annemarie, Fellow 99% 97% 99% ()</p><p>Resi dent</p><p>05/19 01/02 Interval 1943</p><p> Progress: </p><p>Vonnie, CT head Annemarie, Fellow negative for ()</p><p>R acute esident</p><p>0 abnormality. 05/31/171944</p><p> After </p><p>BT EC receiving Resident Update toradol/apap Note</p><p> /reglan, </p><p>Patient headache continues to improved have headache from to 05/28. States 05/28. that the Imitrex </p><p>medicati given due to ons have not presumed helped at all. migraine States that she headache, has a sharp patient </p><p>pain reported no behind her L improvement. eye.</p><p> </p><p>CSF analysis LP performed without blood to evaluate to suggest SAH for and no pseudotumor infectious cerebri and </p><p>signs.</ SAH. p><p> </p><p>She is The moving all patients extremities, condition is alert and improved but oriented.</p><p still with >Eyes without intractable injection or severe drainage. headache. PEARRL.</p><p> Will give </p><p>Will magnesium IV give Haldol 5 now for DANIEL mg IM and Benadryl 25 mg Current IV </p><p> clinical </p><p>Will impressions re-assess.</p>< include: p> 1. </p><p>Ignacio Intractable Lora, episodic Resident headache, (</p><p>Augus unspecified t 2016 headache 10:40 PM</p><p> type </p><p> 2. </p><p>Galle Periorbital gos, Ignacio, pain, Resident bilateral (</p><p>Resid 3. Blurred ent</p><p>05/31 vision, left 2242</p><p> eye </p><p>Lora 4. , Ignacio, Non-intracta Resident ble vomiting (</p><p>Resid with nausea, ent</p><p>05/31 unspecified 2243</p><p> vomiting </p><p>BT EC type Resident Update Note</p><p> </p><p>Patient Plan: F/u LP asleep when I studies. walked into Reassess for room.</p><p>She improved awakens easily. pain States that her control. headache is still Annemarie -06/28.</p><p> Vonnie, </p><p>I spoke Fellow () with patient May 31, about the 2016 7:41 PM results of her evaluation here at </p><p>[facility]. There are Annemarie, no signs of Fellow () infection on Resident CSF, she has no 05/31/17 </p><p>fevers.< 1943 /p><p>There are no obvious Alikah, signs of trauma Annemarie, or infectious Fellow () symptoms to Resident </p><p>the 05/31/17 eyes.</p><p> 1944 </p><p>I spoke with patient BT EC about the Resident option of Update Note discharge home with PCP Patient </p><p>f/u and continues to further have evaluation in headache the EC with 05/28. States Neurology that the consult. At medications </p><p>this have not time, patient helped at does not want all. States to see a that she has Neurologist and a sharp prefers pain behind </p><p>to her L eye. leave.</p><p>Sh e states she CSF analysis has a doctor without that she will blood to see this suggest SAH week.</p><p> and no </p><p>Ignacio infectious Lora, signs. Resident (</p><p>[place] She is t 2016 moving all 12:11 AM</p><p> extremities, </p> alert and oriented. Eyes without injection or drainage. PEARRL. Will give Haldol 5 mg IM and Benadryl 25 mg IV Will re-assess. Resident BRONSON Dougherty May 31, 2017 10:40 PM Ignacio Lora Resident ( Resident 05/31/17 [id number] Ignacio Lora Resident ( Resident 05/31/17 [id number] [facility] Resident Update Note Patient asleep when I walked into room. She awakens easily. States that her headache is still 8-9/10. I spoke with patient about the results of her evaluation here at [facility]. There are no signs of [...] doctor that she will see this week. Resident BRONSON Dougherty June 01, 2017 12:11 AM LUMBAR PUNCTURE <p>Guido Lora, 06/01/2017 [place] Ignacio Pierre, [facility] Resident ( Resident ( 06/01/2017 12:57 06/01/2017 AM</p><p> 12:57 AM </p><p> </p><p>Histo ry </p><p> History </p><p>Chief Complaint Chief </p><p>Patient Complaint presents with Patient </p><p> Visual presents Disturbance with </p><p> Visual Headache Disturbance </p><p>colliod Headache cyst in the colliod cyst region of the in the foramen of region of Moore</p><p> the foramen </p><p>HPI of Moore Comments: The patient is a 27 HPI yr old female Comments: recently The patient </p><p>evaluate is a 27 yr d for headache old female at an outside recently ED, diagnosed evaluated with a colloid for headache </p><p>cyst in at an the region of outside ED, the foramen of diagnosed Moore (without with a </p><p>hydrocep colloid halus) and cyst in the discharged on region of ultram this the foramen morning who now of Moore </p><p>prese (without nts to the [facility] hydrocephalu [facility] ED for s) and headache. At discharged the time of on ultram </p><p>discharg this morning e from the who now outside ED presents to after receiving the [facility] demerol and ED for </p><p>phenerga headache. At n, her headache the time of had improved. discharge However, while from the at home, her outside ED </p><p>headache after intensity receiving worsened. The demerol and headache is phenergan, primarily in her headache the </p><p>left had frontal/tempora improved. l region and is However, associated with while at </p><p>periorbi home, her tunde/retrobulbar headache pain. The pain intensity is severe, worsened. constant, The headache </p><p>associat is primarily ed with L eye in the blurred vision left which started frontal/temp this morning, oral region </p><p>pain and is with eye associated movement, with photophobia, periorbital/ phonophobia, retrobulbar and nausea. It pain. The </p><p>has been pain is ongoing for the severe, past 2 days. constant, Denies prior associated history of with L eye </p><p>migraine blurred headache. vision which </p><p> started this </p><p>Patient morning, is a 27y.o. pain with female eye presenting with movement, headaches. photophobia, </p><p>History phonophobia, provided and nausea. 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 Denies he</p><p>Pain prior location:L history of temporal</p><p> migraine Quality:Dull</p headache. ><p>Radiates to:Eyes</p><p>S Patient is a everity at 27y.o. highest:07/28</ female p><p>Onset presenting quality:Gradual with </p><p>Timing:C headaches. onstant</p><p&g History t;Progression:U provided nchanged</p><p> by:Patient Chronicity:New< Language /p><p>Associate diplomatic interpreter/translator d symptoms: eye used: No pain, nausea Headache and Pain photophobia</p> location:L <p>Associated temporal symptoms: no Quality:Dull abdominal pain, Radiates no back pain, to:Eyes no Severity at </p><p>congesti highest:07/19 on, no cough, 0 no fever, no Onset numbness, no quality:Grad vomiting and no ual </p><p>weakness Timing:Const </p><p> </p><p> ant </p><p>Medical Progression: History</p><p> Unchanged None </p><p> Chronicity:N </p><p> ew </p><p>Surgical Associated History</p><p&g symptoms: t; Past eye pain, Surgical nausea and History photophobia Laterality Last Associated Occurrence symptoms: no Comments abdominal </p><p> HX pain, no TUBAL LIGATION back pain, [SHX77]</p><p> no </p><p> congestion, </p><p>Family no cough, no Medical fever, no History</p><p> numbness, no Problem vomiting and Relation Age of no Onset Comments weakness </p><p> Diabetes Maternal Medical Grandmother History </p><p> None Hypertension Mother </p><p> Hypertension Surgical Sister </p><p> History Lipids Mother Past </p><p> </p><p> Surgical </p><p>Social History History</p><p> Laterality Category Last History </p><p> Occurrence Smoking Tobacco Comments Use Never HX TUBAL Smoker</p><p> LIGATION Smokeless [SHX77] Tobacco Use Unknown </p><p> Tobacco Family Comment</p><p> Medical Alcohol Use History Yes; (socially) Problem </p><p> Drug Relation Age Use No </p><p> of Onset Sexual Activity Comments Yes;Male Diabetes partners Maternal </p><p> ADL Grandmother Not Asked Hypertensio </p><p> </p><p> n Mother </p><p> </p><p> Hypertensio </p><p>Revie n Sister w of Systems Lipids </p><p>Constitu Mother tional: Negative for fever and Social chills. History </p><p>HENT: Category Negative for History congestion and Smoking rhinorrhea.</p> Tobacco Use <p>Eyes: Never Smoker Positive for Smokeless photophobia, Tobacco Use pain and visual Unknown disturbance. Tobacco </p><p>Respirat Comment ory: Negative Alcohol Use for cough and Yes; shortness of (socially) breath.</p><p>C Drug Use No ardiovascular: Negative for Sexual chest pain and Activity palpitations. Yes;Male </p><p>Gastr partners ointestinal: ADL Not Positive for Asked nausea. Negative for vomiting and </p><p>abdomina l pain. Review of </p><p>Endocrin Systems e: Negative for Constitution cold al: Negative intolerance and for fever heat and chills. intolerance. HENT: </p><p>Genit Negative for ourinary: congestion Negative for and dysuria, rhinorrhea. urgency, Eyes: frequency, Positive for flank photophobia, </p><p>pain and pain and difficulty visual urinating. disturbance. </p><p>Musculos keletal: Respiratory: Negative for Negative for back pain and cough and gait problem. shortness of </p><p>Skin: breath. Negative for Cardiovascul rash and wound. ar: Negative </p><p>Neurolog for chest ical: Positive pain and for headaches. palpitations Negative for . weakness and Gastrointest </p><p>numbness inal: . Positive for </p><p>Psychiat nausea. pierre/Behavioral: Negative for Negative for vomiting and suicidal ideas and abdominal </p><p>hallucin pain. ations. </p><p> Endocrine: </p><p> Negative for </p><p>Physical cold Exam </p><p>BP intolerance 108/71 mmHg | and heat Pulse 92 | intolerance. Temp(Src) 98.9 F (37.2 C) | Genitourinar Resp 20 y: Negative </p><p>| SpO2 for dysuria, 99%</p><p>Physi urgency, dasha Exam frequency, </p><p>Const flank itutional: She pain and is oriented to difficulty person, place, urinating. and time. She Musculoskele </p><p>appears tunde: well-developed Negative for and back pain well-nourished. and gait No distress. problem. </p><p>HENT: Skin: </p><p>Head: Negative for Normocephalic rash and and atraumatic. wound. </p><p>Mouth/Th Neurological roat: : Positive Oropharynx is for clear and headaches. moist. Negative for </p><p>Eyes: weakness and Conjunctivae and EOM are numbness. normal. Pupils Psychiatric/ are equal, Behavioral: round, Negative for </p><p>and suicidal reactive to ideas and light. hallucinatio </p><p>Pain ns. with extraocular eye movements.</p>< Physical p>Neck: Neck Exam supple. No BP 108/71 tracheal mmHg | Pulse deviation 92 | present. Temp(Src) </p><p>Cardiova 98.9 F (37.2 scular: Normal C) | Resp 20 rate, regular rhythm and | SpO2 99% intact distal Physical </p><p>pulses.< Exam /p><p>Pulmonary Constitution /Chest: Effort al: She is normal and oriented to breath sounds person, normal. place, and </p><p>Abdomina time. She l: Soft. She appears exhibits no well-develop distension. ed and There is no well-nourish </p><p>tenderne ed. No ss. distress. </p><p>Musculos HENT: keletal: Normal Head: range of Normocephali motion. She c and exhibits no atraumatic. edema or Mouth/Throat </p><p>tenderne : Oropharynx ss. is clear and </p><p>Neurolog moist. ical: She is Eyes: alert and Conjunctivae oriented to and EOM are person, place, normal. and Pupils are </p><p>time. No equal, cranial nerve round, deficit. She and reactive exhibits normal to light. muscle tone. Pain with </p><p>Coordina extraocular tion normal. eye </p><p>Reflex movements. Scores:</p><p&g Neck: Neck t; Bicep supple. No reflexes are 2+ tracheal on the right deviation side and 2+ on present. the left Cardiovascul </p><p>side.</p ar: Normal ><p> rate, Patellar regular reflexes are 2+ rhythm and on the right intact side and 2+ on distal the </p><p>left pulses. side.</p><p> Pulmonary/Ch Cranial est: Effort Nerves:</p><p>I normal and - Not tested. breath </p><p>II - sounds PERRL. normal. </p><p>III, Abdominal: IV, -. EOM Soft. She intact. Normal exhibits no vertical distension. lateral gaze There is no without tenderness. </p><p>nystagmu Musculoskele s.</p><p>V - tunde: Normal Normal range of sensation</p><p motion. She >VII - Face exhibits no symmetric, edema or frontalis, tenderness. orbicularis Neurological oculi and magdalena : She is </p><p>intact alert and and oriented to symmetric</p><p person, >VIII - Hearing place, and symmetric to time. No finger rub cranial b/l</p><p>IX, X nerve - Normal palate deficit. She elevation, no exhibits uvula normal deviation.</p>< muscle tone. p>XI - Normal strength of SCM Coordination b/l.</p><p>XII normal. - Tongue Reflex midline.</p><p> Scores: </p><p>Strength Bicep : Normal tone. reflexes are Strength 5/5 in 2+ on the extremities right side b/l. and 2+ on </p><p>Sensory: the left Grossly intact side. light tough Patellar b/l.</p><p>Romb reflexes are er+ on the negative</p><p> right side Cerebellar: and 2+ on Steady gait. the FTN intact, CELSO left side. intact</p><p> Cranial </p><p>Skin: Nerves: Skin is warm I - Not and dry. tested. </p><p>Psychiat II - PERRL. pierre: She has a III, IV, normal mood and -. EOM affect. intact. </p><p>Nursing Normal note and vitals vertical reviewed.</p><p lateral gaze > </p><p> without </p><p>Procedur nystagmus. es V - Normal </p><p>Lumbar sensation Puncture</p><p> VII - Face Date/Time: symmetric, 05/31/2017 7:44 frontalis, PM</p><p>Perfor orbicularis med by: piyush HITCHCOCK and ANNEMARIE</p><p>A magdalena uthorized by: intact and СЕРГЕЙ, symmetric RUDDY VIII - F</p><p> Hearing </p><p>Consent: symmetric to </p><p>Consent finger rub obtained:Verbal b/l </p><p>Consent IX, X - given Normal by:Patient</p&g palate t;<p>Risks elevation, discussed:Bleed no uvula ing, infection, deviation. pain, headache XI - Normal and nerve strength of </p><p>damage&l SCM b/l. t;/p><p>Alterna XII - Tongue tives midline. discussed:No treatment</p><p Strength: >Pre-procedure Normal tone. details: Strength 5/5 </p><p>Proce in dure extremities purpose:Diagnos b/l. tic</p><p>Anest Sensory: hesia (see MAR Grossly for exact intact light dosages): tough b/l. </p><p>Anest Romberg: hesia negative method:Local Cerebellar: infiltration</p Steady gait. ><p>Local FTN intact, anesthetic:Lido CELSO intact maykel 1% w/o epi</p><p>Proce Skin: Skin dure details: is warm and </p><p>Lumbar dry. space:L3-L4 Psychiatric: interspace</p&g She has a t;<p>Needle normal mood gauge:20</p><p> and affect. Ultrasound Nursing note guidance: and vitals no</p><p>Number reviewed. of attempts:1</p>< p>Opening Procedures pressure (cm Lumbar H2O):28</p><p>C Puncture losing pressure Date/Time: (cm 05/31/2017 H2O):10</p>< 7:44 PM p>Fluid Performed appearance:Urszula by: rupal HITCHCOCK</p><p>Tubes ANNEMARIE of Authorized fluid:4</p><p>T by: brad NAVARRETE volume RUDDY F (ml):5</p><p>Po st-procedure: Consent: </p><p>Puncture Consent site:Adhesive obtained:Juan bandage bal applied</p><p>P Consent atient given tolerance of by:Patient procedure:Rosario Risks ated well, no discussed:Bl immediate eeding, </p><p>complica infection, tions</p><p> pain, </p><p> </p><p> headache and </p><p> nerve </p><p>ED damage Course </p><p> Alternatives </p><p>MDM</p>< discussed:No p>Number of treatment Diagnoses or Pre-procedur Management e details: Options</p><p>B Procedure lurred vision, purpose:Diag left eye: nostic </p><p>Intracta Anesthesia ble episodic (see MAR for headache, exact unspecified dosages): headache type: Anesthesia </p><p>Non-intr method:Local actable infiltration vomiting with Local nausea, anesthetic:L unspecified idocaine 1% vomiting type: w/o epi </p><p>Periorbi Procedure tunde pain, details: bilateral: Lumbar </p><p> space:L3-L4 </p><p>Asses interspace sment/Plan: 27 Needle yr old F gauge:20 recently Ultrasound diagnosed with guidance: no colloid cyst Number of </p><p>in the attempts:1 region of the Opening foramen of pressure (cm moore who H2O):28 presents with Closing </p><p>worsenin pressure (cm g left H2O):10 sided/periorbit Fluid al headache. appearance:C </p><p> lear </p><p>DDx:</p> Tubes of <p>- fluid:4 hydrocephalus Total volume 2/2 (ml):5 intracranial Post-procedu mass</p><p>- re: migraine Puncture headache</p><p> site:Adhesiv - tension e bandage headache</p><p> applied - pseudotumor Patient cerebri</p><p> tolerance of </p><p>Workup:< procedure:To /p><p>- CT head lerated non-contrast</p well, no ><p> immediate </p><p>Medicati complication ons:</p><p>- s Reglan, ketorolac, and acetaminophen for headache</p><p> ED Course </p><p>Disposit ion: MDM </p><p>- Number of pending Diagnoses or labs</p><p>- Management reassess Options </p><p> </p><p> Blurred </p><p> </p><p> vision, left </p><p> </p><p> eye: </p><p> Intractable </p><p> episodic </p><p> </p><p> headache, </p><p>Alikah, unspecified Annemarie, Fellow headache (MD)</p><p>Resi type: dent</p><p>05/19 Non-intracta 01/02 ble vomiting 1539</p><p> with nausea, </p><p>PROVIDER unspecified REASSESSMENT vomiting NOTE</p><p> type: </p><p>I Periorbital reexamined the pain, patient Terri bilateral: Whittaker.</p>< p> Assessment/P </p><p>Latest laura: 27 yr vital signs old F are:</p><p>File recently d Vitals: diagnosed </p><p> with colloid 05/31/17 1112 cyst 05/31/17 1242 in the 05/31/17 1609 region of 05/31/17 1930 the foramen </p><p>BP: of moore 128/83 108/71 who presents 102/56 107/59 with </p><p>Pulse: worsening 128 92 86 67 left </p><p>Temp: sided/perior 99.4 F (37.4 bital C) 98.9 F headache. (37.2 C) 98.9 F (37.2 C) DDx: 98.2 </p><p>F - (36.8 °C) hydrocephalu </p><p>Resp: 18 s 2/2 20 20 18 intracranial </p><p>SpO2: mass 95% 99% 97% 99% - migraine </p><p> </p><p> headache </p><p>Interval - tension Progress: headache </p><p>CT head - negative for pseudotumor acute cerebri abnormality. </p><p>After Workup: receiving - CT head toradol/apap/re non-contrast glan, headache improved from Medications: 10 to - Reglan, </p><p>8/10. ketorolac, Imitrex given and due to presumed acetaminophe migraine n for headache, headache patient </p><p>repor Disposition: katharina no improvement. - pending </p><p> labs </p><p>LP - reassess performed to evaluate for pseudotumor cerebri and SAH. </p><p> </p><p>The patients condition is improved but still with intractable Alikah, </p><p>severe Annemarie, headache.</p><p Fellow () >Will give Resident magnesium IV 05/31/17 now for 1539 DANIEL</p><p> </p><p>Current PROVIDER clinical REASSESSMENT impressions NOTE include:</p><p> 1. Intractable I reexamined episodic the patient headache, Terri unspecified Whittaker. headache type</p><p>2. Latest vital Periorbital signs are: pain, Filed bilateral</p><p Vitals: >3. Blurred 05/31/17 vision, left 1112 eye</p><p>4. 05/31/17 Non-intractable 1242 vomiting with 05/31/17 nausea, 1609 unspecified 05/31/17 vomiting 1930 </p><p>type</p> BP: 128/83 <p> </p><p> 108/71 </p><p>Plan: 102/56 F/u LP studies. 107/59 Reassess for Pulse: 128 improved pain 92 86 67 control. Temp: 99.4 F </p><p> (37.4 C) </p><p>Annemarie 98.9 F (37.2 Vonnie, Fellow C) 98.9 F ()</p><p>Augu (37.2 C) 2016 98.2 7:41 F (36.8 C) PM</p><p> Resp: 18 20 </p><p> 20 18 </p><p>Vonnie, SpO2: 95% Annemarie Fellow 99% 97% 99% ()</p><p>Resi dent</p><p>05/19 01/02 Interval 1943</p><p> Progress: </p><p>Vonnie CT head [facility] Sharpe negative for ()</p><p>R acute esident</p><p>0 abnormality. 05/31/171944</p><p> After </p><p>BT EC receiving Resident Update toradol/apap Note</p><p> /reglan, </p><p>Patient headache continues to improved have headache from to 05/28. States 05/28. that the Imitrex </p><p>medicati given due to ons have not presumed helped at all. migraine States that she headache, has a sharp patient </p><p>pain reported no behind her L improvement. eye.</p><p> </p><p>CSF analysis LP performed without blood to evaluate to suggest SAH for and no pseudotumor infectious cerebri and </p><p>signs.</ SAH. p><p> </p><p>She is The moving all patients extremities, condition is alert and improved but oriented.</p><p still with >Eyes without intractable injection or severe drainage. headache. PEARRL.</p><p> Will give </p><p>Will magnesium IV give Haldol 5 now for DANIEL mg IM and Benadryl 25 mg Current IV </p><p> clinical </p><p>Will impressions re-assess.</p>< include: p> 1. </p><p>Ignacio Intractable Lora, episodic Resident headache, (</p><p>Augus unspecified t 2016 headache 10:40 PM</p><p> type </p><p> 2. </p><p>Galle Periorbital gos, Ignacio, pain, Resident bilateral (</p><p>Resid 3. Blurred ent</p><p>05/31 vision, left /2241</p><p> eye </p><p>Lora 4. , Ignacio, Non-intracta Resident ble vomiting (</p><p>Resid with nausea, ent</p><p>05/31 unspecified /2242</p><p> vomiting </p><p>BT EC type Resident Update Note</p><p> </p><p>Patient Plan: F/u LP asleep when I studies. walked into Reassess for room.</p><p>She improved awakens easily. pain States that her control. headache is still Annemarie .</p><p> Alikah, </p><p>I spoke Fellow () with patient May 31 about the 2016 7:41 PM results of her evaluation here at </p><p>[facility]. There are Annemarie, no signs of Fellow () infection on Resident CSF, she has no 05/31/17 </p><p>fevers.< 1943 /p><p>There are no obvious Alikah, signs of trauma Annemarie, or infectious Fellow () symptoms to Resident </p><p>the 05/31/17 eyes.</p><p> 1944 </p><p>I spoke with patient BT EC about the Resident option of Update Note discharge home with PCP Patient </p><p>f/u and continues to further have evaluation in headache the EC with 05/28. States Neurology that the consult. At medications </p><p>this have not time, patient helped at does not want all. States to see a that she has Neurologist and a sharp prefers pain behind </p><p>to her L eye. leave.</p><p>Sh e states she CSF analysis has a doctor without that she will blood to see this suggest SAH week.</p><p> and no </p><p>Ignacio infectious Guido, signs. Resident (</p><p> She is t 2016 moving all 12:11 AM</p><p> extremities, </p> alert and oriented. Eyes without injection or drainage. PEARRL. Will give Haldol 5 mg IM and Benadryl 25 mg IV Will re-assess. Resident Ladonna ( May 31, 2017 10:40 PM Ignacio Lora Resident ( Resident 05/31/172241 Ignacio Lora Resident ( Resident 05/31/17 2454 BT EC Resident Update Note Patient asleep when I walked into room. She awakens easily. States that her headache is still . I spoke with patient about the results of her evaluation here at [facility]. There are no signs of [...] Resident ( June 01, 2017 12:11 AM [facility] POC CO2 POC 25 mmol/L 21 - 32 05/31/2017 [facility] POC Chloride POC 108 mmol/L 98 - 05/31/2017 [place] 107 [facility] POC Potassium POC 3.7 mmol/L 3.5 - 05/31/2017 [place] 5.1 [facility] POC Sodium POC 140 mmol/L 136 - 05/31/2017 [place] 145 [facility] POC Glucose POC 100 mg/dL 74 - 05/31/2017 [place] 106 [facility] POC Urea Nitrogen 12 mg/dL 7 - 18 05/31/2017 [facility] POC Creatinine POC 0.6 mg/dL 0.6 - 05/31/2017 [place] 1.3 [facility] POC Calcium Ionized 1.16 mmol/L 1.15 - 05/31/2017 [place] P[facility] 1.29 [facility] POC Hemoglobin POC 13.3 g/dL 12 - 16 05/31/2017 [facility] POC Hematocrit POC 39.0 % 37 - 47 05/31/2017 [facility] POC GFR, Estimated >60 mL/min/ 05/31/2017 [place] 1.73 m2 [facility] POC GFR, Estim, >60 mL/min/ 05/31/2017 [place] Afr-Am 1.73 m2 [facility] POC Lab Abnormal 05/31/2017 [place] Interpretation [facility] CELL COUNT, CSF Appearance Hazy 05/31/2017 [facility] CELL COUNT, CSF Color Colorless 05/31/2017 [facility] CELL COUNT, CSF WBC 1 /uL 0 - 5 05/31/2017 Differential not performed on counts <or=5/cu mm, cytospin preparation [place] available for review [facility] CELL COUNT, CSF RBC 0 /uL 05/31/2017 [facility] CSF STAIN / CULTURE Spec Cerebrospina 05/31/2017 [place] Description l fluid [facility] CSF STAIN / CULTURE Gram Stain No organisms 05/31/2017 [facility] CSF STAIN / CULTURE Culture No growth 3 05/31/2017 [facility] CSF STAIN / CULTURE Report Status Final 05/31/2017 [place] 06/04/2017 [facility] CSF Stain/Culture Spec Cerebrospina 05/31/2017 [place] Description l fluid [facility] CSF Stain/Culture Gram Stain No organisms 05/31/2017 [facility] CSF Stain/Culture Culture No growth 3 05/31/2017 [facility] CSF Stain/Culture Report Status Final 05/31/2017 [place] 06/04/2017 [facility] GLUCOSE, CSF Glucose, CSF 56 mg/dL 50 - 80 05/31/2017 [facility] T PROTEIN, CSF T Protein, CSF 26.5 mg/dL 15 - 45 05/31/[address] [facility] [address] HEAD W/O IMPRESSION: No intracranial abnormalities. If the report is "FINALIZED" it indicates that the attending/staff radiologist has reviewed the images and agrees with the resident's interpretation. 05/31/2017 [place] CONTRAST Dictated By: Barak Henry MD, 05/31/2017 2:32 PM I have reviewed the study and agree with the findings in this report. Signed By: Goran Beckman MD, 05/31/2017 3:35 PM Exam : Head CT without contrast History: headache Health Comparison studies: None. Technique: Axial scans [...] PM 12 LEAD EKG 12 LEAD EKG FOR [facility] 05/31/2017 [facility]age Test Date:2017-05-31 Pat Name: TERRI WHITTAKER Department: : Gender: FTechnician: :[id number] Requested By: Order Number:Reading MD: Leander Hernandez M.D. Measurements IntervalsAxis Rate: 84 P:7 FL: 140QRS:62 QRSD: 84 T:0 QT: 335 QTc:396 Interpretive Statements SINUS RHYTHM Electronically Signed On 05-31-17 13:08:33 CDT by Leander Hernandez M.D. TOXICOLOGY Acetaminoph Lvl null 10 - 20 06/04/2016 [facility] CHEM PANEL eGFR 130 06/04/2016 Result Comment: The eGFR is calculated using the CKD-EPI formula. In most young, healthy individuals the eGFR will be > 90 mL/min/1.73m2. The eGFR declines with age. An eGFR of 60-89 may be normal in [place] mL/min/1.73m some populations, particularly the elderly, for whom the CKD-EPI formula has not been extensively validated. Use of the eGFR is not recommended in the following populations: [place] 2 Individuals with unstable creatinine concentrations, including patients [...] PANEL Chloride Lvl 111 meq/L 95 - 06/04/2016 [facility] 109 [place] CHEM PANEL Potassium Lvl 3.9 meq/L 3.5 - 06/04/2016 [facility] 5.1 [place] CHEM PANEL Sodium Lvl 142 meq/L 135 - 06/04/2016 145 [place] CHEM PANEL Creatinine Lvl 0.55 mg/dL 0.50 - 06/04/2016 [facility] 1.40 [place] CHEM PANEL BUN 10 mg/dL 7 - 22 06/04/2016 [place] CHEM PANEL Total Protein 7.7 g/dL 6.4 - 06/04/2016 [facility] 8.4 [place] CHEM PANEL Bili Total 0.2 mg/dL 0.2 - 06/04/2016 [facility] 1.3 [place] CHEM PANEL Calcium Lvl 8.2 mg/dL 8.5 - 06/04/2016 10.5 [place] CHEM PANEL CO2 24 meq/L 24 - 32 [facility]ART[facility] 38 unit/L 0 - 37 06/04/2016 TRANSAMINASE [place] CHEM PANEL Glucose Lvl 115 mg/dL 70 - 99 [facility]/04[facility]2016 [facility] Alk Phos 55 unit/L 39 - 06/04/2016 [facility] 136 [place] CHEM PANEL Albumin Lvl 4.2 g/dL 3.5 - 06/04/2016 [facility] 5.0 [place] CHEM PANEL ALANINE 55 unit/L 0 - 65 06/04/2016 [facility] [place] E CHEM PANEL B/C Ratio 18 6 - 25 [facility]04[facility]2016 [facility] AGAP 10.9 meq/L 10.0 - 06/04/2016 [facility] 20.0 [place] CHEM PANEL A/G Ratio 1.2 0.7 - 06/04/2016 1.6 [place] CHEM PANEL Globulin 3.5 g/dL 2.7 - 06/04/2016 4.2 [place] DRUG SCREEN U Benzodia Scr Negative Negativ 06/04/2016 e [place] *NA* (06/04/16 12:23 PM) DRUG SCREEN U Cocaine Scr Negative Negativ 06/04/2016 e [place] *NA* (06/04/16 12:23 PM) DRUG SCREEN U Cannab Scr Negative Negativ 06/04/2016 e [place] *NA* (06/04/16 12:23 PM) DRUG SCREEN U Opiate Scr Negative Negativ 06/04/2016 [facility] e [place] *NA* (06/04/16 12:23 PM) DRUG SCREEN UDS Note See Note 06/04/2016 [facility] *NA* (06/04/16 12:23 PM) DRUG SCREEN U Phencyc Scr Negative Negativ 06/04/2016 e [place] *NA* (06/04/16 12:23 PM) DRUG SCREEN U Nan Scr Negative Negativ 06/04/2016 e [place] *NA* (06/04/16 12:23 PM) DRUG SCREEN U Amph Scr Negative Negativ 06/04/2016 e [place] *NA* (06/04/16 12:23 PM) ENDOCRINOLOGY S Preg Negative Negativ 06/04/2016 e [place] *NA* (06/04/16 12:23 PM) HEMATOLOGY MPV 9.0 fL 7.4 - 06/04/2016 10.4 [place] HEMATOLOGY Platelet 249 K/CMM 133 - 06/04/2016 [facility] 450 [place] HEMATOLOGY RDW 14.4 % 11.5 - 06/04/2016 [facility] 14.5 [place] HEMATOLOGY MCHC 33.0 g/dL 32.0 - 06/04/2016 36.0 [place] HEMATOLOGY MCH 28.7 pg 27.0 - 06/04/2016 [facility] 31.0 [place] HEMATOLOGY MCV 86.9 fL 80.0 - 06/04/2016 [facility] 98.0 [place] HEMATOLOGY Hct 40.5 % 36.0 - 06/04/2016 48.0 [place] HEMATOLOGY Hgb 13.4 g/dL 12.0 - 06/04/2016 [facility] 16.0 [place] HEMATOLOGY RBC X 10x6 4.67 M/CMM 4.20 - 06/04/2016 [facility] 5.40 [place] HEMATOLOGY WBC X 10x3 8.6 K/CMM 3.7 - 06/04/2016 [facility] 10.4 [place] HEMATOLOGY Monocytes # 0.4 K/CMM 0.0 - 06/04/2016 [facility] 0.8 [place] HEMATOLOGY Segs-Bands # 7.0 K/CMM 1.5 - 06/04/2016 [facility] 8.1 [place] HEMATOLOGY Lymphocytes # 1.2 K/CMM 1.0 - 06/04/2016 [facility] 5.5 [place] HEMATOLOGY Eosinophils 0.1 % 0.0 - 06/04/2016 4.0 [place] HEMATOLOGY Basophils 0.3 % 0.0 - 06/04/2016 1.0 [place] HEMATOLOGY Monocytes 4.4 % 2.0 - 06/04/2016 12.0 [place] HEMATOLOGY Segs 81.4 % 45.0 - 06/04/2016 75.0 [place] HEMATOLOGY Lymphocytes 13.8 % 20.0 - 06/04/2016 40.0 [place] TOXICOLOGY Salicylate Lvl null 0.0 - 06/04/2016 30.0 [place] TOXICOLOGY Acetaminoph Lvl null 10 - 20 06/04/2016 [facility] TOXICOLOGY Ethanol Lvl 62 mg/dL 06/04/2016 [facility] TOXICOLOGY Etoh (%) 0.062 % 06/04/2016 [facility] TOXICOLOGY TCA Screen null 06/04/2016 [facility] URINE AND STOOL UA Bacteria None Seen None 06/04/2016 Seen [place] (06/04/16 12:23 PM) URINE AND STOOL UA Mucus Few /LPF None 06/04/2016 Seen [place] /LP URINE AND STOOL UA RBC 0-2 /HPF 0 - 2 06/04/2016 [facility] URINE AND STOOL UA WBC None Seen None 06/04/2016 Seen [place] (06/04/16 12:23 PM) URINE AND STOOL UA Sq Epi Occasional Few 06/04/2016 /LPF /LPF [place] URINE AND STOOL UA Color Yellow Yellow 06/04/2016 [facility] *NA* (06/04/16 12:23 PM) URINE AND STOOL UA Turbidity Clear Clear 06/04/2016 [facility] (06/04/16 12:23 PM) URINE AND STOOL UA Urobilinogen 0.2 EU/dL 0.1 - 06/04/2016 1.0 [place] URINE AND STOOL UA Bili Negative Negativ 06/04/2016 [facility] *NA* (06/04/16 12:23 PM) URINE AND STOOL UA Blood Small Negativ 06/04/2016 [facility] *ABN* (06/04/16 12:23 PM) URINE AND STOOL UA Nitrite Negative Negativ 06/04/2016 [facility] (06/04/16 12:23 PM) URINE AND STOOL UA Leuk Est Negative Negativ 06/04/2016 [facility] (06/04/16 12:23 PM) URINE AND STOOL UA Spec Grav 1.020 <=1.030 06/04/2016 [facility] URINE AND STOOL UA pH 6.0 5.0 - 06/04/2016 8.0 [place] URINE AND STOOL UA Glucose Negative Negativ 06/04/2016 [facility] (06/04/16 12:23 PM) URINE AND STOOL UA Ketones Negative Negativ 06/04/2016 [facility] *NA* (06/04/16 12:23 PM) URINE AND STOOL UA Protein Negative Negativ 06/04/2016 e [place] (06/04/16 12:23 PM) URINE CHEM U Preg Negative Negativ 06/04/2016 [facility] (06/04/16 12:23 PM) Chest 1view DX Chest 1view DX CHEST RADIOGRAPH SINGLE VIEW 06/04/2016 - [facility] INDICATION: Shortness of breath, overdose Read by: Terry Hooper MD Dictated Date/time: 06/04/16 12:36 Electronically Signed by: Terry Hooper MD 06/04/16 12:36 FINAL REPORT COMPARISON: None IMPRESSION: The lungs are underinflated. Grossly, no acute intrathoracic abnormalities are visualized. SL:16 URINE AND STOOL UA Urobilinogen 1.0 EU/dL 0.1 - 02/27/2016 [place] 1.0 [facility] URINE AND STOOL UA Nitrite Negative Negativ 02/27/2016 [place] (02/27/16 1:41 PM) URINE AND STOOL UA Leuk Est Trace Negativ 02/27/2016 [place] *ABN* (02/27/16 1:41 PM) URINE AND STOOL UA Bili Small Negativ 02/27/2016 [place] *ABN* (02/27/16 1:41 PM) URINE AND STOOL UA Blood Moderate Negativ 02/27/2016 [place] *ABN* (02/27/16 1:41 PM) URINE AND STOOL UA Protein 30 mg/dL Negativ 02/27/2016 [place] mg/dL [facility] URINE AND STOOL UA Glucose Negative Negativ 02/27/2016 [place] (02/27/16 1:41 PM) URINE AND STOOL UA Ketones Negative Negativ 02/27/2016 [place] *NA* (02/27/16 1:41 PM) URINE AND STOOL UA pH 6.0 5.0 - 02/27/2016 [place] 8[place]0 [place] URINE AND STOOL UA Color Yellow Yellow 02/27/2016 [place] *NA* (02/27/16 1:41 PM) URINE AND STOOL UA Spec Grav >=1.030 <=1.030 02/27/2016 [place] *ABN* (02/27/16 1:41 PM) URINE AND STOOL UA Turbidity Cloudy Clear 02/27/2016 [place] *ABN* (02/27/16 1:41 PM) URINE AND STOOL UA Bacteria Occasional None 02/27/2016 [place] /HPF [place] /HPF URINE AND STOOL UA Mucus Many /LPF None 02/27/2016 [place] /LPF URINE AND STOOL UA WBC 51-100 /HPF None 02/27/2016 [place] /HPF URINE AND STOOL UA RBC 6-10 /HPF 0 - 2 02/27/2016 [place] URINE AND STOOL UA Sq Epi Many /LPF Few 02/27/2016 [place] /LPF [place] CHEM PANEL A/G Ratio 1.0 0.7 - 02/27/2016 [place] 1[place]6 [place] CHEM PANEL AGAP 10.9 meq/L 10.0 - 02/27/2016 [place] 20[place]0 [place] CHEM PANEL B/C Ratio 23 6 - 25 02/27/2016 [place] CHEM PANEL Globulin 3.7 g/dL 2.0 - 02/27/2016 [place] 4[place]0 [place] CHEM PANEL eGFR 126 02/27/2016 Result Comment: The eGFR is calculated using the CKD-EPI formula. In most young, healthy individuals the eGFR will be > 90 mL/min/1.73m2. The eGFR declines with age. An eGFR of 60-89 may be normal in [place] mL/min/1.73m some populations, particularly the elderly, for whom the CKD-EPI formula has not been extensively validated. Use of the eGFR is not recommended in the following populations: [place] 2 Individuals with unstable creatinine concentrations, including patients [...] Glucose Lvl 89 mg/dL 70 - 99 02/27/2016 [place] CHEM PANEL Albumin Lvl 3.7 g/dL 3.5 - 02/27/2016 [place] CHEM PANEL ALT 35 unit/L 0 - 65 02/27/2016 [place] CHEM PANEL Chloride Lvl 105 meq/L 95 - 02/27/2016 [place] [facility] [place] CHEM PANEL BUN 14 mg/dL 7 - 22 02/27/2016 [place] CHEM PANEL Potassium Lvl 3.9 meq/L 3.5 - 02/27/2016 [place] CHEM PANEL Creatinine Lvl 0.61 mg/dL 0.50 - 02/27/2016 [place] 1[place]40 [place] CHEM PANEL Sodium Lvl 139 meq/L 135 - 02/27/2016 [place] CHEM PANEL Total Protein 7.4 g/dL 6.4 - 02/27/2016 [place] CHEM PANEL CO2 27 meq/L 24 - 32 02/27/2016 [place] CHEM PANEL Calcium Lvl 8.3 mg/dL 8.5 - 02/27/2016 [place] CHEM PANEL Alk Phos 61 unit/L 39 - 02/27/2016 [place] CHEM PANEL AST 15 unit/L 0 - 37 02/27/2016 [place] CHEM PANEL Bili Total 0.3 mg/dL 0.2 - 02/27/2016 [place] 1[place] CHEM PANEL Lipase Lvl 118 unit/L 73 - 02/27/2016 [place] [facility] [place] CHEM PANEL Amylase Lvl 66 unit/L 25 - 02/27/2016 [place] 115 [place] ENDOCRINOLOGY S Preg Negative Negativ 02/27/2016 [place] (02/27/16 12:02 PM) HEMATOLOGY MCH 28.1 pg 27.0 - 02/27/2016 [place] 31[place] HEMATOLOGY MCV 86.0 fL 80.0 - 02/27/2016 [place] 98[place]0 [place] HEMATOLOGY RDW 14.1 % 11.5 - 02/27/2016 [place] 14[place]5 [place] HEMATOLOGY Hct 40.7 % 36.0 - 02/27/2016 [place] 48[place] HEMATOLOGY MCHC 32.7 g/dL 32.0 - 02/27/2016 [place] 36[place] HEMATOLOGY Platelet 292 K/CMM 133 - 02/27/2016 [place] 450 [facility] HEMATOLOGY MPV 9.1 fL 7.4 - 02/27/2016 [place] 10[place]4 [facility] HEMATOLOGY Hgb 13.3 g/dL 12.0 - 02/27/2016 [place] 16.0 [facility] HEMATOLOGY RBC 4.73 M/CMM 4.20 - 02/27/2016 [place] 5[place] HEMATOLOGY WBC 10.0 K/CMM 3.7 - 02/27/2016 [place] 10.4 [facility] HEMATOLOGY Segs 64.5 % 45.0 - 02/27/2016 [place] 75[place] HEMATOLOGY Lymphocytes 27.2 % 20.0 - 02/27/2016 [place] 40[place] HEMATOLOGY Eosinophils 0.3 % 0.0 - 02/27/2016 [place] HEMATOLOGY Monocytes 7.6 % 2.0 - 02/27/2016 [place] 12.0 [facility] HEMATOLOGY Segs-Bands # 6.5 K/CMM 1.5 - 02/27/2016 [place] 8[facility]1 [facility] HEMATOLOGY Basophils 0.4 % 0.0 - 02/27/2016 [place] HEMATOLOGY Monocytes # 0.8 K/CMM 0.0 - 02/27/2016 [place] 0[facility]8 [facility] HEMATOLOGY Lymphocytes # 2.7 K/CMM 1.0 - 02/27/2016 [place] 5[place]5 [place] Pelvis Transvag w Pelvis Transvag Exam: Pelvic ultrasound. 02/27/2016 - [facility] Pelvis Doppler US w Pelvis - [place] Doppler US History: Abdominal and pelvic pain, [...] free fluid in the cul-de-sac. Abdomen RUQ US Abdomen RUQ US ULTRASOUND OF THE ABDOMEN RIGHT UPPER QUADRANT 02/27/2016 - [facility] History: 26-year-old female with right upper and [...] Value Date Comments Source Systolic (mm Hg) 110 12/26/2018 [facility] Diastolic (mm Hg) 67 12/26/2018 [facility] Temperature Oral (F) 98.3 F 12/26/2018 [facility] Respitory Rate 17 12/26/2018 [facility] Heart Rate 79 12/26/2018 [facility] Heart Rate 86 12/26/2018 [facility] Respitory Rate 18 12/26/2018 [facility] Systolic (mm Hg) 108 12/26/2018 [facility] Diastolic (mm Hg) 69 12/26/2018 [facility] Heart Rate 89 12/26/2018 [facility] Systolic (mm Hg) 102 12/26/2018 [facility] Diastolic (mm Hg) 65 12/26/2018 [facility] Respitory Rate 18 12/26/2018 [facility] Temperature Oral (F) 98.5 F 12/26/2018 [facility] Temperature Oral (F) 98.3 F 12/26/2018 [facility] Weight 65.909 12/26/2018 [facility] Systolic (mm Hg) 126 12/20/2018 [facility] Diastolic (mm Hg) 84 12/20/2018 [facility] Heart Rate 78 12/20/2018 [facility] Temperature Oral (F) 36.89 Alisha 12/20/2018 [facility] Respitory Rate 16 12/20/2018 [facility] Temperature Oral (F) 98.2 F 12/16/2018 [facility] Systolic (mm Hg) 122 12/16/2018 [facility] Diastolic (mm Hg) 87 12/16/2018 [facility] Respitory Rate 18 12/16/2018 [facility] Heart Rate 93 12/16/2018 [facility] Systolic (mm Hg) 131 12/16/2018 [facility] Diastolic (mm Hg) 81 12/16/2018 [facility] Temperature Oral (F) 98.7 F 12/16/2018 [facility] Respitory Rate 18 12/16/2018 [facility] Heart Rate 94 12/16/2018 [facility] Systolic (mm Hg) 113 12/16/2018 [facility] Diastolic (mm Hg) 73 12/16/2018 [facility] Respitory Rate 18 12/16/2018 [facility] Weight 67 12/16/2018 [facility] Temperature Oral (F) 98.5 F 12/16/2018 [facility] Height 154.94 cm 12/16/2018 [facility] Heart Rate 142 12/16/2018 [facility] BMI Calculated 27.91 12/16/2018 [facility] Respitory Rate 16 12/14/2018 [facility] Heart Rate 84 12/14/2018 [facility] Systolic (mm Hg) 116 12/14/2018 [facility] Diastolic (mm Hg) 79 12/14/2018 [facility] Weight 70.455 12/13/2018 [facility] BMI Calculated 26.66 12/13/2018 [facility] Height 162.56 cm 12/13/2018 [facility] Temperature Oral (F) 98.3 F 12/13/2018 [facility] Heart Rate 98 12/13/2018 [facility] Respitory Rate 18 12/13/2018 [facility] Systolic (mm Hg) 119 12/13/2018 [facility] Diastolic (mm Hg) 84 12/13/2018 [facility] Systolic (mm Hg) 113 06/14/2018 [facility] Diastolic (mm Hg) 72 06/14/2018 [facility] Heart Rate 76 06/14/2018 [facility] Temperature Oral (F) 36.89 Alisha 06/14/2018 [facility] Respitory Rate 14 06/14/2018 [facility] Systolic (mm Hg) 107 06/01/2017 [facility] Diastolic (mm Hg) 59 06/01/2017 [facility] Heart Rate 67 06/01/2017 [facility] Temperature Oral (F) 36.78 Alisha 06/01/2017 [facility] Respitory Rate 18 06/01/2017 [facility] Respitory Rate 16 06/05/2016 [facility] Temperature Oral (F) 98.5 F 06/05/2016 [facility] Systolic (mm Hg) 120 06/05/2016 [facility] Diastolic (mm Hg) 69 06/05/2016 [facility] Respitory Rate 18 06/04/2016 [facility] Systolic (mm Hg) 117 06/04/2016 [facility] Diastolic (mm Hg) 64 06/04/2016 [facility] Heart Rate 95 06/04/2016 [facility] Respitory Rate 13 06/04/2016 [facility] Systolic (mm Hg) 105 06/04/2016 [facility] Diastolic (mm Hg) 62 06/04/2016 [facility] Heart Rate 105 06/04/2016 [facility] Temperature Oral (F) 98.1 F 06/04/2016 [facility] Weight 77.273 06/04/2016 [facility] Heart Rate 95 06/04/2016 [facility] Temperature Oral (F) 98.6 F 06/04/2016 [facility] Heart Rate 65 02/27/2016 [place] Respitory Rate 18 02/27/2016 [place] Systolic (mm Hg) 112 02/27/2016 [place] Diastolic (mm Hg) 80 02/27/2016 [place] Temperature Oral (F) 98.7 F 02/27/2016 [place] Temperature Oral (F) 98.2 F 02/27/2016 [place] Systolic (mm Hg) 126 02/27/2016 [place] Diastolic (mm Hg) 80 02/27/2016 [place] Respitory Rate 16 02/27/2016 [place] Heart Rate 91 02/27/2016 [place] BMI Calculated 25.97 02/27/2016 [place] Weight 68.636 02/27/2016 [place] Height 162.56 cm 02/27/2016 [place] Encounters Location Location Encounter Encounter Reason Attending ADM DC Status Source Details Type Number For Provider Date Date Visit [facility] [id number] Goran Hampden 02/26 02/26 [facility] [place] [facility] /2015 [facility] [place] [facility] [id number] ADENRELE 02/28 [facility] [place] Outpatient [id number] ADENRELE 03/18 [facility] /2015 [facility] Emergency [id number] Caitie 06/04 06/04 Tom Kaplan /2015 [facility] Emergency Emergency [id number] Intracta Ruddy 05/31 06/01 [facility] JOLEEN Navarrete MD /2016 Health episodic headache , unspecif ied headache type Periorbi tunde pain, bilatera l Blurred vision, left eye Non-intr actable vomiting with nausea, unspecif ied vomiting type Emergency Emergency [id number] Junior Cooper 06/14 06/14 [facility] JOLEEN NI /2017 [facility] Emergency [id number] Guillermo 12/13 12/14 Tom Soler /2018 [facility] Emergency [id number] Venkatesh Iheme 12/16 12/16 Tom /2018 [facility] Travel [id number] 12/19 Health Emergency Emergency [id number] Junaid 12/19 12/20 [facility] JOLEEN Knight MD /2018 [facility] Emergency [id number] Darby 12/25 12/26 Tom Viera /2018 [facility] Procedures Procedure Code Date Perfomer Comments Source POCT URINE DIPSTICK - [id number] [facility] 9 TROPONIN I POC [address] [place] [address] XRAY CHEST 2 VIEWS 80065 [facility] 9 BMP POC 57621 [facility] 9 HIV-1/HIV-2 72483 [facility] DIAGNOSTIC/SYMPTOMATI 9 C CBC/DIFF 46045 [facility] 9 LIPASE [address] [place] [address] LIVER PROFILE [address] [place] [address] UA CHEMISTRIES [address] [place] [address] URINE CULTURE [address] [place] [address] [address] HEAD W/O CONTRAST 16533 [facility] [address] [facility] 8 POCT URINE DIPSTICK - 515002 [facility] 8 CBC/DIFF 58540 [facility] 8 Both fallopian tubes [id number] [place] Both fallopian tubes [id number] [facility] Cholecystectomy [id number] [facility]
--- OUTSIDE RECORDS SUMMARY | 2019-01-19 16:52 | XMS REPORT | Clinical Summary ---
:1990 Author Organization [facility] Address [address] [place] [address] Care Team Providers Name Role Phone Unavailable [...] A "PRELIMINARY" report was made available via [employer] at the time of dictation by the [...] A "PRELIMINARY" report was made available via [employer] at the time of dictation by the [...] GFR, Estim, Afr-Am >60 mL/min/1.73 m2 BT [facility] 1 Performing Organization Address City/State/Zipcode Phone Number M[facility]YS [facility] 1 POCT URINE DIPSTICK - (06/14/2018 1:44 PM CDT) Pathologist [facility] Control PRESENT NEGATIVE CBC/DIFF (06/14/2018 1:37 PM CDT) Pathologist [facility] WBC 6.0 4.5 - 11.0 K/uL [facility] 2 RBC 4.26 4.20 - 5.40 M/uL BT [facility] 2 Hemoglobin 12.2 12.0 - 16.0 g/dL BT [facility] 2 Hematocrit 37.2 37.0 - 47.0 % [facility] 2 MCV 87 82 - 92 fL [facility] 2 MCH 28.6 27.0 - 32.0 pg BT [facility] 2 MCHC 32.8 32.0 - 36.0 g/dL BT [facility] 2 RDW 47.8 (H) 36.4 - 46.3 fL BT [facility] 2 Platelet 270 150 - 400 K/uL [facility] 2 Mean Platelet Volume 11.1 9.4 [...] MAIN-[facility]ATION 2 Specimen Blood Performing Organization Address City/State/[facility] Phone Number [facility]YS [facility] 2 after 12/12/2017 Insurance Payer Benefit Plan / Subscriber ID Effective Dates Phone Address Type Group HCHD HCHD UNSCREENED xxxxxxxxx 2017-Prese [phone] [place] [address] Advance Directives For more information, please contact:[address] [address] Code Status Date Activated Date Inactivated Comments Full Code 02/28/2016 10:30 PM 03/03/2016 7:15 PM
--- OUTSIDE RECORDS SUMMARY | 2019-01-19 16:53 | XMS REPORT | Clinical Summary ---
:1990 Author Organization [facility] Address [address] [place] [address] Care Team Providers Name Role Phone Unavailable [...] headache type (Primary Dx); Rib pain after 12/15/2017 Family History Medical History Relation Name Comments [...] procedure are in the results section. after 12/15/[address] HEAD W/O CONTRAST (06/14/2018 3:02 PM CDT) Impressions Performed At IMPRESSION: SMS 1.No abnormalities 2.No changes when compared to the head CT on 05/31/2017. A "PRELIMINARY" report was made available via [employer] at the time of dictation by the [...] A "PRELIMINARY" report was made available via [employer] at the time of dictation by the [...] GFR, Estim, Afr-Am >60 mL/min/1.73 m2 BT [facility] 1 Performing Organization Address City/State/Zipcode Phone Number M[facility]YS [facility] 1 POCT URINE DIPSTICK - (06/14/2018 1:44 PM CDT) Pathologist [facility] Control PRESENT NEGATIVE CBC/DIFF (06/14/2018 1:37 PM CDT) Pathologist [facility] WBC 6.0 4.5 - 11.0 K/uL BT [facility] 2 RBC 4.26 4.20 - 5.40 M/uL BT [facility] 2 Hemoglobin 12.2 12.0 - 16.0 g/dL BT [facility] 2 Hematocrit 37.2 37.0 - 47.0 % BT [facility]IN[facility] 2 MCV 87 82 - 92 fL BT [facility] 2 MCH 28.6 27.0 - 32.0 pg BT [facility] 2 MCHC 32.8 32.0 - 36.0 g/dL BT [facility] 2 RDW 47.8 (H) 36.4 - 46.3 fL BT [facility] 2 Platelet 270 150 - 400 K/uL BT [facility] 2 Mean Platelet Volume 11.1 9.4 - [...] MAIN-STATION 2 Specimen Blood Performing Organization Address City/State/[facility] Phone Number MISYS BT [facility] 2 after 12/15/2017 Insurance Payer Benefit Plan / Subscriber ID Effective Dates Phone Address Type Group HCHD HCHD UNSCREENED xxxxxxxxx 2017-Prese [phone] [place] [address] Advance Directives For more information, please contact:[address] [address] Code Status Date Activated Date Inactivated Comments Full Code 02/28/2016 10:30 PM 03/03/2016 7:15 PM
--- OUTSIDE RECORDS SUMMARY | 2019-01-19 16:53 | XMS REPORT | Summary of Care ---
:1990 Author Organization [facility] Address [address] [place] [address]- Encounter HQ Encntr_alisedrick(FIN) [id number] Date(s): 12/13/18 - 12/13/[address] [phone] Encounter Diagnosis Acute pyelonephritis (Discharge Diagnosis) - 12/13/18 Discharge Disposition: Home or Self Care Attending Physician: Guillermo Soler MD Vital Signs Most recent to oldest [Reference Range]: 1 2 Height 162.56 cm (12/13/18 1:31 PM) Temperature Oral [96.4-99.1 DegF] 98.3 DegF (12/13/18 1:31 PM) Blood Pressure [90-140/60-90 mmHg] 116/79 mmHg 119/84 mmHg (12/13/18 6:41 PM) (12/13/18 1:31 PM) Respiratory Rate [14-20 BRMIN] 16 BRMIN 18 BRMIN (12/13/18 6:41 PM) (12/13/18 1:31 PM) Peripheral Pulse Rate [60-100 bpm] 84 bpm 98 bpm (12/13/18 6:41 PM) (12/13/18 1:31 PM) Weight 70.455 kg (12/13/18 1:31 PM) Body Mass Index 26.66 m2 (12/13/18 1:31 PM) Problem List No data available for this section Allergies, Adverse Reactions, Alerts Substance Reaction Severity Status NKDA Active Medications cefdinir 300 mg oral capsule 300 mg=1 cap, PO, BID, X 14 day, # 28 cap, 0 Refill(s) Start Date: 12/13/18 Stop Date: 12/27/18 Status: OrderedColace 100 mg oral capsule 100 mg=1 cap, PO, BID, PRN Constipation, # 20 cap, 0 Refill(s) Start Date: 12/13/18 Status: OrderedketOROLAC 30 mg, 1 mL, Route: IVP, Drug form: INJ, ONCE, Dosing Weight 70.455, kg, Priority: STAT, Start date:12/13/18 17:45:00 QUALITY CONTROLLER, Stop date: 12/13/18 17:45:00 QUALITY CONTROLLER Notes: (Same as:Toradol) IV bolus must be given >15 seconds. Give IM administration slowly and deeply into the muscle.Not for use > 4 days MEDICATION WASTE Product Size: 30 mgProduct Wasted: ___ mg Start Date: 12/13/18 Stop Date: 12/13/18 Status: CompletedRocephin 1 gm, Route: IVPB, Drug form: PDR/INJ, ONCE, Dosing Weight 70.455, kg, Priority : STAT, Start date: 12/13/18 18:41:00 QUALITY CONTROLLER, Stop date: 12/13/18 18:41:00 QUALITY CONTROLLER, ABX Indication: Urinary Tract Infection Start Date: 12/13/18 Stop Date: 12/13/18 Status: CompletedSaline Flush 0.9% 10 mL, Route: IVP, Drug Form: INJ, Dosing Weight 70.455, kg, PRN, PRN Line Flush , Start date: 12/13/18 13:51:00 QUALITY CONTROLLER, Duration: 30 day, Stop date: 01/12/19 14:50 :00 CDT Notes: (Same as: BD Posiflush) Start Date: 12/13/18 Stop Date: 12/13/18 Status: DiscontinuedTylenol with Codeine #3 oral tablet 1 tab, PO, Q4H, PRN Pain, X 7 day, # 30 tab, 0 Refill(s) Start Date: 12/13/18 Stop Date: 12/20/18 Status: Ordered Results ELECTROLYTES Most recent to oldest [Reference Range]: 1 Sodium Lvl [135-145 mEq/L] 144 mEq/L (12/13/18 3:56 PM) Potassium Lvl [3.5-5.1 mEq/L] 3.8 mEq/L (12/13/18 3:56 PM) Chloride Lvl [95-109 mEq/L] 113 mEq/L *HI* (12/13/18 3:56 PM) CO2 [24-32 mEq/L] 24 mEq/L (12/13/18 3:56 PM) AGAP [10.0-20.0 mEq/L] 10.8 mEq/L (12/13/18 3:56 PM) CHEM PANEL Most recent to oldest [Reference Range]: 1 Creatinine Lvl [0.50-1.40 mg/dL] 0.56 mg/dL (12/13/18 3:56 PM) eGFR 127 mL/min/1.73m2 1 *NA* (12/13/18 3:56 PM) BUN [7-22 mg/dL] 4 mg/dL *LOW* (12/13/18 3:56 PM) B/C Ratio [6-25] 7 (12/13/18 3:56 PM) Glucose Lvl [70-99 mg/dL] 91 mg/dL (12/13/18 3:56 PM) Total Protein [6.4-8.4 g/dL] 7.9 g/dL (12/13/18 3:56 PM) Albumin Lvl [3.5-5.0 g/dL] 4.0 g/dL (12/13/18 3:56 PM) Globulin [2.7-4.2 g/dL] 3.9 g/dL (12/13/18 3:56 PM) A/G Ratio [0.7-1.6] 1.0 (12/13/18 3:56 PM) Calcium Lvl [8.5-10.5 mg/dL] 8.4 mg/dL *LOW* (12/13/18 3:56 PM) ALT [0-65 unit/L] 50 unit/L (12/13/18 3:56 PM) AST [0-37 unit/L] 21 unit/L (12/13/18 3:56 PM) Alk Phos [39-136 unit/L] 71 unit/L (12/13/18 3:56 PM) Bili Total [0.2-1.3 mg/dL] 0.5 mg/dL (12/13/18 3:56 PM) Lipase Lvl [73-393 unit/L] 117 unit/L (12/13/18 3:56 PM) 1Result Comment: The eGFR is calculated using the CKD-EPI formula. In most young , healthy individualsthe eGFR will be >90 mL/min/1.73m2. The eGFR declines with age. An eGFR of 60-89 may be normal insome populations, particularly the elderly, for whom the [...] eGFR should be multiplied by the estimated BMI.URINE CHEM Most recent to oldest [Reference Range]: 1 U Preg [Negative] Negative (12/13/18 3:56 PM) URINE AND STOOL Most recent to oldest [Reference Range]: 1 UA Turbidity [Clear] Mod-Marked *ABN* (12/13/18 3:56 PM) UA Color [Yellow] Yellow *NA* (12/13/18 3:56 PM) UA pH [5.0-8.0] 8.0 (12/13/18 3:56 PM) UA Spec Grav [<=1.030] 1.008 (12/13/18 3:56 PM) UA Glucose [Negative] Negative *NA* (12/13/18 3:56 PM) UA Blood [Negative] Large *ABN* (12/13/18 3:56 PM) UA Ketones [Negative] Negative *NA* (12/13/18 3:56 PM) UA Protein [Negative] Negative (12/13/18 3:56 PM) UA Urobilinogen [0.1-1.0 mg/dL] <=1.0 mg/dL *NA* (12/13/18 3:56 PM) UA Bili [Negative] Negative *NA* (12/13/18 3:56 PM) UA Leuk Est [Negative] Small *ABN* (12/13/18 3:56 PM) UA Nitrite [Negative] Negative (12/13/18 3:56 PM) UA WBC [0-5 /HPF] 37 /HPF *HI* (12/13/18 3:56 PM) UA RBC [0-2 /HPF] >182 /HPF *HI* (12/13/18 3:56 PM) UA Bacteria [None Seen /HPF] Occasional /HPF *NA* (12/13/18 3:56 PM) UA Sq Epi [Few /LPF] Occasional /LPF *NA* (12/13/18 3:56 PM) UA Amorph Mary [None Seen /HPF] Occasional /HPF *NA* (12/13/18 3:56 PM) UA Mucus [None Seen /LPF] Few /LPF *NA* (12/13/18 3:56 PM) HEMATOLOGY Most recent to oldest [Reference Range]: 1 WBC [3.7-10.4 K/CMM] 4.3 K/CMM (12/13/18 3:56 PM) RBC [4.20-5.40 M/CMM] 4.38 M/CMM (12/13/18 3:56 PM) Hgb [12.0-16.0 g/dL] 13.2 g/dL (12/13/18 3:56 PM) Hct [36.0-48.0 %] 39.6 % (12/13/18 3:56 PM) MCV [80.0-98.0 fL] 90.3 fL (12/13/18 3:56 PM) MCH [27.0-31.0 pg] 30.0 pg (12/13/18 3:56 PM) MCHC [32.0-36.0 g/dL] 33.2 g/dL (12/13/18 3:56 PM) RDW [11.5-14.5 %] 14.0 % (12/13/18 3:56 PM) MPV [7.4-10.4 fL] 9.1 fL (12/13/18 3:56 PM) Platelet [133-450 K/CMM] 248 K/CMM (12/13/18 3:56 PM) Segs [45.0-75.0 %] 57.0 % (12/13/18 3:56 PM) Lymphocytes [20.0-40.0 %] 35.4 % (12/13/18 3:56 PM) Monocytes [2.0-12.0 %] 5.7 % (12/13/18 3:56 PM) Eosinophils [0.0-4.0 %] 1.4 % (12/13/18 3:56 PM) Basophils [0.0-1.0 %] 0.5 % (12/13/18 3:56 PM) Neutrophils # [1.5-8.1 K/CMM] 2.5 K/CMM (12/13/18 3:56 PM) Lymphocytes # [1.0-5.5 K/CMM] 1.5 K/CMM (12/13/18 3:56 PM) Monocytes # [0.0-0.8 K/CMM] 0.2 K/CMM (12/13/18 3:56 PM) Eosinophils # [0.0-0.5 K/CMM] 0.1 K/CMM (12/13/18 3:56 PM) Microbiology Reports TEST:Culture: Urine STATUS:Auth (Verified) BODY SITE: SOURCE:Urine, Clean Catch COLLECTED DATE/TIME:12/13/18 3:56 PMFINAL REPORT<10,000 CFU/mL Skin Malika Immunizations No data available for this section Procedures Procedure Date Related Diagnosis Body Site Status Both fallopian tubes Completed Cholecystectomy Completed Social History Social History Type Response Smoking Status Never smoker; Concerns about tobacco use in household: No; Exposure to Tobacco Smoke None; Cigarette Smoking Last 365 Days No; Reg Smoking Cessation Counseling No entered on: 12/13/18 Assessment and Plan No data available for this section
--- OUTSIDE RECORDS SUMMARY | 2019-01-19 16:53 | XMS REPORT | Clinical Summary ---
:1990 Author Organization [facility] Address [address] [place] [address] Care Team Providers Name Role Phone Unavailable [...] headache type (Primary Dx); Rib pain after 12/24/2017 Family History Medical History Relation Name Comments [...] Taken Blood Pressure 126/84 12/19/2018 7:[address] [facility]RAFTSPERSON Pulse 78 12/19/2018 7:[address] [facility]RAFTSPERSON Temperature 36.9 C (98.4 F) 12/19/2018 7:[address] [facility] [employer]RAFT[employer]ERSON Respiratory Rate 16 12/19/2018 7:[address] [facility]RAFT[employer]ERSON Oxygen Saturation 95% 12/19/2018 7:[address] [facility]RAFT[employer]ERSON Inhaled Oxygen Concentration - - Weight - - Height - - Body Mass Index - - Plan of Treatment Health Maintenance Due Date Last Done Comments Cervical Cancer Scrn (3 Yrs) 2011 IMM Influenza Seasonal Jul to December (>/=19 yrs) 07/19/2018 Procedures Procedure Name Priority Date/Time Associated Diagnosis Comments POCT URINE DIPSTICK STAT 12/19/2018 3:57 Results for this - PM [facility] procedure are in the results section. TROPONIN I POC Routine 12/19/2018 3:56 Results for this PM [facility] procedure are in the results section. XRAY CHEST 2 VIEWS STAT 12/19/2018 3:55 Results for this PM RO[facility] procedure are in the results section. BMP POC Routine 12/19/2018 3:52 Results for this PM RO[facility] procedure are in the results section. LIVER PROFILE Routine 12/19/2018 3:45 Results for this PM RO[facility]RAFT[employer] procedure are in the results section. LIPASE STAT 12/19/2018 3:45 Results for this PM RO[facility]RAFT[employer]ERSON procedure are in the results section. CBC/DIFF STAT 12/19/2018 3:45 Results for this PM [facility]RAFT[employer]ERSON procedure are in the results section. HIV-1/HIV-2 STAT 12/19/2018 3:45 Results for this DIAGNOSTIC/SYMPTOMAT PM [facility] procedure are in IC the results section. URINE CULTURE STAT 12/19/2018 3:42 Results for this PM RO[facility]RAFTSPERSON procedure are in the results section. UA CHEMISTRIES STAT 12/19/2018 3:42 Results for this PM RO[facility] DESIGN DRAFTSPERSON procedure are in the results section. CT [...] procedure are in the results section. after 12/24/2017 Results POCT URINE DIPSTICK - (12/19/2018 3:[address] [facility] DRAFTSPERSON)Only the most recent of2 resultswithin the time period is included. Control pass negative TROPONIN I POC (12/19/2018 3:[address] [facility] DRAFTSPERSON) Troponin POC 0.00 0.00 - 0.08 ng/mL BT MAIN-[facility] 1 Performing Organization Address City/State/Zipcode Phone Number MISYS BT [facility] 1 XRAY CHEST 2 VIEWS (12/19/2018 3:[address] [facility] DRAFTSPERSON) Impressions Performed At IMPRESSION: [facility] No acute pulmonary disease. If the report [...] Interface, Rad/Mammog In - 12/19/2018 5:[address] [facility] DRAFTSPERSON EXAMINATION: XRAY CHEST 2 VIEWS, Frontal and [...] Number SMS BMP POC (12/19/2018 3:[address] [facility] DRAFTSPERSON)Only the most recent of2 resultswithin the time [...] m2 BT MAIN-STATION 1 Performing Organization Address City/[facility]/[employer] Phone Number MISYS BT [facility] 1 LIVER PROFILE (12/19/2018 3:[address] [facility] DRAFTSPERSON) T Protein 6.9 6.0 - 8.3 g/dL [...] mg/dL BT [facility]IN-[facility] 1 Performing Organization Address [facility] Phone Number [facility] 1 LIPASE (12/19/2018 3:[address] [facility] DRAFTSPERSON) Lipase 21 11 - 82 U/L BT [facility]IN[facility] 1 Specimen Blood Performing Organization Address [facility] Phone Number MISYS [facility] 1 HIV-1/HIV-2 DIAGNOSTIC/SYMPTOMATIC (12/19/2018 3:[address] [facility] DRAFTSPERSON) HIV-1/HIV-2 Negative NEG BT MAIN-[facility] 4 Specimen Blood Performing Organization Address [facility] Phone Number MISYS BT [facility] 4 CBC/DIFF (12/19/2018 3:[address] [facility] DRAFTSPERSON)Only the most recent of2 resultswithin the time [...] MAIN-STATION 2 Specimen Blood Performing Organization Address [facility] Phone Number MISYS BT [facility] 2 UA CHEMISTRIES (12/19/2018 3:[address] [facility]IGN DRAFTSPERSON) Color Straw BT [facility]IN-[facility] 1 Clarity Clear BT [facility]IN-[facility] 1 Spec [place] 1.006 1.001 - 1.035 BT MAIN-STATION 1 [...] MAIN-STATION 1 Specimen Urine Performing Organization Address [facility] Phone Number MISYS BT [facility] 1 URINE CULTURE (12/19/2018 3:[address] [facility]IGN DRAFTSPERSON) Spec Description Urine BT MICROBIOLOGY Order Comments None BT MICROBIOLOGY Culture 10,000-100,000 CFU/ml BT MICROBIOLOGY Gardnerella vaginalis Report Status Final 12/22/2018 BT MICROBIOLOGY Specimen Urine - URINE Performing Organization Address [facility] Cent[facility] Phone Number MISYS BT MICROBIOLOGY CT HEAD W/O CONTRAST (06/14/2018 3:02 PM CDT) Impressions Performed At IMPRESSION: SMS 1.No abnormalities 2.No changes when compared to the head CT on 05/31/2017. A "PRELIMINARY" report was made available via [employer] at the time of dictation by the [...] A "PRELIMINARY" report was made available via [employer] at the time of dictation by the [...] MD, 06/14/2018 3:59 PM Performing Organization Address City/State/[facility] Phone Number SMS after 12/24/2017 Insurance Payer Benefit Plan / Subscriber ID Effective Dates Phone Address Type Group HCHD HCHD UNSCREENED xxxxxxxxx 2017-Prese [phone] [place] [address] (Work) [id number] Advance Directives For more information, please contact:[address] [address] Code Status Date Activated Date Inactivated Comments Full Code 02/28/2016 10:30 PM 03/03/2016 7:15 PM
--- OUTSIDE RECORDS SUMMARY | 2019-01-19 16:54 | XMS REPORT | Summary of Care ---
:1990 Author Organization [facility] Address [id number] [place] [phone] Encounter HQ Josseliner_nikko(FIN) [id number] Date(s): 12/25/18 - 12/26/[address] [phone]- [phone] Encounter Diagnosis Neck pain (Discharge Diagnosis) - 12/25/18 Discharge Disposition: Home or Self Care Attending Physician: Darby Viera MD Vital Signs Most recent to oldest 1 2 3 [Reference Range]: Temperature Oral [96.4-99.1 98.3 DegF 98.5 DegF 98.3 DegF DegF] (12/26/18 12:06 AM) (12/25/18 7:35 PM) (12/25/18 6:01 PM) Blood Pressure [90-140/60-90 110/67 mmHg 108/69 mmHg 102/65 mmHg mmHg] (12/26/18 12:06 AM) (12/25/18 10:54 PM) (12/25/18 9:36 PM) Respiratory Rate [14-20 BRMIN] 17 BRMIN 18 BRMIN 18 BRMIN (12/26/18 12:06 AM) (12/25/18 10:54 PM) (12/25/18 9:36 PM) Peripheral Pulse Rate [60-100 79 bpm 86 bpm 89 bpm bpm] (12/26/18 12:06 AM) (12/25/18 10:54 PM) (12/25/18 9:36 PM) Weight 65.909 kg (12/25/18 6:01 PM) Problem List No data available for this section Allergies, Adverse Reactions, Alerts Substance Reaction Severity Status NKDA Active Medications Flexeril 10 mg, 1 tab, Route: PO, Drug form: TAB, ONCE, Dosing Weight 65.909, kg, Priority: STAT, Start date:12/25/18 22:03:00 BAREBACK RIDER, Stop date: 12/25/18 22:03:00 BAREBACK RIDER Notes: (Same As: Flexeril) Start Date: 12/25/18 Stop Date: 12/25/18 Status: CompletedFlexeril 5 mg oral tablet 5 mg=1 tab, PO, TID, X 5 day, # 15 tab, 0 Refill(s) Start Date: 12/25/18 Stop Date: 12/30/18 Status: Orderedibuprofen 600 mg oral tablet 600 mg=1 tab, PO, Q8H, X 7 day, # 21 tab, 0 Refill(s) Start Date: 12/25/18 Stop Date: 01/01/19 Status: OrderedketOROLAC 15 mg, 0.5 mL, Route: IVP, Drug form: INJ, ONCE, Dosing Weight 65.909, kg, Priority: STAT, Start date: 12/25/18 22:04:00 BAREBACK RIDER, Stop date: 12/25/18 22:04:00 BAREBACK RIDER Notes: (Same as:Toradol) IV bolus must be given >15 seconds. Give IM administration slowly and deeply into the muscle.Not for use > 4 days MEDICATION WASTE Product Size: 30 mgProduct Wasted: ___ mg Start Date: 12/25/18 Stop Date: 12/25/18 Status: Completednormal saline 0.9% IV 1,000 mL 1,000 mL, Rate: 1,000 ml/hr, Infuse over: 1 hr, Route: IV, Dosing Weight 67 kg, Total Volume: 1,000,Priority: Within 24 hours, Start date: 12/25/18 18:03:00 BAREBACK RIDER , Duration: 1 doses or times, Stop date:12/25/18 19:02:00 BAREBACK RIDER, 1.72, m2 Start Date: 12/25/18 Stop Date: 12/25/18 Status: CompletedZofran 4 mg, 2 mL, Route: IVP, Drug form: INJ, ONCE, Dosing Weight 67, kg, Priority: STAT, Start date: 12/25/18 18:03:00 BAREBACK RIDER, Stop date: 12/25/18 18:03:00 BAREBACK RIDER Notes: (Same as: Shobha) MEDICATION WASTE Product Size: 4 mgProduct Wasted: ___ mg Start Date: 12/25/18 Stop Date: 12/25/18 Status: Completed Results ELECTROLYTES Most recent to oldest [Reference Range]: 1 Sodium Lvl [135-145 mEq/L] 143 mEq/L (12/25/18 6:13 PM) Potassium Lvl [3.5-5.1 mEq/L] 3.6 mEq/L (12/25/18 6:13 PM) Chloride Lvl [95-109 mEq/L] 111 mEq/L *HI* (12/25/18 6:13 PM) CO2 [24-32 mEq/L] 25 mEq/L (12/25/18 6:13 PM) AGAP [10.0-20.0 mEq/L] 10.6 mEq/L (12/25/18 6:13 PM) CHEM PANEL Most recent to oldest [Reference Range]: 1 Creatinine Lvl [0.50-1.40 mg/dL] 0.80 mg/dL (12/25/18 6:13 PM) eGFR 101 mL/min/1.73m2 1 *NA* (12/25/18 6:13 PM) BUN [7-22 mg/dL] 9 mg/dL (12/25/18 6:13 PM) B/C Ratio [6-25] 11 (12/25/18 6:13 PM) Glucose Lvl [70-99 mg/dL] 103 mg/dL *HI* (12/25/18 6:13 PM) Total Protein [6.4-8.4 g/dL] 8.2 g/dL (12/25/18 6:13 PM) Albumin Lvl [3.5-5.0 g/dL] 3.8 g/dL (12/25/18 6:13 PM) Globulin [2.7-4.2 g/dL] 4.4 g/dL *HI* (12/25/18 6:13 PM) A/G Ratio [0.7-1.6] 0.9 (12/25/18 6:13 PM) Calcium Lvl [8.5-10.5 mg/dL] 9.0 mg/dL (12/25/18 6:13 PM) ALT [0-65 unit/L] 59 unit/L (12/25/18 6:13 PM) AST [0-37 unit/L] 31 unit/L (12/25/18 6:13 PM) Alk Phos [39-136 unit/L] 64 unit/L (12/25/18 6:13 PM) Bili Total [0.2-1.3 mg/dL] 0.4 mg/dL (12/25/18 6:13 PM) Lipase Lvl [73-393 unit/L] 178 unit/L (12/25/18 6:13 PM) 1Result Comment: The eGFR is calculated [...] [Reference Range]: 1 S Preg [Negative] Negative *NA* (12/25/18 6:13 PM) URINE AND STOOL Most recent to oldest [Reference Range]: 1 UA Turbidity [Clear] Moderate *ABN* (12/25/18 6:31 PM) UA Color [Yellow] Yellow *NA* (12/25/18 6:31 PM) UA pH [5.0-8.0] 7.0 (12/25/18 6:31 PM) UA Spec Grav [<=1.030] 1.017 (12/25/18 6:31 PM) UA Glucose [Negative] Negative *NA* (12/25/18 6:31 PM) UA Blood [Negative] Small *ABN* (12/25/18 6:31 PM) UA Ketones [Negative] Negative *NA* (12/25/18 6:31 PM) UA Protein [Negative] Negative (12/25/18 6:31 PM) UA Urobilinogen [0.1-1.0 EU/dL] 0.2 EU/dL (12/25/18 6:31 PM) UA Bili [Negative] Negative *NA* (12/25/18 6:31 PM) UA Leuk Est [Negative] Negative (12/25/18 6:31 PM) UA Nitrite [Negative] Negative (12/25/18 6:31 PM) UA WBC [0-5 /HPF] 4 /HPF (12/25/18 6:31 PM) UA RBC [0-2 /HPF] 30 /HPF *HI* (12/25/18 6:31 PM) UA Sq Epi [Few /LPF] Moderate /LPF *ABN* (12/25/18 6:31 PM) UA CaOx Mary [None Seen /HPF] Occasional /HPF *NA* (12/25/18 6:31 PM) UA Mucus [None Seen /LPF] Moderate /LPF *ABN* (12/25/18 6:31 PM) UA [place] Yeast [None Seen /HPF] Occasional /HPF *ABN* (12/25/18 6:31 PM) HEMATOLOGY Most recent to oldest [Reference Range]: 1 WBC [3.7-10.4 K/CMM] 5.4 K/CMM (12/25/18 6:13 PM) RBC [4.20-5.40 M/CMM] 4.27 M/CMM (12/25/18 6:13 PM) Hgb [12.0-16.0 g/dL] 13.2 g/dL (12/25/18 6:13 PM) Hct [36.0-48.0 %] 37.1 % (12/25/18 6:13 PM) MCV [80.0-98.0 fL] 86.9 fL (12/25/18 6:13 PM) MCH [27.0-31.0 pg] 30.9 pg (12/25/18 6:13 PM) MCHC [32.0-36.0 g/dL] 35.6 g/dL (12/25/18 6:13 PM) RDW [11.5-14.5 %] 13.7 % (12/25/18 6:13 PM) MPV [7.4-10.4 fL] 9.2 fL (12/25/18 6:13 PM) Platelet [133-450 K/CMM] 252 K/CMM (12/25/18 6:13 PM) Segs [45.0-75.0 %] 55.6 % (12/25/18 6:13 PM) Lymphocytes [20.0-40.0 %] 36.8 % (12/25/18 6:13 PM) Monocytes [2.0-12.0 %] 6.2 % (12/25/18 6:13 PM) Eosinophils [0.0-4.0 %] 0.9 % (12/25/18 6:13 PM) Basophils [0.0-1.0 %] 0.5 % (12/25/18 6:13 PM) Neutrophils # [1.5-8.1 K/CMM] 3.0 K/CMM (12/25/18 6:13 PM) Lymphocytes # [1.0-5.5 K/CMM] 2.0 K/CMM (12/25/18 6:13 PM) Monocytes # [0.0-0.8 K/CMM] 0.3 K/CMM (12/25/18 6:13 PM) Eosinophils # [0.0-0.5 K/CMM] 0.1 K/CMM (12/25/18 6:13 PM) PT [12.0-14.7 seconds] 13.4 seconds (12/25/18 10:43 PM) INR [0.85-1.17] 1.04 (12/25/18 10:43 PM) PTT [22.9-35.8 seconds] 29.6 seconds (12/25/18 10:43 PM) Immunizations No data available for this section Procedures Procedure Date Related Diagnosis Body Site Status Both fallopian tubes Completed Cholecystectomy Completed Social History Social History Type Response Substance Abuse Use: None. Alcohol Current, Frequency: 1-2 times per month. Smoking Status Never smoker; Concerns about tobacco use in household: No; Exposure to Tobacco Smoke None; Cigarette Smoking Last 365 Days No; Reg Smoking Cessation Counseling No entered on: 12/25/18 Assessment and Plan No data available for this section
--- OUTSIDE RECORDS SUMMARY | 2019-01-19 16:54 | XMS REPORT | Summary of Care ---
:1990 Author Organization [facility] Address [id number] [place] [phone] Encounter HQ Encntr_alias(FIN) [id number] Date(s): 12/16/18 - 12/16/[address] [phone]- [phone] Encounter Diagnosis Nausea & vomiting (Discharge Diagnosis) - 12/16/18 Epigastric pain (Discharge Diagnosis) - 12/16/18 Discharge Disposition: Home or Self Care Attending Physician: Venkatesh Schafer MD Vital Signs Most recent to oldest 1 2 3 [Reference Range]: Height 154.94 cm (12/16/18 10:31 AM) Temperature Oral [96.4-99.1 98.2 DegF 98.7 DegF 98.5 DegF DegF] (12/16/18 5:43 PM) (12/16/18 2:14 PM) (12/16/18 10:31 AM) Blood Pressure [90-140/60-90 122/87 mmHg 131/81 mmHg 113/73 mmHg mmHg] (12/16/18 5:43 PM) (12/16/18 2:14 PM) (12/16/18 10:31 AM) Respiratory Rate [14-20 18 BRMIN 18 BRMIN 18 BRMIN BRMIN] (12/16/18 5:43 PM) (12/16/18 2:14 PM) (12/16/18 10:31 AM) Peripheral Pulse Rate [60-100 93 bpm 94 bpm 142 bpm bpm] (12/16/18 5:43 PM) (12/16/18 2:14 PM) *HI* (12/16/18 10:31 AM) Weight 67 kg (12/16/18 10:31 AM) Body Mass Index 27.91 m2 (12/16/18 10:31 AM) Problem List No data available for this section Allergies, Adverse Reactions, Alerts Substance Reaction Severity Status NKDA Active Medications Ativan 1 mg, 1 tab, Route: PO, Drug form: TAB, ONCE, Dosing Weight 67, kg, Priority: STAT, Start date: 12/16/18 14:41:00 AGRICULTURAL SERVICE TECHNICIAN, Stop date: 12/16/18 14:41:00 AGRICULTURAL SERVICE TECHNICIAN Notes: (Same as: Ativan) Start Date: 12/16/18 Stop Date: 12/16/18 Status: CompletedGI cocktail (aluminum hydroxide/magnesium hydroxide/lidocaine/ simethicone) 30 mL, Route: PO, Dosing Weight 67, kg, ONCE, STAT, Start date: 12/16/18 16:30: 00 AGRICULTURAL SERVICE TECHNICIAN, Stop date: 12/16/18 16:30:00 AGRICULTURAL SERVICE TECHNICIAN Start Date: 12/16/18 Stop Date: 12/16/18 Status: CompletedketOROLAC 30 mg, 1 mL, Route: IVP, Drug form: INJ, ONCE, Dosing Weight 67, kg, Priority: STAT, Start date: 12/16/18 13:19:00 AGRICULTURAL SERVICE TECHNICIAN, Stop date: 12/16/18 13:19:00 AGRICULTURAL SERVICE TECHNICIAN Notes: (Same as:Toradol) IV bolus must be given >15 seconds. Give IM administration slowly and deeply into the muscle.Not for use > 4 days MEDICATION WASTE Product Size: 30 mgProduct Wasted: ___ mg Start Date: 12/16/18 Stop Date: 12/16/18 Status: Completedondansetron 4 mg, 2 mL, Route: IVP, Drug form: INJ, ONCE, Dosing Weight 70.455, kg, Priority : STAT, Start date: 12/16/18 10:36:00 AGRICULTURAL SERVICE TECHNICIAN, Stop date: 12/16/18 10:36:00 AGRICULTURAL SERVICE TECHNICIAN Notes: (Same as: Zofran) MEDICATION WASTE Product Size: 4 mgProduct Wasted: ___ mg Start Date: 12/16/18 Stop Date: 12/16/18 Status: Completedondansetron 4 mg, 2 mL, Route: IVP, Drug form: INJ, ONCE, Dosing Weight 67, kg, Priority: STAT, Start date: 12/16/18 14:41:00 AGRICULTURAL SERVICE TECHNICIAN, Stop date: 12/16/18 14:41:00 AGRICULTURAL SERVICE TECHNICIAN Notes: (Same as: Zofran) MEDICATION WASTE Product Size: 4 mgProduct Wasted: ___ mg Start Date: 12/16/18 Stop Date: 12/16/18 Status: CompletedPhenergan 12.5 mg, 1 tab, Route: PO, Drug form: TAB, ONCE, Dosing Weight 67, kg, Priority : STAT, Start date: 12/16/18 15:58:00 AGRICULTURAL SERVICE TECHNICIAN, Stop date: 12/16/18 15:58:00 AGRICULTURAL SERVICE TECHNICIAN Notes: (Same as: Phenergan) Start Date: 12/16/18 Stop Date: 12/16/18 Status: DiscontinuedPhenergan 12.5 mg oral tablet 12.5 mg=1 tab, PO, Q6H, PRN Nausea & Vomiting, # 8 tab, 0 Refill(s) Start Date: 12/16/18 Stop Date: 12/19/18 Status: OrderedProtonix 40 mg oral enteric coated tablet 40 mg=1 tab, PO, Daily, # 30 tab, 0 Refill(s) Start Date: 12/16/18 Status: OrderedRocephin + sterile water 10 mL 1 gm, Route: IVPB, ONCE, Dosing Weight 67, kg, Priority: STAT, Start date: 12/16 11:20:00 AGRICULTURAL SERVICE TECHNICIAN, Stop date: 12/16/18 11:20:00 AGRICULTURAL SERVICE TECHNICIAN, ABX Indication: Genital Tract Infection Notes: (Same As: Rocephin).Use with 100 mL NS and infuse over 30 min MEDICATION WASTE Product Size: 1000 mgProduct Wasted: ___ mg Start Date: 12/16/18 Stop Date: 12/16/18 Status: CompletedSaline Flush 0.9% 10 mL, Route: IVP, Drug Form: INJ, Dosing Weight 70.455, kg, PRN, PRN Line Flush , Start date: 12/16/18 10:36:00 AGRICULTURAL SERVICE TECHNICIAN, Duration: 30 day, Stop date: 01/15/19 11:35 :00 CDT Notes: (Same as: BD Posiflush) Start Date: 12/16/18 Stop Date: 12/16/18 Status: DiscontinuedSodium Chloride 0.9% (Bolus) IV 1,000 mL, 1000 ml/hr, Infuse Over: 1 hr, Route: IV, 1,000, Drug form: INJ, ONCE , Priority: STAT, Dosing Weight 70.455 kg, Start date: 12/16/18 10:36:00 AGRICULTURAL SERVICE TECHNICIAN, Stop date: 12/16/18 10:36:00 AGRICULTURAL SERVICE TECHNICIAN Start Date: 12/16/18 Stop Date: 12/16/18 Status: Completed Results ELECTROLYTES Most recent to oldest [Reference Range]: 1 Sodium Lvl [135-145 mEq/L] 143 mEq/L (12/16/18 10:46 AM) Potassium Lvl [3.5-5.1 mEq/L] 3.6 mEq/L (12/16/18 10:46 AM) Chloride Lvl [95-109 mEq/L] 110 mEq/L *HI* (12/16/18 10:46 AM) CO2 [24-32 mEq/L] 23 mEq/L *LOW* (12/16/18 10:46 AM) AGAP [10.0-20.0 mEq/L] 13.6 mEq/L (12/16/18 10:46 AM) CHEM PANEL Most recent to oldest [Reference Range]: 1 Creatinine Lvl [0.50-1.40 mg/dL] 0.67 mg/dL (12/16/18 10:46 AM) eGFR 120 mL/min/1.73m2 1 *NA* (12/16/18 10:46 AM) BUN [7-22 mg/dL] 8 mg/dL (12/16/18 10:46 AM) B/C Ratio [6-25] 12 (12/16/18 10:46 AM) Glucose Lvl [70-99 mg/dL] 104 mg/dL *HI* (12/16/18 10:46 AM) Total Protein [6.4-8.4 g/dL] 8.2 g/dL (12/16/18 10:46 AM) Albumin Lvl [3.5-5.0 g/dL] 4.4 g/dL (12/16/18 10:46 AM) Globulin [2.7-4.2 g/dL] 3.8 g/dL (12/16/18 10:46 AM) A/G Ratio [0.7-1.6] 1.2 (12/16/18 10:46 AM) Calcium Lvl [8.5-10.5 mg/dL] 8.9 mg/dL (12/16/18 10:46 AM) ALT [0-65 unit/L] 46 unit/L (12/16/18 10:46 AM) AST [0-37 unit/L] 24 unit/L (12/16/18 10:46 AM) Alk Phos [39-136 unit/L] 75 unit/L (12/16/18 10:46 AM) Bili Total [0.2-1.3 mg/dL] 0.6 mg/dL (12/16/18 10:46 AM) Lactic Acid Lvl [0.5-2.2 mMol/L] 1.4 mMol/L (12/16/18 10:46 AM) 1Result Comment: The eGFR is calculated using [...] recent to oldest [Reference Range]: 1 U Amph Scr [Negative] Negative *NA* (12/16/18 10:51 AM) U Nan Scr [Negative] Negative *NA* (12/16/18 10:51 AM) U Benzodiaz Scr [Negative] Negative *NA* (12/16/18 10:51 AM) U Cannab Scr [Negative] Negative *NA* (12/16/18 10:51 AM) U Cocaine Scr [Negative] Negative *NA* (12/16/18 10:51 AM) U Opiate Scr [Negative] Negative *NA* (12/16/18 10:51 AM) U Phencyclidine Scr [Negative] Negative *NA* (12/16/18 10:51 AM) UDS Note See Note *NA* (12/16/18 10:51 AM) URINE CHEM Most recent to oldest [Reference Range]: 1 U Preg [Negative] Negative (12/16/18 10:51 AM) URINE AND STOOL Most recent to oldest [Reference Range]: 1 UA Turbidity [Clear] Marked *ABN* (12/16/18 10:51 AM) UA Color [Yellow] Yellow *NA* (12/16/18 10:51 AM) UA pH [5.0-8.0] 6.0 (12/16/18 10:51 AM) UA Spec Grav [<=1.030] 1.009 (12/16/18 10:51 AM) UA Glucose [Negative] Negative *NA* (12/16/18 10:51 AM) UA Blood [Negative] Moderate *ABN* (12/16/18 10:51 AM) UA Ketones [Negative] Negative *NA* (12/16/18 10:51 AM) UA Protein [Negative] Negative (12/16/18 10:51 AM) UA Urobilinogen [0.1-1.0 mg/dL] <=1.0 mg/dL *NA* (12/16/18 10:51 AM) UA Bili [Negative] Negative *NA* (12/16/18 10:51 AM) UA Leuk Est [Negative] Large *ABN* (12/16/18 10:51 AM) UA Nitrite [Negative] Negative (12/16/18 10:51 AM) UA WBC [0-5 /HPF] 56 /HPF *HI* (12/16/18 10:51 AM) UA RBC [0-2 /HPF] 3 /HPF *HI* (12/16/18 10:51 AM) UA Bacteria [None Seen /HPF] Few /HPF *NA* (12/16/18 10:51 AM) UA Sq Epi [Few /LPF] Many /LPF *ABN* (12/16/18 10:51 AM) UA Mucus [None Seen /LPF] Few /LPF *NA* (12/16/18 10:51 AM) HEMATOLOGY Most recent to oldest [Reference Range]: 1 WBC [3.7-10.4 K/CMM] 4.7 K/CMM (12/16/18 10:46 AM) RBC [4.20-5.40 M/CMM] 4.65 M/CMM (12/16/18 10:46 AM) Hgb [12.0-16.0 g/dL] 14.1 g/dL (12/16/18 10:46 AM) Hct [36.0-48.0 %] 40.9 % (12/16/18 10:46 AM) MCV [80.0-98.0 fL] 87.9 fL (12/16/18 10:46 AM) MCH [27.0-31.0 pg] 30.2 pg (12/16/18 10:46 AM) MCHC [32.0-36.0 g/dL] 34.4 g/dL (12/16/18 10:46 AM) RDW [11.5-14.5 %] 14.1 % (12/16/18 10:46 AM) MPV [7.4-10.4 fL] 9.3 fL (12/16/18 10:46 AM) Platelet [133-450 K/CMM] 266 K/CMM (12/16/18 10:46 AM) Segs [45.0-75.0 %] 62.4 % (12/16/18 10:46 AM) Lymphocytes [20.0-40.0 %] 31.3 % (12/16/18 10:46 AM) Monocytes [2.0-12.0 %] 4.7 % (12/16/18 10:46 AM) Eosinophils [0.0-4.0 %] 1.1 % (12/16/18 10:46 AM) Basophils [0.0-1.0 %] 0.5 % (12/16/18 10:46 AM) Neutrophils # [1.5-8.1 K/CMM] 2.9 K/CMM (12/16/18 10:46 AM) Lymphocytes # [1.0-5.5 K/CMM] 1.5 K/CMM (12/16/18 10:46 AM) Monocytes # [0.0-0.8 K/CMM] 0.2 K/CMM (12/16/18 10:46 AM) Eosinophils # [0.0-0.5 K/CMM] 0.1 K/CMM (12/16/18 10:46 AM) MOLECULAR DIAGNOSTIC Most recent to oldest [Reference Range]: 1 Source APTIMA Endocervix *NA* (12/16/18 1:59 PM) N gonorrhea by Amp Det (APTIMA) [Negative] Negative *NA* (12/16/18 1:59 PM) C trachomatis by Amp Det (APTIMA) [Negative] Negative *NA* (12/16/18 1:59 PM) Microbiology Reports TEST:Culture: Urine STATUS:Order in Progress BODY SITE: SOURCE:Urine, Clean Catch COLLECTED DATE/TIME:12/16/18 10:51 AMPRELIMINARY REPORTNo Growth; Holding Immunizations No data available for this section [...] Reg Smoking Cessation Counseling No entered on: 12/16/18 Assessment and Plan No data available for this section
--- OUTSIDE RECORDS SUMMARY | 2019-01-19 16:54 | XMS REPORT ---
:1990 [facility] Address [address] [place] [address] Care Team Providers Name Role Phone Unavailable Unavailable Unavailable Problems This patient has no known problems. Allergies, Adverse Reactions, Alerts This patient has no known allergies or adverse reactions. Medications This patient has no known medications. Encounters Start End Encounter Admission Attending Care Care Encounter Date/Time Date/Time Type Type Clinicians Facility Department ID 2018-12-19 2018-12-19 Emergency [facility] [id number] 15:39:25 15:39:25 2018-12-19 2018-12-19 Emergency [facility] [id number] 14:38:01 14:38:01 2018-06-14 2018-06-14 Emergency [facility] [id number] 14:46:26 14:46:26 2018-06-14 2018-06-14 Emergency [facility] [id number] 13:00:40 13:00:40 2018-06-14 2018-06-14 [facility] [id number] 00:00:00 00:00:00 2017-05-31 2017-05-31 Emergency [facility] [id number] 13:22:01 13:22:01 2017-05-31 2017-05-31 Emergency [facility] [id number] 12:11:49 12:11:49
[2019-01-19] MEDS ORDERED: NA CHLORIDE 0.9% 1,000 ML ONE (17:19)
[2019-01-19] MEDS ORDERED: IBUPROFEN 400 MG TAB ONE (17:35)
--- NOTE | 2019-01-19 17:36 | RAD REPORT ---
EXAM DESCRIPTION: Gómez Barragan (2 Views)01/19/2019 5:24 pm CLINICAL HISTORY: Cough COMPARISON: 2014 FINDINGS: The lungs appear clear of acute infiltrate. The heart is normal size IMPRESSION: No acute abnormalities displayed
[2019-01-19 17:49] LABS: Absolute Lymphocytes (CBC) 0.6 K/uL (0.7-4.9); Absolute Monocytes 0.5 K/uL (0.1-1.3); Absolute Neutrophil 4.3 K/uL (1.8-8.0); Basophils % 0.4 % (0-1.3); Eosinophils % 1.2 % (0-4.4); Hematocrit 38.2 % (36.0-45.0); Lymphocytes % 11.2 % (15.3-44.8); MPV 9.4 fL (7.6-11.3); Monocytes % 8.8 % (3.3-12.3); RBC Red Blood Cell Count 4.29 M/uL (3.86-4.86)
[2019-01-19 18:02] LABS: ALT/SGPT 39 U/L (12-78); AST/SGOT 21 U/L (15-37); Albumin 4.2 g/dL (3.4-5.0); Alkaline Phosphatase 64 U/L (45-117); BUN Blood Urea Nitrogen 7 mg/dL (7-18); Bicarbonate 25 mmol/L (21-32); Bilirubin Direct < 0.1 mg/dL (0-0.2); Bilirubin Total 0.2 mg/dL (0.2-1.0); Glucose Level 91 mg/dL (74-106); Lipase 156 U/L (73-393); Potassium 3.5 mmol/L (3.5-5.1); Sodium Level 137 mmol/L (136-145)
[2019-01-19 18:57] LABS: Urine Blood 3+ (NEG); Urine Glucose NEGATIVE (NEG); Urine Protein NEGATIVE (NEG); Urine Specific Gravity <1.005 (1.005-1.030); Urine pH 5.5 (5.0-7.0)
[2019-01-19 19:11] LABS: Urine Bacteria <20 /HPF (<20); Urine Culture Reflex Order NOT NEEDED
--- NOTE | 2019-01-19 19:44 | RAD REPORT ---
EXAM DESCRIPTION: CT - Abdomen Pelvis W Contrast - 01/19/2019 7:11 pm CLINICAL HISTORY: Abdominal pain/right flank pain COMPARISON: none. TECHNIQUE: Computed axial tomography of the abdomen pelvis was obtained. 100 cc Isovue-300 was admin istered intravenously. Oral contrast was given All CT scans are performed using dose optimization technique as appropriate and may include automated exposure control or mA/KV adjustment according to patient size. FINDINGS: The liver, spleen, pancreas, adrenal and kidneys appear unremarkable. There is no evidence of diverticulitis. The appendix is normal. The uterus is retroverted. An adnexal mass is not noted. IMPRESSION: No acute abnormality is displayed.
[2019-01-19] MEDS ORDERED: BENZONATATE 100 MG CAP PO ONE ×2 (20:19→20:20)
--- NOTE | 2019-01-19 20:24 | EDPHYS ---
Physician Documentation [facility] Name: Kandi Whittaker Age: 28 yrs Sex: Female : 1990 Arrival Date: 01/19/2019 Time: 14:28 Bed 27 Private MD: None, None ED Physician Wilder Delgado HPI: 01/19 16:50 This 28 yrs old Female presents to ER via Ambulatory with complaints of Fever, cp Urinary Problem. 16:50 The patient reports fever, with an emergency department temperature of 102.1 degrees cp Fahrenheit. 16:50 Onset: The symptoms/episode began/occurred 3 day(s) ago. Associated signs and symptoms: cp Pertinent positives: chest pain, cough, right flank pain. Severity of symptoms: in the emergency department the symptoms are unchanged despite home interventions. 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 - Social history:: Smoking status: Patient/guardian denies using tobacco. - Ebola Screening: : No symptoms or risks identified at this time. ROS: 17:00 Constitutional: Positive for fever, Negative for poor PO intake. cp 17:00 Eyes: Negative for injury, pain, redness, and discharge. cp 17:00 ENT: Negative for drainage from ear(s), ear pain, sore throat, difficulty swallowing, cp difficulty handling secretions. 17:00 Cardiovascular: Positive for chest pain, with cough, of the right lower lateral chest, Negative for edema, palpitations. 17:00 Respiratory: Positive for cough, "sounds productive", Negative for wheezing. 17:00 Abdomen/GI: Negative for vomiting, diarrhea, constipation, black/tarry stool, rectal bleeding. 17:00 Back: Positive for flank pain, on the right. 17:00 : Positive for urinary frequency, vaginal discharge, Negative for vaginal bleeding. 17:00 Skin: Negative for cellulitis, rash. 17:00 Neuro: Negative for altered mental status, headache, weakness. 17:00 All other systems are negative. Exam: 17:05 Constitutional: The patient appears in no acute distress, alert, awake, non-toxic, well cp developed, well nourished, febrile. 17:05 Head/Face: Normocephalic, atraumatic. cp 17:05 Eyes: Periorbital structures: appear normal, Conjunctiva: normal, no exudate, no injection, Sclera: no appreciated abnormality, Lids and lashes: appear normal, bilaterally. 17:05 ENT: External ear(s): are unremarkable, Ear canal(s): are normal, clear, TM's: bulging, is not appreciated, bilaterally, dullness, bilaterally, erythema, is not appreciated, bilaterally, Nose: is normal, Mouth: Lips: moist, Oral mucosa: pink and intact, moist, Posterior pharynx: is normal, airway is patent, no erythema, no exudate. 17:05 Neck: ROM/movement: is normal, is supple, without pain, no range of motions limitations, no meningismus, no nuchal rigidity. 17:05 Chest/axilla: Inspection: normal, Palpation: crepitus, is not appreciated, tenderness, that is mild, of the right lower lateral chest wall, that partially reproduces the patient's complaints. 17:05 Cardiovascular: Rate: tachycardic, Rhythm: regular, Edema: is not appreciated, JVD: is not appreciated. 17:05 Respiratory: the patient does not display signs of respiratory distress, Respirations: normal, no use of accessory muscles, no retractions, no splinting, no tachypnea, labored breathing, is not present, Breath sounds: are clear throughout, no decreased breath sounds, no stridor, no wheezing. 17:05 Abdomen/GI: Inspection: abdomen appears normal, Bowel sounds: active, all quadrants, Palpation: soft, in all quadrants, moderate abdominal tenderness, in the posterior aspect of right lateral abdomen, anterior aspect of right lateral abdomen and right upper quadrant, rebound tenderness, is not appreciated, voluntary guarding, is not appreciated, involuntary guarding, is not appreciated. 17:05 Skin: cellulitis, is not appreciated, no rash present. 17:05 Neuro: Orientation: to person, place \\T\\ time. Mentation: is normal, Cerebellar function: is grossly normal, Motor: moves all fours, strength is normal, Sensation: is normal. Vital Signs: 14:42 BP 136 / 92; Pulse 115; Resp 18 S; Temp 102.1(O); Pulse Ox 97% on R/A; Weight 65.77 kg aa5 (R); Height 5 ft. 4 in. (162.56 cm) (R); Pain 10/10; 17:22 Temp 100.2(O); rv 18:38 BP 103 / 77 RA; Pulse 99; Resp 17 S; Temp 98.7(O); Pulse Ox 100% on R/A; rv 20:30 BP 106 / 80; Pulse 72; Resp 19; Pulse Ox 100% on R/A; ca1 14:42 Body Mass Index 24.89 (65.77 kg, 162.56 cm) aa5 MDM: 16:43 Patient medically screened. cp 17:30 Differential diagnosis: URI, bronchitis, pneumonia UTI, gastroenteritis, meningitis. cp 20:20 Data reviewed: vital signs, nurses notes, lab test result(s), radiologic studies, CT cp scan, plain films, and as a result, I will discharge patient. 20:22 Counseling: I had a detailed discussion with the patient and/or guardian regarding: the cp historical points, exam findings, and any diagnostic results supporting the discharge/admit diagnosis, lab results, radiology results, to return to the emergency department if symptoms worsen or persist or if there are any questions or concerns that arise at home. 20:22 Response to treatment: the patient's symptoms have markedly improved after treatment, cp and as a result, I will discharge patient. 01/19 14:35 Order name: Urine Culture [facility] 01/19 14:35 Order name: Urine Microscopic Only; Complete Time: 19:58 [facility] 01/19 19:59 Interpretation: Normal except: URBC 5-10; SQEPI 10-20. 01/19 17:05 Order name: Influenza Screen (a \\T\\ B) cp 01/19 17:05 Order name: Basic Metabolic Panel; Complete Time: 18:04 cp 01/19 18:04 Interpretation: Normal except: CA 8.4. 01/19 17:05 Order name: CBC with Diff; Complete Time: 18:01 01/19 18:01 Interpretation: Normal except: JILL% 78.4; LYM% 11.2; LYMA 0.6. 01/19 17:05 Order name: Creatinine for Radiology; Complete Time: 18:01 cp 01/19 17:05 Order name: XRAY Chest Pa And Lat (2 Views); Complete Time: 18:01 cp 01/19 18:01 Interpretation: Report reviewed. cp 04 17:05 Order name: Hepatic Function; Complete Time: 18:04 cp 01/19 18:05 Interpretation: Normal except: GLOB 3.8. cp 01/19 17:05 Order name: Lipase; Complete Time: 18:04 cp 01/19 17:05 Order name: Influenza Screen (A ; Complete Time: 19:58 EDMS 01/19 18:02 Order name: CT Abd/Pelvis - W/Contrast; Complete Time: 19:58 cp 01/19 18:51 Order name: Urine Dipstick--Ancillary (enter results); Complete Time: 19:58 bd 01/19 19:58 Interpretation: Normal except: UBLD 3+; UESTR TRACE. cp 01/19 14:35 Order name: Urine Test (obtain specimen); Complete Time: 18:52 snw 01/19 14:35 Order name: Urine Dipstick-Ancillary (obtain specimen); Complete Time: 18:52 snw 01/19 17:05 Order name: IV Saline Lock; Complete Time: 17:23 cp 01/19 17:05 Order name: Labs collected and sent; Complete Time: 17:23 cp 01/19 20:05 Order name: PO challenge; Complete Time: 20:10 cp Administered Medications: 17:36 Drug: NS 0.9% 1000 ml Route: IV; Rate: 1 bolus; Site: left antecubital; rv 18:49 Follow up: IV Status: Completed infusion rv 17:36 Drug: Motrin 800 mg Route: PO; rv 18:49 Follow up: Response: Temperature is decreased rv 18:42 CANCELLED (Physician Discretion): Ativan 0.5 mg IVP once cp 20:11 Drug: Tessalon Perle 200 mg Route: PO; rv Disposition: 01/20 17:46 Co-signature as Attending Physician, Wilder Delgado MD. rn Disposition: 01/19/19 20:23 Discharged to Home. Impression: Acute upper respiratory infection, unspecified, Unspecified abdominal pain. - Condition is Stable. - Discharge Instructions: Abdominal Pain, Adult, Upper Respiratory Infection, Adult, Viral Respiratory Infection. - Prescriptions for Ibuprofen 800 mg Oral Tablet - take 1 tablet by ORAL route every 8 hours As needed take with food; 30 tablet. Tessalmodesta Perles 100 mg Oral Capsule - take 2 capsule by ORAL route every 8 hours As needed; 30 capsule. - Medication Reconciliation Form, Thank You Letter, Antibiotic Education, Prescription Opioid Use form. - Follow up: Private Physician; When: 1 - 2 days; Reason: Worsening of condition. - Problem is new. - Symptoms have improved. Signatures: Dispatcher [employer] EDHI Sera Beyer, FLIGHT OPERATIONS DISPATCH CLERK-C FLIGHT OPERATIONS DISPATCH CLERK-Csnw Wilder Delgado MD MD rn Lisa Nails RN RN aa5 Jefferson Mercer PA PA cp Dane Chavez, RN RN rv AcobRema RN RN ca1 Corrections: (The following items were deleted from the chart) 01/19 18:01 18:01 Normal except: JILL% 78.4; LYM% 11.2. cp cp 18:04 18:04 Normal except. cp cp 18:42 17:49 Ativan 0.5 mg IVP once ordered. cp cp 18:57 18:52 URINE --ANCILLARY+UC.LAB.BRZ ordered. EDHI EDMS 20:41 20:23 01/19/2019 20:23 Discharged to Home. Impression: Acute upper respiratory ca1 infection, unspecified; Unspecified abdominal pain. Condition is Stable. Forms are Medication Reconciliation Form, Thank You Letter, Antibiotic Education, Prescription Opioid Use. Follow up: Private Physician; When: 1 - 2 days; Reason: Worsening of condition. Problem is new. Symptoms have improved. cp
--- NOTE | 2019-01-19 20:24 | ER ---
Nurse's Notes [facility] Name: Kandi Whittaker Age: 28 yrs Sex: Female : 1990 Arrival Date: 01/19/2019 Time: 14:28 Bed 27 Private MD: None, None Diagnosis: Acute upper respiratory infection, unspecified;Unspecified abdominal pain Presentation: 01/19 14:40 Presenting complaint: Patient states: cough, fever, pain to right lower lateral side of aa5 chest, and urinary frequency x 3 days ago. Reports taking Tylenol at 1200 today. Transition of care: patient was not received from another setting of care. Onset of symptoms was January 2019. Risk Assessment: Do you want to hurt yourself or someone else? Patient reports no desire to harm self or others. Care prior to arrival: None. 14:40 Method Of Arrival: Ambulatory aa5 14:40 Acuity: AMNA 3 aa5 17:21 Initial Sepsis Screen: Does the patient meet any 2 criteria? No. Patient's initial rv sepsis screen is negative. Does the patient have a suspected source of infection? No. Patient's initial sepsis screen is negative. 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 - Social history:: Smoking status: Patient/guardian denies using tobacco. - Ebola Screening: : No symptoms or risks identified at this time. Screenin:20 Abuse screen: Denies threats or abuse. Denies injuries from another. Nutritional rv screening: No deficits noted. Tuberculosis screening: No symptoms or risk factors identified. Fall Risk None identified. Assessment: 17:19 General: Appears in no apparent distress. uncomfortable, ill, Behavior is calm, rv cooperative. Pain: Denies pain. Neuro: Level of Consciousness is awake, alert, obeys commands, Oriented to person, place, time, situation. Cardiovascular: Capillary refill < 3 seconds. Respiratory: Reports. GI: No signs and/or symptoms were reported involving the gastrointestinal system. : Reports burning with urination, urgency, urinary frequency. EENT: No signs and/or symptoms were reported regarding the EENT system. Derm: Skin is intact. Musculoskeletal: No signs and/or symptoms reported regarding the musculoskeletal system. 18:52 Reassessment: Patient appears in no apparent distress at this time. Patient and/or rv family updated on plan of care and expected duration. Pain level reassessed. Patient is alert, oriented x 3, equal unlabored respirations, skin warm/dry/pink. Patient denies pain at this time. Patient states feeling better. Patient states symptoms have improved. 20:30 Reassessment: Patient appears in no apparent distress at this time. Patient is alert, ca1 oriented x 3, equal unlabored respirations, skin warm/dry/pink. Vital Signs: 14:42 BP 136 / 92; Pulse 115; Resp 18 S; Temp 102.1(O); Pulse Ox 97% on R/A; Weight 65.77 kg aa5 (R); Height 5 ft. 4 in. (162.56 cm) (R); Pain 10/10; 17:22 Temp 100.2(O); rv 18:38 BP 103 / 77 RA; Pulse 99; Resp 17 S; Temp 98.7(O); Pulse Ox 100% on R/A; rv 20:30 BP 106 / 80; Pulse 72; Resp 19; Pulse Ox 100% on R/A; ca1 14:42 Body Mass Index 24.89 (65.77 kg, 162.56 cm) aa5 ED Course: 14:28 Patient arrived in ED. mr 14:29 None, None is Private Physician. mr 14:39 Arm band placed on. aa5 14:41 Triage completed. aa5 16:42 Jefferson Mercer PA is PHCP. cp 16:43 Wilder Delgado MD is Attending Physician. cp 17:15 Inserted saline lock: 20 gauge in left antecubital area, using aseptic technique. Blood rv collected. 17:20 Patient has correct armband on for positive identification. Placed in gown. Bed in low rv position. Call light in reach. Side rails up X 1. Pulse ox on. NIBP on. 17:23 XRAY Chest Pa And Lat (2 Views) In Process Unspecified. EDMS 18:[address] via wheelchair. nj 19:11 CT completed. Patient tolerated procedure well. Patient moved back from CT. nj 19:11 CT Abd/Pelvis - W/Contrast In Process Unspecified. EDMS 20:39 No provider procedures requiring assistance completed. IV discontinued, intact, ca1 bleeding controlled, No redness/swelling at site. Pressure dressing applied. Administered Medications: 17:36 Drug: NS 0.9% 1000 ml Route: IV; Rate: 1 bolus; Site: left antecubital; rv 18:49 Follow up: IV Status: Completed infusion rv 17:36 Drug: Motrin 800 mg Route: PO; rv 18:49 Follow up: Response: Temperature is decreased rv 18:42 CANCELLED (Physician Discretion): Ativan 0.5 mg IVP once cp 20:11 Drug: Tessalon Perle 200 mg Route: PO; rv Outcome: 20:23 Discharge ordered by MD. cp 20:39 Discharged to home ambulatory. ca1 20:39 Condition: stable 20:39 Discharge instructions given to patient, Instructed on discharge instructions, follow up and referral plans. medication usage, Demonstrated understanding of instructions, follow-up care, medications, Prescriptions given X 2. 20:41 Patient left the ED. ca1 Signatures: Dispatcher [employer] EDWV ThompsonBri severino mr NailsLisa, RN RN aa5 Jefferson Mercer PA PA Blayne العراقي Ronaldo, RN RN rv Rema Theodore RN RN ca1 Corrections: (The following items were deleted from the chart) 14:43 14:42 Pulse 115bpm; Resp 18bpm; Spontaneous; Pulse Ox 97% RA; Temp 102.1F Oral; 65.77 aa5 kg Reported; Height 5 ft. 4 in. Reported; BMI: 24.8; Pain 10; aa5
[2019-01-19 21:49] VITALS: TEMP 98.7; O2SAT 100
[2019-01-19 21:50] VITALS: BP 106/80
== END 2019-01-19 20:41 | disposition home or self-care (01) ==
LOC: ER 14:25
DX: J06.9 Acute upper respiratory infection, unspecified (principal); R10.9 Unspecified abdominal pain
CPT/HCPCS: 36415; 71046; 74177; 80048; 80076; 81003; 81015; 83690; 85025; 87086; 87088; 87804; 96360; 99284; J7030; Q9967

== ENCOUNTER 2019-07-20 19:34 | Emergency (ER) | payer SELFPAY ==
[2019-07-20 21:50] LABS: Absolute Lymphocytes (CBC) 2.2 K/uL (0.7-4.9); Basophils % 0.4 % (0-1.3); Hematocrit 39.1 % (36.0-45.0); Lymphocytes % 37.3 % (15.3-44.8); MPV 8.7 fL (7.6-11.3); RBC Red Blood Cell Count 4.58 M/uL (3.86-4.86)
[2019-07-20 22:08] LABS: Urine Blood TRACE (NEG); Urine Glucose NEGATIVE (NEG); Urine Protein NEGATIVE (NEG)
[2019-07-20 22:15] LABS: ALT/SGPT 52 U/L (12-78); AST/SGOT 39 U/L (15-37); Albumin 3.9 g/dL (3.4-5.0); Alkaline Phosphatase 62 U/L (45-117); BUN Blood Urea Nitrogen 10 mg/dL (7-18); Bicarbonate 26 mmol/L (21-32); Bilirubin Total 0.4 mg/dL (0.2-1.0); Glucose Level 90 mg/dL (74-106); Lipase 154 U/L (73-393); Potassium 3.9 mmol/L (3.5-5.1); Protein, Total 7.8 g/dL (6.4-8.2); Sodium Level 142 mmol/L (136-145)
[2019-07-20 23:23] LABS: Urine Amorphous Sediment 4+ /HPF (NONE SEEN); Urine Bacteria <20 /HPF (<20); Urine Culture Reflex Order NOT NEEDED; Urine RBC <5 /HPF (NONE SEEN)
--- NOTE | 2019-07-20 23:33 | ER ---
Nurse's Notes [facility] Name: Kandi Whittaker Age: 29 yrs Sex: Female : 1990 Arrival Date: 07/20/2019 Time: 19:37 Bed 27 Private MD: Diagnosis: Segmental and somatic dysfunction of thoracic region;Segmental and somatic dysfunction of sacral region;Segmental and somatic dysfunction of rib cage;Segmental and somatic dysfunction of cervical region Presentation: 07/20 19:50 Presenting complaint: Patient states: Stiff neck for two weeks and abdominal pain ao started yesterday. Report pain 8/10. Patient also reports blurry vision and dizziness. Transition of care: patient was not received from another setting of care. Onset of symptoms is unknown. Risk Assessment: Do you want to hurt yourself or someone else? Patient reports no desire to harm self or others. Initial Sepsis Screen: Does the patient meet any 2 criteria? No. Patient's initial sepsis screen is negative. Does the patient have a suspected source of infection? No. Patient's initial sepsis screen is negative. Care prior to arrival: None. 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 - Social history:: Smoking status: Patient/guardian denies using tobacco. - Ebola Screening: : Patient negative for fever greater than or equal to 101.5 degrees Fahrenheit, and additional compatible Ebola Virus Disease symptoms Patient denies exposure to infectious person Patient denies travel to an Ebola-affected area in the 21 days before illness onset. Screenin:00 Abuse screen: Denies threats or abuse. Nutritional screening: No deficits noted. tr5 Tuberculosis screening: No symptoms or risk factors identified. Fall Risk None identified. Assessment: 21:00 General: Appears uncomfortable, Behavior is calm, cooperative, appropriate for age. tr5 Pain: Complains of pain in base of the skull and abdomen Pain does not radiate. Quality of pain is described as aching, Pain began 2-3 days ago. Is continuous. Neuro: Level of Consciousness is awake, alert, Oriented to person, place, time, Business Performance Manager are equal bilaterally Moves all extremities. Reports blurred vision. Cardiovascular: Heart tones present Capillary refill < 3 seconds. Respiratory: Airway is patent Trachea midline Respiratory effort is even, unlabored, Respiratory pattern is regular, symmetrical. GI: Bowel sounds present X 4 quads. Abd is soft X 4 quads Reports upper abdominal pain. : No signs and/or symptoms were reported regarding the genitourinary system. EENT: No signs and/or symptoms were reported regarding the EENT system. Derm: No signs and/or symptoms reported regarding the dermatologic system. Musculoskeletal: No signs and/or symptoms reported regarding the musculoskeletal system. 22:00 Reassessment: No changes from previously documented assessment. Patient and/or family tr5 updated on plan of care and expected duration. Pain level reassessed. Patient is alert, oriented x 3, equal unlabored respirations, skin warm/dry/pink. 23:36 Reassessment: Patient appears in no apparent distress at this time. Patient is alert, ca1 oriented x 3, equal unlabored respirations, skin warm/dry/pink. Patient states feeling better. Vital Signs: 19:53 BP 123 / 88; Pulse 88; Resp 16; Temp 98.7(O); Pulse Ox 99% on R/A; Weight 63.5 kg (R); ao Height 5 ft. 2 in. (157.48 cm) (R); Pain 8/10; 21:00 BP 110 / 94; Pulse 74; Resp 17; Pulse Ox 100% on R/A; tr5 23:00 BP 116 / 70; Pulse 95; Resp 16; Pulse Ox 100% on R/A; tr5 23:15 BP 116 / 70; Pulse 95; Resp 16 S; Pulse Ox 99% on R/A; ca1 19:53 Body Mass Index 25.61 (63.50 kg, 157.48 cm) ao ED Course: 19:37 Patient arrived in ED. cf2 19:44 Jose Luis Servin, RN is Primary Nurse. tr5 19:53 Triage completed. ao 19:54 Arm band placed on right wrist. Patient placed on a stretcher, on pulse oximetry, ao Patient notified of wait time. 21:00 Placed in gown. Bed in low position. Call light in reach. tr5 21:21 Initial lab(s) drawn, by me, sent to lab. Inserted saline lock: 20 gauge in left tr5 antecubital area, using aseptic technique. 22:51 Felice Jeffries MD is Attending Physician. ps1 23:07 CT Head Brain wo Cont In Process Unspecified. EDMS 23:37 No provider procedures requiring assistance completed. IV discontinued, intact, ca1 bleeding controlled, No redness/swelling at site. Pressure dressing applied. Administered Medications: No medications were administered Outcome: 23:31 Discharge ordered by . ps1 23:37 Discharged to home ambulatory, with friend. ca1 23:37 Condition: stable 23:37 Discharge instructions given to patient, Instructed on discharge instructions, follow up and referral plans. medication usage, Demonstrated understanding of instructions, follow-up care, medications, Prescriptions given X 3. 23:39 Patient left the ED. ca1 Signatures: Dispatcher [employer] EDCO Pierce Pedraza RN RN ao Singer, Phillip, MD MD ps1 Rema Theodore RN RN ca1 Jose Luis Servin RN RN tr5 Erica Broussard 2
--- NOTE | 2019-07-20 23:33 | EDPHYS ---
Physician Documentation [facility] Name: Kandi Whittaker Age: 29 yrs Sex: Female : 1990 Arrival Date: 07/20/2019 Time: 19:37 Bed 27 Private MD: ED Physician Felice Jeffries HPI: 07/20 23:18 This 29 yrs old Female presents to ER via Ambulatory with complaints of ps1 Abdominal Pain, Stiff Neck, Blurred Vision. 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 She states that her pain is atraumatic. No fever. No medical problems. States that she does not engage in IVDA. Not immunocompromised. States that she had blurred vision but has since resolved. . 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 - Social history:: Smoking status: Patient/guardian denies using tobacco. - Ebola Screening: : Patient negative for fever greater than or equal to 101.5 degrees Fahrenheit, and additional compatible Ebola Virus Disease symptoms Patient denies exposure to infectious person Patient denies travel to an Ebola-affected area in the 21 days before illness onset. ROS: 23:18 Constitutional: Negative for fever, chills, and weight loss, Eyes: Negative for injury, ps1 pain, redness, and discharge, ENT: Negative for injury, pain, and discharge. 23:18 Cardiovascular: Negative for chest pain, palpitations, and edema, Respiratory: Negative for shortness of breath, cough, wheezing, and pleuritic chest pain, Abdomen/GI: Negative for abdominal pain, nausea, vomiting, diarrhea, and constipation. 23:18 Neck: Positive for tenderness. 23:18 MS/extremity: Positive for pain, tenderness, of the right subscapular area and left low back and base of the skull. Exam: 23:18 Constitutional: This is a well developed, well nourished patient who is awake, alert, ps1 and in no acute distress. Head/Face: Normocephalic, atraumatic. Eyes: Pupils equal round and reactive to light, extra-ocular motions intact. Lids and lashes normal. Conjunctiva and sclera are non-icteric and not injected. Chest/axilla: Normal chest wall appearance and motion. Nontender with no deformity. No lesions are appreciated. Cardiovascular: Regular rate and rhythm. No gallops, murmurs, or rubs. Normal PMI, no JVD. No pulse deficits. Respiratory: Lungs have equal breath sounds bilaterally, clear to auscultation and percussion. No rales, rhonchi or wheezes noted. No increased work of breathing, no retractions or nasal flaring. Abdomen/GI: Soft, non-tender, with normal bowel sounds. No distension or tympany. No guarding or rebound. No evidence of tenderness throughout. 23:18 Musculoskeletal/extremity: Extremities: all appear grossly normal, with no appreciated pain with palpation, patient examined in prone and sitting position. Patient had sacroliac dysfunction on the right with compensatory changes in the lumbar, thoracic, and cervical spine. Paraspinal tenderness appreciated. Group curve with rotation to R L-3-5. T5-9 on left T3-5 on right. . Vital Signs: 19:53 BP 123 / 88; Pulse 88; Resp 16; Temp 98.7(O); Pulse Ox 99% on R/A; Weight 63.5 kg (R); ao Height 5 ft. 2 in. (157.48 cm) (R); Pain 8/10; 21:00 BP 110 / 94; Pulse 74; Resp 17; Pulse Ox 100% on R/A; tr5 23:00 BP 116 / 70; Pulse 95; Resp 16; Pulse Ox 100% on R/A; tr5 23:15 BP 116 / 70; Pulse 95; Resp 16 S; Pulse Ox 99% on R/A; ca1 19:53 Body Mass Index 25.61 (63.50 kg, 157.48 cm) ao Procedures: 23:18 Performed osteopathic manipuation: HVLA performed to areas described above. Patient ps1 pain free and symptom free. Stable for discharge. Home with anaprox, medrol, robaxin. . MDM: 23:18 Data reviewed: vital signs, nurses notes, lab test result(s), and as a result, I will ps1 discharge patient. Counseling: I had a detailed discussion with the patient and/or guardian regarding: the historical points, exam findings, and any diagnostic results supporting the discharge/admit diagnosis, lab results, the need for outpatient follow up, to return to the emergency department if symptoms worsen or persist or if there are any questions or concerns that arise at home. 23:31 Patient medically screened. ps1 07/20 21:02 Order name: Urine Microscopic Only aa1 07/20 21:44 Order name: Comprehensive Metabolic Panel; Complete Time: 22:51 EDMS 07/20 21:44 Order name: Lipase; Complete Time: 22:51 EDMS 07/20 21:02 Order name: IV Saline Lock; Complete Time: 21:21 aa1 07/20 21:02 Order name: Labs collected and sent; Complete Time: 21:21 aa1 07/20 21:02 Order name: Urine Dipstick-Ancillary (obtain specimen); Complete Time: 22:03 aa1 07/20 21:02 Order name: Urine Test (obtain specimen); Complete Time: 22:03 aa1 07/20 21:02 Order name: CT Head Brain wo Cont aa1 07/20 21:44 Order name: CBC with Automated Diff; Complete Time: 22:51 EDMS 07/20 22:05 Order name: Urine Dipstick--Ancillary (enter results); Complete Time: 22:51 mw2 07/20 22:05 Order name: Urine --Ancillary (enter results); Complete Time: 22:51 mw2 Administered Medications: No medications were administered Disposition: 07/20/19 23:31 Discharged to Home. Impression: Segmental and somatic dysfunction of thoracic region, Segmental and somatic dysfunction of sacral region, Segmental and somatic dysfunction of rib cage, Segmental and somatic dysfunction of cervical region. - Condition is Stable. - Discharge Instructions: Back Pain, Adult. - Prescriptions for Anaprox DS 550 mg Oral Tablet - take 1 tablet by ORAL route every 12 hours As needed; 20 tablet. Robaxin 500 mg Oral Tablet - take 2 tablet by ORAL route every 6 hours As needed; 40 tablet. Medrol (Tenzin) 4 mg Oral Tablets, Dose Pack - take 1 tablet by ORAL route as directed - follow package instructions; 1 packet. - Medication Reconciliation Form, Thank You Letter, Antibiotic Education, Prescription Opioid Use form. - Follow up: Emergency Department; When: As needed; Reason: Fever > 102 F, Worsening of condition. Follow up: Private Physician; When: As needed; Reason: Further diagnostic work-up, Recheck today's complaints, Continuance of care, Re-evaluation by your physician. - Problem is new. - Symptoms are resolved. Signatures: Dispatcher [employer] EDOR Roseline Bell RN RN aa1 Pierce Pedraza RN RN ao Singer, Phillip, MD MD ps1 Rema Theodore RN RN ca1 Corrections: (The following items were deleted from the chart) 22:37 21:45 CBC+H.LAB.BRZ ordered. EDOR EDMS 22:38 21:45 LIPASE+C.LAB.BRZ ordered. [facility] EDOR 22:38 21:45 COMPREHENSIVE METABOLIC PANEL+C.LAB.BRZ ordered. [facility] EDOR 23:39 23:31 07/20/2019 23:31 Discharged to Home. Impression: Segmental and somatic ca1 dysfunction of thoracic region; Segmental and somatic dysfunction of sacral region; Segmental and somatic dysfunction of rib cage; Segmental and somatic dysfunction of cervical region. Condition is Stable. Forms are Medication Reconciliation Form, Thank You Letter, Antibiotic Education, Prescription Opioid Use. Follow up: Emergency Department; When: As needed; Reason: Fever > 102 F, Worsening of condition. Follow up: Private Physician; When: As needed; Reason: Further diagnostic work-up, Recheck today's complaints, Continuance of care, Re-evaluation by your physician. Problem is new. Symptoms are resolved. ps1
[2019-07-20 23:42] VITALS: TEMP 98.7
[2019-07-20 23:44] VITALS: BP 116/70; O2SAT 99
--- NOTE | 2019-07-21 10:57 | RAD REPORT ---
EXAM DESCRIPTION: Head Brain Wo Cont CLINICAL HISTORY: 29 years Female DIZZINESS COMPARISON: None TECHNIQUE: Contiguous axial images of the brain were obtained without the administration of intraven ous contrast.This exam was performed according to our departmental dose-optimization program which in cludes use of Automated Exposure Control, adjustment of the mA and/or kV according to patient size an d/or use of iterative reconstruction technique. FINDINGS: Brain: No acute intracranial hemorrhage. No extra-axial collection. No mass effect or yousuf iation. Ventricles: Within normal limits in size. Globes and orbits: No acute abnormality. Bones: No acute osseous finding. Paranasal sinuses: Paranasal sinuses are clear. Mastoid air cells: Well pneumatized.. Soft tissues: Within normal limits IMPRESSION: No acute intracranial abnormality. If persistent clinical concern for acute ischemia, consider MRI brain without contrast for further ev aluation. Electronically signed by: Skyler Escobar DO 07/20/2019 11:20 PM CDT Due to temporary technical issues with the PACS/Fluency reporting system, reports are being signed by the in house radiologist as a courtesy to ensure prompt reporting. The interpreting radiologist is f ully responsible for the content of the report.
== END 2019-07-20 23:39 | disposition home or self-care (01) ==
LOC: ER 19:34
PROC: 7W0 Osteopathic, Anatomical Regions, Treatment (ICD-10-PCS; principal; 2019-07-20)
PROC: 7W02X3Z Osteopathic Treatment of Thoracic Region using High Velocity-Low Amplitude Forces (ICD-10-PCS; 2019-07-20)
PROC: 7W0 Osteopathic, Anatomical Regions, Treatment (ICD-10-PCS; 2019-07-20)
DX: M99.02 Segmental and somatic dysfunction of thoracic region (principal); M99.04 Segmental and somatic dysfunction of sacral region; M99.08 Segmental and somatic dysfunction of rib cage; M99.01 Segmental and somatic dysfunction of cervical region
CPT/HCPCS: 36415; 70450; 80053; 81003; 81015; 81025; 83690; 85025; 99284

== ENCOUNTER 2019-08-29 17:28 | Emergency (ER) | payer SELFPAY ==
--- OUTSIDE RECORDS SUMMARY | 2019-08-29 17:30 | XMS REPORT ---
:1990 [facility] Address [address] [place] [address] [address] [place] [address] Care Team Providers Name Role Phone Unavailable Unavailable Unavailable Problems This patient has no known problems. Allergies, Adverse Reactions, Alerts This patient has no known allergies or adverse reactions. Medications This patient has no known medications. Encounters Start End Encounter Admission Attending Care Care Encounter Date/Time Date/Time Type Type Clinicians Facility Department ID 2018-12-25 2018-12-25 Emergency E [id number] 17:52:00 17:52:00 2018-12-19 2018-12-19 Emergency [facility] [id number] 15:39:25 15:39:25 2018-12-19 2018-12-19 Emergency [facility] [id number] 14:38:01 14:38:01 2018-06-14 2018-06-14 Emergency [facility] [id number] 14:46:26 14:46:26 2018-06-14 2018-06-14 Emergency [facility] [id number] 13:00:40 13:00:40 2018-06-14 2018-06-14 Outpatient [facility] [id number] 00:00:00 00:00:00 2017-05-31 2017-05-31 Emergency [facility] [id number] 13:22:01 13:22:01 2017-05-31 2017-05-31 Emergency [facility] [id number] 12:11:49 12:11:49
[2019-08-29] MEDS ORDERED: NA CHLORIDE 0.9% 1,000 ML ONE (17:51)
--- NOTE | 2019-08-29 18:12 | RAD REPORT ---
EXAM DESCRIPTION: CT - CTHCSPWOC - 08/29/2019 6:04 pm CLINICAL HISTORY: Syncope, head and neck injury COMPARISON: None. TECHNIQUE: Axial 5 mm thick images of the head were obtained. Axial 2 mm thick images of the cervic al spine were obtained with sagittal and coronal reconstruction images generated and reviewed. All CT scans are performed using dose optimization technique as appropriate and may include automated exposure control or mA/KV adjustment according to patient size. FINDINGS: No intracranial hemorrhage, mass, edema or acute intracranial finding. No suspicion for acute infarct ion. No extra-axial fluid collections. Mastoid air cells and paranasal sinuses are clear. No globe or orbit abnormality seen. Cervical body height and alignment are normal. No disk space narrowing. No fracture or acute bony abn ormality. No paraspinal mass or hematoma. IMPRESSION: Negative CT head examination for acute or significant finding. Negative CT cervical spine examination for acute or significant finding.
[2019-08-29 18:14] LABS: Basophils % 0.4 % (0-1.3); Lymphocytes % 40.2 % (15.3-44.8); MPV 8.9 fL (7.6-11.3); RBC Red Blood Cell Count 4.52 M/uL (3.86-4.86)
[2019-08-29] MEDS ORDERED: ONDANSETRON 4 MG/2 ML VIAL ONE (18:19)
[2019-08-29] MEDS ORDERED: MORPHINE 4 MG/ML SYR ONE ×2 (18:19→19:27)
[2019-08-29 18:25] LABS: ALT/SGPT 53 U/L (12-78); AST/SGOT 40 U/L (15-37); Alkaline Phosphatase 74 U/L (45-117); BUN Blood Urea Nitrogen 6 mg/dL (7-18); Bicarbonate 27 mmol/L (21-32); Bilirubin Direct 0.1 mg/dL (0-0.2); Bilirubin Total 0.4 mg/dL (0.2-1.0); Glucose Level 106 mg/dL (74-106); Potassium 3.8 mmol/L (3.5-5.1); Protein, Total 8.3 g/dL (6.4-8.2); Sodium Level 141 mmol/L (136-145)
[2019-08-29 18:29] LABS: Barbiturates NEGATIVE (NEGATIVE); Benzodiazepines NEGATIVE (NEGATIVE); Cocaine NEGATIVE (NEGATIVE); METHAMPHETAM NEGATIVE (NEGATIVE); Methadone NEGATIVE (NEGATIVE); Opiates NEGATIVE (NEGATIVE); Phencyclidine NEGATIVE (NEGATIVE); THC Cannibis NEGATIVE (NEGATIVE)
[2019-08-29 18:33] LABS: Urine Blood TRACE (NEG); Urine Glucose NEGATIVE (NEG); Urine Protein 1+ (NEG); Urine pH 8.5 (5.0-7.0)
--- NOTE | 2019-08-29 19:40 | RAD REPORT ---
EXAM DESCRIPTION: RAD - Chest Single View - 08/29/2019 6:29 pm CLINICAL HISTORY: Syncope, chest injury, right-sided rib pain COMPARISON: January 2019 TECHNIQUE: AP portable chest image was obtained 1805 hour . FINDINGS: Lung volumes are very low accentuating heart, vasculature and lung markings. Interstitial edema and infiltrate can be masked in this setting. No pulmonary contusion. Heart and vasculature are normal. No measurable pleural effusion and no pneumothorax. No acute bony abnormality seen. No acute aortic findings suspected. IMPRESSION: Limited portable study without acute cardiopulmonary finding. Early edema and infiltrate could be masked by the low lung volumes.
--- NOTE | 2019-08-29 20:09 | RAD REPORT ---
EXAM DESCRIPTION: CT - Abdomen Pelvis W Contrast - 08/29/2019 7:46 pm CLINICAL HISTORY: ABD PAIN, vomiting COMPARISON: CT study January 19, 2019, CT study November 2018 TECHNIQUE: Biphasic, helical CT imaging of the abdomen and pelvis was performed following 100 ml non -ionic IV contrast. Oral contrast was given. All CT scans are performed using dose optimization technique as appropriate and may include automated exposure control or mA/KV adjustment according to patient size. FINDINGS: No suspicious findings in the lung bases. Liver size is normal. In the central segment IV there is a 5 centimeter area of diminished attenuatio n. There is heterogeneous in sub 1 nodular enhancement seen on venous phase imaging. Detail is limite d due to patient motion during the examination. Substantial change from prior imaging is not identifi ed. No spleen or pancreatic abnormality. Cholecystectomy clips are present. No biliary tree dilatation. Symmetric renal function is seen with no hydronephrosis or suspicious renal mass. No pyelonephritis o r acute parenchymal process. No bladder abnormalities. No adrenal abnormalities. Uterus and ovaries s how no suspicious findings. No dilated bowel loops or bowel wall thickening. No acute GI process identifiable. No free air or pne umatosis. Trace free fluid in the cul de sac is within physiologic limits. No hernia, mass or bulky lymphadenopathy. No suspicious bony findings. IMPRESSION: No appendicitis, obstruction or other surgically acute finding. A 5 centimeter low-density mass in the central liver may be a hemangioma. This is not significantly d ifferent back to November 2018. Full characterization of this mass is limited due to significant mot ion degradation. Follow-up outpatient sonography or follow-up contrast outpatient MR imaging could be performed when the patient is able to cooperate with the necessary breathing restrictions needed for both examinations.
--- NOTE | 2019-08-29 20:23 | ER ---
Nurse's Notes [facility] Name: Kandi Whittaker Age: 29 yrs Sex: Female : 1990 Arrival Date: 08/29/2019 Time: 17:29 Bed 7 Private MD: Diagnosis: Syncope and collapse;Unspecified abdominal pain Presentation: 08/29 17:32 Presenting complaint: Patient states: Passed out and fell from a standing position rb1 landing on concrete. Reports hitting head and positive LOC. Happened at 1645. Has no memory of what happened. Reports vomiting before passing out. Transition of care: patient was not received from another setting of care. Onset of symptoms was August 29, 2019 at 16:45. Risk Assessment: Do you want to hurt yourself or someone else? Patient reports no desire to harm self or others. Initial Sepsis Screen: Does the patient meet any 2 criteria? No. Patient's initial sepsis screen is negative. Does the patient have a suspected source of infection? No. Patient's initial sepsis screen is negative. Care prior to arrival: None. 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 - Social history:: Smoking status: Patient/guardian denies using tobacco. - Ebola Screening: : Patient negative for fever greater than or equal to 101.5 degrees Fahrenheit, and additional compatible Ebola Virus Disease symptoms. Screenin:40 Abuse screen: Denies threats or abuse. Nutritional screening: No deficits noted. tw2 Tuberculosis screening: No symptoms or risk factors identified. Fall Risk None identified. Assessment: 17:42 Reassessment: provider at bedside at this time. tw2 18:22 General: Appears in no apparent distress. comfortable, Behavior is calm, cooperative, ca1 appropriate for age. General:. Pain: Complains of pain in anterior aspect of right lateral abdomen Pain currently is 10 out of 10 on a pain scale. Neuro: Level of Consciousness is awake, alert, obeys commands, Oriented to person, place, time, situation, Appropriate for age. Neuro: Reports a syncopal episode. Cardiovascular: Heart tones S1 S2 present Capillary refill < 3 seconds Patient's skin is warm and dry. Pulses are all present. Rhythm is sinus rhythm. Respiratory: Airway is patent Respiratory effort is even, unlabored, Respiratory pattern is regular, symmetrical, Breath sounds are clear bilaterally. GI: Abdomen is flat, non-distended, Bowel sounds present X 4 quads. Abd is soft and non tender X 4 quads. : No deficits noted. No signs and/or symptoms were reported regarding the genitourinary system. EENT: No deficits noted. No signs and/or symptoms were reported regarding the EENT system. Derm: Skin is intact, is healthy with good turgor, Skin is pink, warm \T\ dry. Musculoskeletal: Circulation, motion, and sensation intact. Capillary refill < 3 seconds, Range of motion: intact in all extremities. 19:00 General: Appears in no apparent distress. Behavior is calm, cooperative, appropriate ea for age. Pain: Complains of pain in abdomen. Neuro: Level of Consciousness is awake, alert, obeys commands, Oriented to person, place, time, situation. Cardiovascular: Patient's skin is warm and dry. Respiratory: Airway is patent Respiratory effort is even, unlabored, Respiratory pattern is regular, symmetrical. Derm: Skin is pink, warm \T\ dry. Musculoskeletal: Circulation, motion, and sensation intact. 19:30 Reassessment: Patient and/or family updated on plan of care and expected duration. Pain ea level reassessed. Patient is alert, oriented x 3, equal unlabored respirations, skin warm/dry/pink. Pt complaining of abdominal pain, provider notified, verbal order obtained, pt tolerated well. 20:39 Reassessment: pt is A\T\O x 4, resp unlabored, pt's significant other upset states she is bb going to take pt to [facility] for further treatment, Lindsay Hernandez CORROSION ENGINEER at bedside for discussion of findings and recommendations. Pt ambulated with steady gait to exit accompanied by friend. Vital Signs: 17:32 BP 133 / 96; Pulse 91; Resp 18; Temp 98.3(O); Pulse Ox 98% on R/A; Weight 68.04 kg (R); rb1 Height 5 ft. 4 in. (162.56 cm) (R); Pain 10/10; 18:22 BP 131 / 79; Pulse 98; Resp 17; Pulse Ox 100% on R/A; tw2 20:42 BP 132 / 87; Pulse 98; Resp 18 S; Pulse Ox 97% on R/A; bb 17:32 Body Mass Index 25.75 (68.04 kg, 162.56 cm) rb1 ED Course: 17:29 Patient arrived in ED. rg4 17:32 Arm band placed on right wrist. rb1 17:35 Triage completed. rb1 17:38 Rema Theodore, RN is Primary Nurse. ca1 17:39 Michael Hernandez, EVERETTE is PHCP. pm1 17:39 Wilder Delgado MD is Attending Physician. pm1 17:40 Bed in low position. Call light in reach. Adult w/ patient. tw2 17:58 Inserted saline lock: 20 gauge in right antecubital area, using aseptic technique. tw2 Blood collected. 18:09 CT Head C Spine In Process Unspecified. EDMS 18:22 Pulse ox on. NIBP on. Warm blanket given. ca1 18:22 No provider procedures requiring assistance completed. ca1 18:32 Chest Single View XRAY In Process Unspecified. EDMS 19:48 CT Abd/Pelvis - IV Contrast Only In Process Unspecified. EDMS 20:43 IV discontinued, intact, bleeding controlled, No redness/swelling at site. Pressure bb dressing applied. Administered Medications: 17:58 Drug: NS 0.9% 1000 ml Route: IV; Rate: 1000 ml; Site: right antecubital; tw2 20:42 Follow up: IV Status: Completed infusion; IV Intake: 950ml bb 18:18 Drug: Zofran 4 mg Route: IVP; Site: right antecubital; ca1 19:00 Follow up: Response: No adverse reaction ea 18:21 Drug: morphine 4 mg Route: IVP; Site: right antecubital; ca1 19:00 Follow up: Response: No adverse reaction ea 19:32 Drug: morphine 4 mg {Note: RASS 1.} Route: IVP; Site: right antecubital; ea 20:42 Follow up: Response: No adverse reaction; RASS: Alert and Calm (0) bb Point of Care Testing: Blood Glucose: 17:38 Blood Glucose: 105 mg/dL; rb1 Ranges: Intake: 20:42 IV: 950ml; Total: 950ml. bb Outcome: 20:22 Discharge ordered by . pm1 20:43 Discharged to home ambulatory, with friend. bb 20:43 Condition: stable 20:43 Discharge instructions given to patient, Instructed on discharge instructions, follow up and referral plans. medication usage, Demonstrated understanding of instructions, follow-up care, medications, Prescriptions given X 2. 20:54 Patient left the ED. ea Signatures: Dispatcher [employer] EDMS Lillian Urban RN RN Jennifer Alvarez, RN RN rb1 Michael Hernandez, EVERETTE CORROSION ENGINEER pm1 Keyanna Mathias RN RN tw2 Trini Olivo rg4 Mohini Amador RN RN Rema Campbell RN RN ca1 Corrections: (The following items were deleted from the chart) 19:42 19:32 morphine 4 mg IVP in right antecubital floyd barrientos
--- NOTE | 2019-08-29 20:23 | EDPHYS ---
Physician Documentation [facility] Name: Kandi Whittaker Age: 29 yrs Sex: Female : 1990 Arrival Date: 08/29/2019 Time: 17:29 Bed 7 Private MD: ED Physician Wilder Delgado HPI: 08/29 18:15 This 29 yrs old Female presents to ER via Wheelchair with complaints of Passed pm1 Out Prior To Arrival. 18:15 The patient has experienced syncope. Onset: The symptoms/episode began/occurred today. pm1 Duration: This was a single episode. Context: occurred at home, occurred while the patient was standing. 18:15 Context: Just prior to the episode the patient experienced vomiting. Associated injury: pm1 The patient did not suffer any apparent associated injury. Associated signs and symptoms: Pertinent positives: headache, Neck pain, Pertinent negatives: chest pain, shortness of breath. Current symptoms: headache and neck pain. The patient has experienced similar episodes in the past, ongoing for the past three months. The patient has not recently seen a physician. Patient presented to the ED with complaints of syncopal episode. Patient was walking in the kitchen getting a glass of water. Patient reports nausea and vomiting prior to syncope. Reports LOC. Patient presenting with headache and neck pain. Patient reports symptoms have been ongoing for the past 3 months. Reports that she came to the ER for the same issues about 1 month ago with neck pain. Reports nothing was done except neck adjustment. 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 - Social history:: Smoking status: Patient/guardian denies using tobacco. - Ebola Screening: : Patient negative for fever greater than or equal to 101.5 degrees Fahrenheit, and additional compatible Ebola Virus Disease symptoms. ROS: 18:15 Constitutional: Negative for fever, chills, and weight loss, Eyes: Negative for injury, pm1 pain, redness, and discharge, ENT: Negative for injury, pain, and discharge, Neck: Negative for injury, pain, and swelling, Cardiovascular: Negative for chest pain, palpitations, and edema, Respiratory: Negative for shortness of breath, cough, wheezing, and pleuritic chest pain. 18:15 Back: Negative for injury and pain, : Negative for injury, bleeding, discharge, and swelling, MS/Extremity: Negative for injury and deformity, Skin: Negative for injury, rash, and discoloration. 18:15 Abdomen/GI: Positive for nausea and vomiting, Negative for abdominal pain, diarrhea, constipation. 18:15 Neuro: Positive for headache, syncope, Negative for dizziness, numbness, tingling. 18:15 Neuro: Negative for seizure activity, weakness. pm1 Exam: 18:15 Abdomen/GI: Inspection: abdomen appears normal, Bowel sounds: normal, Palpation: pm1 abdomen is soft and non-tender, mass, is not appreciated, rebound tenderness, is not appreciated. 18:15 Constitutional: This is a well developed, well nourished patient who is awake, alert, and in no acute distress. Head/Face: Normocephalic, atraumatic. Eyes: Pupils equal round and reactive to light, extra-ocular motions intact. Lids and lashes normal. Conjunctiva and sclera are non-icteric and not injected. Cornea within normal limits. Periorbital areas with no swelling, redness, or edema. ENT: Nares patent. No nasal discharge, no septal abnormalities noted. Tympanic membranes are normal and external auditory canals are clear. Oropharynx with no redness, swelling, or masses, exudates, or evidence of obstruction, uvula midline. Mucous membranes moist. Neck: Trachea midline, no thyromegaly or masses palpated, and no cervical lymphadenopathy. Supple, full range of motion without nuchal rigidity, or vertebral point tenderness. No Meningismus. Chest/axilla: Normal chest wall appearance and motion. Nontender with no deformity. No lesions are appreciated. Cardiovascular: Regular rate and rhythm with a normal S1 and S2. No gallops, murmurs, or rubs. Normal PMI, no JVD. No pulse deficits. Respiratory: Lungs have equal breath sounds bilaterally, clear to auscultation and percussion. No rales, rhonchi or wheezes noted. No increased work of breathing, no retractions or nasal flaring. Back: No spinal tenderness. No costovertebral tenderness. Full range of motion. Skin: Warm, dry with normal turgor. Normal color with no rashes, no lesions, and no evidence of cellulitis. MS/ Extremity: Pulses equal, no cyanosis. Neurovascular intact. Full, normal range of motion. 18:15 Neuro: Orientation: is normal, Cranial nerves: CN II- XII are normal as tested, Motor: is normal, moves all fours. Vital Signs: 17:32 BP 133 / 96; Pulse 91; Resp 18; Temp 98.3(O); Pulse Ox 98% on R/A; Weight 68.04 kg (R); rb1 Height 5 ft. 4 in. (162.56 cm) (R); Pain 10/10; 18:22 BP 131 / 79; Pulse 98; Resp 17; Pulse Ox 100% on R/A; tw2 20:42 BP 132 / 87; Pulse 98; Resp 18 S; Pulse Ox 97% on R/A; bb 17:32 Body Mass Index 25.75 (68.04 kg, 162.56 cm) rb1 MDM: 17:39 Patient medically screened. pm1 19:20 ED course: Patient reports onset of abdominal pain now and would like further pm1 evaluation of her pain. 20:21 Data reviewed: vital signs. Data interpreted: Pulse oximetry: on room air is 100 %. pm1 Interpretation: normal. Counseling: I had a detailed discussion with the patient and/or guardian regarding: the historical points, exam findings, and any diagnostic results supporting the discharge/admit diagnosis, lab results, radiology results, the need for outpatient follow up, to return to the emergency department if symptoms worsen or persist or if there are any questions or concerns that arise at home. 20:21 ED course: CT: 5 cm low-density mass in central liver may be hemangioma. Not pm1 significantly different from November 2018. Follow-up outpatient sonography or MRI recommended. Therefore will discharge the patient home for follow up with GI. 08/29 17:45 Order name: Acetaminophen; Complete Time: 19:05 pm1 08/29 17:45 Order name: Basic Metabolic Panel; Complete Time: 19:05 pm1 08/29 17:45 Order name: CBC with Diff; Complete Time: 18:17 pm1 08/29 17:45 Order name: ETOH Level; Complete Time: 18:25 pm1 08/29 17:45 Order name: Hepatic Function; Complete Time: 19:05 pm1 08/29 17:45 Order name: PT-INR; Complete Time: 18:24 pm1 08/29 17:45 Order name: Ptt, Activated; Complete Time: 18:24 pm1 08/29 17:45 Order name: Salicylate; Complete Time: 19:05 pm1 08/29 17:45 Order name: Urine Drug Screen; Complete Time: 19:05 pm1 08/29 17:45 Order name: CT Head C Spine; Complete Time: 18:24 pm1 08/29 17:45 Order name: Chest Single View XRAY; Complete Time: 20:06 pm1 08/29 17:51 Order name: Glucose, Ancillary Testing; Complete Time: 17:56 EDMS 08/29 18:26 Order name: Urine Dipstick--Ancillary (enter results); Complete Time: 19:05 bd 08/29 18:26 Order name: Urine --Ancillary (enter results); Complete Time: 19:05 bd 08/29 17:45 Order name: Urine Test (obtain specimen); Complete Time: 17:59 pm1 08/29 17:45 Order name: EKG; Complete Time: 17:46 pm1 08/29 17:45 Order name: EKG - Nurse/Tech; Complete Time: 18:27 pm1 08/29 17:45 Order name: IV Saline Lock; Complete Time: 17:59 pm1 08/29 17:45 Order name: Labs collected and sent; Complete Time: 17:58 pm1 08/29 17:45 Order name: Urine Dipstick-Ancillary (obtain specimen); Complete Time: 17:58 pm1 08/29 17:46 Order name: C-Collar; Complete Time: 17:49 pm1 08/29 19:21 Order name: CT Abd/Pelvis - IV Contrast Only; Complete Time: 20:20 pm1 Administered Medications: 17:58 Drug: NS 0.9% 1000 ml Route: IV; Rate: 1000 ml; Site: right antecubital; tw2 20:42 Follow up: IV Status: Completed infusion; IV Intake: 950ml bb 18:18 Drug: Zofran 4 mg Route: IVP; Site: right antecubital; ca1 19:00 Follow up: Response: No adverse reaction ea 18:21 Drug: morphine 4 mg Route: IVP; Site: right antecubital; ca1 19:00 Follow up: Response: No adverse reaction ea 19:32 Drug: morphine 4 mg {Note: RASS 1.} Route: IVP; Site: right antecubital; ea 20:42 Follow up: Response: No adverse reaction; RASS: Alert and Calm (0) bb Point of Care Testing: Blood Glucose: 17:38 Blood Glucose: 105 mg/dL; rb1 Ranges: Critical Glucose Levels:Adult <50 mg/dl or >400 mg/dl <40 mg/dl or >180 mg/dl Disposition: 08/30 08:07 Co-signature as Attending Physician, Wilder Delgado MD. rn Disposition: 08/29/19 20:22 Discharged to Home. Impression: Syncope and collapse, Unspecified abdominal pain. - Condition is Stable. - Discharge Instructions: Abdominal Pain, Adult, Concussion, Adult, Syncope. - Prescriptions for Bentyl 20 mg Oral Tablet - take 1 tablet by ORAL route every 6 hours As needed; 20 tablet. Zofran 4 mg Oral Tablet - take 1 tablet by ORAL route every 8 hours As needed; 20 tablet. - Medication Reconciliation Form, Thank You Letter, Antibiotic Education, Prescription Opioid Use form. - Follow up: Emergency Department; When: As needed; Reason: Worsening of condition. Follow up: Private Physician; When: 2 - 3 days; Reason: Recheck today's complaints, Continuance of care, Re-evaluation by your physician. - Problem is new. - Symptoms have improved. Signatures: Dispatcher [employer] EDMS Wilder Delgado MD MD rn Barber, Rebecca, RN RN rb1 Michael Hernandez, [employer] PHP CONSULTANT pm1 Keyanna Mathias RN RN tw2 Mohini Amador RN RN ea Acob, Cheryl RN RN Lillian Fisher RN bb Corrections: (The following items were deleted from the chart) 08/29 20:54 20:22 08/29/2019 20:22 Discharged to Home. Impression: Syncope and collapse; ea Unspecified abdominal pain. Condition is Stable. Forms are Medication Reconciliation Form, Thank You Letter, Antibiotic Education, Prescription Opioid Use. Follow up: Emergency Department; When: As needed; Reason: Worsening of condition. Follow up: Private Physician; When: 2 - 3 days; Reason: Recheck today's complaints, Continuance of care, Re-evaluation by your physician. Problem is new. Symptoms have improved. pm1
[2019-08-29 21:02] VITALS: TEMP 98.3
[2019-08-29 21:05] VITALS: BP 132/87; O2SAT 97
--- NOTE | 2019-08-30 08:47 | EKG ---
Test Date: 2019-08-29 Test Time: 18:25:12 Acute Care Nurse: RILEY MEASUREMENT RESULTS: Intervals: Rate: 84 SD: 128 QRSD: 80 QT: 350 QTc: 413 [place]: P: 35 SD: 128 QRS: 39 T: 2 INTERPRETIVE STATEMENTS: Normal sinus rhythm Cannot rule out Inferior infarct, age undetermined Cannot rule out Anterior infarct, age undetermined Abnormal ECG Compared to ECG 12/13/2018 10:10:00 Myocardial infarct finding now present T-wave abnormality no longer present Electronically Signed On 08-30-19 08:45:34 PLANT BUYER by Javier Gibson
== END 2019-08-29 20:54 | disposition home or self-care (01) ==
LOC: ER 17:28
DX: R10.9 Unspecified abdominal pain (principal)
CPT/HCPCS: 36415; 70450; 71045; 72125; 74177; 80048; 80076; 80307; 80320; 80329; 81003; 81025; 82947; 85025; 85610; 85730; 93005; 96361; 96374; 96375; 99284; J2405; J7030; Q9967

== ENCOUNTER 2020-02-10 04:39 | Emergency (ER) | payer SELFPAY ==
--- OUTSIDE RECORDS SUMMARY | 2020-02-10 04:42 | XMS REPORT | Summary of Care ---
:1990 Author Organization [facility] Address [address] [place] [id number] Care Team Providers Name Role Phone Pcp, Patient Does Not Have A Primary Care Provider +[id number] 0-0000 Reason for Referral MRI/CAT Scan (STAT) Status Reason Specialty Diagnoses / Referred By Referred To Procedures Contact Contact New Request Diagnostic Diagnoses Cervical pain (neck) Mike Riley Radiology Procedures CT CERVICAL SPINE WO CONTRAST MD Niya [address] [place] [address] MRI/CAT Scan (STAT) Status Reason Specialty Diagnoses / Referred By Referred To Procedures Contact Contact New Request Diagnostic Diagnoses Injury of head, initial encounter Mike Riley Radiology Procedures CT HEAD WO IQRA Núñez MD [address] [place] [address] Reason for Visit Reason Comments Headache Neck Pain Auth/Cert Status Reason Specialty Diagnoses / Referred By Referred To Procedures Contact Contact [facility] [address] [place] [phone] Fax: Encounter Details Date Type Department Care Team Description 11/07/2019 Emergency [facility] Mike Riley, Syncope an d collapse (Primary Dx); Department Injury of head, initial encounter; [address] [place] [address] RT1 173 Cervical pain (neck) [address] [phone] Allergies No Known Allergiesdocumented as of this encounter (statuses as of 11/07/2019) Medications Medication Sig Dispensed Refills Start End Date Status Date valACYclovir 500 mg Take 500 mg 0 Active tablet by mouth 2 (two) times daily. aspirin 81 mg Take 81 mg by 0 Ac tive chewable tablet mouth daily. topiramate 25 mg Take by 0 Act dinesh CSpX mouth. folic acid/vit B Take by 0 Act dinesh complex and C mouth. (FOLBEE PLUS ORAL) atorvastatin 40 mg Take 40 mg by 0 Active tablet mouth at bedtime. ibuprofen 600 mg Take 1 tablet 10 tablet 0 Active tabletIndications: by mouth 9 Abdominal pain, every 6 (six) unspecified hours as abdominal location, needed Neck pain, Nausea (pain). and vomiting, intractability of vomiting not specified, unspecified vomiting type, Diarrhea, unspecified type cyclobenzaprine 5 mg Take 1 tablet 15 tablet 0 Active tabletIndications: by mouth 3 0 Cervical pain (neck) (three) times daily as needed for Muscle Spasms. ACETAMINOPHEN/PAMABR Take by 0 11/07/19 Discontinued OM (MIDOL ORAL) mouth. 20 (The rapy completed) predniSONE 20 mg Take 20 mg by 0 11/07/19 Discontinued tablet mouth daily. 20 (Therap y completed) acetaminophen with Take by 0 11/07/19 D iscontinued codeine mouth. 20 (Therapy (TYLENOL-CODEINE #3 completed) ORAL) dicyclomine (BENTYL) Take 1 10 capsule 0 11/07/19 Discontinued 10 mg capsule by 9 20 (Therapy capsuleIndications: mouth every 6 completed) Abdominal pain, (six) hours unspecified as needed for abdominal location, Abdominal Neck pain, Nausea pain. and vomiting, intractability of vomiting not specified, unspecified vomiting type, Diarrhea, unspecified type proMETHazine 25 mg Take 1 tablet 10 tablet 0 11/07/ 0 Discontinued tabletIndications: by mouth 9 20 ( Therapy Abdominal pain, every 6 (six) completed) unspecified hours as abdominal location, needed for Neck pain, Nausea Nausea and and vomiting, Vomiting intractability of (N/V). vomiting not specified, unspecified vomiting type, Diarrhea, unspecified type cyclobenzaprine 5 mg Take 1 tablet 12 tablet 0 11/07 Discontinued tabletIndications: by mouth 3 20 (Therapy Abdominal pain, (three) times completed) unspecified daily. abdominal location, Neck pain, Nausea and vomiting, intractability of vomiting not specified, unspecified vomiting type, Diarrhea, unspecified type documented as of this encounter (statuses as of 11/07/2019) Active Problems No known active problemsdocumented as of this encounter (statuses as of 11/07/2019) Social History Tobacco Use Types Packs/Day Years Used Date Never Smoker Alcohol Use Drinks/Week oz/Week Comments Yes 0 Standard drinks or equivalent 0.0 socially Sex Assigned at Date Recorded Not on file Job Start Date Occupation Industry Not on file Not on file Not on file Travel History Travel Start Travel End No recent travel history available. documented as of this encounter Last Filed Vital Signs Vital Sign Reading Time Taken Comments Blood Pressure 115/87 11/07/2019 3:00 AM [employer] Pulse 71 11/07/2019 3:00 AM [employer] Temperature 36.2 C (97.1 F) 11/07/2019 12:50 AM [employer] Respiratory Rate 16 11/07/2019 3:00 AM [employer] Oxygen Saturation 100% 11/07/2019 3:00 AM [employer] Inhaled Oxygen Concentration - - Weight 70.8 kg (156 lb) 11/07/2019 12:49 AM [employer] Height - - Body Mass Index 26.78 11/23/2018 6:00 PM [employer] documented in this encounter Discharge Instructions InstructionsRumph, Mike Núñez MD - 11/07/2019DIAGNOSIS 1. Headache, occipital nerve 2. Neck pain, muscular 3. Blurred vision 4. Syncope (fainting) Procedures in the ER today: CT scan EKG Your Prescriptions and [id number] medication recommendations: Flexeril 5mg up to three times daily for neck pain/headache Ibuprofen 400 to 600mg every 6 hours, may alternate with Tylenol 650mg every 6 hoursl Special Care Instructions: Follow up to Senior Speech Pathologist for eye exam and visual field testing, given your complaint of blurry vision There is a remote possibility that your symptoms are from intracranial hypertension, or excess fluidpressure in the brain. Thus, please see an jewel supervisor for evaluation, and if you have abnormal findings, or continue to have headaches, will need to see a neurologist. This is all done outpatient. RETURN if repeated fainting! AVOID excess salt, chips, or other salty foods at this time. FOLLOW-UP RECOMMENDATIONS: Recommend follow-up with a Primary Care Provider or Specialist in 2-5 days, especially if no improvement in symptoms. To Follow-Up within the [facility] Healthcare System, try these options (Clinic appointments available on riee-qg-fkxe basis): 1. Schedule an appointment online at [email or web address] 2. Or call the [facility] Access Center or 3. Or call your [facility] Physician's Office directly if you are already an established patient. Or, you may follow-up with a provider of your choice, such as: 1. A physician or primary care provider of your choice 2. [facility], . Locations in Medical Center Clinic 3. [facility], [address], [place], RETURN TO ER FOR WORSENING OF SYMPTOMS. AttachmentsThe following attachments cannot be sent through Care Everywhere. Syncope, Causes of (Nigerien)documented in this encounter Plan of Treatment Name Type Priority Associated Diagnoses Date/Ti me CT HEAD WO CONTRAST IMAGING STAT Injury of head, initi al 11/07/2019 2:07 [address] [facility] CT CERVICAL SPINE WO IMAGING STAT Cervical pain (neck) 11/07/2019 2:07 AM CONTRAST [employer] Health Maintenance Due Date Last Done Comments VARICELLA VACCINES (1 of 2 1991 - 2-dose childhood series) DTaP,Tdap,and Td Vaccines 2001 (1 - Tdap) PAP SMEAR 08/14/2014 08/14/2011, 06/07/2008, 12/07/2006, Additional history exists INFLUENZA VACCINE (#1) 2019 PNEUMOCOCCAL 0-64 YEARS Aged Out No longe r eligible COMBINED SERIES based on patient 's age to complete this topic documented as of this encounter Procedures Procedure Name Priority Date/Time Associated Diagnosis Comme nts CT HEAD WO CONTRAST STAT 11/07/2019 2:07 AM [employer] Injury of head, initial encounter Procedure Note - [facility], Radia nt Results Inft User - 11/07/2019 3:54 AM [employer]ASH[employer] EXAM: CT HEAD WO CONTRAST, CT CERVICAL SPINE WO CONTRAST HISTORY:Head trauma, headach e TECHNIQUE: Noncontrast CT of the head and cervical spine was performed. Coronal and sagittal multipl alissa reformatted images were generated and reviewed. DOSE: DLP-1298.22 mGy-cm COMPARISON:None. CT HEAD FINDINGS: The ventricles and cerebral sulci are normal in caliber and configuration. No hydrocephalus, midline sh ift or pathological extra-axial fluid collection is present. The b amy cisterns are intact. There is no acute intracrani al hemorrhage or significant mass effect. No abnormal parenchymal attenua tion abnormality. The rapp-white matter differentiation is preserved . Partially empty sella config uration is noted. The orbits are only partially imaged. Questionable intraoc ular protrusion of the optic nerve head is noted on the left (4:2). The mastoid air cells and pa ranasal air sinuses are clear. The calvarium and skull base are unremarka ble. CT CERVICAL SPINE FINDINGS: Straightening of the cervica l spine is noted.The vertebral bodies are normal in height and in norm al alignment. No facet fracture or subluxation is present. The craniocervic al junction is intact. The prevertebral soft tissues are unremarkable. The visualized cervical soft tissues and visualized lung apices are unremarkable. IMPRESSION Partially empty sella config uration is noted. Although the orbits are only partially imaged, questionab le intraocular protrusion of the optic nerve head is noted on the left. F indings are nonspecific but in the appropriate clinical setting may represe nt idiopathic intracranial hypertension. Correlate with clinical exam for papilledema. No traumatic injury of the c ervical spine. Findings were discussed with Dr. Dasilva@3:40 AM, 11/07/2019. Preliminary Report Dictated by Resident: Jet Milligan CT CERVICAL SPINE WO CONTRAST STAT 11/07/2019 2:07 AM [employer] Cervical pain (neck) Procedure Note - [facility], Radia nt Results Inft User - 11/07/2019 3:54 AM [employer] EXAM: CT HEAD WO CONTRAST, CT CERVICAL SPINE WO CONTRAST HISTORY:Head trauma, headach e TECHNIQUE: Noncontrast CT of the head and cervical spine was performed. Coronal and sagittal multipl alissa reformatted images were generated and reviewed. DOSE: [id number] mGy-cm COMPARISON:None. CT HEAD FINDINGS: The ventricles and cerebral sulci are normal in caliber and configuration. No hydrocephalus, midline sh ift or pathological extra-axial fluid collection is present. The b amy cisterns are intact. There is no acute intracrani al hemorrhage or significant mass effect. No abnormal parenchymal attenua tion abnormality. The rapp-white matter differentiation is preserved . Partially empty sella config uration is noted. The orbits are only partially imaged. Questionable intraoc ular protrusion of the optic nerve head is noted on the left (4:2). The mastoid air cells and pa ranasal air sinuses are clear. The calvarium and skull base are unremarka ble. CT CERVICAL SPINE FINDINGS: Straightening of the cervica l spine is noted.The vertebral bodies are normal in height and in norm al alignment. No facet fracture or subluxation is present. The craniocervic al junction is intact. The prevertebral soft tissues are unremarkable. The visualized cervical soft tissues and visualized lung apices are unremarkable. IMPRESSION Partially empty sella config uration is noted. Although the orbits are only partially imaged, questionab le intraocular protrusion of the optic nerve head is noted on the left. F indings are nonspecific but in the appropriate clinical setting may represe nt idiopathic intracranial hypertension. Correlate with clinical exam for papilledema. No traumatic injury of the c ervical spine. Findings were discussed with Dr. Dasilva@3:40 AM, 11/07/2019. Preliminary Report Dictated by Resident: Jet Bea[place] POCT TEST SEAMUS 11/07/2019 1:54 AM Syncope and R esults for this [employer] collapse procedure are i n the results section . EKG-12 LEAD STAT 11/07/2019 1:52 AM [employer] documented in this encounter Results POCT TEST (11/07/2019 1:54 AM [employer]) Pathologist Sig nature POCT PREG Negative POCT PREG LOT # [id number] POCT PREG TEST DATE 10/18/2020 Specimen Urine - URINE, CLEAN CATCH documented in this encounter Visit Diagnoses Diagnosis Syncope and collapse - Primary Injury of head, initial encounter Cervical pain (neck) Cervicalgia documented in this encounter Insurance Payer Benefit Plan / Subscriber ID Effective Phone Address T ype Group Dates MEDICAID MEDICAID PENDING 2019-[address] Pending [place] [address] documented as of this encounter
--- OUTSIDE RECORDS SUMMARY | 2020-02-10 04:42 | XMS REPORT ---
:1990 Author Organization [facility] t Address [address] [place] [address] Care Team Providers Name Role Phone Unavailable [...] [id number] 17:52:00 17:52:00 2018-12-19 2018-12-19 Emergency [facility] [id number] 15:39:25 15:39:25 2018-12-19 2018-12-19 Emergency [facility] [id number] 14:38:01 14:38:01 2018-06-14 2018-06-14 Emergency [facility] [id number] 14:46:26 14:46:26 2018-06-14 2018-06-14 Emergency [facility] [id number] 13:00:40 13:00:40 2018-06-14 2018-06-14 Outpatient [facility] [id number] 00:00:00 00:00:00 2017-05-31 2017-05-31 Emergency [facility] [id number] 13:22:01 13:22:01 2017-05-31 2017-05-31 Emergency [facility] [id number] 12:11:49 12:11:49
[2020-02-10 05:27] LABS: Absolute Lymphocytes (CBC) 3.1 K/uL (0.7-4.9); Basophils % 0.4 % (0-1.3); Hematocrit 37.7 % (36.0-45.0); Lymphocytes % 55.1 % (15.3-44.8); MPV 9.1 fL (7.6-11.3)
[2020-02-10 05:42] LABS: ALT/SGPT 29 U/L (12-78); AST/SGOT 16 U/L (15-37); Albumin 3.9 g/dL (3.4-5.0); Alkaline Phosphatase 73 U/L (45-117); BUN Blood Urea Nitrogen 15 mg/dL (7-18); Bicarbonate 23 mmol/L (21-32); Bilirubin Direct < 0.1 mg/dL (0-0.2); Bilirubin Total 0.2 mg/dL (0.2-1.0); Glucose Level 98 mg/dL (74-106); Lipase 198 U/L (73-393); Potassium 3.8 mmol/L (3.5-5.1); Protein, Total 7.8 g/dL (6.4-8.2); Sodium Level 142 mmol/L (136-145)
[2020-02-10 05:49] LABS: Blood Morphology Comment NOT SEEN (NOT SEEN); Platelet Estimate ADEQ
[2020-02-10 05:58] LABS: Urine Blood TRACE (NEG); Urine Glucose NEGATIVE (NEG); Urine Protein NEGATIVE (NEG); Urine Specific Gravity >1.030 (1.005-1.030); Urine pH 7.5 (5.0-7.0)
--- NOTE | 2020-02-10 07:24 | ER ---
Nurse's Notes [facility] Name: Kandi Whittaker Age: 30 yrs Sex: Female : 1990 Arrival Date: 02/10/2020 Time: 04:42 Bed 6 Private MD: Diagnosis: Upper abdominal pain, unspecified Presentation: 02/09 04:45 Chief complaint: Patient states: that she woke up with complaints of right upper abd fc pain but denies any nausea, vomiting or diarrhea. States that it feels bloated. Had BM yesterday with no problems. Denies any urinary problems. 05:01 Coronavirus screen: Proceed with normal triage. Ebola Screen: Patient negative for fc fever greater than or equal to 101.5 degrees Fahrenheit, and additional compatible Ebola Virus Disease symptoms. Initial Sepsis Screen: Does the patient meet any 2 criteria? No. Patient's initial sepsis screen is negative. Does the patient have a suspected source of infection? No. Patient's initial sepsis screen is negative. Risk Assessment: Do you want to hurt yourself or someone else? Patient reports no desire to harm self or others. Onset of symptoms was February 09, 2020 at 15:00. Transition of care: patient was not received from another setting of care. 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 - Social history:: Smoking status: Patient denies any tobacco usage or history of. Patient uses alcohol, occasionally. Patient/guardian denies using street drugs. Screenin:45 Abuse screen: Denies threats or abuse. Nutritional screening: No deficits noted. fc Tuberculosis screening: No symptoms or risk factors identified. Fall Risk None identified. Assessment: 04:45 General: Appears in no apparent distress. uncomfortable, Behavior is calm, cooperative, rr5 appropriate for age. 04:45 Pain: Complains of pain in right upper quadrant Pain does not radiate. Pain currently rr5 is 7 out of 10 on a pain scale. Quality of pain is described as aching, Pain began suddenly, Is intermittent. Neuro: Level of Consciousness is awake, alert, obeys commands, Oriented to person, place, time, situation, Appropriate for age. Cardiovascular: Capillary refill < 3 seconds Patient's skin is warm and dry. Respiratory: Airway is patent Respiratory effort is even, unlabored, Respiratory pattern is regular, symmetrical. GI: Abdomen is round non-distended, Bowel sounds present X 4 quads. Abd is soft and non tender X 4 quads. Reports upper abdominal pain, small knot RUQ area Patient currently denies nausea, vomiting. : No signs and/or symptoms were reported regarding the genitourinary system. EENT: No signs and/or symptoms were reported regarding the EENT system. Derm: Skin is intact, is healthy with good turgor, Skin temperature is warm. Musculoskeletal: Circulation, motion, and sensation intact. Capillary refill < 3 seconds. 06:10 Reassessment: Patient appears in no apparent distress at this time. No changes from rr5 previously documented assessment. Patient is alert, oriented x 3, equal unlabored respirations, skin warm/dry/pink. awaiting for CT procedure.. Vital Signs: 04:45 BP 105 / 74; Pulse 62; Resp 18; Temp 97.7(O); Pulse Ox 99% on R/A; Weight 68.04 kg (R); fc Height 5 ft. 4 in. (162.56 cm) (R); Pain 7/10; 06:10 BP 102 / 69; Pulse 57; Resp 17; Pulse Ox 100% on R/A; rr5 04:45 Body Mass Index 25.75 (68.04 kg, 162.56 cm) ED Course: 04:42 Patient arrived in ED. ds1 04:45 Arm band placed on Patient placed in an exam room, on a stretcher. fc 04:45 Patient has correct armband on for positive identification. Placed in gown. Bed in low fc position. Call light in reach. Pulse ox on. NIBP on. 04:45 No provider procedures requiring assistance completed. fc 05:03 Triage completed. fc 05:07 Mike Espinoza, RN is Primary Nurse. mg2 05:10 Inserted saline lock: 20 gauge in right antecubital area, using aseptic technique. rr5 ,using aseptic technique. inserted by ramo LO Blood collected. 05:44 Trent Stevenson MD is Attending Physician. tw4 06:54 CT Abd/Pelvis - IV Contrast Only In Process Unspecified. EDMS 06:58 Attending Physician role handed off by Trent Stevenson MD ms3 06:58 Hector Bonilla DO is Attending Physician. ms3 07:23 Cesario Luna DO is Referral Physician. ms3 07:35 IV discontinued, intact, bleeding controlled, No redness/swelling at site. Pressure sv dressing applied. Administered Medications: No medications were administered Outcome: 07:23 Discharge ordered by MD. ms3 07:35 Discharged to home ambulatory. sv 07:35 Condition: stable 07:35 Discharge instructions given to patient, Instructed on discharge instructions, follow up and referral plans. Demonstrated understanding of instructions, follow-up care. 07:36 Patient left the ED. sv Signatures: Dispatcher [employer] EDNE Radha Thornton RN RN Akilah Cortez RN RN Lorene Valente ds1 Trent Stevenson MD MD tw4 Mike Espinoza RN RN [facility] Osorio Al RN RN rr5 Hector Bonilla DO DO ms3 Corrections: (The following items were deleted from the chart) 05:04 05:01 Chief complaint: Patient states: that she woke up with complaints of right upper fc abd pain but denies any nausea, vomiting or diarrhea. States that it feels bloated. Had BM yesterday with no problems. Denies any urinary problems. fc 05:04 05:01 BP 105 / 74; Pulse 62bpm; Resp 18bpm; Pulse Ox 99% RA; Temp 97.7F Oral; 68.04 kg fc Reported; Height 5 ft. 4 in. Reported; BMI: 25.7; Pain 7/10; fc 06:10 04:45 GI: Abdomen is round non-distended, Bowel sounds present X 4 quads. Abd is soft rr5 and non tender X 4 quads. Reports upper abdominal pain, Patient currently denies nausea, vomiting, rr5
--- NOTE | 2020-02-10 07:24 | EDPHYS ---
Physician Documentation [facility] Name: Kandi Whittaker Age: 30 yrs Sex: Female : 1990 Arrival Date: 02/10/2020 Time: 04:42 Bed 6 Private MD: ED Physician Hector Bonilla HPI: 02/09 06:52 This 30 yrs old Female presents to ER via Ambulatory with complaints of tw4 Abdominal Pain. 06:52 The patient presents with abdominal pain in the right upper quadrant. Onset: The tw4 symptoms/episode began/occurred today. The symptoms do not radiate. Associated signs and symptoms: none. The symptoms are described as dull. Modifying factors: The symptoms are alleviated by nothing, the symptoms are aggravated by alcohol. The patient has not experienced similar symptoms in the past. 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 - Social history:: Smoking status: Patient denies any tobacco usage or history of. Patient uses alcohol, occasionally. Patient/guardian denies using street drugs. ROS: 06:52 Constitutional: Negative for fever, chills, and weight loss, Eyes: Negative for injury, tw4 pain, redness, and discharge, Cardiovascular: Negative for chest pain, palpitations, and edema, Respiratory: Negative for shortness of breath, cough, wheezing, and pleuritic chest pain, Back: Negative for injury and pain, MS/Extremity: Negative for injury and deformity, Skin: Negative for injury, rash, and discoloration. 06:52 Abdomen/GI: Positive for abdominal pain. Exam: 06:52 Constitutional: This is a well developed, well nourished patient who is awake, alert, tw4 and in no acute distress. Head/Face: Normocephalic, atraumatic. Chest/axilla: Normal chest wall appearance and motion. Nontender with no deformity. No lesions are appreciated. Cardiovascular: Regular rate and rhythm with a normal S1 and S2. No gallops, murmurs, or rubs. Normal PMI, no JVD. No pulse deficits. Respiratory: Lungs have equal breath sounds bilaterally, clear to auscultation and percussion. No rales, rhonchi or wheezes noted. No increased work of breathing, no retractions or nasal flaring. Back: No spinal tenderness. No costovertebral tenderness. Full range of motion. Skin: Warm, dry with normal turgor. Normal color with no rashes, no lesions, and no evidence of cellulitis. MS/ Extremity: Pulses equal, no cyanosis. Neurovascular intact. Full, normal range of motion. Neuro: Awake and alert, GCS 15, oriented to person, place, time, and situation. Cranial nerves II-XII grossly intact. Motor strength 5/5 in all extremities. Sensory grossly intact. Cerebellar exam normal. Normal gait. 06:52 Abdomen/GI: Inspection: abdomen appears normal, Bowel sounds: Palpation: moderate abdominal tenderness, in the right upper quadrant. Vital Signs: 04:45 BP 105 / 74; Pulse 62; Resp 18; Temp 97.7(O); Pulse Ox 99% on R/A; Weight 68.04 kg (R); fc Height 5 ft. 4 in. (162.56 cm) (R); Pain 7/10; 06:10 BP 102 / 69; Pulse 57; Resp 17; Pulse Ox 100% on R/A; rr5 04:45 Body Mass Index 25.75 (68.04 kg, 162.56 cm) fc MDM: 05:44 Patient medically screened. tw4 07:00 Data reviewed: vital signs, lab test result(s), amylase and lipase, CBC, electrolytes. ms3 Transition of care: Care assumed from Trent Stevenson MD. 07:31 Counseling: I had a detailed discussion with the patient and/or guardian regarding: the ms3 historical points, exam findings, and any diagnostic results supporting the discharge/admit diagnosis, lab results, radiology results, the need for outpatient follow up, to return to the emergency department if symptoms worsen or persist or if there are any questions or concerns that arise at home. Special discussion: Based on the patient's Hx, exam, and Dx evaluation, there is no indication for emergent surgery or inpatient Tx. It is understood by the patient/guardian that if the Sx's persist or worsen they need to return immediately for re-evaluation. Further emergent ED testing is not indicated at this point in time. I discussed with the patient/guardian in detail the need to arrange with the PCP or specialist further outpatient testing. ED course: Pt labs reviewed, CT reviewed. Discussed labs and CT with pt. Discussed hypodense area in L hepatic lobe with patient and recommended outpatient follow up. Pt to follow up with Dr Luna in 2-3 days. Pt understands/ agrees with plan. All questions answered. Return precautions given. Pt a/o x4, nad, non-toxic, ambulatory in ED. . 02/09 05:07 Order name: Basic Metabolic Panel; Complete Time: 06:59 02/09 05:07 Order name: CBC with Diff; Complete Time: 06:59 02/09 05:07 Order name: Creatinine for Radiology; Complete Time: 06:59 02/09 05:07 Order name: Hepatic Function; Complete Time: 06:59 02/09 05:07 Order name: Lipase; Complete Time: 06:59 02/09 05:27 Order name: Urine Dipstick--Ancillary (enter results); Complete Time: 06:59 [facility] 02/09 05:07 Order name: IV Saline Lock; Complete Time: 05:12 02/09 05:07 Order name: Labs collected and sent; Complete Time: 05:13 02/09 05:27 Order name: Urine --Ancillary (enter results); Complete Time: 06:59 [facility] 02/09 05:30 Order name: Manual Differential; Complete Time: 06:59 [facility] 02/09 05:50 Order name: Slides for Pathologist Review [facility] 02/09 05:52 Order name: CT Abd/Pelvis - IV Contrast Only tw4 02/09 06:33 Order name: Urine Microscopic Only mg2 Administered Medications: No medications were administered Disposition: 02/10/20 07:23 Discharged to Home. Impression: Upper abdominal pain, unspecified. - Condition is Stable. - Discharge Instructions: Abdominal Pain, Adult. - Work release form, Medication Reconciliation Form, Thank You Letter, Antibiotic Education, Prescription Opioid Use form. - Follow up: Cesario Luna, DO; When: 2 - 3 days. Signatures: Dispatcher [facility] Radha Peters RN Akilah Foster, RN RN Trent Koo MD MD tw4 Hector Bonilla DO DO ms3 Corrections: (The following items were deleted from the chart) 07:36 07:23 02/10/2020 07:23 Discharged to Home. Impression: Upper abdominal pain, sv unspecified. Condition is Stable. Forms are Medication Reconciliation Form, Thank You Letter, Antibiotic Education, Prescription Opioid Use. Follow up: Cesariovirgilio Luna; When: 2 - 3 days. ms3
[2020-02-10 07:44] VITALS: TEMP 97.7
[2020-02-10 07:45] VITALS: BP 102/69; O2SAT 100
[2020-02-10 09:31] LABS: Urine Bacteria 20-50 /HPF (<20); Urine RBC <5 /HPF (NONE SEEN)
[2020-02-10 09:32] LABS: Urine Culture Reflex Order REFLEXED
--- NOTE | 2020-02-10 11:08 | RAD REPORT ---
EXAM DESCRIPTION: CT - Abdomen Pelvis W Contrast - 02/10/2020 7:14 am CLINICAL HISTORY: The patient is 30 years old and is Female; ABD PAIN TECHNIQUE: Axial computed tomography images of the abdomen and pelvis with intravenous contrast. S agittal and coronal reformatted images were created and reviewed. This CT exam was performed using one or more of the following dose reduction techniques: automated exposure control, adjustment of t he mA and/or kV according to patient size, and/or use of iterative reconstruction technique. COMPARISON: CT abdomen and pelvis August 29, 2019.. FINDINGS: Limitations: Evaluation limited by motion artifact. Lung bases: Unremarkable. No mass. No consolidation. ABDOMEN: Liver: Ill-defined residual hypodense area in the left hepatic lobe, not well evaluated on the de layed images secondary to motion. Overall however this is decreased in size in conspicuity compared w ith August 29, 2019. Gallbladder and bile ducts: Cholecystectomy without biliary dilatation. Pancreas: No findings to suggest acute pancreatitis. No mass visualized. No ductal dilation. Spleen: Unremarkable. No splenomegaly. Adrenals: Unremarkable. No mass. Kidneys and ureters: Unremarkable. No solid mass. No hydronephrosis. Stomach and bowel: No bowel dilatation or obstruction. No bowel wall thickening. PELVIS: Appendix: The visualized appendix is normal. No pericecal inflammation to suggest acute appendic itis. Bladder: Unremarkable. No mass. Reproductive: Retroverted uterus. No adnexal mass. ABDOMEN and PELVIS: Intraperitoneal space: Unremarkable. No free air. No significant fluid collection. Bones/joints: Arthropathic changes in the right SI joint. No acute fracture identified. No dislocation. Soft tissues: Unremarkable. Vasculature: Unremarkable. No abdominal aortic aneurysm. Lymph nodes: No pathologically enlarged lymph nodes. IMPRESSION: 1. Evaluation limited by motion artifact. 2. Cholecystectomy without biliary dilatation. 3. Ill-defined residual hypodense area in the left hepatic lobe, not well evaluated on the delayed i mages secondary to motion. Overall , however, this is decreased in size in conspicuity compared with August 29, 2019. Ultrasound may be of further utility. 4. Normal appendix. Electronically signed by: Radha Villagomez MD 02/10/2020 7:03 AM CDT Due to temporary technical issues with the PACS/Fluency reporting system, reports are being signed by the in house radiologist as a courtesy to ensure prompt reporting. The interpreting radiologist is jono perezly responsible for the content of the report.
== END 2020-02-10 07:36 | disposition home or self-care (01) ==
LOC: ER 04:39
DX: R10.11 Right upper quadrant pain (principal); Z86.73 Personal history of transient ischemic attack (TIA), and cerebral infarction without residual deficits
CPT/HCPCS: 36415; 74177; 80048; 80076; 81003; 81015; 81025; 83690; 85025; 87086; 87088; 99284; Q9967

== ENCOUNTER → 2023-10-16 | Emergency (ER) | payer BC ==
[~2023-10-16] MED LIST: ONDANSETRON 4 MG (ODT) TAB ONE; predniSONE 20 MG TAB ONE
[2023-10-16 15:27] LABS: Specific Gravity > 1.030 (1.005-1.030); Urine Bacteria <20 /HPF (<20); Urine Bilirubin NEGATIVE (Negative); Urine Blood 3+ (OVER) (Negative); Urine Clarity Extremely Turbid (Clear); Urine Color Dark-Brown (Yellow); Urine Glucose NEGATIVE (Negative); Urine Mucus 2+ /HPF (None Seen); Urine Protein 2+ (Negative); Urine RBC >50 /HPF (None Seen); Urine Urobilinogen Normal (Normal); Urine WBC Clump Moderate /HPF (None Seen); Urine pH 5.5 (5.0-7.0)
--- NOTE | 2023-10-16 15:45 | ER ---
Nurse's Notes [facility] Name: Kandi Whittaker Age: 33 yrs Sex: Female : 1990 Arrival Date: 10/16/2023 Time: 13:45 Bed DX1 Private MD: Diagnosis: Diop's palsy;Influenza due to identified novel influenza A virus-B Presentation: 10/16 13:54 Chief complaint: N/V/D, fever, cough, congestion, sore throat, and left flank pain x 1 hb week, not tolerating fluids. Left facial droop x 4 days. Hx of Diop's Palsy. Coronavirus screen: At this time, the client does not indicate any symptoms associated with coronavirus-19. Ebola Screen: No symptoms or risks identified at this time. Initial Sepsis Screen: Does the patient meet any 2 criteria? No. Patient's initial sepsis screen is negative. Does the patient have a suspected source of infection? No. Patient's initial sepsis screen is negative. Risk Assessment: Do you want to hurt yourself or someone else? Patient reports no desire to harm self or others. Onset of symptoms was October 09, 2023. 13:54 Method Of Arrival: Ambulatory hb 13:54 Acuity: AMNA 3 hb Stroke Activation: Symptom onset > 6 hours Physician: Stroke Attending; Name: ; Notified At: ; Arrived At: Physician: Chief Stroke Resident; Name: ; Notified At: ; Arrived At: Physician: Stroke Resident; Name: ; Notified At: ; Arrived At: Physician: ED Attending; Name: ; Notified At: ; Arrived At: Physician: ED Resident; Name: ; Notified At: ; Arrived At: Historical: - Allergies: 13:56 No Known Allergies; hb - Home Meds: 13:57 None [Active]; hb - PMHx: 13:56 Diop's Palsy; TIA; hb - PSHx: 13:57 Cholecystectomy; Tubal Ligation; hb - Immunization history:: Adult Immunizations up to date. - Social history:: Smoking status: Patient denies any tobacco usage or history of. Assessment: 15:10 Reassessment: Urine specimen sent to lab. hb Vital Signs: 13:54 BP 119 / 90; Pulse 118; Resp 16; Temp 98.6(TE); Pulse Ox 98% on R/A; hb ED Course: 13:48 Patient arrived in ED. ts1 13:53 Comfort Chavez [facility]-C [facility]. kb 13:53 Glynn Shafer MD is Attending Physician. kb 13:56 Triage completed. hb 13:56 Arm band placed on. hb 15:51 Lucy Kim, RN is Primary Nurse. iw Administered Medications: 15:51 Drug: Ondansetron Oral Disintegrating Tablet Oral Disintegrating Tablet 4 mg PO once iw Route: PO; 15:52 Drug: predniSONE PO 60 mg PO once Route: PO; iw Outcome: 15:44 Discharge ordered by MD. kb 16:12 Patient left the ED. iw Signatures: Comfort Chavez FNP-C PRODUCT MARKETING ENGINEER-Lucy Russell RN RN iw Jill Ramirez RN RN Ayaka Naik PAS PAS ts1 Corrections: (The following items were deleted from the chart) 13:57 13:54 Chief complaint: N/V/D, fever, cough, left flank pain x 1 week, not tolerating hb fluids. Left facial droop x 4 days. Hx of Diop's Palsy. hb
--- NOTE | 2023-10-16 15:45 | EDPHYS ---
Physician Documentation [facility] Name: Kandi Whittaker Age: 33 yrs Sex: Female : 1990 Arrival Date: 10/16/2023 Time: 13:45 Bed DX1 Private MD: ED Physician Glynn Shafer HPI: 10/16 15:31 This 33 yrs old Female presents to ER via Ambulatory with complaints of Fever, kb Flu Symptoms, Facial Droop. 15:31 Patient is a 33-year-old female who presents with nausea, vomiting, fever, cough, kb diarrhea, congestion, sore throat and left flank pain for 1 week. Also reports left facial droop for 2 days. States she has a history of Diop's palsy and believes that is the cause of the facial drooping. Denies any other neurological symptoms. Reports flank pain is worse with cough. Denies urinary symptoms.. Historical: - Allergies: 13:56 No Known Allergies; hb - Home Meds: 13:57 None [Active]; hb - PMHx: 13:56 Diop's Palsy; TIA; hb - PSHx: 13:57 Cholecystectomy; Tubal Ligation; hb - Immunization history:: Adult Immunizations up to date. - Social history:: Smoking status: Patient denies any tobacco usage or history of. ROS: 15:32 Cardiovascular: Negative for chest pain, palpitations, and edema, kb 15:32 Constitutional: Positive for body aches, chills, fatigue, fever, malaise, 15:32 ENT: Positive for rhinorrhea, sinus congestion, sore throat, 15:32 Respiratory: Positive for cough, 15:32 Abdomen/GI: Positive for nausea, vomiting, and diarrhea, Negative for abdominal pain, 15:32 Neuro: Positive for numbness, of the left side of head, 15:32 All other systems are negative, Exam: 15:32 Constitutional: This is a well developed, well nourished patient who is awake, alert, kb and in no acute distress. Head/Face: Normocephalic, atraumatic. ENT: Moist Mucous membranes Cardiovascular: Regular rate Respiratory: Respirations even and unlabored. No increased work of breathing. Talking in full sentences Abdomen/GI: Soft, non-tender. No distention Back: No spinal tenderness. No costovertebral tenderness. Full range of motion. Skin: Warm, dry with normal turgor. Normal color. MS/ Extremity: Pulses equal, no cyanosis. Neurovascular intact. Full, normal range of motion. 15:32 Neuro: Orientation: is normal, Mentation: is normal, Memory: is normal, Cranial nerves: facial droop noted on left, with forehead involved. Vital Signs: 13:54 BP 119 / 90; Pulse 118; Resp 16; Temp 98.6(TE); Pulse Ox 98% on R/A; hb MDM: 13:53 Patient medically screened. kb 15:30 Data reviewed: vital signs, nurses notes. kb 15:34 Differential Diagnosis: Bronchitis Influenza Upper Respiratory Infection Pneumonia kb Other covid. Test considered but Not performed: CT: ct head considered but forehead involved in numbness of face, no other neurologic deficits. Counseling: I had a detailed discussion with the patient and/or guardian regarding the historical points, exam findings, and any diagnostic results supporting the discharge/admit diagnosis, lab results, the need for outpatient follow up, a family practitioner, to return to the emergency department if symptoms worsen or persist or if there are any questions or concerns that arise at home. 10/16 13:57 Order name: COVID-19 SARS RT PCR 10/16 14:28 Order name: Influenza Screen (A [facility] 10/16 14:35 Order name: Respiratory Syncytial Virus Ag [facility] 10/16 14:47 Order name: Throat Culture [facility] 10/16 14:50 Order name: SARS-COV-2 RT PCR [facility] 10/16 15:27 Order name: Test, Urine; Complete Time: 16:09 [facility] 10/16 15:27 Order name: Urinalysis w/ reflexes; Complete Time: 16:09 [facility] 10/16 15:32 Order name: PO challenge; Complete Time: 16:08 kb Administered Medications: 15:51 Drug: Ondansetron Oral Disintegrating Tablet Oral Disintegrating Tablet 4 mg PO once iw Route: PO; 15:52 Drug: predniSONE PO 60 mg PO once Route: PO; iw Disposition Summary: 10/16/23 15:44 Discharge Ordered Notes: Location: Home Condition: Stable kb Diagnosis - Diop's palsy kb - Influenza due to identified novel influenza A virus - B kb Followup: kb - With: Emergency Department - When: As needed - Reason: Worsening of condition Followup: kb - With: Private Physician - When: 2 - 3 days - Reason: Recheck today's complaints, Continuance of care, Re-evaluation by your physician Discharge Instructions: - Discharge Summary Sheet kb - Diop's Palsy, Adult kb - Influenza, Adult, [id number] kb Forms: - Medication Reconciliation Form kb - Thank You Letter kb - Antibiotic Education kb - Prescription Opioid Use kb - Patient Portal Instructions kb - Leadership Thank You Letter kb Prescriptions: - Valtrex 1 gram Oral tablet - take 1 tablet ORAL route 3 times per day for 7 days; 21 tablet; Refills: 0, kb Product Selection Permitted - Prednisone 20 mg Oral Tablet - take 3 tablets ORAL route once daily for 5 days; 15 tablet; Refills: 0, Product kb Selection Permitted - Zofran 4 mg Oral tablet - take 1 tablet ORAL route every 6 hours As needed; 12 tablet; Refills: 0, kb Product Selection Permitted Addendum: 10/17/2023 21:16 I was immediately available for consultation during this patient's visit. I did not e c2 personally see the patient or guide the patient's care. . Signatures: Dispatcher [employer] Comfort Royal, MASTER TECHNICIAN-C MASTER TECHNICIAN-Lucy Russell RN RN Jill [place] RN RN Glynn Marino MD MD ec2
[2023-10-16 16:42] VITALS: BP 119/90; TEMP 98.6; O2SAT 98
== END ==
LOC: ER 13:45
DX: J10.1 Influenza due to other identified influenza virus with other respiratory manifestations (principal); G51.0 Bell's palsy; Z11.52 Encounter for screening for COVID-19
CPT/HCPCS: 87070; 87088; 81001; 87086; 81025; 87081; 87635; 87807; 87804 ×2; 99282; J7512; Q0162

== ENCOUNTER 2025-06-05 19:45 | Emergency (ER) | payer BC ==
[2025-06-05] MEDS ORDERED: ASPIRIN 81 MG CHEWABLE TABLET ONE (20:10)
[2025-06-05 20:13] LABS: Absolute Lymphocytes (CBC) 2.7 K/uL (0.7-4.9); Hematocrit 34.0 % (36.0-45.0); Hemoglobin 10.8 g/dL (12.0-15.0); MCH 24.6 pg (27.0-35.0); MCHC 31.9 g/dL (32.0-36.0); MCV 77.3 fL (80-100); MPV 8.7 fL (7.6-11.3); Nucleated RBC Absolute Count 0.0 (0-0); Nucleated Red Blood Cells % 0.0 % (0-0); RBC Red Blood Cell Count 4.40 M/uL (3.86-4.86); White Blood Count 5.90 thou/uL (4.3-10.9)
[2025-06-05 20:33] LABS: ALT/SGPT 31 U/L (13-56); AST/SGOT 19 U/L (15-37); Albumin 3.6 g/dL (3.4-5.0); Albumin/Globulin Ratio 1.0 (1.1-1.8); Alkaline Phosphatase 55 U/L (45-117); Anion Gap 10.5 mEq/L (5.0-15.0); BUN Blood Urea Nitrogen 14 mg/dL (7-18); Globulin 3.7 g/dL (2.3-3.5); Glucose Level 93 mg/dL (74-106); Magnesium 1.9 mg/dL (1.6-2.4); NT PRO-BNP 11 pg/mL (<125); Potassium 3.5 mEq/L (3.5-5.1); Troponin High Sensitivity 7.0 pg/mL (<58.9)
[2025-06-05 20:36] LABS: Bilirubin Indirect, Calculated 0.0 mg/dL (0.2-0.8)
--- NOTE | 2025-06-05 21:04 | RAD REPORT ---
Procedure: Chest Single View HISTORY: Chest pain COMPARISON: 2019 FINDINGS: The lungs appear clear of acute infiltrate. No significant pleural effusion noted. The heart is mildly enlarged. . IMPRESSION: No acute abnormality is displayed.
--- NOTE | 2025-06-05 22:21 | EDPHYS ---
Physician Documentation [facility] Name: Kandi Whittaker Age: 35 yrs Sex: Female : 1990 Arrival Date: 06/05/2025 Time: 19:45 Bed 6 Private MD: ED Physician Patricio Day HPI: 06/05 20:36 This 35 yrs old Female presents to ER via Ambulatory with complaints of Chest kb Pain. 20:36 Patient is a 35-year-old female who presents for left-sided chest pain that started kb just prior to arrival while grocery shopping. States pain is worse with deep breath. Denies nausea, vomiting, shortness of breath. States she is never had this happen before. Denies any cardiac history.. [employer]: 22:36 Not tb4 Historical: - Allergies: 19:56 No Known Allergies; br2 - PMHx: 19:56 Diop's Palsy; TIA; br2 - PSHx: 19:56 Cholecystectomy; tubal ligation; br2 - Immunization history:: Adult Immunizations up to date. - Infectious Disease History:: Denies. - Social history:: Smoking status: Patient denies any tobacco usage or history of. Patient uses alcohol, occasionally. Patient/guardian denies using street drugs. ROS: 19:57 Constitutional: As per HPI kb Exam: 19:57 Constitutional: This is a well developed, well nourished patient who is awake, alert, kb and in no acute distress. Head/Face: Normocephalic, atraumatic. ENT: Moist Mucous membranes Cardiovascular: Regular rate Respiratory: Respirations even and unlabored. No increased work of breathing. Talking in full sentences Abdomen/GI: Soft, non-tender. No distention Skin: Warm, dry with normal turgor. Normal color. MS/ Extremity: Pulses equal, no cyanosis. Neurovascular intact. Full, normal range of motion. Neuro: Awake and alert, GCS 15, oriented to person, place, time, and situation. 19:57 ECG was reviewed by the Attending Physician. Vital Signs: 19:53 BP 149 / 84; Pulse 101; Resp 22; Temp 98.2(O); Pulse Ox 98% on R/A; Weight 77.11 kg; br2 Height 5 ft. 4 in. ; Pain 9/10; 20:19 BP 129 / 81; Pulse 91; Resp 21; Pulse Ox 100% on R/A; Weight 74.84 kg; Height 5 ft. 4 tb4 in. ; Pain 8/10; 21:30 BP 113 / 78; Pulse 114; Resp 20; Pulse Ox 100% on R/A; tb4 22:23 BP 111 / 78; Pulse 99; Resp 19; Pulse Ox 98% on R/A; tb4 20:19 Body Mass Index 28.32 (74.84 kg, 162.56 cm) tb4 19:53 Pain Scale: Adult br2 20:19 Pain Scale: Adult tb4 MDM: 19:51 Medical Screening Exam initiated kb 19:53 Scoring Tools PERC Rule for PE Age >/= 50 No HR >/= 100 No O2 Sat Room Air < 95% No kb Unilateral leg swelling No Hemoptysis No Recent surgery or trauma </= 4 wks ago requiring treatment with general anesthesia No (0 pt) Prior PE or DVT No Hormone use (Oral contraceptives, hormone replacement or estrogenic hormones use in males or female patients No. 20:36 Data reviewed: vital signs, nurses notes. kb 22:18 Differential diagnosis: acute mi, arrhythmia, pe, chest wall pain. Consideration of kb Admission/Observation Escalation of care including admission/observation considered. admission considered for chest pain, but heart score 0. Test considered but Not performed: CT: CT chest considered but PERC negative. Counseling: I had a detailed discussion with the patient and/or guardian regarding the historical points, exam findings, and any diagnostic results supporting the discharge/admit diagnosis, lab results, radiology results, the need for outpatient follow up, a family practitioner, to return to the emergency department if symptoms worsen or persist or if there are any questions or concerns that arise at home. 06/05 19:54 Order name: Basic Metabolic Panel; Complete Time: 20:39 kb 06/05 19:54 Order name: CBC with Diff; Complete Time: 20:18 kb 06/05 19:54 Order name: LFT's; Complete Time: 20:39 kb 06/05 19:54 Order name: Magnesium; Complete Time: 20:39 kb 06/05 19:54 Order name: NT PRO-BNP; Complete Time: 20:39 kb 06/05 19:54 Order name: Troponin HS; Complete Time: 20:39 kb 06/05 21:42 Order name: Troponin High Sensitivity; Complete Time: 22:18 kb 06/05 19:54 Order name: XRAY Chest (1 view); Complete Time: 21:05 kb 06/05 19:54 Order name: EKG; Complete Time: 19:54 kb 06/05 19:54 Order name: Cardiac monitoring; Complete Time: 19:57 kb 06/05 19:54 Order name: EKG - Nurse/Tech; Complete Time: 19:57 kb 06/05 19:54 Order name: IV Saline Lock; Complete Time: 20:13 kb 06/05 19:54 Order name: Labs collected and sent; Complete Time: 20:17 kb 06/05 19:54 Order name: O2 Per Protocol; Complete Time: 19:57 kb 06/05 19:54 Order name: O2 Sat Monitoring; Complete Time: 19:57 kb EC:57 Rate is 84 beats/min. Rhythm is regular. QRS [place]als is Normal. NE interval is normal at kb 146 msec. QRS interval is normal at 84 msec. QT interval is normal at 423 msec. Administered Medications: 20:13 Drug: Aspirin PO Chewable Tablet 324 mg PO once; 81 mg tablets x 4 Route: PO; tb4 22:23 Follow up: Response: No adverse reaction tb4 Disposition: 06/06 06:16 Co-signature as Attending Physician, Patricio Day MD I agree with the assessment sp4 and plan of care. I reviewed the patient's care provided by the Advanced Practice Provider and agree with the diagnosis and treatment plan. Disposition Summary: 06/05/25 22:20 Discharge Ordered Notes: Location: Home Condition: Stable kb Diagnosis - Chest pain, unspecified kb Followup: kb - With: Emergency Department - When: As needed - Reason: Worsening of condition Followup: kb - With: Private Physician - When: 2 - 3 days - Reason: Recheck today's complaints, Continuance of care, Re-evaluation by your physician Discharge Instructions: - Discharge Summary Sheet kb - Nonspecific Chest Pain, Adult, [id number] kb Forms: - Medication Reconciliation Form kb - Antibiotic Education kb - Prescription Opioid Use kb - Patient Portal Instructions kb - Leadership Thank You Letter kb - Work release form kmf Signatures: Dispatcher [employer] EDComfort Harrison, RUBEN-C RUBEN-Patricio Feranndez MD MD sp4 Bettie Gaines, RN RN br2 Jacqui Jason, RN RN tb4
--- NOTE | 2025-06-05 22:21 | ER ---
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 Coronavirus screen: Client denies travel out of the [place] in the last 14 days. Ebola Screen: Patient denies exposure to infectious person. Initial Sepsis Screen: Does the patient meet any 2 criteria? RR > 20 per min. HR > 90 bpm. Does the patient have a suspected source of infection? No. Patient's initial sepsis screen is negative. Risk Assessment: Do you want to hurt yourself or someone else? Patient reports no desire to harm self or others. Onset of symptoms was June 05, 2025 at 18:00. 19:53 Method Of Arrival: Ambulatory br2 19:53 Acuity: AMNA 3 br2 Triage Assessment: 19:56 General: Appears uncomfortable, Behavior is calm, cooperative. Pain: Complains of pain br2 in anterior aspect of left upper chest Pain does not radiate. Pain currently is 9 out of 10 on a pain scale. 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 - Infectious Disease History:: Denies. - Social history:: Smoking status: Patient denies any tobacco usage or history of. Patient uses alcohol, occasionally. Patient/guardian denies using street drugs. Screenin:14 [facility] ED Fall Risk Assessment (Adult) History of falling in the last 3 months, tb4 including since admission No falls in past 3 months (0 pts) Confusion or Disorientation No (0 pts) Intoxicated or Sedated No (0 pts) Impaired Gait No (0 pts) Mobility Assist Device Used No (0 pt) Altered Elimination No (0 pt) Score/Fall Risk Level 0 - 2 = Low Risk Oriented to surroundings, Maintained a safe environment. Abuse screen: Denies threats or abuse. Denies injuries from another. Nutritional screening: No deficits noted. Tuberculosis screening: No symptoms or risk factors identified. Assessment: 20:14 Reassessment: See triage note. General: Appears uncomfortable, Behavior is calm, tb4 cooperative. Pain: Complains of pain in left lateral posterior chest Pain does not radiate. Pain currently is 8 out of 10 on a pain scale. Quality of pain is described as sharp, Pain began suddenly, 1 hour ago. Is continuous, Alleviated by nothing. Aggravated by increased activity, repositioning. Neuro: No deficits noted. Level of Consciousness is awake, alert, obeys commands, Oriented to person, place, time, situation, Digital Photographer are equal bilaterally Moves all extremities. Full function Gait is steady, Speech is normal, Facial symmetry appears normal. Cardiovascular: Reports chest pain, Denies nausea, shortness of breath, vomiting, Heart tones present Capillary refill < 3 seconds is brisk in bilateral fingers. Respiratory: Airway is patent Trachea midline Respiratory effort is even, unlabored, Respiratory pattern is regular, symmetrical. GI: No signs and/or symptoms were reported involving the gastrointestinal system. : No signs and/or symptoms were reported regarding the genitourinary system. EENT: No signs and/or symptoms were reported regarding the EENT system. Vital Signs: 19:53 BP 149 / 84; Pulse 101; Resp 22; Temp 98.2(O); Pulse Ox 98% on R/A; Weight 77.11 kg; br2 Height 5 ft. 4 in. ; Pain 9/10; 20:19 BP 129 / 81; Pulse 91; Resp 21; Pulse Ox 100% on R/A; Weight 74.84 kg; Height 5 ft. 4 tb4 in. ; Pain 8/10; 21:30 BP 113 / 78; Pulse 114; Resp 20; Pulse Ox 100% on R/A; tb4 22:23 BP 111 / 78; Pulse 99; Resp 19; Pulse Ox 98% on R/A; tb4 20:19 Body Mass Index 28.32 (74.84 kg, 162.56 cm) tb4 19:53 Pain Scale: Adult br2 20:19 Pain Scale: Adult tb4 ED Course: 19:46 Patient arrived in ED. mr 19:51 Comfort Chavez FNP-C is [facility]. kb 19:51 Patricio Day MD is Attending Physician. kb 19:56 Triage completed. br2 19:56 Arm band placed on left wrist. br2 19:57 EKG done, by technical services librarian. reviewed by Comfort GARCÍA. rk3 20:14 Patient has correct armband on for positive identification. Placed in gown. Call light tb4 in reach. Side rails up X 1. Child being held by parent. Client placed on continuous cardiac and pulse oximetry monitoring. NIBP monitoring applied. quality assurance monitor chassis on. Pulse ox on. Door closed. 20:14 Patient maintains SpO2 saturation greater than 95% on room air. tb4 20:17 Initial lab(s) drawn, by me, sent to lab. Inserted saline lock: 20 gauge in right rk3 antecubital area, using aseptic technique. Blood collected. Flushed with 10 mL NS. 20:51 XRAY Chest (1 view) In Process Unspecified. EDMS 22:35 No provider procedures requiring assistance completed. IV discontinued, intact, tb4 bleeding controlled, No redness/swelling at site. Pressure dressing applied. 22:36 Provided Education on: Follow up with primary care provider. tb4 Administered Medications: 20:13 Drug: Aspirin PO Chewable Tablet 324 mg PO once; 81 mg tablets x 4 Route: PO; tb4 22:23 Follow up: Response: No adverse reaction tb4 Medication: 20:14 VIS not applicable for this client. tb4 Outcome: 22:20 Discharge ordered by . kb 22:35 Discharged to home ambulatory, with family, tb4 22:35 Condition: stable 22:35 Discharge instructions given to patient, Instructed on discharge instructions, follow up and referral plans. Demonstrated understanding of instructions, follow-up care, 22:36 Patient left the ED. tb4 Signatures: Dispatcher [employer] EDMS Comfort Chavez FNP-C FNP-Jayb Bri Thompson, Reg Reg mr Gaines Bettie, RN RN br2 Tatiana Toth rk3 Jacqui Jason, RN RN tb4
[2025-06-06 06:34] VITALS: TEMP 98.2
[2025-06-06 06:37] VITALS: BP 111/78; O2SAT 98
== END 2025-06-05 22:36 | disposition home or self-care (01) ==
LOC: ER 19:45
DX: R07.9 Chest pain, unspecified (principal); Z86.73 Personal history of transient ischemic attack (TIA), and cerebral infarction without residual deficits
CPT/HCPCS: 36415; 71045; 80048; 80076; 83735; 83880; 84484; 85025; 93005; 99284